=== PATIENT | male | born 1985 | race Caucasian/White ===

== ENCOUNTER 2020-12-08 10:55 | Emergency (ER) | payer OTHER, SELFPAY ==
--- NOTE | ~2020-12-08 | XR_ITS ---
EXAMINATION: XR CHEST CLINICAL INFORMATION: SOB and wheezing COMPARISON: None TECHNIQUE: Frontal view of the chest was obtained. FINDINGS: No significant abnormality is noted involving the heart, lungs, mediastinum, bony thorax or soft tissues. XR/XR chest 1V IMPRESSION: Unremarkable chest examination.
[2020-12-08 11:56] VITALS: BP 176/104; PULSE 104; RESP 23; TEMP 36.7; O2SAT 93; BMI 18.6
[2020-12-08] MEDS: Albuterol Sulfate (0.083%) 2.5 MG/3 ML VIAL.NEB 10 MG INHALE (12:29)
[2020-12-08 12:30] VITALS: PULSE 92
--- NOTE | 2020-12-08 12:30 | ED_ITS ---
HPI - Asthma General Chief Complaint: Asthma Stated Complaint: asthma Time Seen by Provider: 12/08/20 12:10 Source: patient and family Mode of arrival: ambulatory Limitations: no limitations History of Present Illness HPI Narrative: 35 y/o male with history of asthma, depression, anxiety who presents with acute onset of SOB and wheezing that started in the middle of the night last night. He recently ran out of his albuterol inhaler. He usually does not use it everyday, only once and while when he is sick or is exposed to an allergen. He was admitted for his asthma once several years ago, has never required intubation. He denies recent sick contacts. He was in his [facility] yesterday and went to bed feeling fine. He recently quit smoking cigarettes but still occasionally smokes marijuana which is known to make him SOB. He denies productive cough, fever, chilsl, N/V, chest pain. MD complaint: asthma attack , shortness of breath and wheezing Onset (ago): hour(s) (8) Severity: moderate Context: ran out of meds and smoke exposure Associated symptoms: dry cough Asthma History: childhood onset Related Data Current Asthma Therapy: inhaled bronchodilator (ran out of inhaler) Previous Rx's Medication Instructions Recorded albuterol sulfate 1 inh INHALATION QID PRN #6.7 g 12/08/20 azithromycin [Zithromax Z-Florin] See Rx Instructions PO .COMPLEX #6 12/08/20 tab prednisone 40 mg PO DAILY #10 tab 12/08/20 Allergies Allergy/AdvReac Type Severity Reaction Status Date / Time No Known Allergies Allergy Verified 12/08/20 11:58 Review of Systems Review of Systems: Constitutional: No Fever, No Chills ENT/Mouth: No sore throat, No Rhinorrhea, No Swallowing Difficulty Cardiovascular: No Chest Pain, + SOB, No Orthopnea, No Edema Respiratory: + Cough, No Sputum, + Wheezing, No dyspnea Gastrointestinal: No Nausea, No Vomiting, No Diarrhea, No abdominal Pain Musculoskeletal: No joint pain, No Myalgias Skin: No Skin Lesions, No rash Neuro: No Headache Psych: + Anxiety/Panic, + Depression PMF Past Medical History Attestation statement: The following information was validated with the patient. Medical History (Updated 12/08/20 @ 13:44 by NIDIA King) Anxiety Asthma Depression Social History Social History Advance Directives: No Advance Directives Information Provided: No Physical Exam Vital Signs: Vital Signs: Last Vital Signs Temp 98.1 F 12/08/20 11:56 Pulse 90 12/08/20 13:29 Resp 18 12/08/20 13:29 BP 176/104 H 12/08/20 11:56 Pulse Ox 100 12/08/20 13:29 Body Mass Index 18.6 Appearance: Alert. Oriented X3. No acute distress. Eyes: Pupils equal, round and reactive to light. ENT: Pharynx normal. Neck: Normal inspection. Neck supple. CVS: tachycardic, regular rhythm. Pulses normal. Respiratory: No respiratory distress. Expiratory wheezes throughout with prolonged expiratory phase. Spekks in complete sentences. No accessory muscle use. Abdomen: Soft and nontender. +BS x4 Skin: Skin warm and dry. Normal skin color. Normal skin turgor. No rashes. Extremities: No lower extremity edema. Neuro: Oriented X 3. Course Course Course Narrative: 35 y/o male with history of asthma presenting with SOB and wheezing that started last night. No signs or symptoms of bacterial or viral infection. Etiology likely due to running out of inhaler and smoking marijuana. Will give dose of PO steroids and hour long albuterol neb and reassess. CXR ordered Reevaluation(s) Reevaluation #1: CXR negative for pneumonia Significant improvement in breath sounds after nebulizer treatment. He is feeling better. He is stable for discharge home with refill of his albuterol and a 5 day course of steroids. Encouarged to f/u with his PCP and come back t the ER if his symptoms recurred or worsened. MDM - Asthma Differential Diagnosis Differential diagnosis: Likely Acute exacerbation, Status asthmaticus, Acute asthmatic bronchitis and Pneumonia Medical Records Attestation: I reviewed the patient's medical records. Critical Care Time Critical Care Time Critical Care Time: No Discharge Plan Discharge Clinical Impression: Asthma with acute exacerbation Qualifiers: Asthma severity: mild Asthma persistence: intermittent Qualified Code(s): J45.21 - Mild intermittent asthma with (acute) exacerbation Patient Disposition: Home, Self-Care Instructions: Asthma (ED), Bronchospasm (ED) Additional Instructions: Your x-ray today was negative. Take the prescribed steroid medication for your asthma - start taking it tomorrow, you were given your 1st dose in the ER today. Use your albuterol inhaler as needed for wheezing and shortness of breath. Follow up with your doctor this week. If you have worsening symptoms come back to the ER for further evaluation. Prescriptions: New prednisone 20 mg tablet 40 mg PO DAILY Qty: 10 RF: 0 albuterol sulfate 90 mcg/actuation HFA aerosol inhaler 1 inh inhalation QID PRN (Reason: shortness of breath or wheezing) Qty: 6.7 RF: 0 azithromycin [Zithromax Z-Florin] 250 mg tablet See Rx Instructions PO .COMPLEX Qty: 6 RF: 0 Discharge Date/Time: 12/08/20 13:48
[2020-12-08] MEDS: predniSONE 20 MG TABLET 60 MG PO (13:07)
[2020-12-08 13:29] VITALS: PULSE 90; RESP 18; O2SAT 100
== END 2020-12-08 13:48 | disposition home or self-care (01) ==
PROVIDERS: Emergency Provider Emergency Medicine
DX: J45.21 Mild intermittent asthma with (acute) exacerbation (principal); Z79.899 Other long term (current) drug therapy
CPT/HCPCS: 71045; 94640; 94644; 99283

== ENCOUNTER 2021-02-14 01:58 | Emergency (ER) | payer OTHER, SELFPAY ==
--- NOTE | ~2021-02-14 | XR_ITS ---
EXAMINATION: XR CHEST CLINICAL INFORMATION: Shortness of breath COMPARISON: 12/08/2020 TECHNIQUE: Frontal view of the chest was obtained. FINDINGS: Lung volumes are symmetric. No focal consolidation is seen. No evidence of pneumothorax, pleural effusion, or pulmonary edema. The cardiomediastinal contour is unremarkable. No acute osseous findings are seen. XR/XR chest 1V IMPRESSION: No acute cardiopulmonary findings.
[2021-02-14 02:05] VITALS: BMI 19.9
--- NOTE | 2021-02-14 02:07 | ECG_ITS ---
Test Reason : DYSPNEA Blood Pressure : / mmHG Vent. Rate : 078 BPM Atrial Rate : 078 BPM P-R Int : 138 ms QRS Dur : 072 ms QT Int : 392 ms P-R-T Axes : 069 079 057 degrees QTc Int : 446 ms Sinus rhythm with Premature atrial complexes Otherwise normal ECG No previous ECGs available Referred By: Eileen Vásquez Electronically Signed By:Ayden Zaragoza
--- NOTE | 2021-02-14 02:10 | ED.ASTHMA ---
HPI - Asthma General Chief Complaint: Asthma Stated Complaint: SOB Time Seen by Provider: 02/14/21 02:07 Source: patient Mode of arrival: ambulatory History of Present Illness HPI Narrative: This is a 35-year-old male who has a history of asthma and ?underdeveloped lung? and states that he began developing acute shortness of breath approximately 1 hour ago. He denies any other medical history and states that he smokes weed but does not smoke cigarettes or drink alcohol. Patient denies any recent fever, chills, COVID-19 vaccination. Related Data Previous Rx's Medication Instructions Recorded albuterol sulfate 1 inh INHALATION QID PRN #6.7 g 12/08/20 azithromycin [Zithromax Z-Florin] See Rx Instructions PO .COMPLEX #6 12/08/20 tab prednisone 40 mg PO DAILY #10 tab 12/08/20 prednisone 40 mg PO DAILY 4 Days #8 tab 02/14/21 Allergies Allergy/AdvReac Type Severity Reaction Status Date / Time No Known Allergies Allergy Verified 12/08/20 11:58 Review of Systems Review of Systems: Pertinent positives and negatives as stated in HPI 10 point review of systems is otherwise negative. PMFSH Past Medical History Source: nursing notes reviewed Medical History Anxiety Asthma Depression Surgical History Hx of cholecystectomy Family History Family History Mother No problems noted. Father No problems noted. Social History Social History Alcohol intake: never Patient Tobacco Use Status: Former Tobacco user Tobacco use type: Cigarette Second Hand Smoke Exposure: No Use of substances other than those prescribed or required for medical reasons: Yes Substance Use Type: Marijuana Advance Directives: No Advance Directives Information Provided: No Physical Exam Vital Signs: Vital Signs: Last Vital Signs Temp 98.6 F 02/14/21 02:11 Pulse 95 02/14/21 05:46 Resp 17 02/14/21 05:46 BP 118/73 02/14/21 05:46 Pulse Ox 97 02/14/21 05:46 Body Mass Index 19.9 VITAL SIGNS: Reviewed. GENERAL: Well developed, well nourished, in no acute distress. HEAD: Normocephalic/atraumatic EYES: PERRLA, EOMI OROPHARYNX: no oral lesions noted, posterior pharynx clear NECK: Supple, no adenopathy LUNGS: Although patient is able to speak in full sentences, he has increased work of breathing, tachypnea, decreased air movement bilaterally with expiratory wheeze SpO2<88> then oxygenation improves to 98% on supplemental nasal cannula CARDIOVASCULAR: Regular rate and rhythm without noted murmurs ABDOMEN: Soft, non-tender, non-distended with bowel sounds. SKIN: Inspection of the skin reveals no rashes NEUROLOGIC: Alert and oriented x 4. Course Course Course Narrative: This is a 35-year-old male with history and clinical presentation most consistent with acute asthma exacerbation. Patient received steroids, 2 hour long albuterol treatments with significant and complete resolution of his wheeze, work of breathing and currently saturating well on room air. Review of all investigations negative for acute findings. Patient was discharged in stable condition with an albuterol inhaler and a short course of steroids. MDM - Asthma Lab Data Result diagrams: 02/14/21 02:18 02/14/21 02:18 Labs: Lab Results 02/14/21 02/14/21 02/14/21 Range/Units 02:18 02:18 02:18 WBC 13.5 H (4.8-10.8) X10*3/uL RBC 4.49 L (4.60-5.80) X10*6/uL Hgb 15.8 (14.0-18.0) g/dl Hct 45.3 (42-52) % MCV 100.9 H (80-98) fL MCH 35.2 H (27.0-33.0) pg MCHC 34.9 (31.0-36.0) g/dl RDW 13.8 (11.0-16.0) % Plt Count 270 (160-400) X10*3/uL MPV 9.8 (9.4-12.4) fL Immature Gran % (Auto) 0.4 (0.0-0.4) % Neut % (Auto) 52.4 (45-73) % Lymph % (Auto) 25.6 (20-40) % Benton % (Auto) 12.9 H (2-11) % Eos % (Auto) 8.0 H (0-4) % Baso % (Auto) 0.7 (0-2) % Lymph # (Auto) 3.4 (1.2-4.9) X10*3/uL Benton # (Auto) 1.7 H (0.1-1.2) X10*3/uL Eos # (Auto) 1.1 H (0.0-0.4) X10*3/uL Baso # (Auto) 0.1 (0.0-0.2) X10*3/uL Abs Immat Gran (auto) 0.05 H (0.00-0.03) X10*3/uL Absolute Neuts (auto) 7.1 (2.0-8.3) X10*3/uL Absolute Nucleated RBC 0.000 (0.0-0.012) X10*3/uL Nucleated RBC % (auto) 0.0 (0.0-0.2) /100WBC Smear Tech's Comments VERIFIED Sodium 143 (135-145) mmol/L Potassium 4.3 (3.3-5.1) mmol/L Chloride 105 (96-108) mmol/L Carbon Dioxide 26 (22-29) mmol/L Anion Gap 14 (12-20) BUN 16 (9-16) mg/dL Creatinine 0.85 (0.5-1.4) mg/dL Estim Creat Clear Calc 104.0 Estimated GFR > 60 Random Glucose 134 H (60-115) mg/dL Calcium 9.8 (8.4-10.2) mg/dL Magnesium 1.8 (1.6-2.6) mg/dL Total Bilirubin 0.3 (0.0-1.0) mg/dL AST 20 (5-37) U/L ALT 27 (0-40) U/L Alkaline Phosphatase 117 (39-117) U/L Total Protein 7.9 (6.5-8.0) g/dL Albumin 4.8 (3.5-5.0) g/dL Specimen Comment DELAY ECG Data Attestation: I personally reviewed and interpreted this ECG as follows: Prior ECG tracings: not available for review Interpretation: Sinus rhythm with PACs, HR-78, no evidence of acute ischemia, ND/QRS/QTC are within normal limits. Discharge Plan Discharge Clinical Impression: Asthma exacerbation Patient Disposition: Home, Self-Care Instructions: Asthma (ED) Additional Instructions: Please follow-up with your primary care provider in the next 1-2 days for re-evaluation. Return to the ER for any acute worsening of symptoms. Prescriptions: New prednisone 20 mg tablet 40 mg PO DAILY 4 Days Qty: 8 RF: 0 No Action prednisone 20 mg tablet 40 mg PO DAILY Qty: 10 RF: 0 albuterol sulfate 90 mcg/actuation HFA aerosol inhaler 1 inh inhalation QID PRN (Reason: shortness of breath or wheezing) Qty: 6.7 RF: 0 azithromycin [Zithromax Z-Florin] 250 mg tablet See Rx Instructions PO .COMPLEX Qty: 6 RF: 0 Referrals: Physician,Unknown [Primary Care Provider] - 2 days
[2021-02-14 02:11] VITALS: BP 185/116; PULSE 107; RESP 22; TEMP 37; O2SAT 98
[2021-02-14] MEDS: Albuterol Sulfate (0.083%) 2.5 MG/3 ML VIAL.NEB 10 MG INHALE (02:20)
[2021-02-14] MEDS: methylPREDNISolone Sod Succ 125 MG/2 ML VIAL IVPUSH (02:21)
[2021-02-14 02:25] VITALS: PULSE 84; O2SAT 98
[2021-02-14 02:31] LABS: Basophils Absolute Auto 0.1 X10*3/uL (0.0-0.2); Basophils Percent Auto 0.7 % (0-2); Eosinophils Absolute Auto 1.1 X10*3/uL (0.0-0.4); Hematocrit 45.3 % (42-52); Hemoglobin 15.8 g/dl (14.0-18.0); Imm Gran Abs Auto 0.05 X10*3/uL (0.00-0.03); Imm Gran Pct Auto 0.4 % (0.0-0.4); Lymphocytes Absolute Auto 3.4 X10*3/uL (1.2-4.9); Lymphocytes Percent Auto 25.6 % (20-40); MANUAL DIFF FLAG SCAN; Mean Corpuscular HGB Conc 34.9 g/dl (31.0-36.0); Mean Corpuscular Hemoglobin 35.2 pg (27.0-33.0); Mean Corpuscular Volume 100.9 fL (80-98); Mean Platelet Volume 9.8 fL (9.4-12.4); Monocytes Absolute Auto 1.7 X10*3/uL (0.1-1.2); Monocytes Percent Auto 12.9 % (2-11); Neutrophils Absolute Auto 7.1 X10*3/uL (2.0-8.3); Neutrophils Percent Auto 52.4 % (45-73); Platelet Count 270 X10*3/uL (160-400); Red Blood Count 4.49 X10*6/uL (4.60-5.80); Red Cell Distribution Width 13.8 % (11.0-16.0); SCAN SMEAR FLAG 1; White Blood Count 13.5 X10*3/uL (4.8-10.8)
[2021-02-14 02:37] LABS: SLIDE REVIEW VERIFIED
[2021-02-14 03:16] LABS: Alanine Aminotransferase 27 U/L (0-40); Albumin Level 4.8 g/dL (3.5-5.0); Alkaline Phosphatase 117 U/L (39-117); Aspartate Amino Transferase 20 U/L (5-37); Bilirubin Total 0.3 mg/dL (0.0-1.0); Blood Urea Nitrogen 16 mg/dL (9-16); Calcium 9.8 mg/dL (8.4-10.2); Carbon Dioxide 26 mmol/L (22-29); Estimated Glomerular Filt Rate > 60; Glucose Random 134 mg/dL (60-115); Magnesium 1.8 mg/dL (1.6-2.6); Total Protein 7.9 g/dL (6.5-8.0)
[2021-02-14 03:17] LABS: Delay - Chemistry DELAY
[2021-02-14 03:57] VITALS: PULSE 97; O2SAT 100
[2021-02-14] MEDS: Albuterol Sulfate (0.083%) 2.5 MG/3 ML VIAL.NEB 5 MG INHALE (03:57)
[2021-02-14 04:12] LABS: Anion Gap 14 (12-20); Chloride 105 mmol/L (96-108); Potassium 4.3 mmol/L (3.3-5.1); Sodium 143 mmol/L (135-145)
[2021-02-14 05:46] VITALS: BP 118/73; PULSE 95; RESP 17; O2SAT 97
== END 2021-02-14 06:14 | disposition home or self-care (01) ==
PROVIDERS: Emergency Provider Student in an Organized Health Care Education/Training Program
DX: J45.901 Unspecified asthma with (acute) exacerbation (principal); R06.82 Tachypnea, not elsewhere classified; F12.90 Cannabis use, unspecified, uncomplicated; Z87.891 Personal history of nicotine dependence
CPT/HCPCS: 36415; 71045; 80053; 83735; 85025; 93005; 94640; 94644; 96374; 99284; 99285; J2930

== ENCOUNTER 2021-02-16 10:34 | Outpatient (REF) | payer OTHER, SELFPAY ==
[2021-02-16 12:12] LABS: Basophils Absolute Auto 0.1 X10*3/uL (0.0-0.2); Basophils Percent Auto 0.4 % (0-2); Eosinophils Absolute Auto 0.3 X10*3/uL (0.0-0.4); Eosinophils Percent Auto 2.4 % (0-4); Hematocrit 41.2 % (42-52); Imm Gran Abs Auto 0.09 X10*3/uL (0.00-0.03); Imm Gran Pct Auto 0.7 % (0.0-0.4); Lymphocytes Absolute Auto 3.5 X10*3/uL (1.2-4.9); Lymphocytes Percent Auto 25.8 % (20-40); MANUAL DIFF FLAG SCAN; Mean Corpuscular Hemoglobin 34.1 pg (27.0-33.0); Mean Corpuscular Volume 100.5 fL (80-98); Mean Platelet Volume 10.5 fL (9.4-12.4); Monocytes Absolute Auto 1.6 X10*3/uL (0.1-1.2); Monocytes Percent Auto 11.7 % (2-11); Neutrophils Absolute Auto 7.9 X10*3/uL (2.0-8.3); Platelet Count 252 X10*3/uL (160-400); Red Cell Distribution Width 13.9 % (11.0-16.0); SCAN SMEAR FLAG 1; White Blood Count 13.4 X10*3/uL (4.8-10.8)
[2021-02-16 12:48] LABS: Thyroid Stimulating Hormone 0.58 uIU/mL (0.32-4.0)
[2021-02-16 13:26] LABS: SLIDE REVIEW VERIFIED
[2021-02-16 13:27] LABS: Alanine Aminotransferase 28 U/L (0-40); Albumin Level 4.5 g/dL (3.5-5.0); Alkaline Phosphatase 101 U/L (39-117); Anion Gap 11 (12-20); Aspartate Amino Transferase 21 U/L (5-37); Bilirubin Total 0.7 mg/dL (0.0-1.0); Blood Urea Nitrogen 23 mg/dL (9-16); Calcium 9.6 mg/dL (8.4-10.2); Carbon Dioxide 30 mmol/L (22-29); Chloride 102 mmol/L (96-108); Cholesterol 276 mg/dL; Estimated Glomerular Filt Rate > 60; Glucose Fasting 84 mg/dL (60-99); HDL Cholesterol 70 mg/dL; LDL Cholesterol Calculated 189 mg/dl; Potassium 4.1 mmol/L (3.3-5.1); Sodium 139 mmol/L (135-145); Total Protein 7.2 g/dL (6.5-8.0); Triglycerides 87 mg/dL
== END 2021-02-16 10:35 | disposition home or self-care (01) ==
LOC: HO.LAB 10:34
PROVIDERS: PCP Internal Medicine; Visit Provider Internal Medicine
DX: Z00.00 Encounter for general adult medical examination without abnormal findings (principal); E11.9 Type 2 diabetes mellitus without complications; E03.9 Hypothyroidism, unspecified
CPT/HCPCS: 36415; 80053; 80061; 84443; 85025

== ENCOUNTER 2021-03-04 01:54 | Emergency (ER) | payer OTHER, SELFPAY ==
[2021-03-04 02:01] VITALS: BP 167/95; PULSE 123; RESP 24; TEMP 36.1; O2SAT 88; BMI 21.5
[2021-03-04 02:06] VITALS: PULSE 123; RESP 22; O2SAT 94
--- NOTE | 2021-03-04 02:11 | PC.NURSE ---
Spoke with Dr Marquez about getting neb treatment for patient.
[2021-03-04] MEDS: methylPREDNISolone Sod Succ 125 MG/2 ML VIAL IVPUSH (02:18)
[2021-03-04 02:22] VITALS: PULSE 105; O2SAT 95
[2021-03-04] MEDS: Albuterol Sulfate (0.083%) 2.5 MG/3 ML VIAL.NEB 5 MG INHALE (02:22)
--- NOTE | 2021-03-04 03:12 | ED.ASTHMA ---
HPI - Asthma General Chief Complaint: Asthma Stated Complaint: trouble breathing Time Seen by Provider: 03/04/21 02:09 Source: patient Mode of arrival: ambulatory Limitations: no limitations History of Present Illness HPI Narrative: 35-year-old male who presents emergency department for evaluation of shortness of breath. Patient states that he woke up at 0020 hours short of breath . He states that he has a history of asthma and has been having difficulty breathing for the last 1-2 days. He states that he has had a cough which is productive of thick, green sputum, he has not noticed any blood in the sputum. He complains of tightness in his chest, he points to his anterior chest. The tightness is worse with breathing with coughing. He complains of shortness of breath and dyspnea on exertion. The patient denied fever, chills, myalgias arthralgias. He states that he does have a history of asthma but does not have any inhalers to use. Related Data Home Medications Medication Instructions Recorded Confirmed fluoxetine 20 mg capsule 40 mg PO QAM 02/17/21 02/17/21 mirtazapine 30 mg tablet 30 mg PO BEDTIME 02/17/21 02/17/21 Previous Rx's Medication Instructions Recorded prednisone 40 mg PO DAILY 4 Days #8 tab 02/14/21 albuterol sulfate 90 mcg/actuation 1 inh INHALATION QID PRN #6.7 g 02/17/21 aerosol inhaler albuterol sulfate 2 puff INHALATION Q4-6H PRN #8.5 g 03/04/21 prednisone 60 mg PO DAILY 5 Days #15 tab 03/04/21 Allergies Allergy/AdvReac Type Severity Reaction Status Date / Time No Known Allergies Allergy Verified 02/17/21 08:49 Review of Systems Review of Systems: Yes all other systems are reviewed and are negative [facility] Past Medical History [facility] Narrative: Social history: The patient states that he is a former smoker and stop smoking 3 months prior. He smoked for 22 years. Denies alcohol use, he denies drug use. Medical History Anxiety Asthma Asthma Depression Surgical History Hx of cholecystectomy Family History Family History Mother No problems noted. Father No problems noted. Social History Social History Housing: House Housing Other:: Shared living home Alcohol intake: former Patient Tobacco Use Status: Former Tobacco user Tobacco use type: Cigarette Smoked in Last 30 Days: No Second Hand Smoke Exposure: No Use of substances other than those prescribed or required for medical reasons: No Substance Use Type: Marijuana Advance Directives: No Advance Directives Information Provided: No service: No Current occupational status: disabled Current occupational exposures/hazards: No Physical Exam Vital Signs: Vital Signs: Last Vital Signs Temp 97.0 F 03/04/21 02:01 Pulse 105 H 03/04/21 02:22 Resp 22 H 03/04/21 02:06 BP 167/95 H 03/04/21 02:01 Pulse Ox 94 03/04/21 02:06 Body Mass Index 21.5 Const: General: cooperative and healthy appearing Orientation/consciousness: oriented to person and oriented to place Limitations: no limitations HENMT: Head: Yes normal to inspection, Yes normocephalic and Yes atraumatic Ears: external ears normal General nose exam: Normal external nose present Face and sinus: Yes normal facial exam Mouth: Normal oral and palatal mucosa present Throat: Yes posterior oropharynx normal Eyes: Periorbital: periorbital findings normal Eyelids: Yes eyelids normal Conjunctivae: conjunctivae normal Sclerae: sclerae normal Corneas: corneas normal Pupils: Equal, round and reactive pupils present Direct Ophthalmoscopy: normal light reflex Neck: Neck: Yes full ROM, Yes no lymphadenopathy, Yes no meningeal signs, Yes trachea midline and Yes supple Chest: Chest palpation & inspection: normal inspection of the chest and normal palpation of entire chest wall Resp: Effort & Inspection: normal respiratory effort and able to speak in complete sentences Auscultation: wheezes expiratory wheezes, inspiratory wheezes and throughout Cardio: Rate: regular rate Rhythm: regular rhythm Heart sounds: S1 normal heart sound present, S2 normal heart sound present and no murmurs GI: Inspection: Yes normal to inspection Palpation (GI): Soft to palpation, nontender, no guarding, not rigid and No hepatosplenomegaly present : General: Yes no CVA tenderness Back/Spine/Pelvis: Back: no CVA tenderness Cervical Spine: normal cervical lordosis Thoracic/Lumbar Spine: thoracic and lumbar spine normal to inspection Skin: Lesions: no lesions Rashes: no rashes Wounds: no wounds Neuro: General: oriented to person, oriented to place and no meningeal signs Cranial nerves: Yes CN's II-XII intact bilaterally and Yes Equal, round and reactive pupils present Cognition (Neuro): normal cognition Motor exam (neuro): 5/5 motor strength present throughout Extrem: General: Yes normal to inspection and Yes full ROM Psych: Appearance: well kempt Mental Status: mental status grossly normal Speech and movement: Normal speech and movement present Affect: normal affect Attitude: cooperative Thought process: Normal thought process present Thought content: Normal thought content present Course Course Course Narrative: 35-year-old male who presents emergency department for evaluation of shortness of breath times 1-2 days, chest pain and productive cough. Patient woke up this morning increased short of breath came to emergency department for evaluation. Vital signs revealed hypertension, to can not and tachycardia . He was also hypoxic with an O2 saturation of 88% on room air. Physical examination revealed diffuse inspiratory expiratory wheezing. Patient's presentation is consistent with an asthma exacerbation. He was treated with an albuterol nebulizer 5 mg and Solu-Medrol 125 mg IV. Patient significantly improved after his treatment. He only had some slight wheezing and he was treated with an albuterol inhaler 2 puffs. Patient was discharged with a prescription for albuterol inhaler 2 puffs every 4-6 hours as needed for shortness of breath and prednisone 60 mg once a day for 5 days. The patient was given verbal and printed instructions prior to discharge. The patient was advised to follow-up with their PCP in 2 days and to return to the emergency department if their symptoms get worse or if they develop any new symptoms that are concerning to them Discharge Plan Discharge Clinical Impression: Asthma with acute exacerbation Patient Disposition: Home, Self-Care Instructions: Asthma (ED) Additional Instructions: Your presentation is consistent with an asthma exacerbation. Use the albuterol inhaler 2 puffs every 4-6 hours as needed for shortness of breath. Take prednisone 20 mg pills, 3 pills once a day for 5 days. Insert follow-up return Prescriptions: New albuterol sulfate 90 mcg/actuation HFA aerosol inhaler 2 puff inhalation Q4-6H PRN (Reason: shortness of breath or wheezing) Qty: 8.5 RF: 0 prednisone 20 mg tablet 60 mg PO DAILY 5 Days Qty: 15 RF: 0 No Action prednisone 20 mg tablet 40 mg PO DAILY 4 Days Qty: 8 RF: 0 fluoxetine 20 mg capsule 40 mg PO QAM RF: 0 mirtazapine 30 mg tablet 30 mg PO BEDTIME RF: 0 albuterol sulfate 90 mcg/actuation HFA aerosol inhaler 1 inh inhalation QID PRN (Reason: shortness of breath or wheezing) Qty: 6.7 RF: 8
[2021-03-04] MEDS: Albuterol Sulfate 90 MCG 8 GM INHALER 2 PUFF INHALE (03:27)
== END 2021-03-04 03:00 | disposition home or self-care (01) ==
PROVIDERS: Emergency Provider Emergency Medicine Emergency Medical Services
DX: J45.901 Unspecified asthma with (acute) exacerbation (principal)
CPT/HCPCS: 94640; 96374; 99284; J2930

== ENCOUNTER 2021-03-12 13:30 | Outpatient (REF) | payer OTHER, SELFPAY ==
--- NOTE | ~2021-03-12 | XR_ITS ---
EXAMINATION: XR CHEST CLINICAL INFORMATION: Unspecified asthma COMPARISON: 09/16/2020 TECHNIQUE: 2 views of the chest were obtained. FINDINGS: Lungs are clear. No focal consolidation or mass. Normal pulmonary vascularity. No pleural effusion or pneumothorax. Normal heart size. No acute osseous abnormality. XR/XR chest 2V IMPRESSION: No acute pulmonary disease. No significant change from prior study.
[2021-03-12 14:24] LABS: MANUAL DIFF FLAG NO
[2021-03-12 14:31] LABS: Basophils Percent Auto 0.4 % (0-2); Eosinophils Absolute Auto 0.5 X10*3/uL (0.0-0.4); Eosinophils Percent Auto 4.1 % (0-4); Hematocrit 40.8 % (42-52); Hemoglobin 14.1 g/dl (14.0-18.0); Imm Gran Abs Auto 0.07 X10*3/uL (0.00-0.03); Imm Gran Pct Auto 0.6 % (0.0-0.4); Lymphocytes Absolute Auto 2.2 X10*3/uL (1.2-4.9); Lymphocytes Percent Auto 20.1 % (20-40); Mean Corpuscular HGB Conc 34.6 g/dl (31.0-36.0); Mean Corpuscular Hemoglobin 34.4 pg (27.0-33.0); Mean Corpuscular Volume 99.5 fL (80-98); Mean Platelet Volume 9.7 fL (9.4-12.4); Monocytes Absolute Auto 1.5 X10*3/uL (0.1-1.2); Monocytes Percent Auto 13.6 % (2-11); Neutrophils Absolute Auto 6.7 X10*3/uL (2.0-8.3); Neutrophils Percent Auto 61.2 % (45-73); Platelet Count 295 X10*3/uL (160-400); Red Cell Distribution Width 13.8 % (11.0-16.0)
[2021-03-12 15:16] LABS: Erythrocyte Sedimentation Rate 14 MM/HR (0-15)
== END 2021-03-12 13:31 | disposition home or self-care (01) ==
LOC: HO.LAB 13:30
PROVIDERS: PCP Internal Medicine; Visit Provider Hospitalist
DX: J45.40 Moderate persistent asthma, uncomplicated (principal); R05 Cough; Z79.51 Long term (current) use of inhaled steroids; Z87.891 Personal history of nicotine dependence
CPT/HCPCS: 36415; 71046; 82785; 85025; 85652; 86003; 99202

== ENCOUNTER 2021-03-15 06:32 | Emergency (ER) | payer OTHER, SELFPAY ==
--- NOTE | ~2021-03-15 | XR_ITS ---
EXAMINATION: XR CHEST CLINICAL INFORMATION: Dyspnea COMPARISON: Chest x-ray March 12, 2021 TECHNIQUE: Frontal view of the chest was obtained. FINDINGS: Cardiac silhouette is normal in size. The lungs are well aerated. There is no lobar consolidation. No pleural effusion or pneumothorax. No gross osseous abnormality. XR/XR chest 1V IMPRESSION: Stable examination demonstrating no acute pulmonary pathology.
[2021-03-15 06:37] VITALS: BP 133/88; PULSE 97; RESP 20; TEMP 36.6; O2SAT 100; BMI 21.1
--- NOTE | 2021-03-15 06:39 | ED_ITS ---
HPI - Asthma General Chief Complaint: Asthma Stated Complaint: ? 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 89% on RA MD complaint: asthma attack , shortness of breath and wheezing Onset (ago): hour(s) (5) Severity: moderate Context: none known Associated symptoms: dry cough Asthma History: childhood onset Treatments Prior to Arrival: inhaled bronchodilator Related Data Home Medications Medication Instructions Recorded Confirmed fluoxetine 20 mg capsule 40 mg PO QAM 02/17/21 02/17/21 gabapentin 100 mg capsule mg PO 03/12/21 nicotine 14 mg/24 hr daily 1 patch TOPICAL DAILY 03/12/21 transdermal patch trazodone 100 mg tablet 100 mg PO BEDTIME 03/12/21 Previous Rx's Medication Instructions Recorded prednisone 60 mg PO DAILY 5 Days #15 tab 03/04/21 albuterol sulfate 2 puff INHALATION QID PRN #6.7 g 03/15/21 prednisone 60 mg PO DAILY 5 Days #15 tab 03/15/21 Allergies Allergy/AdvReac Type Severity Reaction Status Date / Time No Known Allergies Allergy Verified 03/15/21 06:42 Review of Systems Review of Systems: Constitutional : No Fever, No Chills ENT/Mouth : No Hoarseness, No sore throat, No Rhinorrhea Eyes: No Redness, No Discharge, No Vision Changes Cardiovascular : No Chest Pain, positive SOB, positive Dyspnea on Exertion, No Edema Respiratory : positive Cough, No Sputum, positive Wheezing, Gastrointestinal : No Nausea, No Vomiting, No Diarrhea, No abdominal Pain Genitourinary : No Dysuria, No Hematuria Musculoskeletal : No joint pain, No Myalgias Skin : No rash Neuro : No Weakness, No Numbness, No Headache Psych : No anxiety, depression Heme/Lymph: No Bruising, No Bleeding Endocrine : No Polyuria, No Polydipsia All other systems reviewed and are negative [facility] Past Medical History Attestation statement: The following information was validated with the patient. Medical History Anxiety Asthma Asthma Depression Surgical History Hx of cholecystectomy Family History Family History Mother No problems noted. Father No problems noted. Social History Social History Housing: House Housing Other:: Shared living home Alcohol intake: former Patient Tobacco Use Status: Former Tobacco user Tobacco use type: Cigarette Second Hand Smoke Exposure: No Use of substances other than those prescribed or required for medical reasons: Yes Substance Use Type: Marijuana Substance Use Frequency: Occasionally Last Used Substance: Days (ago) Advance Directives: No Advance Directives Information Provided: No service: No Current occupational status: disabled Current occupational exposures/hazards: No Physical Exam Vital Signs: Vital Signs: Last Vital Signs Temp 98.2 F 03/15/21 08:14 Pulse 95 03/15/21 08:14 Resp 20 03/15/21 08:14 BP 132/80 03/15/21 08:14 Pulse Ox 97 03/15/21 07:11 Oxygen Flow Rate 2 03/15/21 07:11 Body Mass Index 21.1 Appearance: Alert. Oriented X3. No acute distress. Eyes: Pupils equal, round and reactive to light. ENT: Pharynx normal. Neck: Normal inspection. Neck supple. CVS: tachycardic heart rate and rhythm. Pulses normal. Respiratory: No respiratory distress. Breath sounds very faint end exp wheezs Abdomen: Soft and nontender. Skin: Skin warm and dry. Normal skin color. Normal skin turgor. Extremities: No lower extremity edema. No calf ttp Neuro: Oriented X 3. No motor deficit. No sensory deficit. Course Course Course Narrative: repeat neb ordered 2.5 mg overall sounds improved and states he feels a lot better chronically elevated WBC count, no hypoxia feels much better clear lungs 95% on RA MDM - Asthma MDM Narrative Medical decision making narrative: 35 yo male with asthma here with attack, doing well on neb treatment with EMS - at this time he is doing well with the neb, will need IV steroids, magnesium, CXR and COVID swab, this is a typical attack for him doubt PE/ACS. Lab Data Result diagrams: 03/15/21 07:46 03/15/21 07:46 Labs: Lab Results 03/15/21 03/15/21 Range/Units 07:46 07:46 WBC 17.3 H (4.8-10.8) X10*3/uL RBC 4.24 L (4.60-5.80) X10*6/uL Hgb 14.8 (14.0-18.0) g/dl Hct 42.5 (42-52) % MCV 100.2 H (80-98) fL MCH 34.9 H (27.0-33.0) pg MCHC 34.8 (31.0-36.0) g/dl RDW 13.5 (11.0-16.0) % Plt Count 257 (160-400) X10*3/uL MPV 9.4 (9.4-12.4) fL Immature Gran % (Auto) 0.6 H (0.0-0.4) % Neut % (Auto) 74.2 H (45-73) % Lymph % (Auto) 11.6 L (20-40) % Wheeler % (Auto) 10.3 (2-11) % Eos % (Auto) 3.0 (0-4) % Baso % (Auto) 0.3 (0-2) % Lymph # (Auto) 2.0 (1.2-4.9) X10*3/uL Wheeler # (Auto) 1.8 H (0.1-1.2) X10*3/uL Eos # (Auto) 0.5 H (0.0-0.4) X10*3/uL Baso # (Auto) 0.1 (0.0-0.2) X10*3/uL Abs Immat Gran (auto) 0.10 H (0.00-0.03) X10*3/uL Absolute Neuts (auto) 12.9 H (2.0-8.3) X10*3/uL Absolute Nucleated RBC 0.020 H (0.0-0.012) X10*3/uL Nucleated RBC % (auto) 0.1 (0.0-0.2) /100WBC Smear Tech's Comments VERIFIED Sodium 138 (135-145) mmol/L Potassium 4.3 (3.3-5.1) mmol/L Chloride 102 (96-108) mmol/L Carbon Dioxide 23 (22-29) mmol/L Anion Gap 17 (12-20) BUN 13 (9-16) mg/dL Creatinine 1.14 (0.5-1.4) mg/dL Estim Creat Clear Calc 82.1 Estimated GFR > 60 Random Glucose 134 H (60-115) mg/dL Calcium 9.8 (8.4-10.2) mg/dL Discharge Plan Discharge Clinical Impression: Asthma with acute exacerbation Patient Disposition: Home, Self-Care Instructions: Asthma (ED) Additional Instructions: return to ED for any worsening symptoms or concerns Prescriptions: New albuterol sulfate 90 mcg/actuation HFA aerosol inhaler 2 puff inhalation QID PRN (Reason: shortness of breath or wheezing) Qty: 6.7 RF: 1 prednisone 20 mg tablet 60 mg PO DAILY 5 Days Qty: 15 RF: 0 No Action prednisone 20 mg tablet 60 mg PO DAILY 5 Days Qty: 15 RF: 0 fluoxetine 20 mg capsule 40 mg PO QAM RF: 0 gabapentin 100 mg capsule PO RF: 0 trazodone 100 mg tablet 100 mg PO BEDTIME RF: 0 nicotine 14 mg/24 hr patch 24 hour 1 patch topical DAILY RF: 0 Referrals: Physician,Unknown [Primary Care Provider] - 2 days
[2021-03-15 07:11] VITALS: BP 132/80; PULSE 98; RESP 20; TEMP 36.8; O2SAT 97; BMI 21.1
[2021-03-15 07:50] LABS: Basophils Absolute Auto 0.1 X10*3/uL (0.0-0.2); Basophils Percent Auto 0.3 % (0-2); Eosinophils Absolute Auto 0.5 X10*3/uL (0.0-0.4); Hematocrit 42.5 % (42-52); Hemoglobin 14.8 g/dl (14.0-18.0); Imm Gran Pct Auto 0.6 % (0.0-0.4); Lymphocytes Percent Auto 11.6 % (20-40); MANUAL DIFF FLAG SCAN; Mean Corpuscular HGB Conc 34.8 g/dl (31.0-36.0); Mean Corpuscular Hemoglobin 34.9 pg (27.0-33.0); Mean Corpuscular Volume 100.2 fL (80-98); Mean Platelet Volume 9.4 fL (9.4-12.4); Monocytes Absolute Auto 1.8 X10*3/uL (0.1-1.2); Monocytes Percent Auto 10.3 % (2-11); NRBC Pct Auto 0.1 /100WBC (0.0-0.2); Neutrophils Absolute Auto 12.9 X10*3/uL (2.0-8.3); Neutrophils Percent Auto 74.2 % (45-73); Platelet Count 257 X10*3/uL (160-400); Red Blood Count 4.24 X10*6/uL (4.60-5.80); Red Cell Distribution Width 13.5 % (11.0-16.0); SCAN SMEAR FLAG 1; White Blood Count 17.3 X10*3/uL (4.8-10.8)
[2021-03-15] MEDS: methylPREDNISolone Sod Succ 125 MG/2 ML VIAL IVPUSH (07:51)
[2021-03-15] MEDS: Magnesium Sulfate/H2O 2 GM/50 ML PIGGYBACK IV (07:51)
[2021-03-15 07:55] VITALS: PULSE 92; O2SAT 95
[2021-03-15] MEDS: Albuterol Sulfate (0.083%) 2.5 MG/3 ML VIAL.NEB INHALE (07:55)
--- NOTE | 2021-03-15 08:06 | PC.NURSE ---
Pt alert and oriented x3, vss, LS wheezes throughout. Pt has hx of asthma, at approximately 0150 he started having difficulty breathing but was unable to get to his asthma pump because he didn,t have his keys to get in his apartment. Pt has nonproductive cough, denies chest pain/palpitations. Pt arrived via ems with albuterol tx actively going. Respiratory therapist at bedside. Xray done, iv line established, labs drawn, meds given as documented. Pt in no apparent distress.
[2021-03-15 08:14] VITALS: BP 132/80; PULSE 95; RESP 20; TEMP 36.8
[2021-03-15 08:16] LABS: Anion Gap 17 (12-20); Blood Urea Nitrogen 13 mg/dL (9-16); Calcium 9.8 mg/dL (8.4-10.2); Carbon Dioxide 23 mmol/L (22-29); Chloride 102 mmol/L (96-108); Creatinine Clr Calc Pharmacy 82.1; Estimated Glomerular Filt Rate > 60; Glucose Random 134 mg/dL (60-115); Potassium 4.3 mmol/L (3.3-5.1); Sodium 138 mmol/L (135-145)
[2021-03-15 08:25] LABS: SLIDE REVIEW VERIFIED
[2021-03-15 08:53] LABS: COVID-19 Test Negative (Negative)
[2021-03-15] MEDS: Albuterol Sulfate 90 MCG 8 GM INHALER 2 PUFF INHALE (08:56)
== END 2021-03-15 09:08 | disposition home or self-care (01) ==
PROVIDERS: Emergency Provider Emergency Medicine
DX: J45.901 Unspecified asthma with (acute) exacerbation (principal); Z20.822 Contact with and (suspected) exposure to COVID-19
CPT/HCPCS: 36415; 71045; 80048; 85025; 87635; 96365; 96366; 96375; 99284; J2930; J3475

== ENCOUNTER 2021-03-15 11:34 | Emergency (ER) | payer OTHER, SELFPAY ==
[2021-03-15 11:56] VITALS: BP 124/70; PULSE 98; RESP 18; TEMP 37; O2SAT 95; BMI 21.1
--- NOTE | 2021-03-15 13:07 | ED_ITS ---
HPI - General Adult General Chief complaint: General Medical Stated complaint: NEEDS DRUG TESTING Time Seen by Provider: 03/15/21 11:38 History of Present Illness HPI narrative: patient was seen last night for an asthma attack treated and feels better who [facility] in a [facility] says penitentiary requires a drug test prior to return to the penitentiary, he has no complaint and he is breathing fine Related Data Home Medications Medication Instructions Recorded Confirmed fluoxetine 20 mg capsule 40 mg PO QAM 02/17/21 02/17/21 gabapentin 100 mg capsule mg PO 03/12/21 nicotine 14 mg/24 hr daily 1 patch TOPICAL DAILY 03/12/21 transdermal patch trazodone 100 mg tablet 100 mg PO BEDTIME 03/12/21 Previous Rx's Medication Instructions Recorded prednisone 60 mg PO DAILY 5 Days #15 tab 03/04/21 albuterol sulfate 2 puff INHALATION QID PRN #6.7 g 03/15/21 fluticasone furoate 200 1 inh INHALATION DAILY 30 Days #60 03/15/21 mcg-vilanterol 25 mcg/dose ea inhalation powder prednisone 60 mg PO DAILY 5 Days #15 tab 03/15/21 Advair Diskus 250 mcg-50 mcg/dose 1 inh INHALATION Q12H 30 Days #60 03/16/21 powder for inhalation ea NS Allergies Allergy/AdvReac Type Severity Reaction Status Date / Time No Known Allergies Allergy Verified 03/15/21 06:42 Review of Systems Review of Systems: Negatives are no fever no chills no dizziness no weakness no chest pain no sore throat no cough no sputum no shortness of breath, no abdominal pain no nausea no vomiting no diarrhea no dysuria Yes all other systems are reviewed and are negative PMF Past Medical History Medical History (Updated 03/31/21 @ 12:43 by Jovan Alexandra MD) Anxiety Asthma Asthma Cough Depression Surgical History Hx of cholecystectomy Family History Family History Mother No problems noted. Father No problems noted. Social History Social History Housing: House Housing Other:: Shared living home Alcohol intake: former Patient Tobacco Use Status: Former Tobacco user Tobacco use type: Cigarette Second Hand Smoke Exposure: No Substance Use Type: Marijuana service: No Current occupational status: disabled Current occupational exposures/hazards: No Physical Exam Vital Signs: Vital Signs: Last Vital Signs Temp 98.6 F 03/15/21 11:56 Pulse 98 03/15/21 11:56 Resp 18 03/15/21 11:56 BP 124/70 03/15/21 11:56 Pulse Ox 95 03/15/21 11:56 Body Mass Index 21.1 General appearance no acute distress Head is normocephalic atraumatic Neck is supple The pharynx is clear The chest is clear to auscultation bilateral Heart no murmur Abdomen soft nontender Extremities full range of motion x4 Course Course Course Narrative: Comfortable well-appearing patient is medically cleared and discharged Medical Decision Making Lab Data Labs: Lab Results 03/15/21 Range/Units 12:27 Urine Opiates Screen Not Detected (Not Detect) Ur Barbiturates Screen Not Detected (Not Detect) Ur Phencyclidine Scrn Not Detected (Not Detect) Ur Amphetamines Screen Not Detected (Not Detect) U Benzodiazepines Scrn Not Detected (Not Detect) Urine Cocaine Screen Not Detected (Not Detect) U Marijuana (THC) Screen POSITIVE H (Not Detect) Discharge Plan Discharge Clinical Impression: Encounter for drug screening, Normal exam Patient Disposition: Home, Self-Care Additional Instructions: physical exam was normal including normal breath sounds with no wheezing Drug screen was positive for marijuana Patient was well-appearing Prescriptions: No Action fluticasone propion-salmeterol [Advair Diskus] 250-50 mcg/dose blister with device 1 inh inhalation Q12H 30 Days Qty: 60 RF: 11 prednisone 20 mg tablet 60 mg PO DAILY 5 Days Qty: 15 RF: 0 albuterol sulfate 90 mcg/actuation HFA aerosol inhaler 2 puff inhalation QID PRN (Reason: shortness of breath or wheezing) Qty: 6.7 RF: 1 prednisone 20 mg tablet 60 mg PO DAILY 5 Days Qty: 15 RF: 0 fluoxetine 20 mg capsule 40 mg PO QAM RF: 0 gabapentin 100 mg capsule PO RF: 0 trazodone 100 mg tablet 100 mg PO BEDTIME RF: 0 nicotine 14 mg/24 hr patch 24 hour 1 patch topical DAILY RF: 0 Breo Ellipta 200-25 mcg/dose blister with device 1 inh inhalation DAILY 30 Days Qty: 60 RF: 11 Interventions: ED Discharge Assessment Last Done: 03/15/21 13:25 Discharge Date/Time: 03/15/21 13:26
[2021-03-15 13:08] LABS: Amphetamine Screen Urine Not Detected (Not Detect); Barbiturates, Urine Not Detected (Not Detect); Benzodiazepines Screen Urine Not Detected (Not Detect); Cannabinoid Screen Urine POSITIVE (Not Detect); Cocaine Screen Urine Not Detected (Not Detect); Opiate Screen Urine Not Detected (Not Detect); Phencyclidine Screen Urine Not Detected (Not Detect)
== END 2021-03-15 13:26 | disposition home or self-care (01) ==
PROVIDERS: Emergency Provider Emergency Medicine; PCP Internal Medicine
DX: Z02.2 Encounter for examination for admission to residential institution (principal); J45.909 Unspecified asthma, uncomplicated; Z79.899 Other long term (current) drug therapy
CPT/HCPCS: 80307; 99283

== ENCOUNTER 2021-03-26 10:53 | Outpatient (REF) | payer OTHER, SELFPAY ==
--- NOTE | 2021-03-26 | PFT_ITS ---
FLOWS: FEV1 of 65% predicted at 2.74 L. FVC 85% of predicted at 4.42 L. FEV1 to FVC ratio of 0.62. Positive bronchodilator response. LUNG VOLUMES: Total lung capacity 88% of predicted at 5.92 L. Residual volume 104% of predicted at 1.78 L. Slow vital capacity 82% of predicted at 4.15 L. Expiratory reserve volume 82% of predicted at 1.33 L. Diffusion capacity is mildly decreased, diffusion capacity corrects to normal after adjustment for alveolar ventilation. IMPRESSION: Moderate obstructive ventilatory defect with positive bronchodilator response. Jordan Lynne MD AP/MODL / [id number]
== END 2021-03-26 10:54 | disposition home or self-care (01) ==
LOC: HO.RESP 10:53
PROVIDERS: PCP Internal Medicine; Visit Provider Hospitalist
DX: J45.909 Unspecified asthma, uncomplicated (principal)
CPT/HCPCS: 94060; 94727; 94729

== ENCOUNTER → 2021-04-19 14:06 | Outpatient (BNVA) | payer OTHER, SELFPAY | PROVIDERS: PCP Internal Medicine; Visit Provider Hospitalist | DX: J44.9 Chronic obstructive pulmonary disease, unspecified (principal); J30.9 Allergic rhinitis, unspecified; F17.200 Nicotine dependence, unspecified, uncomplicated; L30.9 Dermatitis, unspecified | CPT/HCPCS: 99212 ==

== ENCOUNTER → 2021-08-18 10:16 | Outpatient (BNVA) | payer OTHER, SELFPAY | PROVIDERS: PCP Internal Medicine; Visit Provider Hospitalist | DX: J44.9 Chronic obstructive pulmonary disease, unspecified (principal); L30.9 Dermatitis, unspecified; J30.9 Allergic rhinitis, unspecified; F17.210 Nicotine dependence, cigarettes, uncomplicated; F12.90 Cannabis use, unspecified, uncomplicated | CPT/HCPCS: 99212 ==

== ENCOUNTER → 2022-02-10 09:46 | Outpatient (BNVA) | payer OTHER, SELFPAY | PROVIDERS: PCP Internal Medicine; Visit Provider Hospitalist | DX: J44.9 Chronic obstructive pulmonary disease, unspecified (principal); J30.9 Allergic rhinitis, unspecified; L30.9 Dermatitis, unspecified; Z87.891 Personal history of nicotine dependence | CPT/HCPCS: 99212 ==

== ENCOUNTER → 2022-04-25 13:38 | Outpatient (BNVA) | payer OTHER, SELFPAY | PROVIDERS: PCP Internal Medicine; Visit Provider Hospitalist | DX: J44.1 Chronic obstructive pulmonary disease with (acute) exacerbation (principal); L30.9 Dermatitis, unspecified; J30.9 Allergic rhinitis, unspecified; F17.210 Nicotine dependence, cigarettes, uncomplicated | CPT/HCPCS: 94640; 99212 ==

== ENCOUNTER 2022-07-29 09:26 | Outpatient (REF) | payer OTHER, SELFPAY ==
--- NOTE | 2022-07-29 11:50 | PFT_ITS ---
FLOWS: FEV1 45% of predicted at 1.91 L. FVC 73% of predicted at 3.80 L. FEV1 to FVC ratio of 0.50. Positive bronchodilator response. LUNG VOLUMES: Total lung capacity 107% of predicted at 7.24 L. Residual volume 214% of predicted at 3.68 L. Slow vital capacity 71% of predicted at 3.56 L. Expiratory reserve volume 43% of predicted at 0.70 L. Diffusion capacity is mildly decreased. IMPRESSION: Severe to very severe obstructive ventilatory defect with positive bronchodilator response. Increased residual volume suggests air trapping. Decreased diffusion capacity suggests emphysema. Jordan Lynne MD AP/MODL / [id number]
== END 2022-07-29 09:27 | disposition home or self-care (01) ==
LOC: HO.RESP 09:26
PROVIDERS: PCP Internal Medicine; Visit Provider Hospitalist
DX: J44.9 Chronic obstructive pulmonary disease, unspecified (principal); J45.909 Unspecified asthma, uncomplicated; F17.210 Nicotine dependence, cigarettes, uncomplicated; Z79.899 Other long term (current) drug therapy
CPT/HCPCS: 94060; 94727; 94729

== ENCOUNTER 2022-08-15 01:12 | Emergency (ER) | payer OTHER, SELFPAY ==
--- NOTE | ~2022-08-15 | XR_ITS ---
EXAMINATION: XR CHEST CLINICAL INFORMATION: Dyspnea COMPARISON: 03/15/2021 TECHNIQUE: Frontal view of the chest was obtained. FINDINGS: The lungs are clear with no focal consolidation. No evidence of pneumothorax, pulmonary edema, or pleural effusions. The cardiomediastinal silhouette is unremarkable. No acute osseous findings. XR/XR chest 1V IMPRESSION: No acute cardiopulmonary findings.
[2022-08-15 01:25] VITALS: BP 145/88; PULSE 82; RESP 14; O2SAT 96; BMI 24.9
[2022-08-15 01:28] VITALS: BP 145/88; PULSE 82; RESP 14; O2SAT 94
--- NOTE | 2022-08-15 01:30 | ECG_ITS ---
Test Reason : SOB Blood Pressure : / mmHG Vent. Rate : 080 BPM Atrial Rate : 080 BPM P-R Int : 150 ms QRS Dur : 076 ms QT Int : 388 ms P-R-T Axes : 068 073 032 degrees QTc Int : 447 ms Normal sinus rhythm with sinus arrhythmia Normal ECG When compared with ECG of 14-FEB-2021 02:53, Premature atrial complexes are no longer Present Referred By: Generic ED Physician Electronically Signed By:PRANEETH WASHINGTON MD
[2022-08-15 01:59] LABS: Basophils Absolute Auto 0.1 X10*3/uL (0.0-0.2); Basophils Percent Auto 0.5 % (0-2); Eosinophils Absolute Auto 0.6 X10*3/uL (0.0-0.4); Eosinophils Percent Auto 4.6 % (0-4); Hematocrit 41.6 % (42.0-52.0); Hemoglobin 14.8 g/dl (14.0-18.0); Imm Gran Abs Auto 0.04 X10*3/uL (0.00-0.03); Imm Gran Pct Auto 0.3 % (0.0-0.4); Lymphocytes Absolute Auto 2.5 X10*3/uL (1.2-4.9); Lymphocytes Percent Auto 17.8 % (20-40); Mean Corpuscular HGB Conc 35.6 g/dl (31.0-36.0); Mean Corpuscular Hemoglobin 34.3 pg (27.0-33.0); Mean Corpuscular Volume 96.5 fL (80.0-98.0); Mean Platelet Volume 9.8 fL (9.4-12.4); Monocytes Absolute Auto 1.7 X10*3/uL (0.1-1.2); Monocytes Percent Auto 12.3 % (2-11); Neutrophils Absolute Auto 8.9 x10*3/uL (2.0-8.3); Neutrophils Percent Auto 64.5 % (45-73); Platelet Count 254 X10*3/uL (160-400); Red Blood Count 4.31 X10*6/uL (4.60-5.80); Red Cell Distribution Width 12.9 % (11.0-16.0); SCAN SMEAR FLAG 1; White Blood Count 13.7 X10*3/uL (4.8-10.8)
[2022-08-15 02:07] LABS: MANUAL DIFF FLAG SCAN
[2022-08-15 02:08] LABS: SLIDE REVIEW VERIFIED
[2022-08-15 02:12] LABS: Anion Gap 13 (12-20); Blood Urea Nitrogen 13 mg/dL (9-16); Calcium 9.7 mg/dL (8.4-10.2); Carbon Dioxide 28 mmol/L (22-29); Chloride 103 mmol/L (96-108); Creatinine Clr Calc Pharmacy 109.9; Estimated Glomerular Filt Rate > 60; Glucose Random 111 mg/dL (60-115); Potassium 4.2 mmol/L (3.3-5.1); Sodium 140 mmol/L (135-145)
[2022-08-15 02:18] LABS: B Type Natriuretic Peptide 38 pg/mL (<100)
[2022-08-15 02:21] LABS: Troponin-I High Sensitivity 23.8 ng/L (<3.5-35.0)
--- NOTE | 2022-08-15 05:45 | ED_ITS ---
HPI - SOB/Dyspnea General Chief Complaint: Dyspnea Stated Complaint: SOB Time Seen by Provider: 08/15/22 05:37 Source: patient Mode of arrival: EMS Limitations: no limitations History of Present Illness HPI Narrative: 36-year-old male brought to emergency department by ambulance for evaluation of shortness of breath. The patient states he has history of asthma. He he states that yesterday his asthma flared up and he was feeling short of breath. He states that he was using his albuterol inhaler and then ran out. He states that prior to coming to the emergency department he got more short of breath and was unable to breathe therefore he called an ambulance. He was given a DuoNeb EN route and he states that this significantly improved his shortness of breath. He denied fever, chills, rhinorrhea, sore throat, cough, chest pain. Denied nausea, vomiting, diarrhea, myalgias arthralgias. MD elicited complaint: shortness of breath Pertinent past history: COPD and asthma Onset (ago): day(s) (1) Context: other (Ran out of albuterol) Timing: constant Severity: severe Exacerbating factors: nothing Relieving factors: nothing Known history of: COPD and asthma Associated symptoms: denies other symptoms Treatment prior to arrival: bronchodilator (DuoNeb) Related Data Home Medications Medication Instructions Recorded Confirmed fluoxetine 20 mg capsule 40 mg PO QAM 02/17/21 06/01/22 trazodone 100 mg tablet 100 mg PO BEDTIME 03/12/21 06/01/22 gabapentin 400 mg capsule 400 mg PO TID 04/19/21 06/01/22 Previous Rx's Medication Instructions Recorded fluticasone furoate 200 1 inh inhalation DAILY 30 days #60 03/15/21 mcg-vilanterol 25 mcg/dose ea inhalation powder (Breo Ellipta) albuterol sulfate 90 mcg/actuation 2 puff inhalation QID PRN 06/08/21 aerosol inhaler shortness of breath or wheezing #6.7 grams Advair Diskus 250 mcg-50 mcg/dose 1 inh inhalation Q12H #60 ea 03/21/22 powder for inhalation (fluticasone propion-salmeterol) nicotine 7 mg/24 hr daily 1 patch transdermal Q24H 30 days 03/23/22 transdermal patch #30 ea montelukast 10 mg tablet 10 mg PO DAILY #90 tabs 04/18/22 albuterol sulfate 90 mcg/actuation 2 inh inhalation Q6H PRN shortness 04/25/22 aerosol inhaler of breath or wheezing 30 days #18 grams albuterol sulfate 90 mcg/actuation 2 puff inhalation Q4-6H PRN 08/15/22 aerosol inhaler (ProAir HFA) shortness of breath or wheezing #8.5 grams prednisone 20 mg tablet 60 mg PO DAILY 5 days #15 tabs 08/15/22 Allergies Allergy/AdvReac Type Severity Reaction Status Date / Time cat dander Allergy Severe asthma Verified 06/01/22 11:27 trigger, rash Review of Systems Review of Systems: Yes all other systems are reviewed and are negative [facility] Past Medical History [facility] Narrative: Social history: He denies tobacco, alcohol and drug use. Medical History Anxiety Asthma Asthma Asthma Asthma-COPD overlap syndrome Chronic allergic rhinitis Cough Depression Eczema Tobacco dependence Surgical History Hx of cholecystectomy Family History Family History Mother No problems noted. Father No problems noted. Social History Social History Household Members: Other Housing: House Housing Other:: Shared living home Alcohol intake: never Patient Tobacco Use Status: Former Tobacco user Tobacco use type: Cigarette Years Smoked: 22 Smoked in Last 30 Days: No e-Cigarette/Vaping Use: Never Used Second Hand Smoke Exposure: No Use of substances other than those prescribed or required for medical reasons: No Substance Use Type: Marijuana Advance Directives: Yes Advance Directives on File: Yes Advance Directives Date on File: 02/17/21 service: No Current occupational status: disabled Current occupational exposures/hazards: No Cognitive needs: No Hearing needs: No Vision needs: No Physical Exam Vital Signs: Vital Signs: Last Vital Signs Temp 98.4 F 08/15/22 06:02 Pulse 74 08/15/22 06:02 Resp 14 08/15/22 06:02 BP 134/84 08/15/22 06:02 Pulse Ox 96 08/15/22 06:02 O2 Del Method 08/15/22 06:02 Oxygen Flow Rate 94 08/15/22 01:25 BMI result Body Mass Index 24.9 Const: General: cooperative and no acute distress Orientation/consciousness: oriented to person and oriented to place Limitations: no limitations HEENT: Head: Yes normal to inspection, Yes normocephalic and Yes atraumatic Ears: external ears normal General nose exam: Normal external nose present Face and sinus: Yes normal facial exam Mouth: Normal oral and palatal mucosa present Throat: Yes posterior oropharynx normal Eyes: General: appearance normal, both eyes and all related structures Pupils: Equal, round and reactive pupils present Neck: Neck: Yes normal visual inspection, Yes no lymphadenopathy, Yes trachea midline and Yes supple Chest: Chest palpation & inspection: normal inspection of the chest and normal palpation of entire chest wall Resp: Other: Diffuse wheezing, no rhonchi, breath sounds symmetric bilaterally Cardio: Rate: regular rate Rhythm: regular rhythm Heart sounds: S1 normal heart sound present, S2 normal heart sound present and no murmurs GI: Inspection: Yes normal to inspection Palpation (GI): Soft to palpation, nontender and no guarding Auscultation: normal bowel sounds : General: Yes no CVA tenderness Back/Spine/Pelvis: Back: no CVA tenderness Skin: General skin exam: no rashes or lesions noted Neuro: General: oriented to person and oriented to place Cranial nerves: Yes CN's II-XII intact bilaterally and Yes Equal, round and reactive pupils present Cognition (Neuro): normal cognition Motor exam (neuro): 5/5 motor strength present throughout Extrem: General: Yes normal to inspection Psych: Appearance: grossly normal Speech and movement: Normal speech and movement present Affect: normal affect Attitude: cooperative Thought process: Normal thought process present Thought content: Normal thought content present Course Course Course Narrative: 36-year-old male who presents emergency department for evaluation of asthma exacerbation. Patient did get a DuoNeb EN route with improvement of his symptoms. Examination did reveal wheezing with good inspiratory and expiratory flow. Patient was ordered to get an albuterol nebulizer 5 mg x1 and prednisone 80 mg orally. Patient's laboratory evaluation revealed elevated WBC [id number] had similar elevations in the past. BMP was normal. Troponin detectable but not elevated at 23.8. Chest x-ray revealed no evidence of pneumonia. Patient was discharged with a prescription for prednisone 60 mg once a day for 5 days and albuterol inhaler. He was advised to continue taking his other medications as prescribed and return to the emergency department if his symptoms get worse. Medications Administered Discontinued Medications Generic Name Dose Route Start Last Admin Trade Name Castillo PRN Reason Stop Dose Admin Albuterol Sulfate 5 mg 08/15/22 05:45 08/15/22 05:53 Albuterol Sulfate (0.083%) 2.5 Mg/3 Ml Vial.Neb INHALE 08/15/22 05:46 5 mg ONCE ONE Administration Prednisone 60 mg 08/15/22 05:45 08/15/22 05:52 Prednisone 20 Mg Tablet PO 08/15/22 05:46 60 mg ONCE ONE Administration MDM - SOB/Dyspnea Lab Data Result diagrams: 08/15/22 01:53 08/15/22 01:53 Labs: Lab Results 08/15/22 08/15/22 08/15/22 Range/Units 01:53 01:53 01:53 WBC 13.7 H (4.8-10.8) X10*3/uL RBC 4.31 L (4.60-5.80) X10*6/uL Hgb 14.8 (14.0-18.0) g/dl Hct 41.6 L (42.0-52.0) % MCV 96.5 (80.0-98.0) fL MCH 34.3 H (27.0-33.0) pg MCHC 35.6 (31.0-36.0) g/dl RDW 12.9 (11.0-16.0) % Plt Count 254 (160-400) X10*3/uL MPV 9.8 (9.4-12.4) fL Immature Gran % (Auto) 0.3 (0.0-0.4) % Neut % (Auto) 64.5 (45-73) % Lymph % (Auto) 17.8 L (20-40) % [place] % (Auto) 12.3 H (2-11) % Eos % (Auto) 4.6 H (0-4) % Baso % (Auto) 0.5 (0-2) % Lymph # (Auto) 2.5 (1.2-4.9) X10*3/uL [place] # (Auto) 1.7 H (0.1-1.2) X10*3/uL Eos # (Auto) 0.6 H (0.0-0.4) X10*3/uL Baso # (Auto) 0.1 (0.0-0.2) X10*3/uL Abs Immat Gran (auto) 0.04 H (0.00-0.03) X10*3/uL Absolute Neuts (auto) 8.9 H (2.0-8.3) x10*3/uL Absolute Nucleated RBC 0.000 (0.0-0.012) X10*3/uL Nucleated RBC % (auto) 0.0 (0.0-0.2) /100WBC Smear Tech's Comments VERIFIED Sodium 140 (135-145) mmol/L Potassium 4.2 (3.3-5.1) mmol/L Chloride 103 (96-108) mmol/L Carbon Dioxide 28 (22-29) mmol/L Anion Gap 13 (12-20) BUN 13 (9-16) mg/dL Creatinine 0.92 (0.5-1.4) mg/dL Estim Creat Clear Calc 109.9 Estimated GFR > 60 Random Glucose 111 (60-115) mg/dL Calcium 9.7 (8.4-10.2) mg/dL Troponin I High Sens 23.8 (<3.5-35.0) ng/L B-Natriuretic Peptide (<100) pg/mL 08/15/22 Range/Units 01:54 WBC (4.8-10.8) X10*3/uL RBC (4.60-5.80) X10*6/uL Hgb (14.0-18.0) g/dl Hct (42.0-52.0) % MCV (80.0-98.0) fL MCH (27.0-33.0) pg MCHC (31.0-36.0) g/dl RDW (11.0-16.0) % Plt Count (160-400) X10*3/uL MPV (9.4-12.4) fL Immature Gran % (Auto) (0.0-0.4) % Neut % (Auto) (45-73) % Lymph % (Auto) (20-40) % [place] % (Auto) (2-11) % Eos % (Auto) (0-4) % Baso % (Auto) (0-2) % Lymph # (Auto) (1.2-4.9) X10*3/uL [place] # (Auto) (0.1-1.2) X10*3/uL Eos # (Auto) (0.0-0.4) X10*3/uL Baso # (Auto) (0.0-0.2) X10*3/uL Abs Immat Gran (auto) (0.00-0.03) X10*3/uL Absolute Neuts (auto) (2.0-8.3) x10*3/uL Absolute Nucleated RBC (0.0-0.012) X10*3/uL Nucleated RBC % (auto) (0.0-0.2) /100WBC Smear Tech's Comments Sodium (135-145) mmol/L Potassium (3.3-5.1) mmol/L Chloride (96-108) mmol/L Carbon Dioxide (22-29) mmol/L Anion Gap (12-20) BUN (9-16) mg/dL Creatinine (0.5-1.4) mg/dL Estim Creat Clear Calc Estimated GFR Random Glucose (60-115) mg/dL Calcium (8.4-10.2) mg/dL Troponin I High Sens (<3.5-35.0) ng/L B-Natriuretic Peptide 38 (<100) pg/mL Discharge Plan Discharge Clinical Impression: Asthma exacerbation Qualifiers: Asthma severity: moderate Asthma persistence: unspecified Qualified Code(s): J45.901 - Unspecified asthma with (acute) exacerbation Patient Disposition: Home, Self-Care Instructions: Asthma (ED) Additional Instructions: Your blood work was normal. Your chest x-ray revealed no evidence of pneumonia. Your symptoms are consistent with a flare-up of your asthma. Take prednisone 20 mg pills, 3 pills once a day for 5 days. While you are kadie ing prednisone, do not take any NSAIDs (Motrin, Advil, ibuprofen, Aleve, naproxen). Use the albuterol inhaler with the spacer, 2 puffs every 4-6 hours as needed for shortness of breath and wheezing. Follow-up with your doctor in 2 days. Please return to the emergency department if your symptoms get worse or if you develop any symptoms that are concerning to you. Prescriptions: New prednisone 20 mg tablet 60 mg PO DAILY 5 Days Qty: 15 0RF albuterol sulfate [ProAir HFA] 90 mcg/actuation HFA aerosol inhaler 2 puff inhalation Q4-6H PRN (Reason: shortness of breath or wheezing) Qty: 8.5 0RF No Action albuterol sulfate 90 mcg/actuation HFA aerosol inhaler 2 puff inhalation QID PRN (Reason: shortness of breath or wheezing) Qty: 6.7 1RF fluticasone propion-salmeterol [Advair Diskus] 250-50 mcg/dose blister with device 1 inh inhalation Q12H Qty: 60 11RF nicotine 7 mg/24 hr patch 24 hour 1 patch transdermal Q24H 30 Days Qty: 30 3RF montelukast 10 mg tablet 10 mg PO DAILY Qty: 90 3RF fluoxetine 20 mg capsule 40 mg PO QAM trazodone 100 mg tablet 100 mg PO BEDTIME Breo Ellipta 200-25 mcg/dose blister with device 1 inh inhalation DAILY 30 Days Qty: 60 11RF gabapentin 400 mg capsule 400 mg PO TID albuterol sulfate 90 mcg/actuation HFA aerosol inhaler 2 inh inhalation Q6H PRN (Reason: shortness of breath or wheezing) 30 Days Qty: 18 12RF
[2022-08-15] MEDS: predniSONE 20 MG TABLET 60 MG PO (05:52)
[2022-08-15] MEDS: Albuterol Sulfate (0.083%) 2.5 MG/3 ML VIAL.NEB 5 MG INHALE (05:53)
[2022-08-15 06:02] VITALS: BP 134/84; PULSE 74; RESP 14; TEMP 36.9; O2SAT 96
== END 2022-08-15 06:47 | disposition home or self-care (01) ==
PROVIDERS: Emergency Provider Emergency Medicine Emergency Medical Services; PCP Internal Medicine
DX: J45.901 Unspecified asthma with (acute) exacerbation (principal); R06.02 Shortness of breath; Z79.899 Other long term (current) drug therapy
CPT/HCPCS: 36415; 71045; 80048; 83880; 84484; 85025; 93005; 99212; 99284; 99285

== ENCOUNTER 2022-10-12 01:21 | Inpatient (IN) | payer OTHER, SELFPAY ==
[2022-10-12] VITALS (14 sets, daily range): BP systolic 110–162; BP diastolic 66–94; PULSE 84–180; RESP 12–27; TEMP 36.6–36.8; O2SAT 92–98; BMI 23.3
--- NOTE | ~2022-10-12 | XR_ITS ---
EXAMINATION: XR CHEST CLINICAL INFORMATION: Cough COMPARISON: 08/15/2022 TECHNIQUE: Frontal view of the chest was obtained. FINDINGS: Lung volumes are symmetric. There is a focal, approximately 4 cm ovoid density overlying the left upper lung; it is difficult to determine with certainty whether this represents focal pulmonary opacity or shadow from an overlying object. Right lung is well-aerated. No evidence of pneumothorax, pleural effusion, or pulmonary edema. The cardiomediastinal contour is unremarkable. No acute osseous findings are seen. XR/XR chest 1V IMPRESSION: Focal, approximately 4 cm ovoid density overlying the left upper lung; it is difficult to determine with certainty whether this represents a pulmonary opacity versus shadow from an overlying object. Repeat radiograph following removal of all overlying objects is recommended.
--- NOTE | ~2022-10-12 | CT_ITS ---
EXAMINATION: CT ANGIOGRAM OF THE CHEST WITH AND WITHOUT CONTRAST (CT PULMONARY ANGIOGRAM FOR PE) CLINICAL INFORMATION: Reason for Exam sob COMPARISON: Chest x-ray from earlier today TECHNIQUE: Prior to contrast administration, noncontrast localization images were obtained. Subsequently, multidetector volumetric imaging was performed from the thoracic inlet to below the diaphragms following the administration of 65 mL Omnipaque 350 intravenous contrast. No contrast reaction reported Sagittal, coronal, and MIP oblique sagittal reformatted images were obtained on the CT workstation, uploaded to PACS, and reviewed. This CT examination was performed using dose optimization techniques as appropriate, variously including the following: *Automated exposure control *Adjustment of mA and/or kV according to patient size (this includes techniques or standardized protocols for targeted exams where dose is matched to indication/reason for exam; i.e. extremities or head) *Use of iterative reconstruction technique Total exam dose-length product 234 mGy-cm FINDINGS: QUALITY OF STUDY/CONTRAST BOLUS: Satisfactory. PULMONARY ARTERIES: No central or segmental pulmonary emboli. There is inadequate assessment of some regions of the distal vasculature bilaterally due to respiratory motion artifact. THORACIC AORTA: No aneurysm or dissection. LUNG: There are a few scattered patchy regions of groundglass opacity bilaterally, suggesting mild infectious/inflammatory etiology. PLEURA: No pleural effusion or pneumothorax. MEDIASTINUM: The visualized thyroid gland is unremarkable. There are subcentimeter mediastinal lymph nodes within the range of normal variation. No evidence of septal bowing or right heart strain. CORONARY ARTERY CALCIFICATION: None visualized on this study. CHEST WALL/AXILLA: No axillary or internal mammary lymphadenopathy. OSSEOUS STRUCTURES: No acute or suspicious osseous abnormality. UPPER ABDOMEN: Patient is status post cholecystectomy. No reflux of contrast into the hepatic veins to suggest elevated right heart pressures. CT/CT angio chest PE protocol IMPRESSION: 1. No central or segmental pulmonary embolus identified. Limited assessment of some regions of the distal vasculature due to respiratory motion artifact. 2. Few scattered patchy regions of groundglass opacity bilaterally, suggesting mild infectious/inflammatory etiology. VTE: positive
--- NOTE | 2022-10-12 01:38 | ECG_ITS ---
Test Reason : SOB Blood Pressure : / mmHG Vent. Rate : 103 BPM Atrial Rate : 103 BPM P-R Int : 154 ms QRS Dur : 070 ms QT Int : 322 ms P-R-T Axes : 075 075 -83 degrees QTc Int : 421 ms Sinus tachycardia Nonspecific T wave changes Abnormal ECG When compared with ECG of 15-AUG-2022 01:37, nonspecific T wave changes present Referred By: Jayden Delacruz Electronically Signed By:Ayden Zaragoza
--- NOTE | 2022-10-12 01:41 | ECG_ITS ---
Test Reason : ABNORMAL EKG Blood Pressure : / mmHG Vent. Rate : 096 BPM Atrial Rate : 096 BPM P-R Int : 154 ms QRS Dur : 072 ms QT Int : 382 ms P-R-T Axes : 069 066 095 degrees QTc Int : 482 ms Sinus rhythm with Premature atrial complexes Nonspecific T wave abnormality Abnormal ECG When compared with ECG of 12-OCT-2022 01:32, Premature atrial complexes are now Present Referred By: Jayden Delacruz Electronically Signed By:Ayden Zaragoza
--- NOTE | 2022-10-12 01:44 | ED_ITS ---
HPI - Asthma General Chief Complaint: Upper Respiratory Symptoms Stated Complaint: sob,asthma exacerbation Time Seen by Provider: 10/12/22 01:32 Source: patient Mode of arrival: EMS Limitations: no limitations History of Present Illness HPI Narrative: Patient history of asthma/COPD overlap syndrome anxiety depression comes here increased shortness of breath and cough for last 2 weeks having mucopurulent expectoration tried inhaler without much relief had low-grade fever 2 weeks ago patient was saturating 80% when EMS arrived tachycardic on arrival patient saturating 96% on 6 L no chest pain feels chest tight no leg swelling history of same for last few months Related Data Home Medications Medication Instructions Recorded Confirmed fluoxetine 20 mg capsule 40 mg PO QAM 02/17/21 09/29/22 trazodone 100 mg tablet 100 mg PO BEDTIME 03/12/21 09/29/22 gabapentin 400 mg capsule 400 mg PO TID 04/19/21 09/29/22 Previous Rx's Medication Instructions Recorded fluticasone furoate 200 1 inh inhalation DAILY 30 days #60 03/15/21 mcg-vilanterol 25 mcg/dose ea inhalation powder (Breo Ellipta) nicotine 7 mg/24 hr daily 1 patch transdermal Q24H 30 days 03/23/22 transdermal patch #30 ea montelukast 10 mg tablet 10 mg PO DAILY #90 tabs 04/18/22 fluticasone propionate 230 2 puff inhalation BID 30 days #1 ea 08/15/22 mcg-salmeterol 21 mcg/actuation HFA inhaler (Advair HFA) nicotine (polacrilex) 2 mg gum 2 mg buccal Q4H PRN nicotine 08/15/22 cravings #100 ea nicotine 14 mg/24 hr daily 1 patch transdermal DAILY 28 days 08/15/22 transdermal patch #28 ea albuterol sulfate 90 mcg/actuation 2 puff inhalation Q4-6H PRN 09/29/22 aerosol inhaler (ProAir HFA) shortness of breath or wheezing #8.5 grams amoxicillin 250 mg capsule 250 mg PO Q8H #30 caps 09/29/22 methylprednisolone 4 mg tablets in See Rx Instructions PO PER PKG DIR 09/29/22 a dose pack (Medrol (Florin)) #21 ea Allergies Allergy/AdvReac Type Severity Reaction Status Date / Time cat dander Allergy Severe asthma Verified 09/29/22 10:08 trigger, rash Review of Systems Review of Systems: Yes all other systems are reviewed and are negative [facility] Past Medical History Medical History Anxiety Asthma Asthma Asthma Asthma-COPD overlap syndrome Chronic allergic rhinitis Cough Depression Eczema Tobacco dependence Surgical History Hx of cholecystectomy Family History Family History Mother No problems noted. Father No problems noted. Social History Social History Household Members: Other Housing: House Housing Other:: Shared living home Alcohol intake: former Patient Tobacco Use Status: Former Tobacco user Tobacco use type: Cigarette Years Smoked: 22 Smoked in Last 30 Days: No e-Cigarette/Vaping Use: Never Used Second Hand Smoke Exposure: No Use of substances other than those prescribed or required for medical reasons: No Substance Use Type: Marijuana Advance Directives: Yes Advance Directives on File: Yes Advance Directives Date on File: 02/17/21 service: No Current occupational status: disabled Current occupational exposures/hazards: No Cognitive needs: No Hearing needs: No Vision needs: No Physical Exam Vital Signs: Vital Signs: Last Vital Signs Temp 98.2 F 10/12/22 01:29 Pulse 124 H 10/12/22 04:41 Resp 24 H 10/12/22 04:41 BP 134/83 10/12/22 02:09 Pulse Ox 97 10/12/22 03:10 O2 Del Method 10/12/22 03:10 O2 Flow Rate 6 10/12/22 02:09 Oxygen Flow Rate 6 10/12/22 03:10 BMI result Body Mass Index 23.3 Appearance: Alert. Oriented X3. moderate respiratory distress Eyes: PERRLA, No Nystagmus ENT: Pharynx normal. Oral Mucosa moist Neck: Normal inspection. Neck supple. CVS: Normal heart rate and rhythm. Pulses normal. Respiratory: Moderate respiratory distress. Equal air entry bilateral, bilateral wheezing no rales Abdomen: Soft and nontender. Bowel sounds are present, no mass palpable, no CVA tenderness Skin: Skin warm and dry. Normal skin color. Normal skin turgor. Extremities: No lower extremity edema. No calf tenderness Neuro: Oriented X 3. No motor deficit. Medications Administered Discontinued Medications Generic Name Dose Route Start Last Admin Trade Name Franciscoq PRN Reason Stop Dose Admin Albuterol Sulfate 10 mg 10/12/22 01:43 10/12/22 01:50 Albuterol Sulfate (0.083%) 2.5 Mg/3 Ml Vial.Neb INHALE 10/12/22 01:44 10 mg ONCE ONE Administration Albuterol Sulfate 7.5 mg 10/12/22 04:30 10/12/22 04:41 Albuterol Sulfate (0.083%) 2.5 Mg/3 Ml Vial.Neb INHALE 10/12/22 04:31 Not Given ONCE ONE Magnesium Sulfate 2 gm in 50 mls @ 100 mls/hr 10/12/22 01:43 10/12/22 02:25 Magnesium Sulfate/H2o IV 10/12/22 02:12 Infused ONCE ONE Infusion Sodium Chloride 1,000 mls @ 999 mls/hr 10/12/22 03:34 10/12/22 03:45 Ns IV 10/12/22 04:34 999 mls/hr .Q1H1M ONE Administration Ceftriaxone Sodium 1 gm/ 50 mls @ 100 mls/hr 10/12/22 03:34 10/12/22 04:20 Sodium Chloride IV 10/12/22 04:03 Infused ONCE ONE Infusion Iohexol 65 ml 10/12/22 04:35 10/12/22 04:37 Iohexol 350 Mg/Ml 100 Ml Infus..Btl IV 10/12/22 04:36 65 ml ONCE ONE Administration Levalbuterol HCl 5 mg 10/12/22 04:33 10/12/22 04:41 Levalbuterol Hcl 1.25 Mg/0.5 Ml Vial.Neb INHALE 10/12/22 04:34 5 mg ONCE ONE Administration Lorazepam 1 mg 10/12/22 05:02 10/12/22 05:06 Lorazepam 2 Mg/Ml Vial IVPUSH 10/12/22 05:03 1 mg ONCE ONE Administration Medical Decision Making Medical Decision Making MDM Narrative: Patient with asthma/COPD overlap syndrome with smoking history been sick for las t 2 weeks hypoxic on arrival CTA chest negative for PE during stay in the ER patient continued to be tachycardic EKG showed PACs desaturating easily with little movement requiring 4 L of oxygen to keep pulse ox more than 90%. Patient received IV steroids magnesium sulfate and repeated nebulizer treatment will admit patient to medical service further evaluation initial lactic acid level was 1.1. Patient received IV fluids and IV steroids and antibiotics Differential Diagnosis Asthma/COPD/pneumonia/PE/pulmonary edema/CHF Consult Healthcare Provider Management of the patient was discussed with: Hospitalist Lab Data [facility] Lab Attestation statement: I reviewed the patient's lab results. 10/12/22 02:11 10/12/22 02:11 Labs: Lab Results 10/12/22 10/12/22 10/12/22 Range/Units 01:46 02:11 02:11 WBC 25.4 H (4.8-10.8) X10*3/uL RBC 4.48 L (4.60-5.80) X10*6/uL Hgb 15.1 (14.0-18.0) g/dl Hct 42.6 (42.0-52.0) % MCV 95.1 (80.0-98.0) fL MCH 33.7 H (27.0-33.0) pg MCHC 35.4 (31.0-36.0) g/dl RDW 12.5 (11.0-16.0) % Plt Count 313 (160-400) X10*3/uL MPV 9.9 (9.4-12.4) fL Immature Gran % (Auto) 0.6 H (0.0-0.4) % Neut % (Auto) 81.9 H (45-73) % Lymph % (Auto) 7.0 L (20-40) % [place] % (Auto) 7.6 (2-11) % Eos % (Auto) 2.5 (0-4) % Baso % (Auto) 0.4 (0-2) % Lymph # (Auto) 1.8 (1.2-4.9) X10*3/uL [place] # (Auto) 1.9 H (0.1-1.2) X10*3/uL Eos # (Auto) 0.6 H (0.0-0.4) X10*3/uL Baso # (Auto) 0.1 (0.0-0.2) X10*3/uL Abs Immat Gran (auto) 0.14 H (0.00-0.03) X10*3/uL Absolute Neuts (auto) 20.8 H (2.0-8.3) x10*3/uL Absolute Nucleated RBC 0.000 (0.0-0.012) X10*3/uL Nucleated RBC % (auto) 0.0 (0.0-0.2) /100WBC Smear Tech's Comments VERIFIED VBG pH (7.32-7.43) VBG pCO2 mmHg VBG pO2 mmHg VBG HCO3 (22-26) mmol/L VBG O2 Saturation % VBG Base Excess mmol/L Sodium 138 (135-145) mmol/L Potassium 4.0 (3.3-5.1) mmol/L Chloride 104 (96-108) mmol/L Carbon Dioxide 22 (22-29) mmol/L Anion Gap 16 (12-20) BUN 13 (9-16) mg/dL Creatinine 0.91 (0.5-1.4) mg/dL Estim Creat Clear Calc 111.1 Estimated GFR > 60 Random Glucose 141 H (60-115) mg/dL Lactic Acid (0.5-2.0) mmol/L Calcium 9.4 (8.4-10.2) mg/dL Total Bilirubin 0.4 (0.0-1.0) mg/dL AST 21 (5-37) U/L ALT 15 (0-40) U/L Alkaline Phosphatase 117 (39-117) U/L Troponin I High Sens (<3.5-35.0) ng/L Total Protein 7.4 (6.5-8.0) g/dL Albumin 4.6 (3.5-5.0) g/dL COVID-19 ([place]) Negative (Negative) COVID-19 Clin Com See Note 10/12/22 10/12/22 10/12/22 Range/Units 02:11 02:14 03:52 WBC (4.8-10.8) X10*3/uL RBC (4.60-5.80) X10*6/uL Hgb (14.0-18.0) g/dl Hct (42.0-52.0) % MCV (80.0-98.0) fL MCH (27.0-33.0) pg MCHC (31.0-36.0) g/dl RDW (11.0-16.0) % Plt Count (160-400) X10*3/uL MPV (9.4-12.4) fL Immature Gran % (Auto) (0.0-0.4) % Neut % (Auto) (45-73) % Lymph % (Auto) (20-40) % [place] % (Auto) (2-11) % Eos % (Auto) (0-4) % Baso % (Auto) (0-2) % Lymph # (Auto) (1.2-4.9) X10*3/uL [place] # (Auto) (0.1-1.2) X10*3/uL Eos # (Auto) (0.0-0.4) X10*3/uL Baso # (Auto) (0.0-0.2) X10*3/uL Abs Immat Gran (auto) (0.00-0.03) X10*3/uL Absolute Neuts (auto) (2.0-8.3) x10*3/uL Absolute Nucleated RBC (0.0-0.012) X10*3/uL Nucleated RBC % (auto) (0.0-0.2) /100WBC Smear Tech's Comments VBG pH 7.43 (7.32-7.43) VBG pCO2 38 mmHg VBG pO2 133 mmHg VBG HCO3 25 (22-26) mmol/L VBG O2 Saturation 99.0 % VBG Base Excess 1.4 mmol/L Sodium (135-145) mmol/L Potassium (3.3-5.1) mmol/L Chloride (96-108) mmol/L Carbon Dioxide (22-29) mmol/L Anion Gap (12-20) BUN (9-16) mg/dL Creatinine (0.5-1.4) mg/dL Estim Creat Clear Calc Estimated GFR Random Glucose (60-115) mg/dL Lactic Acid 1.1 (0.5-2.0) mmol/L Calcium (8.4-10.2) mg/dL Total Bilirubin (0.0-1.0) mg/dL AST (5-37) U/L ALT (0-40) U/L Alkaline Phosphatase (39-117) U/L Troponin I High Sens 95.7 H D (<3.5-35.0) ng/L Total Protein (6.5-8.0) g/dL Albumin (3.5-5.0) g/dL COVID-19 ([place]) (Negative) COVID-19 Clin Com Independent Interpretation I performed an independent interpretation of an: EKG Interpretation: Sinus rhythm heart rate 96 beats per minute with PACs no acute ST changes no acute ischemia Critical Care Time Critical Care Time Critical Care Time: Yes Total Critical Care Time: 65 Attestation: The patient was critically ill with a high probability of imminent or life threatening deterioration. I spent greater than 70 minutes of discontinuous time evaluating the patient,delivering critical care at the bedside, discussing and evaluating pertinent data with consultants. Critical care time does not include time spent performing separately billable procedures or teaching. Total time spent performing critical care was 65 minutes. Discharge Plan Discharge Clinical Impression: Acute on chronic respiratory failure with hypoxia, Asthma-COPD overlap syndrome Patient Disposition: Admitted As Inpatient
[2022-10-12] MEDS: Albuterol Sulfate (0.083%) 2.5 MG/3 ML VIAL.NEB 10 MG INHALE (01:50)
[2022-10-12] MEDS: Magnesium Sulfate/H2O 2 GM/50 ML PIGGYBACK IV (01:50)
[2022-10-12 02:03] LABS: COVID-19 Test Negative (Negative); IDNOW Serial# 6674DD1D
[2022-10-12 02:19] LABS: Basophils Absolute Auto 0.1 X10*3/uL (0.0-0.2); Basophils Percent Auto 0.4 % (0-2); Eosinophils Absolute Auto 0.6 X10*3/uL (0.0-0.4); Eosinophils Percent Auto 2.5 % (0-4); Hematocrit 42.6 % (42.0-52.0); Hemoglobin 15.1 g/dl (14.0-18.0); Imm Gran Abs Auto 0.14 X10*3/uL (0.00-0.03); Imm Gran Pct Auto 0.6 % (0.0-0.4); Lymphocytes Absolute Auto 1.8 X10*3/uL (1.2-4.9); MANUAL DIFF FLAG SCAN; Mean Corpuscular HGB Conc 35.4 g/dl (31.0-36.0); Mean Corpuscular Hemoglobin 33.7 pg (27.0-33.0); Mean Corpuscular Volume 95.1 fL (80.0-98.0); Mean Platelet Volume 9.9 fL (9.4-12.4); Monocytes Absolute Auto 1.9 X10*3/uL (0.1-1.2); Monocytes Percent Auto 7.6 % (2-11); Neutrophils Absolute Auto 20.8 x10*3/uL (2.0-8.3); Neutrophils Percent Auto 81.9 % (45-73); Platelet Count 313 X10*3/uL (160-400); Red Blood Count 4.48 X10*6/uL (4.60-5.80); Red Cell Distribution Width 12.5 % (11.0-16.0); SCAN SMEAR FLAG 1; White Blood Count 25.4 X10*3/uL (4.8-10.8)
[2022-10-12 02:20] LABS: Venous Blood Gas Refer to POC result
[2022-10-12 02:20] LABS: VBG Base Excess 1.4 mmol/L; VBG HCO3 25 mmol/L (22-26); VBG pCO2 38 mmHg; VBG pH 7.43 (7.32-7.43); VBG pO2 133 mmHg
--- NOTE | 2022-10-12 02:21 | PC.NURSE ---
Patient in bed, continuous pipe processor in place, sinus tachy 98-119. Patient receiving nebulizer treatment. Patient O2 Sat 97-98% on O2 at 6 LPM at present. Labs drawn per MD orders. Patient medicated per NOV. Chest X-Ray completed. No s/s of respiratory distress noted at present.
[2022-10-12 02:33] LABS: Alanine Aminotransferase 15 U/L (0-40); Albumin Level 4.6 g/dL (3.5-5.0); Alkaline Phosphatase 117 U/L (39-117); Anion Gap 16 (12-20); Aspartate Amino Transferase 21 U/L (5-37); Bilirubin Total 0.4 mg/dL (0.0-1.0); Blood Urea Nitrogen 13 mg/dL (9-16); Calcium 9.4 mg/dL (8.4-10.2); Carbon Dioxide 22 mmol/L (22-29); Chloride 104 mmol/L (96-108); Creatinine Clr Calc Pharmacy 111.1; Estimated Glomerular Filt Rate > 60; Glucose Random 141 mg/dL (60-115); Sodium 138 mmol/L (135-145); Total Protein 7.4 g/dL (6.5-8.0)
[2022-10-12 02:39] LABS: SLIDE REVIEW VERIFIED; Troponin-I High Sensitivity 95.7 ng/L (<3.5-35.0)
[2022-10-12] MEDS: 0.9 % Sodium Chloride 1,000 ML 999 ML IV (03:45)
[2022-10-12] MEDS: cefTRIAXone sodium 1 GM in 0.9 % Sodium Chloride 50 ML IV (03:52)
[2022-10-12 04:11] LABS: Lactic Acid 1.1 mmol/L (0.5-2.0)
[2022-10-12] MEDS: iohexoL 350 MG/ML 100 ML INFUS..BTL 65 ML IV (04:37)
[2022-10-12] MEDS: LORazepam 2 MG/ML VIAL 1 MG IVPUSH (05:06)
--- NOTE | 2022-10-12 05:16 | P.HPHOSP_ITS ---
History of Present Illness Date of Service: 10/12/22 Chief Complaint: Dyspnea This is a 36-year-old male with pertinent history asthma / COPD overlap syndrome, mood disorder who presents to the emergency department for evaluation of dyspnea. Patient states he has had dyspnea, worse with exertion for the last 2 weeks which has become persistent and progressive. It is associated with wheezing. Patient tried home inhaler without relief. About 2 weeks ago, he initially had runny nose, watering of eyes and nonproductive cough. It soon progressed to cough with mucopurulent expectoration. Patient does not use oxygen at home. States he is compliant with home medications. Admits chills but denies chest discomfort, palpitations, abdominal pain, nausea, vomiting, changes in urinary or bowel habits. in the emergency department, patient was found to be hypoxemic and saturating 80% when EMS arrived. Review of Systems Constitutional: Constitutional: Reports chills, Reports lethargy and Reports malaise Cardiovascular: Cardiovascular: Reports dyspnea on exertion Respiratory: Respiratory: Reports cough, Reports dyspnea on exertion and Reports wheezing Gastrointestinal: Gastrointestinal: Reports no additional gastrointestinal complaints Genitourinary: Genitourinary: Reports no additional male genitourinary complaints Allergic/Immunologic: Allergic/Immunologic: Reports wheezing [facility] Medical History Anxiety Asthma Asthma Asthma Asthma-COPD overlap syndrome Chronic allergic rhinitis Cough Depression Eczema Tobacco dependence Family History Mother No problems noted. Father No problems noted. Surgical History Hx of cholecystectomy Social History Household Members: Other Housing: House Housing Other:: Shared living home Alcohol intake: former Patient Tobacco Use Status: Former Tobacco user Tobacco use type: Cigarette Years Smoked: 22 Smoked in Last 30 Days: No e-Cigarette/Vaping Use: Never Used Second Hand Smoke Exposure: No Use of substances other than those prescribed or required for medical reasons: No Substance Use Type: Marijuana Advance Directives: Yes Advance Directives on File: Yes Advance Directives Date on File: 02/17/21 service: No Current occupational status: disabled Current occupational exposures/hazards: No Cognitive needs: No Hearing needs: No Vision needs: No Meds Allergies Allergy/AdvReac Type Severity Reaction Status Date / Time cat dander Allergy Severe asthma Verified 09/29/22 10:08 trigger, rash Active Medications: Current Medications Acetaminophen (Acetaminophen 325 Mg Tablet) 650 mg PO Q6H PRN PRN Reason: Pain, Mild (Pain Scale 1-3) Enoxaparin Sodium (Enoxaparin Sodium 40 Mg/0.4 Ml Syringe) 40 mg SUBCUT Q24H [facility] Melatonin (Melatonin 3 Mg Tablet) 6 mg PO BEDTIME PRN PRN Reason: Insomnia Ondansetron HCl (Ondansetron Hcl 4 Mg/2 Ml Vial) 4 mg IVPUSH Q8H PRN PRN Reason: Nausea and Vomiting Pharmacy Consult (Consult Rx Perform Med Rec) 1 each MISCELLANE ONCE PRN PRN Reason: Consult order Sodium Chloride (0.9 % Sodium Chloride Flush 3 Ml Syringe) 3 ml IVFLUSH QSHIFT [facility] Home Medications Medication Instructions Recorded Confirmed Last Taken Type fluoxetine 20 mg capsule 40 mg PO QAM 02/17/21 09/29/22 Unknown History trazodone 100 mg tablet 100 mg PO BEDTIME 03/12/21 09/29/22 Unknown History gabapentin 400 mg capsule 400 mg PO TID 04/19/21 09/29/22 Unknown History Physical Exam Vital Signs and Narrative: Vital Signs: Last Vital Signs Temp 98.2 F 10/12/22 01:29 Pulse 124 H 10/12/22 04:41 Resp 24 H 10/12/22 04:41 BP 134/83 10/12/22 02:09 Pulse Ox 97 10/12/22 03:10 O2 Del Method 10/12/22 03:10 O2 Flow Rate 6 10/12/22 02:09 Oxygen Flow Rate 6 10/12/22 03:10 BMI result Body Mass Index 23.3 Middle-aged male lying in bed On 5 L supplemental oxygen Neck supple, no JVD tachycardic with regular rhythm, S1-S2 heard bilateral expiratory wheezing Abdomen soft nontender, no guarding, no rigidity Patient is awake, alert and oriented to self, place, time and person ; no focal motor deficit Psych: Normal mood No pedal edema Results Labs 10/12/22 02:11 10/12/22 02:11 Labs: Laboratory Results - last 24 hr 10/12/22 10/12/22 10/12/22 01:46 02:11 02:11 MCV 95.1 MCH 33.7 H MCHC 35.4 RDW 12.5 Plt Count 313 MPV 9.9 Immature Gran % (Auto) 0.6 H Neut % (Auto) 81.9 H Lymph % (Auto) 7.0 L [place] % (Auto) 7.6 Eos % (Auto) 2.5 Baso % (Auto) 0.4 Lymph # (Auto) 1.8 [place] # (Auto) 1.9 H Eos # (Auto) 0.6 H Baso # (Auto) 0.1 Abs Immat Gran (auto) 0.14 H Absolute Neuts (auto) 20.8 H Absolute Nucleated RBC 0.000 Nucleated RBC % (auto) 0.0 Smear Tech's Comments VERIFIED VBG pH VBG pCO2 VBG pO2 VBG HCO3 VBG O2 Saturation VBG Base Excess Anion Gap 16 Estim Creat Clear Calc 111.1 Estimated GFR > 60 Random Glucose 141 H Lactic Acid Calcium 9.4 Total Bilirubin 0.4 AST 21 ALT 15 Alkaline Phosphatase 117 Troponin I High Sens Total Protein 7.4 Albumin 4.6 COVID-19 ([place]) Negative COVID-19 Clin Com See Note 10/12/22 10/12/22 10/12/22 02:11 02:14 03:52 MCV MCH MCHC RDW Plt Count MPV Immature Gran % (Auto) Neut % (Auto) Lymph % (Auto) [place] % (Auto) Eos % (Auto) Baso % (Auto) Lymph # (Auto) [place] # (Auto) Eos # (Auto) Baso # (Auto) Abs Immat Gran (auto) Absolute Neuts (auto) Absolute Nucleated RBC Nucleated RBC % (auto) Smear Tech's Comments VBG pH 7.43 VBG pCO2 38 VBG pO2 133 VBG HCO3 25 VBG O2 Saturation 99.0 VBG Base Excess 1.4 Anion Gap Estim Creat Clear Calc Estimated GFR Random Glucose Lactic Acid 1.1 Calcium Total Bilirubin AST ALT Alkaline Phosphatase Troponin I High Sens 95.7 H D Total Protein Albumin COVID-19 ([place]) COVID-19 Clin Com Imaging Radiologist's Impressions: Impressions Chest X-Ray 10/12/22 02:02 IMPRESSION: Focal, approximately 4 cm ovoid density overlying the left upper lung; it is difficult to determine with certainty whether this represents a pulmonary opacity versus shadow from an overlying object. Repeat radiograph following removal of all overlying objects is recommended. Chest CTA 10/12/22 04:35 IMPRESSION: 1. No central or segmental pulmonary embolus identified. Limited assessment of some regions of the distal vasculature due to respiratory motion artifact. 2. Few scattered patchy regions of groundglass opacity bilaterally, suggesting mild infectious/inflammatory etiology. VTE: positive Assessment and Plan (1) Hypoxia: Status: Acute (2) Asthma-COPD overlap syndrome: Status: Acute Plan This is a 36-year-old male with pertinent history asthma / COPD overlap synd tigist, mood disorder who presents to the emergency department for evaluation of dyspnea. #. Acute hypoxemic respiratory failure secondary to: #. Acute exacerbation of asthma / COPD overlap syndrome - will admit patient and initiate systemic steroids. Continue scheduled and p.r.n. levalbuterol Inhalation. Continue supplemental oxygen and wean as tolerated. Maintain oxygen saturation greater than 88-90%. #. sepsis due to community-acquired pneumonia: Continue empiric IV antibiotics. Sputum culture pending. Resuscitated with IV crystalloids. Lactic acid and blood culture obtained #. elevated troponin: Due to increased demand. Patient without chest discomfort. Repeat #. mood disorder: Continue home medications med rec pending DVT prophylaxis: Lovenox 40 mg daily Full code Regular diet Admit as inpatient and will require two night minimum hospital stay for supplemental oxygen Time Spent With Patient Time: Total time managing care of this patient today ____ minutes. Quality Stroke Does the patient have a stroke diagnosis?: No VTE Prior VTE?: No VTE Risk Level:: Medical - moderate - high VTE Device Contraindication: Treatment Not Indicated VTE Drug Contraindication: N/A - Med Ordered
[2022-10-12 05:25] LABS: Troponin-I High Sensitivity 104.1 ng/L (<3.5-35.0)
[2022-10-12] MEDS: Enoxaparin Sodium 40 MG/0.4 ML SYRINGE SUBCUT (05:38)
[2022-10-12] MEDS: methylPREDNISolone Sod Succ 40 MG/ML VIAL IVPUSH ×2 (05:38→18:15)
--- NOTE | 2022-10-12 06:08 | PC.NURSE ---
Patient returned from CT scan pale, diaphoretic, SOB, wheezing, O2 Sat 86-87% on O2 at 4 LPM NC, tachy with HR 110-147. EKG performed. Patient positioned into tripod position, non re breather mask applied with improvement in O2 Sat noted to 94-96% on [address] Foster notified. RT administered Xopinex with O2 NC at 6 LPM. Patient tolerated treatment well, maintaining O2 Sat 97-98% on O2 a5 LPM NC. Patient medicated with Lorazepam 1 mg IV push and Solumedrol IV push. Patient reports feeling better, no wheezing at present. Patient requesting to stay in sitting/ tripod position, call bed within patient's reach.
--- NOTE | 2022-10-12 07:00 | CA_ITS ---
Transthoracic Echocardiogram Patient (Last, First, Middle): Casey Mills J Gender: Male Date of : 1985 Age: 36 Procedure Date: 10/12/2022 Procedure Type: Transthoracic [place] [facility] [place]: 175.26 cm Weight: 72.58 kg BSA: 1.88 m2 Heart Rate: bpm BP: 110 / 66 mmHg Class A Lineman: Referring MD: Karl Moser MD Symptoms: type 2 nstemi Study Quality: Fair ECG Rhythm: Sinus Conclusions: - Normal left ventricular size, thickness, systolic function, and wall motion. The visually estimated ejection fraction is between 55-60%. Diastolic function is normal for age. - Normal right ventricular cavity size and systolic function. Findings Procedure Information Contrast agent, definity, is being given per protocol without apparent complications. Left Ventricle Normal left ventricular size, thickness, systolic function, and wall motion. The visually estimated ejection fraction is between 55-60%. Diastolic function is normal for age. Right Ventricle Normal right ventricular cavity size and systolic function. Atria Both atria are normal in size. Aortic Valve The aortic valve was not well visualized. There is no aortic valve stenosis. There is no aortic valve regurgitation. Mitral Valve Normal mitral valve structure and function. There is no mitral valve regurgitation. There is no mitral valve stenosis. Pulmonic Valve The pulmonic valve is likely normal. Tricuspid Valve Normal tricuspid valve structure and function. There is no tricuspid valve regurgitation. Normal right atrial pressure. There is no evidence of pulmonary hypertension. Great Vessels All visible segments of the aorta are normal in size. The visualized portions of the pulmonary artery and branches are normal. Venous The inferior vena cava is normal in size and collapses greater than 50% with inspiration. Pericardium/Pleural There is no evidence of pericardial effusion. Measurements 2D Linear Measurements IVSd: 1.03 0.6-0.9/0.6-1.0 cm LVIDd: 3.78 3.9-5.3/4.2-5.9 cm LVIDd Index: 2.01 2.4-3.2/2.2-3.1 cm/m2 LVIDs: 2.74 2.0-3.6 cm LVPWd: 1.00 0.7-1.1 cm Ao Root: 2.80 2.1-3.5 cm LA Diam: 3.50 2.7-3.8/3.0-4.0 cm LAIDs Index: 1.86 1.5-2.3 cm/m2 LV Mass: 147.59 67-162/88-224 g LV Mass Index: 78.50 43-95/49-115 g/m2 LVOT Diam: 2.10 3.0+(-)1.3 cm Mitral Valve MV Pk E: 1.06 MV PK A: 1.22 MV Decel Time: 122.00 E/A: 0.90 E'Lateral: 14.90 E'Medial: 9.14 E/E' Med: 11.60 E/E' Lat: 7.10 PHT: 36.00 MVA PHT: 6.11 Decel Petroleum: 8.69 Aortic Valve AoV Pk Tejas: 1.47 AoV Mn Tejas: 0.95 AoV VTI: 0.27 AoV Pk Grad: 9.00 Aov Mn Grad: 4.00 GUILLERMO Cont.VTI: 2.70 LVOT LVOT Pk Tejas: 1.13 LVOT Mn Tejas: 0.67 LVOT VTI: 0.21 LVOT Pk Grad: 5.00 LVOT Mn Grad: 2.00 LVOT Diam: 2.10 LVOT Area: 3.46 Diastolic Function MV Pk E: 1.06 MV Pk A: 1.22 E/A: 0.90 E'Medial: 9.14 E/E' Med: 11.60 E' Laterial: 14.90 E/E' Lat: 7.10 Right Ventricle TAPSE (mm): 28.00 TVS' Tejas: 15.00 Tricuspid Valve TR Pk Tejas: 1.92 TR Pk Grad: 15.00 RA Press: 3.00 RVSP: 18.00 Great Vessels Aorta Ao Root-2D: 2.80 2.0-3.7 cm Ao Asc: 3.30 2.1-3.4 cm Pulmonary Valve PV Pk Tejas: 1.11 Peak PV Grad: 5.00 Updated in Other Vendor System with Status of Final Ayden Zaragoza MD electronically signed on 10/12/2022 4:19:17 PM with status of Final
[2022-10-12 07:26] LABS: Troponin-I High Sensitivity 138.7 ng/L (<3.5-35.0)
[2022-10-12] MEDS: Azithromycin 500 MG in 0.9 % Sodium Chloride 250 ML 125 MG IV (08:02)
[2022-10-12] MEDS: 0.9 % Sodium Chloride Flush 3 ML SYRINGE IVFLUSH ×2 (08:02→15:43)
--- NOTE | 2022-10-12 08:18 | MHC.CM.PN ---
PT REPORTS HE LIVES WITH A ROOMMATE AND HAS SUPPORT SERVICES [facility]IA [facility] HE REPORTS THE [facility] WORKERS DO HIS GROCERY SHOPPING AND HELP HIM PLAN AND TRANSPORT TO APPTS HE SAYS MARIANN FROM [facility] IS HIS HCP, COPY REQUESTED HE DENIES USE OF DME OR OTHER SERVICES PCP: MAKENZIE MIGUEL HE IS COVID VAX, NO BOOSTERS. CM ATTEMPTED TO CONTACT MARIANN [phone] FOR FURTHER INFORMATION, A VM WAS LEFT REQUESTING A RETURN CALL DC PLAN IS CURRENTLY HOME WITH RESUMPTION OF SERVICES TRANSPORT: [facility] [place]
--- NOTE | 2022-10-12 08:58 | PHA.MEDREC ---
Pharmacy Consult ? Medication Reconciliation Pharmacy has completed the medication reconciliation.
[2022-10-12 09:08] LABS: Appearance Urine Clear; Color Urine Yellow; Glucose Urine UA 250 mg/dL (Negative); Leukocyte Esterase Urine Negative (Negative); Nitrite Urine Negative (Negative); PH 5.5 (5.0-9.0); Specific Gravity - Urine >= 1.030 (1.005-1.025); Urine Blood Negative (Negative); Urine Ketones Trace mg/dL (Negative); Urine Protein Trace mg/dL (Neg-Trace)
--- NOTE | 2022-10-12 12:56 | MHC.CM.PN ---
Received return telephone call from patient's HCP, Suzie. Clinical updates provided. Suzie stated Dr Alexandra's office should have a copy of patient's HCP. 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 Continue to monitor for d/c needs.
--- NOTE | 2022-10-12 13:49 | PC.NURSE ---
sputum culture completed and sent to lab - rejected as not a good quality sputum. Dr. floers informed, does not want a new order.
--- NOTE | 2022-10-12 14:02 | P.CONCA_ITS ---
History of Present Illness History of Present Illness Date of Service: 10/12/22 Requesting physician: Karl Moser Chief complaint: Dyspnea, + troponin Narrative: 36-year-old gentleman with background history of asthma/COPD overlap syndrome who is presenting with worsening shortness of breath in the setting of asthma exacerbation. He said he was not feeling well for few days and then his breathing worsened and he came into the hospital. He was feeling some chest tightness at the same time. Denying significant chest discomfort other than when he is coughing. Overall improving with the treatment and feeling better. He was noticed to have mildly abnormal troponin levels. He has nonspecific T- wave changes on the EKG. He is denying any exertional symptoms in the past. No known cardiovascular history otherwise. He was a smoker as of few weeks ago. FOR[facility]LY [facility], [facility] Past Medical History Medical History Anxiety Asthma Asthma Asthma Asthma-COPD overlap syndrome Chronic allergic rhinitis Cough Depression Eczema Tobacco dependence Family History Family History Mother No problems noted. Father No problems noted. Surgical History Surgical History Hx of cholecystectomy Social History Social History Household Members: Other Housing: House Housing Other:: Shared living home Alcohol intake: former Patient Tobacco Use Status: Former Tobacco user Tobacco use type: Cigarette Years Smoked: 22 Smoked in Last 30 Days: No e-Cigarette/Vaping Use: Never Used Second Hand Smoke Exposure: No Use of substances other than those prescribed or required for medical reasons: No Substance Use Type: Marijuana Advance Directives: Yes Advance Directives on File: Yes Advance Directives Date on File: 02/17/21 Nutrition Risks: No Nutritional Risk service: No Current occupational status: unemployed and disabled Current occupational exposures/hazards: No Cognitive needs: No Hearing needs: No Vision needs: No Meds Allergies Allergy/AdvReac Type Severity Reaction Status Date / Time cat dander Allergy Severe asthma Verified 09/29/22 10:08 trigger, rash Active Medications: Current Medications Acetaminophen (Acetaminophen 325 Mg Tablet) 650 mg PO Q6H PRN PRN Reason: Pain, Mild (Pain Scale 1-3) Enoxaparin Sodium (Enoxaparin Sodium 40 Mg/0.4 Ml Syringe) 40 mg SUBCUT Q24H [facility] Last Admin: 10/12/22 05:38 Dose: 40 mg Fluoxetine HCl (Fluoxetine Hcl 20 Mg Capsule) 40 mg PO DAILY [facility] Gabapentin (Gabapentin 400 Mg Capsule) 400 mg PO TID [facility] Azithromycin 500 mg/ Sodium (Chloride) 250 mls @ 125 mls/hr IV Q24H [facility] Last Infusion: 10/12/22 11:14 Dose: Infused Ceftriaxone Sodium 1 gm/ (Sodium Chloride) 50 mls @ 100 mls/hr IV Q24H [facility] Levalbuterol HCl (Levalbuterol Hcl 1.25 Mg/0.5 Ml Vial.Neb) 1.25 mg INHALE RQ4H WHILE AWAKE [facility] Last Admin: 10/12/22 11:13 Dose: 1.25 mg Levalbuterol HCl (Levalbuterol Hcl 1.25 Mg/0.5 Ml Vial.Neb) 1.25 mg INHALE Q4H PRN PRN Reason: Wheezing Melatonin (Melatonin 3 Mg Tablet) 6 mg PO BEDTIME PRN PRN Reason: Insomnia Methylprednisolone Sodium Succinate (Methylprednisolone Sod Succ 40 Mg/Ml Vial) 40 mg IVPUSH Q12H [facility] Last Admin: 10/12/22 05:38 Dose: 40 mg Montelukast Sodium (Montelukast Sodium 10 Mg Tablet) 10 mg PO DAILY [facility] Ondansetron HCl (Ondansetron Hcl 4 Mg/2 Ml Vial) 4 mg IVPUSH Q8H PRN PRN Reason: Nausea and Vomiting Pharmacy Consult (Consult Rx Perform Med Rec) 1 each MISCELLANE ONCE PRN PRN Reason: Consult order Sodium Chloride (0.9 % Sodium Chloride Flush 3 Ml Syringe) 3 ml IVFLUSH QSHIFT [facility] Last Admin: 10/12/22 08:02 Dose: 3 ml Trazodone HCl (Trazodone Hcl 100 Mg Tablet) 100 mg PO BEDTIME [facility] Home Medications Medication Instructions Recorded Confirmed Last Taken Type fluoxetine 20 mg capsule 40 mg PO DAILY 02/17/21 10/12/22 10/11/22 History trazodone 100 mg tablet 100 mg PO BEDTIME 03/12/21 10/12/22 Unknown History gabapentin 400 mg capsule 400 mg PO TID 04/19/21 10/12/22 10/11/22 History Physical Exam Vital Signs: Vital Signs: Last Vital Signs Temp 98.1 F 10/12/22 08:32 Pulse 100 10/12/22 11:14 Resp 18 10/12/22 11:14 BP 110/66 10/12/22 10:24 Pulse Ox 97 10/12/22 10:24 O2 Del Method 10/12/22 10:24 O2 Flow Rate 3 10/12/22 08:32 Oxygen Flow Rate 6 10/12/22 03:10 BMI result Body Mass Index 23.3 GENERAL APPEARANCE: in no acute distress, pleasant. NECK: no carotid bruit, no jugular venous distention. SKIN: no suspicious lesions, warm and dry. HEART: no murmurs, regular rate and rhythm. LUNGS: Mild end expiratory wheezes. ABDOMEN: soft, nontender. EXTREMITIES: no edema. PERIPHERAL PULSES: equal. NEUROLOGIC: No gross deficits, AAO X 3 Objective Labs and Meds 10/12/22 02:11 10/12/22 02:11 Lab results: Laboratory Results - last 24 hr 10/12/22 10/12/22 10/12/22 01:46 02:11 02:11 WBC 25.4 H RBC 4.48 L Hgb 15.1 Hct 42.6 MCV 95.1 MCH 33.7 H MCHC 35.4 RDW 12.5 Plt Count 313 MPV 9.9 Immature Gran % (Auto) 0.6 H Neut % (Auto) 81.9 H Lymph % (Auto) 7.0 L [place] % (Auto) 7.6 Eos % (Auto) 2.5 Baso % (Auto) 0.4 Lymph # (Auto) 1.8 [place] # (Auto) 1.9 H Eos # (Auto) 0.6 H Baso # (Auto) 0.1 Abs Immat Gran (auto) 0.14 H Absolute Neuts (auto) 20.8 H Absolute Nucleated RBC 0.000 Nucleated RBC % (auto) 0.0 Smear Tech's Comments VERIFIED VBG pH VBG pCO2 VBG pO2 VBG HCO3 VBG O2 Saturation VBG Base Excess Sodium 138 Potassium 4.0 Chloride 104 Carbon Dioxide 22 Anion Gap 16 BUN 13 Creatinine 0.91 Estim Creat Clear Calc 111.1 Estimated GFR > 60 Random Glucose 141 H Lactic Acid Calcium 9.4 Total Bilirubin 0.4 AST 21 ALT 15 Alkaline Phosphatase 117 Troponin I High Sens Total Protein 7.4 Albumin 4.6 Urine Color Urine Appearance Urine pH Ur Specific [place] Urine Protein Urine Glucose (UA) Urine Ketones Urine Blood Urine Nitrite Ur Leukocyte Esterase COVID-19 ([place]) Negative COVID-19 Clin Com See Note 10/12/22 10/12/22 10/12/22 02:11 02:14 03:52 WBC RBC Hgb Hct MCV MCH MCHC RDW Plt Count MPV Immature Gran % (Auto) Neut % (Auto) Lymph % (Auto) [place] % (Auto) Eos % (Auto) Baso % (Auto) Lymph # (Auto) [place] # (Auto) Eos # (Auto) Baso # (Auto) Abs Immat Gran (auto) Absolute Neuts (auto) Absolute Nucleated RBC Nucleated RBC % (auto) Smear Tech's Comments VBG pH 7.43 VBG pCO2 38 VBG pO2 133 VBG HCO3 25 VBG O2 Saturation 99.0 VBG Base Excess 1.4 Sodium Potassium Chloride Carbon Dioxide Anion Gap BUN Creatinine Estim Creat Clear Calc Estimated GFR Random Glucose Lactic Acid 1.1 Calcium Total Bilirubin AST ALT Alkaline Phosphatase Troponin I High Sens 95.7 H D Total Protein Albumin Urine Color Urine Appearance Urine pH Ur Specific [place] Urine Protein Urine Glucose (UA) Urine Ketones Urine Blood Urine Nitrite Ur Leukocyte Esterase COVID-19 ([place]) COVID-19 Clin Com 10/12/22 10/12/22 10/12/22 04:56 06:55 08:59 WBC RBC Hgb Hct MCV MCH MCHC RDW Plt Count MPV Immature Gran % (Auto) Neut % (Auto) Lymph % (Auto) [place] % (Auto) Eos % (Auto) Baso % (Auto) Lymph # (Auto) [place] # (Auto) Eos # (Auto) Baso # (Auto) Abs Immat Gran (auto) Absolute Neuts (auto) Absolute Nucleated RBC Nucleated RBC % (auto) Smear Tech's Comments VBG pH VBG pCO2 VBG pO2 VBG HCO3 VBG O2 Saturation VBG Base Excess Sodium Potassium Chloride Carbon Dioxide Anion Gap BUN Creatinine Estim Creat Clear Calc Estimated GFR Random Glucose Lactic Acid Calcium Total Bilirubin AST ALT Alkaline Phosphatase Troponin I High Sens 104.1 H* 138.7 H* Total Protein Albumin Urine Color Yellow Urine Appearance Clear Urine pH 5.5 Ur Specific [place] >= 1.030 H Urine Protein Trace Urine Glucose (UA) 250 H Urine Ketones Trace Urine Blood Negative Urine Nitrite Negative Ur Leukocyte Esterase Negative COVID-19 ([place]) COVID-19 Clin Com Imaging Radiologist's impression: Impressions Chest X-Ray 10/12/22 02:02 IMPRESSION: Focal, approximately 4 cm ovoid density overlying the left upper lung; it is difficult to determine with certainty whether this represents a pulmonary opacity versus shadow from an overlying object. Repeat radiograph following removal of all overlying objects is recommended. Chest CTA 10/12/22 04:35 IMPRESSION: 1. No central or segmental pulmonary embolus identified. Limited assessment of some regions of the distal vasculature due to respiratory motion artifact. 2. Few scattered patchy regions of groundglass opacity bilaterally, suggesting mild infectious/inflammatory etiology. VTE: positive Assessment and Plan (1) Asthma-COPD overlap syndrome: Status: Acute (2) Elevated troponin: Status: Acute Plan 36-year-old gentleman presenting with asthma exacerbation. Still mildly wheezy. He has nonspecific T-wave changes on the EKG and high sensitivity troponin levels are 95, 104 and 138. Overall the clinical story appears to be related to type 2 injury right now. Recommend echocardiogram to assess for any wall motion abnormalities. Continue to treat asthma as before. Thank you for allowing me to participate in the care of your patient. Please feel free to contact me if you have any questions. Time Spent With Patient Time: Total time managing care of this patient today ____ minutes. Procedures Date of Service Date of Service: 10/12/22
--- NOTE | 2022-10-12 14:31 | P.PNIM_ITS ---
Subjective Subjective Date of Service: 10/12/22 Interval History: cc: sob interval history:sob Physical Exam Vital Signs: Vital Signs: Last Vital Signs Temp 98.1 F 10/12/22 08:32 Pulse 100 10/12/22 11:14 Resp 18 10/12/22 11:14 BP 110/66 10/12/22 10:24 Pulse Ox 97 10/12/22 10:24 O2 Del Method 10/12/22 10:24 O2 Flow Rate 3 10/12/22 08:32 Oxygen Flow Rate 6 10/12/22 03:10 BMI result Body Mass Index 23.3 General: AO X 3, no acute distress Resp: wheezes bilateral, no accessory muscles used CVS: S1,S2,RRR GI: soft, non tender, non distended Neuro: motor grossly intact, alert Psych: appropriate affect, appropriate insight Objective Data Active Medications Acetaminophen (Acetaminophen 325 Mg Tablet) 650 mg PO Q6H PRN PRN Reason: Pain, Mild (Pain Scale 1-3) Enoxaparin Sodium (Enoxaparin Sodium 40 Mg/0.4 Ml Syringe) 40 mg SUBCUT Q24H [facility] Last Admin: 10/12/22 05:38 Dose: 40 mg Documented By: ALEXIS Fluoxetine HCl (Fluoxetine Hcl 20 Mg Capsule) 40 mg PO DAILY [facility] Gabapentin (Gabapentin 400 Mg Capsule) 400 mg PO TID [facility] Azithromycin 500 mg/ Sodium (Chloride) 250 mls @ 125 mls/hr IV Q24H [facility] Last Infusion: 10/12/22 11:14 Dose: 0 mls/hr Documented By: BRANDON Ceftriaxone Sodium 1 gm/ (Sodium Chloride) 50 mls @ 100 mls/hr IV Q24H [facility] Levalbuterol HCl (Levalbuterol Hcl 1.25 Mg/0.5 Ml Vial.Neb) 1.25 mg INHALE RQ4H WHILE AWAKE [facility] Last Admin: 10/12/22 11:13 Dose: 1.25 mg Documented By: YOSHI Levalbuterol HCl (Levalbuterol Hcl 1.25 Mg/0.5 Ml Vial.Neb) 1.25 mg INHALE Q4H PRN PRN Reason: Wheezing Melatonin (Melatonin 3 Mg Tablet) 6 mg PO BEDTIME PRN PRN Reason: Insomnia Methylprednisolone Sodium Succinate (Methylprednisolone Sod Succ 40 Mg/Ml Vial) 40 mg IVPUSH Q12H [facility] Last Admin: 10/12/22 05:38 Dose: 40 mg Documented By: ALEXIS Montelukast Sodium (Montelukast Sodium 10 Mg Tablet) 10 mg PO DAILY [facility] Ondansetron HCl (Ondansetron Hcl 4 Mg/2 Ml Vial) 4 mg IVPUSH Q8H PRN PRN Reason: Nausea and Vomiting Pharmacy Consult (Consult Rx Perform Med Rec) 1 each MISCELLANE ONCE PRN PRN Reason: Consult order Sodium Chloride (0.9 % Sodium Chloride Flush 3 Ml Syringe) 3 ml IVFLUSH QSHIFT [facility] Last Admin: 10/12/22 08:02 Dose: 3 ml Documented By: BRANDON Trazodone HCl (Trazodone Hcl 100 Mg Tablet) 100 mg PO BEDTIME [facility] Labs 10/12/22 02:11 10/12/22 02:11 Labs: Laboratory Results - last 24 hr 10/12/22 10/12/22 10/12/22 01:46 02:11 02:11 MCV 95.1 MCH 33.7 H MCHC 35.4 RDW 12.5 Plt Count 313 MPV 9.9 Immature Gran % (Auto) 0.6 H Neut % (Auto) 81.9 H Lymph % (Auto) 7.0 L [place] % (Auto) 7.6 Eos % (Auto) 2.5 Baso % (Auto) 0.4 Lymph # (Auto) 1.8 [place] # (Auto) 1.9 H Eos # (Auto) 0.6 H Baso # (Auto) 0.1 Abs Immat Gran (auto) 0.14 H Absolute Neuts (auto) 20.8 H Absolute Nucleated RBC 0.000 Nucleated RBC % (auto) 0.0 Smear Tech's Comments VERIFIED VBG pH VBG pCO2 VBG pO2 VBG HCO3 VBG O2 Saturation VBG Base Excess Anion Gap 16 Estim Creat Clear Calc 111.1 Estimated GFR > 60 Random Glucose 141 H Lactic Acid Calcium 9.4 Total Bilirubin 0.4 AST 21 ALT 15 Alkaline Phosphatase 117 Troponin I High Sens Total Protein 7.4 Albumin 4.6 Urine Color Urine Appearance Urine pH Ur Specific [place] Urine Protein Urine Glucose (UA) Urine Ketones Urine Blood Urine Nitrite Ur Leukocyte Esterase COVID-19 ([place]) Negative COVID-19 Clin Com See Note 10/12/22 10/12/2223 02:11 02:14 03:52 MCV MCH MCHC RDW Plt Count MPV Immature Gran % (Auto) Neut % (Auto) Lymph % (Auto) [place] % (Auto) Eos % (Auto) Baso % (Auto) Lymph # (Auto) [place] # (Auto) Eos # (Auto) Baso # (Auto) Abs Immat Gran (auto) Absolute Neuts (auto) Absolute Nucleated RBC Nucleated RBC % (auto) Smear Tech's Comments VBG pH 7.43 VBG pCO2 38 VBG pO2 133 VBG HCO3 25 VBG O2 Saturation 99.0 VBG Base Excess 1.4 Anion Gap Estim Creat Clear Calc Estimated GFR Random Glucose Lactic Acid 1.1 Calcium Total Bilirubin AST ALT Alkaline Phosphatase Troponin I High Sens 95.7 H D Total Protein Albumin Urine Color Urine Appearance Urine pH Ur Specific [place] Urine Protein Urine Glucose (UA) Urine Ketones Urine Blood Urine Nitrite Ur Leukocyte Esterase COVID-19 ([place]) COVID-[facility] 10/12/22 10/12/22 10/12/22 04:56 06:55 08:59 MCV MCH MCHC RDW Plt Count MPV Immature Gran % (Auto) Neut % (Auto) Lymph % (Auto) [place] % (Auto) Eos % (Auto) Baso % (Auto) Lymph # (Auto) [place] # (Auto) Eos # (Auto) Baso # (Auto) Abs Immat Gran (auto) Absolute Neuts (auto) Absolute Nucleated RBC Nucleated RBC % (auto) Smear Tech's Comments VBG pH VBG pCO2 VBG pO2 VBG HCO3 VBG O2 Saturation VBG Base Excess Anion Gap Estim Creat Clear Calc Estimated GFR Random Glucose Lactic Acid Calcium Total Bilirubin AST ALT Alkaline Phosphatase Troponin I High Sens 104.1 H* 138.7 H* Total Protein Albumin Urine Color Yellow Urine Appearance Clear Urine pH 5.5 Ur Specific [place] >= 1.030 H Urine Protein Trace Urine Glucose (UA) 250 H Urine Ketones Trace Urine Blood Negative Urine Nitrite Negative Ur Leukocyte Esterase Negative COVID-19 ([place]) COVID-19 [employer] Com Microbiology Microbiology Results: Microbiology 10/12/22 08:59 Gram Stain - Final Sputum - Expectorated Sputum Culture - Final Assessment and Plan (1) Hypoxia: Status: Acute Plan 36-year-old male with pertinent history asthma / COPD overlap syndrome, mood disorder who presented to the emergency department for evaluation of dyspnea. Acute hypoxemic respiratory failure secondary to Acute decompensation of moderate persistent asthma / COPD overlap syndrome steroids, nebs sepsis due to community-acquired pneumonia Continue empiric IV antibiotics elevated troponin: Due to increased demand cardio appreciated echo mood disorder prozac ?DVT prophylaxis: Lovenox 40 mg daily Full code reason for continued hospitalization:sob Time Spent With Patient Time: Total time managing care of this patient today ____ minutes. Quality Stroke Does the patient have a stroke diagnosis?: No VTE Prior VTE?: No VTE Risk Level:: Medical - moderate - high VTE Device Contraindication: Treatment Not Indicated VTE Drug Contraindication: N/A - Med Ordered
[2022-10-12] MEDS: Gabapentin 400 MG CAPSULE PO ×2 (15:43→21:32)
[2022-10-12] MEDS: Nicotine 14 MG PATCH.TD24 TRANSDERMA (18:52)
[2022-10-12] MEDS: traZODone HCL 100 MG TABLET PO (21:32)
[2022-10-13 03:04] VITALS: BP 126/77; PULSE 90; RESP 15; TEMP 36.8; O2SAT 91
[2022-10-13] MEDS: cefTRIAXone sodium 1 GM in 0.9 % Sodium Chloride 50 ML IV (03:19)
[2022-10-13] MEDS: 0.9 % Sodium Chloride Flush 3 ML SYRINGE IVFLUSH ×2 (03:20→09:11)
--- NOTE | 2022-10-13 03:36 | PC.NURSE ---
Patient stated: feeling winded after going to the bathroom, saturation to be noted at 91 %. PRN nebulizer given, patient improved to 93% and improved work of breathing.
[2022-10-13] MEDS: Enoxaparin Sodium 40 MG/0.4 ML SYRINGE SUBCUT (05:33)
[2022-10-13] MEDS: methylPREDNISolone Sod Succ 40 MG/ML VIAL IVPUSH (05:33)
[2022-10-13 06:37] LABS: Basophils Percent Auto 0.1 % (0-2); Hemoglobin 14.5 g/dl (14.0-18.0); Imm Gran Abs Auto 0.12 X10*3/uL (0.00-0.03); Imm Gran Pct Auto 0.5 % (0.0-0.4); Lymphocytes Absolute Auto 1.7 X10*3/uL (1.2-4.9); Lymphocytes Percent Auto 7.6 % (20-40); MANUAL DIFF FLAG SCAN; Mean Corpuscular HGB Conc 33.7 g/dl (31.0-36.0); Mean Corpuscular Volume 97.9 fL (80.0-98.0); Monocytes Absolute Auto 1.5 X10*3/uL (0.1-1.2); Monocytes Percent Auto 6.6 % (2-11); Neutrophils Absolute Auto 19.5 x10*3/uL (2.0-8.3); Neutrophils Percent Auto 85.2 % (45-73); Platelet Count 315 X10*3/uL (160-400); Red Blood Count 4.39 X10*6/uL (4.60-5.80); Red Cell Distribution Width 13.1 % (11.0-16.0); SCAN SMEAR FLAG 1; White Blood Count 22.9 X10*3/uL (4.8-10.8)
[2022-10-13 07:02] LABS: Anion Gap 18 (12-20); Blood Urea Nitrogen 15 mg/dL (9-16); Calcium 9.7 mg/dL (8.4-10.2); Carbon Dioxide 23 mmol/L (22-29); Chloride 105 mmol/L (96-108); Creatinine Clr Calc Pharmacy 113.6; Estimated Glomerular Filt Rate > 60; Glucose Fasting 138 mg/dL (60-99); Potassium 4.8 mmol/L (3.3-5.1); Sodium 141 mmol/L (135-145)
[2022-10-13 07:03] LABS: Anion Gap 18 (12-20); Blood Urea Nitrogen 15 mg/dL (9-16); Calcium 9.7 mg/dL (8.4-10.2); Carbon Dioxide 22 mmol/L (22-29); Chloride 106 mmol/L (96-108); Creatinine Clr Calc Pharmacy 116.2; Estimated Glomerular Filt Rate > 60; Glucose Random 136 mg/dL (60-115); Potassium 4.7 mmol/L (3.3-5.1); Sodium 141 mmol/L (135-145)
[2022-10-13 07:44] VITALS: BP 115/69; PULSE 84; RESP 8; TEMP 36.7; O2SAT 93
[2022-10-13 08:04] VITALS: PULSE 96; RESP 18; O2SAT 94
[2022-10-13 08:14] LABS: SLIDE REVIEW VERIFIED
[2022-10-13] MEDS: Azithromycin 500 MG in 0.9 % Sodium Chloride 250 ML 125 MG IV (09:10)
[2022-10-13] MEDS: Gabapentin 400 MG CAPSULE PO (09:11)
[2022-10-13] MEDS: Montelukast Sodium 10 MG TABLET PO (09:11)
[2022-10-13] MEDS: FLUoxetine HCl 20 MG CAPSULE 40 MG PO (09:11)
[2022-10-13] MEDS: Nicotine 14 MG PATCH.TD24 TRANSDERMA (09:15)
--- NOTE | 2022-10-13 09:28 | P.DS_ITS ---
DS: Providers Provider Date of Service: 10/13/22 Date of admission: 10/12/22 05:14 Primary care physician: Jovan Alexandra MD Consults: 10/12/22 09:59 Consult to Cardiology Routine Consulting Provider: Ayden Zaragoza Reason for consultation: elevated troponin in 36M with copd/asthma Has provider been notified: Yes DS: Diagnosis Discharge Diagnosis (1) Hypoxia: Status: Acute DS: Summary Hospital Course Hospital Course: from initial hpi: Chief Complaint: Dyspnea ? This is a 36-year-old male with pertinent history asthma / COPD overlap syndrome, mood disorder who presents to the emergency department for evaluation of dyspnea.? Patient states he has had dyspnea, worse with exertion for the last 2 weeks which has become persistent and progressive.? It is associated with wheezing.? Patient tried home inhaler without relief.? About 2 weeks ago, he initially had runny nose, watering of eyes and nonproductive cough. It soon? progressed to cough with mucopurulent expectoration.? Patient does not use oxygen at home.? States he is compliant with home medications.? Admits chills but denies chest discomfort, palpitations, abdominal pain, nausea, vomiting, changes in urinary or bowel habits. ?in the emergency department, patient was found to be hypoxemic and saturating 80% when EMS arrived. hospital course: Patient was admitted for acute hypoxic respiratory failure secondary to acute d ecompensation moderate persistent asthma/COPD overlap syndrome complicated by sepsis due to community-acquired pneumonia. Patient was treated with methylprednisolone, bronchodilators, ceftriaxone and azithromycin. His symptoms significantly improved. He was able to be weaned off oxygen. He will be discharged on 5 more days of prednisone and azithromycin. On admission patient also noted to have elevated troponin with high sensitivity troponin of 138.7. Echocardiogram was unremarkable. Most likely this was a type 2 [place]. patient continued Prozac for mood disorder. He is feeling better will be discharged home. Time Spent with Patient Time attestation: Total time managing care of this patient today ____ minutes. Discharge coordination time: Greater than 30 minutes Quality: Safe Use of Opioids Does Pt have an Active Cancer Diagnosis on the Problem List?: No Quality: Stroke Does the patient have a stroke diagnosis?: No Physical Exam Vital Signs: Vital Signs: Last Vital Signs Temp 98.1 F 10/13/22 07:44 Pulse 96 10/13/22 08:04 Resp 18 10/13/22 08:04 BP 115/69 10/13/22 07:44 Pulse Ox 93 10/13/22 07:44 O2 Del Method 10/13/22 07:44 O2 Flow Rate 3 10/12/22 08:32 Oxygen Flow Rate 6 10/12/22 03:10 BMI result Body Mass Index 23.3 General: AO X 3, no acute distress Resp: CTA bilateral, no accessory muscles used CVS: S1,S2,RRR GI: soft, non tender, non distended Neuro: motor grossly intact, alert Psych: appropriate affect, appropriate insight DS: Data Data Completed and Pending Labs on day of discharge: Laboratory Results - last 24 hr 10/13/22 10/13/22 10/13/22 06:05 06:05 06:05 WBC 22.9 H RBC 4.39 L Hgb 14.5 Hct 43.0 MCV 97.9 MCH 33.0 MCHC 33.7 RDW 13.1 Plt Count 315 MPV 11.0 Immature Gran % (Auto) 0.5 H Neut % (Auto) 85.2 H Lymph % (Auto) 7.6 L [place] % (Auto) 6.6 Eos % (Auto) 0.0 Baso % (Auto) 0.1 Lymph # (Auto) 1.7 [place] # (Auto) 1.5 H Eos # (Auto) 0.0 Baso # (Auto) 0.0 Abs Immat Gran (auto) 0.12 H Absolute Neuts (auto) 19.5 H Absolute Nucleated RBC 0.000 Nucleated RBC % (auto) 0.0 Smear Tech's Comments VERIFIED Sodium 141 141 Potassium 4.8 4.7 Chloride 105 106 Carbon Dioxide 23 22 Anion Gap 18 18 BUN 15 15 Creatinine 0.89 0.87 Estim Creat Clear Calc 113.6 116.2 Estimated GFR > 60 > 60 Random Glucose 136 H Fasting Glucose 138 H Calcium 9.7 9.7 Preliminary micro results at discharge 10/12/22 03:52 Blood Culture - Preliminary Blood - Venous No growth after 24 hours. 10/12/22 03:52 Blood Culture - Preliminary Blood - Venous No growth after 24 hours. Discharge Plan Discharge Anticipated Discharge Date/Time: 10/13/22 09:26 Patient Disposition: Home, Self-Care Discharge Diagnosis: asthma/copd Referrals: Jovan Alexandra MD [Primary Care Provider] - 1 Week Discharge Medications: New prednisone 20 mg tablet 40 mg PO DAILY Qty: 10 0RF azithromycin 500 mg tablet 500 mg PO DAILY 5 Days Qty: 5 0RF Continued montelukast 10 mg tablet 10 mg PO DAILY Qty: 90 3RF fluoxetine 20 mg capsule 40 mg PO DAILY albuterol sulfate [ProAir HFA] 90 mcg/actuation HFA aerosol inhaler 2 puff inhalation Q4-6H PRN (Reason: shortness of breath or wheezing) Qty: 8.5 8RF trazodone 100 mg tablet 100 mg PO BEDTIME Rx Instructions: may repeat x 1 gabapentin 400 mg capsule 400 mg PO TID Advair HFA 230-21 mcg/actuation HFA aerosol inhaler 2 puff inhalation BID 30 Days Qty: 1 11RF nicotine 14 mg/24 hr patch 24 hour 1 patch transdermal DAILY 28 Days Qty: 28 3RF nicotine (polacrilex) 2 mg gum 2 mg buccal Q4H PRN (Reason: nicotine cravings) Qty: 100 0RF Discharge Orders: Discharge Order (Routine); Ordered 10/13/22 Ordered By: Karl Moser Diet: Advance to usual diet Activity on Discharge: As tolerated Stand Alone Forms: Patient Portal Discharge page Care Plan Goals: recovery Health Concerns: asthma/copd/pna Plan of Treatment: 5 more days azithro and prednisone Assessment: see above
--- NOTE | 2022-10-13 09:43 | MHC.CM.PN ---
PATIENT IS DC HOME - SELF CARE RN AWARE OF PLAN.
[2022-10-13 11:27] VITALS: PULSE 95; RESP 18; O2SAT 94
--- NOTE | 2022-10-13 11:34 | P.PNCA_ITS ---
Subjective Subjective Date of Service: 10/13/22 Interval history: Seen examined at bedside. Echocardiography has not shown any wall motion abnormalities. Overall improving. Physical Exam Vital Signs: Last Vital Signs Temp 98.1 F 10/13/22 07:44 Pulse 95 10/13/22 11:27 Resp 18 10/13/22 11:27 BP 115/69 10/13/22 07:44 Pulse Ox 93 10/13/22 07:44 O2 Del Method 10/13/22 07:44 O2 Flow Rate 3 10/12/22 08:32 Oxygen Flow Rate 6 10/12/22 03:10 BMI result Body Mass Index 23.3 GENERAL APPEARANCE: in no acute distress, pleasant. NECK: no carotid bruit, no jugular venous distention. SKIN: no suspicious lesions, warm and dry. HEART: no murmurs, regular rate and rhythm. LUNGS: clear to auscultation bilaterally. ABDOMEN: soft, nontender. EXTREMITIES: no edema. PERIPHERAL PULSES: equal. NEUROLOGIC: No gross deficits, AAO X 3 Objective Labs and Meds 10/13/22 06:05 10/13/22 06:05 Lab results: Laboratory Results - last 24 hr 10/13/22 10/13/22 10/13/22 06:05 06:05 06:05 WBC 22.9 H RBC 4.39 L Hgb 14.5 Hct 43.0 MCV 97.9 MCH 33.0 MCHC 33.7 RDW 13.1 Plt Count 315 MPV 11.0 Immature Gran % (Auto) 0.5 H Neut % (Auto) 85.2 H Lymph % (Auto) 7.6 L [place] % (Auto) 6.6 Eos % (Auto) 0.0 Baso % (Auto) 0.1 Lymph # (Auto) 1.7 [place] # (Auto) 1.5 H Eos # (Auto) 0.0 Baso # (Auto) 0.0 Abs Immat Gran (auto) 0.12 H Absolute Neuts (auto) 19.5 H Absolute Nucleated RBC 0.000 Nucleated RBC % (auto) 0.0 Smear Tech's Comments VERIFIED Sodium 141 141 Potassium 4.8 4.7 Chloride 105 106 Carbon Dioxide 23 22 Anion Gap 18 18 BUN 15 15 Creatinine 0.89 0.87 Estim Creat Clear Calc 113.6 116.2 Estimated GFR > 60 > 60 Random Glucose 136 H Fasting Glucose 138 H Calcium 9.7 9.7 Progress Note: A&P Assessment and plan (1) Elevated troponin: Status: Acute Plan [age] gentleman with type 2 troponin elevation in the setting of asthma/COPD exacerbation. Echocardiography is normal. No concerning symptoms currently. Improving with treatment of asthma and COPD. Signing off. Thank you for allowing me to participate in the care of your patient. Please feel free to contact me if you have any questions. Time Spent With Patient Time: Total time managing care of this patient today ____ minutes. Progress Note: Quality Stroke Does the patient have a stroke diagnosis?: No Procedures Date of Service Date of Service: 10/13/22
== END 2022-10-13 14:01 | disposition home or self-care (01) | DRG 720 ==
LOC: HO.ED 05:06 → HO.EDOVER 05:18 → HO.S3 17:28
PROVIDERS: Admitting Provider Student in an Organized Health Care Education/Training Program; Emergency Provider Internal Medicine; PCP Internal Medicine; Visit Provider Internal Medicine
DX: A41.9 Sepsis, unspecified organism (principal); J96.01 Acute respiratory failure with hypoxia; I21.A1 Myocardial infarction type 2; J44.0 Chronic obstructive pulmonary disease with (acute) lower respiratory infection; J18.9 Pneumonia, unspecified organism; J45.41 Moderate persistent asthma with (acute) exacerbation; J44.1 Chronic obstructive pulmonary disease with (acute) exacerbation; Z20.822 Contact with and (suspected) exposure to COVID-19; Z87.891 Personal history of nicotine dependence; Z79.51 Long term (current) use of inhaled steroids; Z79.899 Other long term (current) drug therapy
CPT/HCPCS: 36415; 71045; 71275; 80048; 80053; 81003; 82803; 83605; 84484; 85025; 87040; 87070; 87205; 87635; 90686; 93005; 93306; 94640; 99285; J0456; J0696; J1650; J2060; J2920; J3475; Q9957; Q9967

== ENCOUNTER → 2022-10-26 10:36 | Outpatient (BNVA) | payer OTHER, SELFPAY | PROVIDERS: PCP Internal Medicine; Visit Provider Hospitalist | DX: J44.1 Chronic obstructive pulmonary disease with (acute) exacerbation (principal); R06.09 Other forms of dyspnea; L30.9 Dermatitis, unspecified; F17.210 Nicotine dependence, cigarettes, uncomplicated; Z79.899 Other long term (current) drug therapy | CPT/HCPCS: 99212 ==

== ENCOUNTER 2022-12-08 16:28 | Inpatient (IN) | payer OTHER, SELFPAY ==
[2022-12-08] VITALS (7 sets, daily range): BP systolic 131–144; BP diastolic 81–112; PULSE 95–178; RESP 13–26; O2SAT 83–98; BMI 25.7
--- NOTE | ~2022-12-08 | XR_ITS ---
EXAMINATION: XR CHEST CLINICAL INFORMATION: Reason for Exam sob COMPARISON: Chest radiograph 10/12/2022 TECHNIQUE: One view of the chest FINDINGS: Clear lungs. No pneumothorax. Trace blunting of the costophrenic angles which may reflect trace pleural effusions. Normal cardiomediastinal silhouette. XR/XR chest 1V IMPRESSION: Trace blunting of the costophrenic angles which may reflect trace pleural effusions, which could be confirmed with repeat PA and lateral radiographs.
--- NOTE | 2022-12-08 16:34 | ED_ITS ---
HPI - General Adult General Chief complaint: Asthma <NIDIA Ponce - Last Filed: 12/08/22 16:35> Stated complaint: Asthma Attack <NIDIA Ponce - Last Filed: 12/08/22 16:35> Time Seen by Provider: 12/08/22 16:34 <NIDIA Ponce - Last Filed: 12/08/22 16:35> Source: patient, RN notes reviewed and old records reviewed <Rufino Luevano - Last Filed: 12/09/22 00:38> Mode of arrival: ambulatory <Rufino Luevano - Last Filed: 12/09/22 00:38> Limitations: no limitations <Rufino Luevano - Last Filed: 12/09/22 00:38> History of Present Illness HPI narrative: 37-year-old male past medical history significant for asthma, COPD, former smoker presents for evaluation of shortness of breath. Patient arrives to triage in respiratory distress with a heart rate of 170, room air sat of 83% in a tripod position He reports that his shortness of breath started around 11:00 a.m. about 5 hours prior to arrival. He states that they were initially more mild and he attempted to treat himself at home with 3 nebulizer treatments. He denies any fevers or sick contacts Patient has been admitted in the past for similar presentations. He denies any exacerbating symptoms that he can think of but he does states that he has seasonal allergies He does complain of chest tightness <Rufino Luevano - Last Filed: 12/09/22 00:38> Related Data Home medications: Home Medications Medication Instructions Recorded Confirmed fluoxetine 20 mg capsule 40 mg PO DAILY 02/17/21 12/08/22 trazodone 100 mg tablet 100 mg PO BEDTIME 03/12/21 12/08/22 gabapentin 400 mg capsule 400 mg PO TID 04/19/21 12/08/22 albuterol sulfate 2.5 mg/3 mL 2.5 mg inhalation BID PRN Wheezing 12/08/22 12/08/22 (0.083 %) solution for nebulization albuterol sulfate 90 mcg/actuation 2 puff inhalation BID 12/08/22 12/08/22 aerosol inhaler (ProAir HFA) Previous Rx's Medication Instructions Recorded montelukast 10 mg tablet 10 mg PO DAILY #90 tabs 04/18/22 fluticasone propionate 230 2 puff inhalation BID 30 days #1 ea 08/15/22 mcg-salmeterol 21 mcg/actuation HFA inhaler (Advair HFA) tiotropium bromide 2.5 2 puff inhalation DAILY 90 days #3 10/26/22 mcg/actuation mist for inhalation ea (Spiriva Respimat) <NIDIA Ponce - Last Filed: 12/08/22 16:35> Allergies/adverse reactions: Allergies Allergy/AdvReac Type Severity Reaction Status Date / Time cat dander Allergy Severe asthma Verified 10/26/22 10:42 trigger, rash <NIDIA Ponce - Last Filed: 12/08/22 16:35> Review of Systems Constitutional: Constitutional: Reports as per HPI, Denies chills, Denies fatigue, Denies fever(s) and Denies headache(s) <Rufino Luevano - Last Filed: 12/09/22 00:38> ENT: Denies headache(s) <Rufino Luevano - Last Filed: 12/09/22 00:38> Cardiovascular: Cardiovascular: Reports chest pain and Reports dyspnea <Rufino Luevano - Last Filed: 12/09/22 00:38> Respiratory: Respiratory: Denies cough and Reports dyspnea <Rufino Luevano - Last Filed: 12/09/22 00:38> Gastrointestinal: Gastrointestinal: Denies abdominal pain, Denies constipation and Denies vomiting <Rufino Luevano - Last Filed: 12/09/22 00:38> Genitourinary: Genitourinary: Denies difficulty urinating and Denies dysuria <Rufino Luevano - Last Filed: 12/09/22 00:38> Neurologic: Denies headache(s) and Denies focal weakness <Rufino Luevano - Last Filed: 12/09/22 00:38> Endocrine: Endocrine: Denies fatigue <Rufino Luevano - Last Filed: 12/09/22 00:38> PMFSH Past Medical History Medical History: Medical History Anxiety Asthma Asthma Asthma Asthma-COPD overlap syndrome Chronic allergic rhinitis Cough Depression Dyspnea Eczema Tobacco dependence <NIDIA Ponce - Last Filed: 12/08/22 16:35> Surgical History: Surgical History Hx of cholecystectomy <NIDIA Ponce - Last Filed: 12/08/22 16:35> Family History Family History: Family History Mother No problems noted. Father No problems noted. <NIDIA Ponce - Last Filed: 12/08/22 16:35> Social History Social History: Social History Household Members: None Household Members Other:: roommate Housing: House Housing Other:: Shared living home Do you presently have visiting nurse or other home services: No Alcohol intake: former Patient Tobacco Use Status: Former Tobacco user Quit Date: 3-5 weeks ago Tobacco use type: Cigarette Cigarettes Per Day: 5 Years Smoked: 20 years e-Cigarette/Vaping Use: Never Used Second Hand Smoke Exposure: No Substance Use Type: Marijuana Advance Directives Date on File: 10/12/22 service: No Current occupational status: unemployed and disabled Current occupational exposures/hazards: No Cognitive needs: No Hearing needs: No Vision needs: No <NIDIA Ponce - Last Filed: 12/08/22 16:35> Physical Exam ED Vital Signs: Vital Signs - 24 hr 12/08/22 16:29 12/08/22 16:42 12/08/22 16:54 Pulse Rate 178 H 115 H 170 H Respiratory Rate 24 H 20 26 H Blood Pressure 144/112 H Pulse Oximetry 83 L 97 Oxygen Delivery Method Room Air Nasal Cannula Oxygen Flow Rate 5 12/08/22 16:56 12/08/22 17:57 Pulse Rate 116 H 125 H Respiratory Rate 24 H Blood Pressure 136/83 Pulse Oximetry 93 Oxygen Delivery Method Nasal Cannula Oxygen Flow Rate 2 BMI result Body Mass Index 25.7 <NIDIA Ponce - Last Filed: 12/08/22 16:35> Vital Signs - 24 hr 12/08/22 16:29 12/08/22 16:42 12/08/22 16:54 Pulse Rate 178 H 115 H 170 H Respiratory Rate 24 H 20 26 H Blood Pressure 144/112 H Pulse Oximetry 83 L 97 Oxygen Delivery Method Room Air Nasal Cannula Oxygen Flow Rate 5 12/08/22 16:56 12/08/22 17:57 Pulse Rate 116 H 125 H Respiratory Rate 24 H Blood Pressure 136/83 Pulse Oximetry 93 Oxygen Delivery Method Nasal Cannula Oxygen Flow Rate 2 BMI result Body Mass Index 25.7 < Last Filed: 12/09/22 00:38> Const General: healthy appearing, comfortable, no acute distress, alert and awake < Last Filed: 12/09/22 00:38> Nutritional Appearance: well nourished < Last Filed: 12/09/22 00:38> Orientation/consciousness: patient oriented x3 < Last Filed: 12/09/22 00:38> HENMT Head: Yes normocephalic and Yes atraumatic < Last Filed: 12/09/22 00:38> Throat: Yes posterior oropharynx normal < Last Filed: 12/09/22 00:38> Eyes Eyelids: Yes eyelids normal < Last Filed: 12/09/22 00:38> Conjunctivae: conjunctivae normal < Last Filed: 12/09/22 00:38> Sclerae: sclerae normal < Last Filed: 12/09/22 00:38> Corneas: corneas normal < Last Filed: 12/09/22 00:38> Pupils: Equal, round and reactive pupils present < Last Filed: 12/09/22 00:38> EOM: EOMs intact bilaterally < Last Filed: 12/09/22 00:38> Neck Neck: Yes full ROM < Last Filed: 12/09/22 00:38> Chest Chest palpation & inspection: normal inspection of the chest <Rufino O Last Filed: 12/09/22 00:38> Resp Other: Patient is in respiratory distress with tripod position, accessory muscle use, significant bilateral inspiratory and expiratory wheeze throughout the lung mistry. < Last Filed: 12/09/22 00:38> Effort & Inspection: abnormal respiratory effort < Last Filed: 12/09/22 00:38> Auscultation: not clear to auscultation bilaterally < Last Filed: 12/09/22 00:38> Cardio Rhythm: regular rhythm < Last Filed: 12/09/22 00:38> GI Inspection: No distended < Last Filed: 12/09/22 00:38> Palpation (GI): Soft to palpation, not firm, nontender, no guarding and not rigid < Last Filed: 12/09/22 00:38> Auscultation: normoactive bowel sounds < Last Filed: 12/09/22 00:38> Skin General skin exam: no rashes or lesions noted and elasticity normal < Last Filed: 12/09/22 00:38> Neuro General: patient oriented x3 <Rufino Ulices Last Filed: 12/09/22 00:38> Cranial nerves: Yes CN's II-XII intact bilaterally, Yes Equal, round and reactive pupils present and Yes Bilaterally intact EOM present <Rufino Ulices Last Filed: 12/09/22 00:38> Cognition (Neuro): normal cognition <Rufino Ulices Last Filed: 12/09/22 00:38> Extrem Other: Moving all extremities well without any obvious deformities <Rufino Ulices Last Filed: 12/09/22 00:38> Course Course Course Narrative: This is an RME: Additional HPI, ROS, PE not included below will be deferred to primary provider. 37-year-old male history of asthma presents to the emergency department with acute asthma exacerbation shortness of breath x1 day, has taken 3 treatments at home with little to no relief. Patient appears uncomfortable and in moderate respiratory distress upon arrival. Tachypneic, tachycardic in the 170, hypoxic at 83% on room air. Was brought back to the emergency department. Basic orders placed <NIDIA Ponce - Last Filed: 12/08/22 16:35> Reevaluation(s) Reevaluation #1: Patient is still undergoing his breathing treatment, remains tachycardic in about the 110's. His respiratory effort is improving over. He remains on audibly wheezy on exam. <Rufino Luevano - Last Filed: 12/09/22 00:38> Time: 17:20 <Rufino Luevano - Last Filed: 12/09/22 00:38> Reevaluation #2: Patient has been titrated off the non-rebreather, the still slightly wheezy on exam. His oxygen saturation is about 93% on 2 L via nasal cannula. Initial troponin was 31 will repeat at 3 hour angela given the patient had ST depressions on his EKG. I do feel that a cardiac event is less likely and a respiratory cause of his chest tightness is most likely <Rufino Luevano - Last Filed: 12/09/22 00:38> Time: 18:22 <Rufino Luevano - Last Filed: 12/09/22 00:38> Medications Administered Generic Name Dose Route Start Last Admin Trade Name Freq PRN Reason Stop Dose Admin Enoxaparin Sodium 40 mg 12/08/22 20:00 12/08/22 20:07 Enoxaparin Sodium 40 Mg/0.4 Ml Syringe SUBCUT 40 mg Q24H TYLER Administration Gabapentin 400 mg 12/08/22 21:00 12/08/22 20:07 Gabapentin 400 Mg Capsule PO 400 mg TID TYLER Administration Azithromycin 500 mg/ Sodium 250 mls @ 125 mls/hr 12/08/22 20:00 12/08/22 22:30 Chloride IV Infused Q24H TYLER Infusion Levalbuterol HCl 1.25 mg 12/08/22 20:00 12/08/22 20:48 Levalbuterol Hcl 1.25 Mg/0.5 Ml Vial.Neb INHALE 1.25 mg RQ4H WHILE AWAKE TYLER Administration Levalbuterol HCl 1.25 mg 12/08/22 19:04 12/09/22 00:37 Levalbuterol Hcl 1.25 Mg/0.5 Ml Vial.Neb INHALE 1.25 mg Q3H PRN Administration Wheezing Methylprednisolone Sodium Succinate 40 mg 12/08/22 08:00 12/09/22 00:02 Methylprednisolone Sod Succ 40 Mg/Ml Vial IVPUSH Not Given Q12H TYLER Sodium Chloride 3 ml 12/09/22 00:00 12/09/22 00:08 0.9 % Sodium Chloride Flush 3 Ml Syringe IVFLUSH 3 ml QSHIFT TYLER Administration Trazodone HCl 100 mg 12/08/22 21:00 12/08/22 20:07 Trazodone Hcl 100 Mg Tablet PO 100 mg BEDTIME TYLER Administration Discontinued Medications Generic Name Dose Route Start Last Admin Trade Name Freq PRN Reason Stop Dose Admin Albuterol Sulfate 10 mg 12/08/22 16:31 12/08/22 16:42 Albuterol Sulfate (0.083%) 2.5 Mg/3 Ml Vial.Neb INHALE 12/08/22 16:32 10 mg ONCE ONE Administration Fentanyl 50 mcg 12/08/22 17:18 12/08/22 17:55 Fentanyl Citrate/Pf 100 Mcg/2 Ml Vial IVPUSH 12/08/22 17:19 50 mcg ONCE ONE Administration Protocol Magnesium Sulfate 2 gm in 50 mls @ 25 mls/hr 12/08/22 16:31 12/08/22 17:57 Magnesium Sulfate/H2o IV 12/08/22 18:30 Infused ONCE ONE Infusion Sodium Chloride 1,000 mls @ 999 mls/hr 12/08/22 16:45 12/08/22 19:37 Ns IV 12/08/22 17:45 Infused .Q1H1M TYLER Infusion Ipratropium [place] 0.5 mg 12/08/22 16:42 12/08/22 16:46 Ipratropium [place] 0.5 Mg/2.5 Ml Solution INHALE 12/08/22 16:43 0.5 mg ONCE ONE Administration Methylprednisolone Sodium Succinate 125 mg 12/08/22 16:31 12/08/22 16:40 Methylprednisolone Sod Succ 125 Mg/2 Ml Vial IVPUSH 12/08/22 16:32 125 mg ONCE ONE Administration <NIDIA Ponce - Last Filed: 12/08/22 16:35> Medications Administered Generic Name Dose Route Start Last Admin Trade Name Castillo PRN Reason Stop Dose Admin Enoxaparin Sodium 40 mg 12/08/22 20:00 12/08/22 20:07 Enoxaparin Sodium 40 Mg/0.4 Ml Syringe SUBCUT 40 mg Q24H TYLER Administration Gabapentin 400 mg 12/08/22 21:00 12/08/22 20:07 Gabapentin 400 Mg Capsule PO 400 mg TID TYLER Administration Azithromycin 500 mg/ Sodium 250 mls @ 125 mls/hr 12/08/22 20:00 12/08/22 22:30 Chloride IV Infused Q24H TYLER Infusion Levalbuterol HCl 1.25 mg 12/08/22 20:00 12/08/22 20:48 Levalbuterol Hcl 1.25 Mg/0.5 Ml Vial.Neb INHALE 1.25 mg RQ4H WHILE AWAKE TYLER Administration Levalbuterol HCl 1.25 mg 12/08/22 19:04 12/09/22 00:37 Levalbuterol Hcl 1.25 Mg/0.5 Ml Vial.Neb INHALE 1.25 mg Q3H PRN Administration Wheezing Methylprednisolone Sodium Succinate 40 mg 12/08/22 08:00 12/09/22 00:02 Methylprednisolone Sod Succ 40 Mg/Ml Vial IVPUSH Not Given Q12H TYLER Sodium Chloride 3 ml 12/09/22 00:00 12/09/22 00:08 0.9 % Sodium Chloride Flush 3 Ml Syringe IVFLUSH 3 ml QSHIFT TYLER Administration Trazodone HCl 100 mg 12/08/22 21:00 12/08/22 20:07 Trazodone Hcl 100 Mg Tablet PO 100 mg BEDTIME TYLER Administration Discontinued Medications Generic Name Dose Route Start Last Admin Trade Name Castillo PRN Reason Stop Dose Admin Albuterol Sulfate 10 mg 12/08/22 16:31 12/08/22 16:42 Albuterol Sulfate (0.083%) 2.5 Mg/3 Ml Vial.Neb INHALE 12/08/22 16:32 10 mg ONCE ONE Administration Fentanyl 50 mcg 12/08/22 17:18 12/08/22 17:55 Fentanyl Citrate/Pf 100 Mcg/2 Ml Vial IVPUSH 12/08/22 17:19 50 mcg ONCE ONE Administration Protocol Magnesium Sulfate 2 gm in 50 mls @ 25 mls/hr 12/08/22 16:31 12/08/22 17:57 Magnesium Sulfate/H2o IV 12/08/22 18:30 Infused ONCE ONE Infusion Sodium Chloride 1,000 mls @ 999 mls/hr 12/08/22 16:45 12/08/22 19:37 Ns IV 12/08/22 17:45 Infused .Q1H1M TYLER Infusion Ipratropium [place] 0.5 mg 12/08/22 16:42 12/08/22 16:46 Ipratropium [place] 0.5 Mg/2.5 Ml Solution INHALE 12/08/22 16:43 0.5 mg ONCE ONE Administration Methylprednisolone Sodium Succinate 125 mg 12/08/22 16:31 12/08/22 16:40 Methylprednisolone Sod Succ 125 Mg/2 Ml Vial IVPUSH 12/08/22 16:32 125 mg ONCE ONE Administration <Rufino Luevano - Last Filed: 12/09/22 00:38> Medical Decision Making Medical Decision Making [facility] Narrative: 37-year-old male presents for evaluation of respiratory distress on arrival. He has a long history of asthma and COPD he reports he is not currently smoking. He was tachycardic to 170 and it seemed irregular monitor. His O2 sat was 82% with significant wheezing on exam. He was given albuterol 10 mg with 0.5 of Atrovent. Psy Medrol 125 mg IV, magnesium IV. While the t reatment was ongoing, EKG was obtained and the patient's heart rate had improved to 112 with sinus tachycardia. EKG did show some ST depressions consistent with demand ischemia given the patient's significant tachycardia. Labs, viral panel, chest x-ray pending at this time. Patient will be closely monitored <Rufino Luevano - Last Filed: 12/09/22 00:38> Differential Diagnosis Asthma exacerbation COPD exacerbation Pneumonia Viral syndrome Bronchitis PE Cardiac arrhythmia <Rufino Luevano - Last Filed: 12/09/22 00:38> Consult Healthcare Provider Management of the patient was discussed with: Hospitalist <Rufino Luevano - Last Filed: 12/09/22 00:38> Lab Data [facility] Lab Attestation statement: I reviewed the patient's lab results. <Rufino Luevano - Last Filed: 12/09/22 00:38> Result Diagrams: 12/08/22 17:34 12/08/22 17:34 <NIDIA Ponce - Last Filed: 12/08/22 16:35> Labs: Lab Results 12/08/22 12/08/22 12/08/22 Range/Units 16:40 17:34 17:34 WBC 17.5 H (4.8-10.8) X10*3/uL RBC 4.52 L (4.60-5.80) X10*6/uL Hgb 15.3 (14.0-18.0) g/dl Hct 43.6 (42.0-52.0) % MCV 96.5 (80.0-98.0) fL MCH 33.8 H (27.0-33.0) pg MCHC 35.1 (31.0-36.0) g/dl RDW 13.2 (11.0-16.0) % Plt Count 278 (160-400) X10*3/uL MPV 9.9 (9.4-12.4) fL Immature Gran % (Auto) 0.5 H (0.0-0.4) % Neut % (Auto) 69.0 (45-73) % Lymph % (Auto) 15.8 L (20-40) % [place] % (Auto) 11.2 H (2-11) % Eos % (Auto) 2.9 (0-4) % Baso % (Auto) 0.6 (0-2) % Lymph # (Auto) 2.8 (1.2-4.9) X10*3/uL [place] # (Auto) 2.0 H (0.1-1.2) X10*3/uL Eos # (Auto) 0.5 H (0.0-0.4) X10*3/uL Baso # (Auto) 0.1 (0.0-0.2) X10*3/uL Abs Immat Gran (auto) 0.08 H (0.00-0.03) X10*3/uL Absolute Neuts (auto) 12.1 H (2.0-8.3) x10*3/uL Absolute Nucleated RBC 0.000 (0.0-0.012) X10*3/uL Nucleated RBC % (auto) 0.0 (0.0-0.2) /100WBC Sodium 139 (135-145) mmol/L Potassium 4.0 (3.3-5.1) mmol/L Chloride 105 (96-108) mmol/L Carbon Dioxide 21 L (22-29) mmol/L Anion Gap 17 (12-20) BUN 18 H (9-16) mg/dL Creatinine 1.00 (0.5-1.4) mg/dL Estim Creat Clear Calc 106.6 Estimated GFR > 60 Random Glucose 120 H (60-115) mg/dL Lactic Acid (0.5-2.0) mmol/L Calcium 8.8 D (8.4-10.2) mg/dL Magnesium 2.5 (1.6-2.6) mg/dL Total Bilirubin 0.7 (0.0-1.0) mg/dL AST 19 (5-37) U/L ALT 23 (0-40) U/L Alkaline Phosphatase 113 (39-117) U/L Troponin I High Sens (<3.5-35.0) ng/L B-Natriuretic Peptide (<100) pg/mL Total Protein 7.6 (6.5-8.0) g/dL Albumin 4.7 (3.5-5.0) g/dL Influenza Type A (PCR) NEGATIVE (Negative) Influenza Type B (PCR) NEGATIVE (Negative) RSV RNA Qual (PCR) NEGATIVE (Negative) SARS-CoV-2 RNA (RT-PCR) NEGATIVE (Negative) 12/08/22 12/08/22 12/08/22 Range/Units 17:34 17:34 17:34 WBC (4.8-10.8) X10*3/uL RBC (4.60-5.80) X10*6/uL Hgb (14.0-18.0) g/dl Hct (42.0-52.0) % MCV (80.0-98.0) fL MCH (27.0-33.0) pg MCHC (31.0-36.0) g/dl RDW (11.0-16.0) % Plt Count (160-400) X10*3/uL MPV (9.4-12.4) fL Immature Gran % (Auto) (0.0-0.4) % Neut % (Auto) (45-73) % Lymph % (Auto) (20-40) % [place] % (Auto) (2-11) % Eos % (Auto) (0-4) % Baso % (Auto) (0-2) % Lymph # (Auto) (1.2-4.9) X10*3/uL [place] # (Auto) (0.1-1.2) X10*3/uL Eos # (Auto) (0.0-0.4) X10*3/uL Baso # (Auto) (0.0-0.2) X10*3/uL Abs Immat Gran (auto) (0.00-0.03) X10*3/uL Absolute Neuts (auto) (2.0-8.3) x10*3/uL Absolute Nucleated RBC (0.0-0.012) X10*3/uL Nucleated RBC % (auto) (0.0-0.2) /100WBC Sodium (135-145) mmol/L Potassium (3.3-5.1) mmol/L Chloride (96-108) mmol/L Carbon Dioxide (22-29) mmol/L Anion Gap (12-20) BUN (9-16) mg/dL Creatinine (0.5-1.4) mg/dL Estim Creat Clear Calc Estimated GFR Random Glucose (60-115) mg/dL Lactic Acid 1.1 (0.5-2.0) mmol/L Calcium (8.4-10.2) mg/dL Magnesium (1.6-2.6) mg/dL Total Bilirubin (0.0-1.0) mg/dL AST (5-37) U/L ALT (0-40) U/L Alkaline Phosphatase (39-117) U/L Troponin I High Sens 31.1 D (<3.5-35.0) ng/L B-Natriuretic Peptide 12 (<100) pg/mL Total Protein (6.5-8.0) g/dL Albumin (3.5-5.0) g/dL Influenza Type A (PCR) (Negative) Influenza Type B (PCR) (Negative) RSV RNA Qual (PCR) (Negative) SARS-CoV-2 RNA (RT-PCR) (Negative) 12/08/22 Range/Units 18:36 WBC (4.8-10.8) X10*3/uL RBC (4.60-5.80) X10*6/uL Hgb (14.0-18.0) g/dl Hct (42.0-52.0) % MCV (80.0-98.0) fL MCH (27.0-33.0) pg MCHC (31.0-36.0) g/dl RDW (11.0-16.0) % Plt Count (160-400) X10*3/uL MPV (9.4-12.4) fL Immature Gran % (Auto) (0.0-0.4) % Neut % (Auto) (45-73) % Lymph % (Auto) (20-40) % [place] % (Auto) (2-11) % Eos % (Auto) (0-4) % Baso % (Auto) (0-2) % Lymph # (Auto) (1.2-4.9) X10*3/uL [place] # (Auto) (0.1-1.2) X10*3/uL Eos # (Auto) (0.0-0.4) X10*3/uL Baso # (Auto) (0.0-0.2) X10*3/uL Abs Immat Gran (auto) (0.00-0.03) X10*3/uL Absolute Neuts (auto) (2.0-8.3) x10*3/uL Absolute Nucleated RBC (0.0-0.012) X10*3/uL Nucleated RBC % (auto) (0.0-0.2) /100WBC Sodium (135-145) mmol/L Potassium (3.3-5.1) mmol/L Chloride (96-108) mmol/L Carbon Dioxide (22-29) mmol/L Anion Gap (12-20) BUN (9-16) mg/dL Creatinine (0.5-1.4) mg/dL Estim Creat Clear Calc Estimated GFR Random Glucose (60-115) mg/dL Lactic Acid (0.5-2.0) mmol/L Calcium (8.4-10.2) mg/dL Magnesium (1.6-2.6) mg/dL Total Bilirubin (0.0-1.0) mg/dL AST (5-37) U/L ALT (0-40) U/L Alkaline Phosphatase (39-117) U/L Troponin I High Sens 34.6 (<3.5-35.0) ng/L B-Natriuretic Peptide (<100) pg/mL Total Protein (6.5-8.0) g/dL Albumin (3.5-5.0) g/dL Influenza Type A (PCR) (Negative) Influenza Type B (PCR) (Negative) RSV RNA Qual (PCR) (Negative) SARS-CoV-2 RNA (RT-PCR) (Negative) <NIDIA Ponce - Last Filed: 12/08/22 16:35> Lab Results 12/08/22 12/08/22 12/08/22 Range/Units 16:40 17:34 17:34 WBC 17.5 H (4.8-10.8) X10*3/uL RBC 4.52 L (4.60-5.80) X10*6/uL Hgb 15.3 (14.0-18.0) g/dl Hct 43.6 (42.0-52.0) % MCV 96.5 (80.0-98.0) fL MCH 33.8 H (27.0-33.0) pg MCHC 35.1 (31.0-36.0) g/dl RDW 13.2 (11.0-16.0) % Plt Count 278 (160-400) X10*3/uL MPV 9.9 (9.4-12.4) fL Immature Gran % (Auto) 0.5 H (0.0-0.4) % Neut % (Auto) 69.0 (45-73) % Lymph % (Auto) 15.8 L (20-40) % [place] % (Auto) 11.2 H (2-11) % Eos % (Auto) 2.9 (0-4) % Baso % (Auto) 0.6 (0-2) % Lymph # (Auto) 2.8 (1.2-4.9) X10*3/uL [place] # (Auto) 2.0 H (0.1-1.2) X10*3/uL Eos # (Auto) 0.5 H (0.0-0.4) X10*3/uL Baso # (Auto) 0.1 (0.0-0.2) X10*3/uL Abs Immat Gran (auto) 0.08 H (0.00-0.03) X10*3/uL Absolute Neuts (auto) 12.1 H (2.0-8.3) x10*3/uL Absolute Nucleated RBC 0.000 (0.0-0.012) X10*3/uL Nucleated RBC % (auto) 0.0 (0.0-0.2) /100WBC Sodium 139 (135-145) mmol/L Potassium 4.0 (3.3-5.1) mmol/L Chloride 105 (96-108) mmol/L Carbon Dioxide 21 L (22-29) mmol/L Anion Gap 17 (12-20) BUN 18 H (9-16) mg/dL Creatinine 1.00 (0.5-1.4) mg/dL Estim Creat Clear Calc 106.6 Estimated GFR > 60 Random Glucose 120 H (60-115) mg/dL Lactic Acid (0.5-2.0) mmol/L Calcium 8.8 D (8.4-10.2) mg/dL Magnesium 2.5 (1.6-2.6) mg/dL Total Bilirubin 0.7 (0.0-1.0) mg/dL AST 19 (5-37) U/L ALT 23 (0-40) U/L Alkaline Phosphatase 113 (39-117) U/L Troponin I High Sens (<3.5-35.0) ng/L B-Natriuretic Peptide (<100) pg/mL Total Protein 7.6 (6.5-8.0) g/dL Albumin 4.7 (3.5-5.0) g/dL Influenza Type A (PCR) NEGATIVE (Negative) Influenza Type B (PCR) NEGATIVE (Negative) RSV RNA Qual (PCR) NEGATIVE (Negative) SARS-CoV-2 RNA (RT-PCR) NEGATIVE (Negative) 12/08/22 12/08/22 12/08/22 Range/Units 17:34 17:34 17:34 WBC (4.8-10.8) X10*3/uL RBC (4.60-5.80) X10*6/uL Hgb (14.0-18.0) g/dl Hct (42.0-52.0) % MCV (80.0-98.0) fL MCH (27.0-33.0) pg MCHC (31.0-36.0) g/dl RDW (11.0-16.0) % Plt Count (160-400) X10*3/uL MPV (9.4-12.4) fL Immature Gran % (Auto) (0.0-0.4) % Neut % (Auto) (45-73) % Lymph % (Auto) (20-40) % [place] % (Auto) (2-11) % Eos % (Auto) (0-4) % Baso % (Auto) (0-2) % Lymph # (Auto) (1.2-4.9) X10*3/uL [place] # (Auto) (0.1-1.2) X10*3/uL Eos # (Auto) (0.0-0.4) X10*3/uL Baso # (Auto) (0.0-0.2) X10*3/uL Abs Immat Gran (auto) (0.00-0.03) X10*3/uL Absolute Neuts (auto) (2.0-8.3) x10*3/uL Absolute Nucleated RBC (0.0-0.012) X10*3/uL Nucleated RBC % (auto) (0.0-0.2) /100WBC Sodium (135-145) mmol/L Potassium (3.3-5.1) mmol/L Chloride (96-108) mmol/L Carbon Dioxide (22-29) mmol/L Anion Gap (12-20) BUN (9-16) mg/dL Creatinine (0.5-1.4) mg/dL Estim Creat Clear Calc Estimated GFR Random Glucose (60-115) mg/dL Lactic Acid 1.1 (0.5-2.0) mmol/L Calcium (8.4-10.2) mg/dL Magnesium (1.6-2.6) mg/dL Total Bilirubin (0.0-1.0) mg/dL AST (5-37) U/L ALT (0-40) U/L Alkaline Phosphatase (39-117) U/L Troponin I High Sens 31.1 D (<3.5-35.0) ng/L B-Natriuretic Peptide 12 (<100) pg/mL Total Protein (6.5-8.0) g/dL Albumin (3.5-5.0) g/dL Influenza Type A (PCR) (Negative) Influenza Type B (PCR) (Negative) RSV RNA Qual (PCR) (Negative) SARS-CoV-2 RNA (RT-PCR) (Negative) 12/08/22 Range/Units 18:36 WBC (4.8-10.8) X10*3/uL RBC (4.60-5.80) X10*6/uL Hgb (14.0-18.0) g/dl Hct (42.0-52.0) % MCV (80.0-98.0) fL MCH (27.0-33.0) pg MCHC (31.0-36.0) g/dl RDW (11.0-16.0) % Plt Count (160-400) X10*3/uL MPV (9.4-12.4) fL Immature Gran % (Auto) (0.0-0.4) % Neut % (Auto) (45-73) % Lymph % (Auto) (20-40) % [place] % (Auto) (2-11) % Eos % (Auto) (0-4) % Baso % (Auto) (0-2) % Lymph # (Auto) (1.2-4.9) X10*3/uL [place] # (Auto) (0.1-1.2) X10*3/uL Eos # (Auto) (0.0-0.4) X10*3/uL Baso # (Auto) (0.0-0.2) X10*3/uL Abs Immat Gran (auto) (0.00-0.03) X10*3/uL Absolute Neuts (auto) (2.0-8.3) x10*3/uL Absolute Nucleated RBC (0.0-0.012) X10*3/uL Nucleated RBC % (auto) (0.0-0.2) /100WBC Sodium (135-145) mmol/L Potassium (3.3-5.1) mmol/L Chloride (96-108) mmol/L Carbon Dioxide (22-29) mmol/L Anion Gap (12-20) BUN (9-16) mg/dL Creatinine (0.5-1.4) mg/dL Estim Creat Clear Calc Estimated GFR Random Glucose (60-115) mg/dL Lactic Acid (0.5-2.0) mmol/L Calcium (8.4-10.2) mg/dL Magnesium (1.6-2.6) mg/dL Total Bilirubin (0.0-1.0) mg/dL AST (5-37) U/L ALT (0-40) U/L Alkaline Phosphatase (39-117) U/L Troponin I High Sens 34.6 (<3.5-35.0) ng/L B-Natriuretic Peptide (<100) pg/mL Total Protein (6.5-8.0) g/dL Albumin (3.5-5.0) g/dL Influenza Type A (PCR) (Negative) Influenza Type B (PCR) (Negative) RSV RNA Qual (PCR) (Negative) SARS-CoV-2 RNA (RT-PCR) (Negative) <Rufino Luevano - Last Filed: 12/09/22 00:38> Independent Interpretation I performed an independent interpretation of an: EKG (Sinus tachycardia rate of [address] depressions in that lateral leads) and Plain X-Ray (No focal infiltrates) <Rufino Luevano - Last Filed: 12/09/22 00:38> Tests considered The following testing was considered but not selected: Considered CTA of the chest given the patient's tachycardia and respiratory stress, however he had a CTA on 10/12/2022 that was negative for PE. The patient has a history of asthma and COPD. His symptoms greatly improved with nebulizer treatment. Therefore I feel that PE is less likely <Rufino Luevano - Last Filed: 12/09/22 00:38> Discharge Plan Discharge Clinical Impression: Asthma-chronic obstructive pulmonary disease overlap syndrome <NIDIA Ponce - Last Filed: 12/08/22 16:35> Patient Disposition: Admitted As Inpatient <NIDIA Ponce Last Filed: 12/08/22 16:35> Interventions: Admission Worksheet (ED) Last Done: 12/09/22 00:27 <NIDIA Ponce - Last Filed: 12/08/22 16:35> Discharge Date/Time: 12/09/22 00:28 <NIDIA Ponce - Last Filed: 12/08/22 16:35>
[2022-12-08] MEDS: methylPREDNISolone Sod Succ 125 MG/2 ML VIAL IVPUSH (16:40)
--- NOTE | 2022-12-08 16:40 | ECG_ITS ---
Test Reason : sob Blood Pressure : / mmHG Vent. Rate : 112 BPM Atrial Rate : 112 BPM P-R Int : 144 ms QRS Dur : 072 ms QT Int : 332 ms P-R-T Axes : 076 077 -26 degrees QTc Int : 453 ms Sinus tachycardia with Premature atrial complexes Nonspecific ST and T wave abnormality Abnormal ECG When compared with ECG of 12-OCT-2022 03:46, No significant changes seen Referred By: Rufino Luevano Electronically Signed By:KARO MILLAN
[2022-12-08] MEDS: Albuterol Sulfate (0.083%) 2.5 MG/3 ML VIAL.NEB 10 MG INHALE (16:42)
[2022-12-08] MEDS: Magnesium Sulfate/H2O 2 GM/50 ML PIGGYBACK IV (16:43)
[2022-12-08] MEDS: Ipratropium Bromide 0.5 MG/2.5 ML SOLUTION INHALE (16:46)
[2022-12-08] MEDS: 0.9 % Sodium Chloride 1,000 ML 999 ML IV (16:48)
--- NOTE | 2022-12-08 16:56 | PC.NURSE ---
Pt coming from triage with asthma exacerbation since approx 1000, using at home inhalers and updrafts without relief. LS tight with I/E wheezing, HR 170s, color dusky on arrival that has since improved after charted interventions. HR trended down to 116. Receiving 1 hour long 120mg Albuterol updraft. territory outside sales manager at bedside.
[2022-12-08 17:22] LABS: Influenza A PCR NEGATIVE (Negative); Influenza B PCR NEGATIVE (Negative); Resp Syncy Virus RNA Qual PCR NEGATIVE (Negative); SARS COV2 PCR INHOUSE NEGATIVE (Negative)
[2022-12-08 17:40] LABS: MANUAL DIFF FLAG NO
[2022-12-08 17:48] LABS: Basophils Absolute Auto 0.1 X10*3/uL (0.0-0.2); Basophils Percent Auto 0.6 % (0-2); Eosinophils Absolute Auto 0.5 X10*3/uL (0.0-0.4); Eosinophils Percent Auto 2.9 % (0-4); Hematocrit 43.6 % (42.0-52.0); Hemoglobin 15.3 g/dl (14.0-18.0); Imm Gran Abs Auto 0.08 X10*3/uL (0.00-0.03); Imm Gran Pct Auto 0.5 % (0.0-0.4); Lymphocytes Absolute Auto 2.8 X10*3/uL (1.2-4.9); Lymphocytes Percent Auto 15.8 % (20-40); Mean Corpuscular HGB Conc 35.1 g/dl (31.0-36.0); Mean Corpuscular Hemoglobin 33.8 pg (27.0-33.0); Mean Corpuscular Volume 96.5 fL (80.0-98.0); Mean Platelet Volume 9.9 fL (9.4-12.4); Monocytes Percent Auto 11.2 % (2-11); Neutrophils Absolute Auto 12.1 x10*3/uL (2.0-8.3); Platelet Count 278 X10*3/uL (160-400); Red Blood Count 4.52 X10*6/uL (4.60-5.80); Red Cell Distribution Width 13.2 % (11.0-16.0); SCAN SMEAR FLAG 1; White Blood Count 17.5 X10*3/uL (4.8-10.8)
[2022-12-08 17:50] LABS: Lactic Acid 1.1 mmol/L (0.5-2.0)
[2022-12-08 17:55] LABS: Alanine Aminotransferase 23 U/L (0-40); Albumin Level 4.7 g/dL (3.5-5.0); Alkaline Phosphatase 113 U/L (39-117); Anion Gap 17 (12-20); Aspartate Amino Transferase 19 U/L (5-37); Bilirubin Total 0.7 mg/dL (0.0-1.0); Blood Urea Nitrogen 18 mg/dL (9-16); Calcium 8.8 mg/dL (8.4-10.2); Carbon Dioxide 21 mmol/L (22-29); Chloride 105 mmol/L (96-108); Creatinine Clr Calc Pharmacy 106.6; Estimated Glomerular Filt Rate > 60; Glucose Random 120 mg/dL (60-115); Magnesium 2.5 mg/dL (1.6-2.6); Sodium 139 mmol/L (135-145); Total Protein 7.6 g/dL (6.5-8.0)
[2022-12-08] MEDS: fentaNYL citrate/PF 100 MCG/2 ML VIAL 50 MCG IVPUSH (17:55)
[2022-12-08 18:00] LABS: B Type Natriuretic Peptide 12 pg/mL (<100)
[2022-12-08 18:01] LABS: Troponin-I High Sensitivity 31.1 ng/L (<3.5-35.0)
--- NOTE | 2022-12-08 18:24 | PC.NURSE ---
Pt verbally reports improvement in sx and appears with less resp effort. LS remain with I/E wheezing but less tight and increased air movement noted.
--- NOTE | 2022-12-08 18:47 | PHA.MEDREC ---
Pharmacy Consult ? Medication Reconciliation Pharmacy has completed the medication reconciliation. Patient reports using albuterlol inhaler BID instead of PRN and use the nebulizer PRN instead of TYLER. Laurel Ruiz, RaphaelD
[2022-12-08 19:01] LABS: Troponin-I High Sensitivity 34.6 ng/L (<3.5-35.0)
--- NOTE | 2022-12-08 19:05 | PM.IMHP ---
History of Present Illness Date of Service: 12/08/22 Chief Complaint: Dyspnea This is a 37-year-old male with pertinent history of asthma/COPD overlap syndrome, mood disorder presents to the emergency department for evaluation of dyspnea. Patient was admitted recently and discharged on 10/13 with acute exacerbation of his obstructive lung disease. Patient states he had wheezing and dyspnea, worse with exertion with started on the day of presentation. Also has been having productive cough, unknown sputum color. No chest discomfort, palpitations, fever, chills, abdominal pain, changes in urinary or bowel habits. Patient tried home inhaler without relief. States he is compliant with his home inhaler and medications. Has quit smoking. Does not use oxygen at home. In the emergency department, patient requiring 3 L supplemental oxygen Review of Systems Constitutional: Constitutional: Reports no additional constitutional complaints Cardiovascular: Cardiovascular: Reports dyspnea on exertion Respiratory: Respiratory: Reports cough, Reports dyspnea on exertion and Reports wheezing Gastrointestinal: Gastrointestinal: Reports no additional gastrointestinal complaints Genitourinary: Genitourinary: Reports no additional male genitourinary complaints Allergic/Immunologic: Allergic/Immunologic: Reports wheezing [facility] Medical History Anxiety Asthma Asthma Asthma Asthma-COPD overlap syndrome Chronic allergic rhinitis Cough Depression Dyspnea Eczema Tobacco dependence Family History Mother No problems noted. Father No problems noted. Surgical History Hx of cholecystectomy Social History Household Members: Other Household Members Other:: roommate Housing: House Housing Other:: Shared living home Do you presently have visiting nurse or other home services: Yes ([facility](multicultural services)) Alcohol intake: former Patient Tobacco Use Status: Former Tobacco user Quit Date: 3-5 weeks ago Tobacco use type: Cigarette Cigarettes Per Day: 5 Years Smoked: 20 years Smoked in Last 30 Days: Yes e-Cigarette/Vaping Use: Never Used Second Hand Smoke Exposure: No Use of substances other than those prescribed or required for medical reasons: No Substance Use Type: Marijuana Advance Directives: Yes Advance Directives on File: Yes Advance Directives Date on File: 10/12/22 service: No Current occupational status: unemployed and disabled Current occupational exposures/hazards: No Cognitive needs: No Hearing needs: No Vision needs: No Meds Allergies Allergy/AdvReac Type Severity Reaction Status Date / Time cat dander Allergy Severe asthma Verified 10/26/22 10:42 trigger, rash Active Medications: Current Medications Acetaminophen (Acetaminophen 325 Mg Tablet) 650 mg PO Q6H PRN PRN Reason: Pain, Mild (Pain Scale 1-3) Acetaminophen (Acetaminophen Supp 650 Mg Supp.Rect) 650 mg NM Q6H PRN PRN Reason: Pain, Mild (Pain Scale 1-3) Enoxaparin Sodium (Enoxaparin Sodium 40 Mg/0.4 Ml Syringe) 40 mg SUBCUT Q24H [facility] Melatonin (Melatonin 3 Mg Tablet) 6 mg PO BEDTIME PRN PRN Reason: Insomnia Ondansetron HCl (Ondansetron Hcl 4 Mg/2 Ml Vial) 4 mg IVPUSH Q8H PRN PRN Reason: Nausea and Vomiting Pharmacy Consult (Consult Rx Perform Med Rec) 1 each MISCELLANE ONCE PRN PRN Reason: Consult order Sodium Chloride (0.9 % Sodium Chloride Flush 3 Ml Syringe) 3 ml IVFLUSH QSHIFT [facility] Home Medications Medication Instructions Recorded Confirmed Last Taken Type fluoxetine 20 mg capsule 40 mg PO DAILY 02/17/21 12/08/22 12/08/22 History trazodone 100 mg tablet 100 mg PO BEDTIME 03/12/21 12/08/22 12/07/22 History gabapentin 400 mg capsule 400 mg PO TID 04/19/21 12/08/22 12/08/22 History albuterol sulfate 2.5 mg/3 mL 2.5 mg inhalation BID PRN Wheezing 12/08/22 12/08/22 12/08/22 History (0.083 %) solution for nebulization albuterol sulfate 90 mcg/actuation 2 puff inhalation BID 12/08/22 12/08/22 12/08/22 History aerosol inhaler (ProAir HFA) Physical Exam Vital Signs and Narrative: Vital Signs: Last Vital Signs Pulse 125 H 12/08/22 17:57 Resp 24 H 12/08/22 17:57 BP 136/83 12/08/22 17:57 Pulse Ox 93 12/08/22 17:57 O2 Del Method Nasal Cannula 12/08/22 17:57 O2 Flow Rate 2 12/08/22 17:57 BMI result Body Mass Index 25.7 Middle-aged male lying in bed in mild distress on supplemental oxygen Neck supple, no JVD Tachycardic with regular rhythm, S1-S2 heard Bilateral expiratory wheezing without crackles Abdomen soft nontender, no guarding, no rigidity Patient is awake, alert and oriented to self, place, time and person ; no focal motor deficit Psych: Normal mood No pedal edema Results Labs 12/08/22 17:34 12/08/22 17:34 Labs: Laboratory Results - last 24 hr 12/08/22 12/08/22 12/08/22 16:40 17:34 17:34 MCV 96.5 MCH 33.8 H MCHC 35.1 RDW 13.2 Plt Count 278 MPV 9.9 Immature Gran % (Auto) 0.5 H Neut % (Auto) 69.0 Lymph % (Auto) 15.8 L [place] % (Auto) 11.2 H Eos % (Auto) 2.9 Baso % (Auto) 0.6 Lymph # (Auto) 2.8 [place] # (Auto) 2.0 H Eos # (Auto) 0.5 H Baso # (Auto) 0.1 Abs Immat Gran (auto) 0.08 H Absolute Neuts (auto) 12.1 H Absolute Nucleated RBC 0.000 Nucleated RBC % (auto) 0.0 Anion Gap 17 Estim Creat Clear Calc 106.6 Estimated GFR > 60 Random Glucose 120 H Lactic Acid Calcium 8.8 D Magnesium 2.5 Total Bilirubin 0.7 AST 19 ALT 23 Alkaline Phosphatase 113 Troponin I High Sens B-Natriuretic Peptide Total Protein 7.6 Albumin 4.7 Influenza Type A (PCR) NEGATIVE Influenza Type B (PCR) NEGATIVE RSV RNA Qual (PCR) NEGATIVE SARS-CoV-2 RNA (RT-PCR) NEGATIVE 12/08/22 12/08/22 12/08/22 17:34 17:34 17:34 MCV MCH MCHC RDW Plt Count MPV Immature Gran % (Auto) Neut % (Auto) Lymph % (Auto) [place] % (Auto) Eos % (Auto) Baso % (Auto) Lymph # (Auto) [place] # (Auto) Eos # (Auto) Baso # (Auto) Abs Immat Gran (auto) Absolute Neuts (auto) Absolute Nucleated RBC Nucleated RBC % (auto) Anion Gap Estim Creat Clear Calc Estimated GFR Random Glucose Lactic Acid 1.1 Calcium Magnesium Total Bilirubin AST ALT Alkaline Phosphatase Troponin I High Sens 31.1 D B-Natriuretic Peptide 12 Total Protein Albumin Influenza Type A (PCR) Influenza Type B (PCR) RSV RNA Qual (PCR) SARS-CoV-2 RNA (RT-PCR) 12/08/22 18:36 MCV MCH MCHC RDW Plt Count MPV Immature Gran % (Auto) Neut % (Auto) Lymph % (Auto) [place] % (Auto) Eos % (Auto) Baso % (Auto) Lymph # (Auto) [place] # (Auto) Eos # (Auto) Baso # (Auto) Abs Immat Gran (auto) Absolute Neuts (auto) Absolute Nucleated RBC Nucleated RBC % (auto) Anion Gap Estim Creat Clear Calc Estimated GFR Random Glucose Lactic Acid Calcium Magnesium Total Bilirubin AST ALT Alkaline Phosphatase Troponin I High Sens 34.6 B-Natriuretic Peptide Total Protein Albumin Influenza Type A (PCR) Influenza Type B (PCR) RSV RNA Qual (PCR) SARS-CoV-2 RNA (RT-PCR) Assessment and Plan (1) Hypoxia: Status: Acute Plan This is a 37-year-old male with pertinent history of asthma/COPD overlap syndrome, mood disorder presents to the emergency department for evaluation of dyspnea. #. Acute hypoxemic respiratory failure secondary to acute exacerbation of asthma/COPD overlap syndrome: Will admit patient on supplemental oxygen. Scheduled and p.r.n. levalbuterol inhalation. Continue supplemental oxygen and wean as tolerated. Maintain oxygen saturation greater than 88 90%. Initiating systemic steroids. Continue home inhaler and montelukast. Initiating azithromycin for pleiotropic effect #. Mood disorder: Continue trazodone and fluoxetine DVT prophylaxis: Lovenox 40 mg daily Full code Regular diet Admit as inpatient and will require two night minimum hospital stay for supplemental oxygen Time Spent With Patient Time: Total time managing care of this patient today ____ minutes. Quality Stroke Does the patient have a stroke diagnosis?: No VTE Prior VTE?: No VTE Risk Level:: Medical - moderate - high VTE Device Contraindication: Treatment Not Indicated VTE Drug Contraindication: N/A - Med Ordered
--- NOTE | 2022-12-08 19:35 | PC.NURSE ---
pt assessed, no resp distress observed, lung sounds insp/exp wheezes
[2022-12-08] MEDS: Azithromycin 500 MG in 0.9 % Sodium Chloride 250 ML 125 MG IV (20:07)
[2022-12-08] MEDS: traZODone HCL 100 MG TABLET PO (20:07)
[2022-12-08] MEDS: Enoxaparin Sodium 40 MG/0.4 ML SYRINGE SUBCUT (20:07)
[2022-12-08] MEDS: Gabapentin 400 MG CAPSULE PO (20:07)
--- NOTE | 2022-12-08 21:27 | MHC.CM.PN ---
CM met with admitted patient with bed assignment pending. A&Ox4. Lives alone. Has community assistance through [employer] to support independent living. Attends a day program at [facility] in [place] 6 days a week. pharmacist manager from [employer]/HCP Suzie Mejia ([phone]). Pt states he is well supported at home and enjoys programs at [facility]. Pt is his own guardian. Has HX asthma, anxiety, depression and mood disorder. Pfizer x2. No booster. D/C plan: home with continued community supports. Sales Engagement Executive Suzie will transport home. CM will follow for any discharge needs.
[2022-12-09] VITALS (10 sets, daily range): BP systolic 97–159; BP diastolic 55–85; PULSE 79–104; RESP 17–18; TEMP 36.2–36.6; O2SAT 92–96
[2022-12-09] MEDS: 0.9 % Sodium Chloride Flush 3 ML SYRINGE IVFLUSH ×4 (00:08→19:47)
[2022-12-09 06:46] LABS: MANUAL DIFF FLAG NO
[2022-12-09 06:51] LABS: Basophils Percent Auto 0.2 % (0-2); Eosinophils Percent Auto 0.1 % (0-4); Hematocrit 40.2 % (42.0-52.0); Hemoglobin 13.8 g/dl (14.0-18.0); Imm Gran Abs Auto 0.06 X10*3/uL (0.00-0.03); Imm Gran Pct Auto 0.5 % (0.0-0.4); Lymphocytes Absolute Auto 1.2 X10*3/uL (1.2-4.9); Lymphocytes Percent Auto 9.4 % (20-40); Mean Corpuscular HGB Conc 34.3 g/dl (31.0-36.0); Mean Corpuscular Hemoglobin 33.8 pg (27.0-33.0); Mean Corpuscular Volume 98.5 fL (80.0-98.0); Mean Platelet Volume 10.4 fL (9.4-12.4); Monocytes Absolute Auto 0.6 X10*3/uL (0.1-1.2); Monocytes Percent Auto 4.5 % (2-11); Neutrophils Absolute Auto 10.9 x10*3/uL (2.0-8.3); Neutrophils Percent Auto 85.3 % (45-73); Platelet Count 271 X10*3/uL (160-400); Red Blood Count 4.08 X10*6/uL (4.60-5.80); Red Cell Distribution Width 13.4 % (11.0-16.0); White Blood Count 12.7 X10*3/uL (4.8-10.8)
[2022-12-09 07:32] LABS: Anion Gap 17 (12-20); Blood Urea Nitrogen 15 mg/dL (9-16); Calcium 9.2 mg/dL (8.4-10.2); Carbon Dioxide 22 mmol/L (22-29); Chloride 104 mmol/L (96-108); Creatinine Clr Calc Pharmacy 117.2; Estimated Glomerular Filt Rate > 60; Glucose Random 144 mg/dL (60-115); Potassium 5.2 mmol/L (3.3-5.1); Sodium 138 mmol/L (135-145)
[2022-12-09] MEDS: methylPREDNISolone Sod Succ 40 MG/ML VIAL IVPUSH ×2 (08:20→19:52)
[2022-12-09] MEDS: Gabapentin 400 MG CAPSULE PO ×3 (08:20→20:01)
[2022-12-09] MEDS: Montelukast Sodium 10 MG TABLET PO (08:20)
[2022-12-09] MEDS: FLUoxetine HCl 20 MG CAPSULE 40 MG PO (08:20)
[2022-12-09] MEDS: Acetaminophen 325 MG TABLET 650 MG PO (08:31)
--- NOTE | 2022-12-09 09:48 | HO.PM.IMPN ---
Subjective Subjective Date of Service: 12/09/22 Interval History: f/u on acute exacerbation of asthm interval history: feels better but not optimal sto sob, wheezing Physical Exam Vital Signs: Vital Signs: Last Vital Signs Temp 97.3 F 12/09/22 07:10 Pulse 99 12/09/22 08:48 Resp 18 12/09/22 08:48 BP 150/82 H 12/09/22 07:10 Pulse Ox 92 12/09/22 07:10 O2 Del Method Nasal Cannula 12/09/22 07:10 O2 Flow Rate 2 12/09/22 07:10 BMI result Body Mass Index 25.7 Const: Other: General: AO X 3, no acute distress Resp: bilateral wheezing, mild wob CVS: S1,S2,RRR GI: +BS, NT, no distention Skin: No rash Neuro: motor grossly intact Psych: appropriate affect Objective Data Active Medications Acetaminophen (Acetaminophen 325 Mg Tablet) 650 mg PO Q6H PRN PRN Reason: Pain, Mild (Pain Scale 1-3) Last Admin: 12/09/22 08:31 Dose: 650 mg Documented By: OLIVA Acetaminophen (Acetaminophen Supp 650 Mg Supp.Rect) 650 mg FL Q6H PRN PRN Reason: Pain, Mild (Pain Scale 1-3) Enoxaparin Sodium (Enoxaparin Sodium 40 Mg/0.4 Ml Syringe) 40 mg SUBCUT Q24H [facility] Last Admin: 12/08/22 20:07 Dose: 40 mg Documented By: JASON Fluoxetine HCl (Fluoxetine Hcl 20 Mg Capsule) 40 mg PO DAILY [facility] Last Admin: 12/09/22 08:20 Dose: 40 mg Documented By: OLIVA Fluticasone/Vilanterol (Fluticasone/Vilanterol 200/25 Blst.W.Dev) 1 puff INHALE RDAILY [facility] Last Admin: 12/09/22 08:40 Dose: Not Given Documented By: MAYTE Non-Admin Reason: Med Not Available Gabapentin (Gabapentin 400 Mg Capsule) 400 mg PO TID [facility] Last Admin: 12/09/22 08:20 Dose: 400 mg Documented By: OLIVA Azithromycin 500 mg/ Sodium (Chloride) 250 mls @ 125 mls/hr IV Q24H [facility] Last Infusion: 12/08/22 22:30 Dose: 0 mls/hr Documented By: JASON Levalbuterol HCl (Levalbuterol Hcl 1.25 Mg/0.5 Ml Vial.Neb) 1.25 mg INHALE RQ4H WHILE AWAKE [facility] Last Admin: 12/09/22 08:46 Dose: 1.25 mg Documented By: MAYTE Levalbuterol HCl (Levalbuterol Hcl 1.25 Mg/0.5 Ml Vial.Neb) 1.25 mg INHALE Q3H PRN PRN Reason: Wheezing Last Admin: 12/09/22 06:10 Dose: 1.25 mg Documented By: SAUMYA Melatonin (Melatonin 3 Mg Tablet) 6 mg PO BEDTIME PRN PRN Reason: Insomnia Methylprednisolone Sodium Succinate (Methylprednisolone Sod Succ 40 Mg/Ml Vial) 40 mg IVPUSH Q12H [facility] Last Admin: 12/09/22 08:20 Dose: 40 mg Documented By: OLIVA Montelukast Sodium (Montelukast Sodium 10 Mg Tablet) 10 mg PO DAILY [facility] Last Admin: 12/09/22 08:20 Dose: 10 mg Documented By: OLIVA Ondansetron HCl (Ondansetron Hcl 4 Mg/2 Ml Vial) 4 mg IVPUSH Q8H PRN PRN Reason: Nausea and Vomiting Pharmacy Consult (Consult Rx Perform Med Rec) 1 each MISCELLANE ONCE PRN PRN Reason: Consult order Sodium Chloride (0.9 % Sodium Chloride Flush 3 Ml Syringe) 3 ml IVFLUSH QSHIFT [facility] Last Admin: 12/09/22 08:20 Dose: 3 ml Documented By: OLIVA Tiotropium Virgin (Tiotropium Virgin 18 Mcg Cap.W.Dev) 1 puff INHALE RDAILY [facility] Last Admin: 12/09/22 08:40 Dose: Not Given Documented By: MAYTE Non-Admin Reason: Med Not Available Trazodone HCl (Trazodone Hcl 100 Mg Tablet) 100 mg PO BEDTIME [facility] Last Admin: 12/08/22 20:07 Dose: 100 mg Documented By: JASON Labs 12/09/22 05:22 12/09/22 05:22 Labs: Laboratory Results - last 24 hr 12/08/22 12/08/22 12/08/22 16:40 17:34 17:34 MCV 96.5 MCH 33.8 H MCHC 35.1 RDW 13.2 Plt Count 278 MPV 9.9 Immature Gran % (Auto) 0.5 H Neut % (Auto) 69.0 Lymph % (Auto) 15.8 L [place] % (Auto) 11.2 H Eos % (Auto) 2.9 Baso % (Auto) 0.6 Lymph # (Auto) 2.8 [place] # (Auto) 2.0 H Eos # (Auto) 0.5 H Baso # (Auto) 0.1 Abs Immat Gran (auto) 0.08 H Absolute Neuts (auto) 12.1 H Absolute Nucleated RBC 0.000 Nucleated RBC % (auto) 0.0 Anion Gap 17 Estim Creat Clear Calc 106.6 Estimated GFR > 60 Random Glucose 120 H Lactic Acid Calcium 8.8 D Magnesium 2.5 Total Bilirubin 0.7 AST 19 ALT 23 Alkaline Phosphatase 113 Troponin I High Sens B-Natriuretic Peptide Total Protein 7.6 Albumin 4.7 Influenza Type A (PCR) NEGATIVE Influenza Type B (PCR) NEGATIVE RSV RNA Qual (PCR) NEGATIVE SARS-CoV-2 RNA (RT-PCR) NEGATIVE 12/08/22 12/08/22 12/08/22 17:34 17:34 17:34 MCV MCH MCHC RDW Plt Count MPV Immature Gran % (Auto) Neut % (Auto) Lymph % (Auto) [place] % (Auto) Eos % (Auto) Baso % (Auto) Lymph # (Auto) [place] # (Auto) Eos # (Auto) Baso # (Auto) Abs Immat Gran (auto) Absolute Neuts (auto) Absolute Nucleated RBC Nucleated RBC % (auto) Anion Gap Estim Creat Clear Calc Estimated GFR Random Glucose Lactic Acid 1.1 Calcium Magnesium Total Bilirubin AST ALT Alkaline Phosphatase Troponin I High Sens 31.1 D B-Natriuretic Peptide 12 Total Protein Albumin Influenza Type A (PCR) Influenza Type B (PCR) RSV RNA Qual (PCR) SARS-CoV-2 RNA (RT-PCR) 12/08/22 12/09/22 12/09/22 18:36 05:22 05:22 MCV 98.5 H MCH 33.8 H MCHC 34.3 RDW 13.4 Plt Count 271 MPV 10.4 Immature Gran % (Auto) 0.5 H Neut % (Auto) 85.3 H Lymph % (Auto) 9.4 L [place] % (Auto) 4.5 Eos % (Auto) 0.1 Baso % (Auto) 0.2 Lymph # (Auto) 1.2 [place] # (Auto) 0.6 Eos # (Auto) 0.0 Baso # (Auto) 0.0 Abs Immat Gran (auto) 0.06 H Absolute Neuts (auto) 10.9 H Absolute Nucleated RBC 0.000 Nucleated RBC % (auto) 0.0 Anion Gap 17 Estim Creat Clear Calc 117.2 Estimated GFR > 60 Random Glucose 144 H Lactic Acid Calcium 9.2 Magnesium Total Bilirubin AST ALT Alkaline Phosphatase Troponin I High Sens 34.6 B-Natriuretic Peptide Total Protein Albumin Influenza Type A (PCR) Influenza Type B (PCR) RSV RNA Qual (PCR) SARS-CoV-2 RNA (RT-PCR) Microbiology Microbiology Results: Microbiology 12/08/22 17:36 Blood Culture - Preliminary Blood - Venous Assessment and Plan (1) Acute on chronic respiratory failure with hypoxia: Status: Acute (2) COPD (chronic obstructive pulmonary disease): Status: Acute Plan a 37-year-old male with pertinent history of asthma/COPD overlap syndrome, mood disorder presents to the emergency department for evaluation of dyspnea. #.? Acute hypoxemic respiratory failure secondary to acute exacerbation of asthma/COPD overlap syndrome--still sob and wheezing still on on supplemental oxygen.? Scheduled and p.r.n. levalbuterol inhalation, wean as tolerated.? Maintain oxygen saturation greater than 88 90%.? continue systemic steroids for 1 more day.? Continue home inhaler and montelukast. empiric azithromycin for pleiotropic effect started 12/08 #.? Mood disorder: Continue trazodone and fluoxetine DVT prophylaxis:? Lovenox 40 mg daily Full code Regular diet Time Spent With Patient Time: Total time managing care of this patient today ____ minutes. Quality Stroke Does the patient have a stroke diagnosis?: No VTE Prior VTE?: No VTE Risk Level:: Medical - moderate - high VTE Device Contraindication: Treatment Not Indicated VTE Drug Contraindication: N/A - Med Ordered
[2022-12-09] MEDS: Albuterol Sulfate (0.083%) 2.5 MG/3 ML VIAL.NEB INHALE (18:57)
[2022-12-09] MEDS: Azithromycin 500 MG in 0.9 % Sodium Chloride 250 ML 125 MG IV (19:46)
[2022-12-09] MEDS: Enoxaparin Sodium 40 MG/0.4 ML SYRINGE SUBCUT (19:51)
[2022-12-09] MEDS: traZODone HCL 100 MG TABLET PO (20:01)
[2022-12-09] MEDS: Melatonin 3 MG TABLET 6 MG PO (20:01)
[2022-12-10] MEDS: Albuterol Sulfate (0.083%) 2.5 MG/3 ML VIAL.NEB INHALE ×2 (02:33→07:38)
[2022-12-10 02:34] VITALS: PULSE 78; RESP 17; O2SAT 96
[2022-12-10 02:46] VITALS: BP 123/64; PULSE 86; RESP 16; TEMP 36.2; O2SAT 92
[2022-12-10] MEDS: Fluticasone/Vilanterol 200/25 BLST.W.DEV 1 PUFF INHALE (07:38)
[2022-12-10 07:39] VITALS: BP 108/61; PULSE 80; RESP 18; TEMP 37.1; O2SAT 93
[2022-12-10 07:41] VITALS: PULSE 81; RESP 16; O2SAT 93
--- NOTE | 2022-12-10 08:37 | PM.DS ---
DS: Providers Provider Date of Service: 12/10/22 Date of admission: 12/08/22 19:03 Primary care physician: Jovan Alexandra MD DS: Diagnosis Discharge Diagnosis (1) Acute on chronic respiratory failure with hypoxia: Status: Acute (2) COPD (chronic obstructive pulmonary disease): Status: Acute DS: Summary Hospital Course Hospital Course: Admission HPI Chief Complaint: Dyspnea This is a 37-year-old male with pertinent history of asthma/COPD overlap syndrome, mood disorder presents to the emergency department for evaluation of dyspnea.? Patient was admitted recently and discharged on 10/13 with acute exacerbation of his obstructive lung disease.? Patient states he had wheezing and dyspnea, worse with exertion with started on the day of presentation.? Also has been having productive cough, unknown sputum color.? No chest discomfort, palpitations, fever, chills, abdominal pain, changes in urinary or bowel habits.? Patient tried home inhaler without relief.? States he is compliant with his home inhaler and medications.? Has quit smoking.? Does not use oxygen at home. In the emergency department, patient requiring 3 L supplemental oxygen Hospital course: Patient presented with dyspena, hypoxia and found to have acute, CXR showed no pneumona. He was admitted for management of acute hypoxic respiratory failure related to moderate persistent asthma exacerbaion overlaping with COPD exacerbation. He was treated with oxyen, IV steroid, bronchodilators by Nebulizer and is doing much better. Hypoxia has resolved, he is off oxygen, lungs clear. He will be discharged with Prednisone for additional 4 days and continue usual inhalers. Final diagnosis: Acute exacerbation of moderate peristent asthma Acute exacerbation of COPD Acute hypoxic respiratory failure Time Spent with Patient Time attestation: Total time managing care of this patient today ____ minutes. Discharge coordination time: Greater than 30 minutes Quality: Safe Use of Opioids Does Pt have an Active Cancer Diagnosis on the Problem List?: No Quality: Stroke Does the patient have a stroke diagnosis?: No Physical Exam Vital Signs: Vital Signs: Last Vital Signs Temp 98.7 F 12/10/22 07:39 Pulse 81 12/10/22 07:41 Resp 16 12/10/22 07:41 BP 108/61 12/10/22 07:39 Pulse Ox 93 12/10/22 07:39 O2 Del Method Room Air 12/10/22 07:39 O2 Flow Rate 2 12/10/22 02:46 BMI result Body Mass Index 25.7 Const: Other: General: AO X 3, no acute distress Resp: CTA bilateral CVS: S1,S2,RRR GI: +BS, NT, no distention Skin: No rash Neuro: motor grossly intact Psych: appropriate affect DS: Data Data Completed and Pending Labs on day of discharge: Preliminary micro results at discharge 12/08/22 17:36 Blood Culture - Preliminary Blood - Venous No growth after 24 hours. 12/08/22 17:34 Blood Culture - Preliminary Blood - Venous No growth after 24 hours. Discharge Plan Discharge Anticipated Discharge Date/Time: 12/10/22 08:33 Patient Disposition: Home, Self-Care Discharge Diagnosis: Acute exacerbation of moderate persistant asthma with overlapping COPD Referrals: Jovan Alexandra MD [Primary Care Provider] - 1 Week Discharge Medications: New prednisone 20 mg tablet 40 mg PO DAILY Qty: 8 0RF Continued montelukast 10 mg tablet 10 mg PO DAILY Qty: 90 3RF albuterol sulfate 2.5 mg /3 mL (0.083 %) solution for nebulization 2.5 mg inhalation BID PRN (Reason: Wheezing) albuterol sulfate [ProAir HFA] 90 mcg/actuation HFA aerosol inhaler 2 puff inhalation BID fluoxetine 20 mg capsule 40 mg PO DAILY trazodone 100 mg tablet 100 mg PO BEDTIME Rx Instructions: may repeat x 1 gabapentin 400 mg capsule 400 mg PO TID Spiriva Respimat 2.5 mcg/actuation mist 2 puff inhalation DAILY 90 Days Qty: 3 3RF Advair HFA 230-21 mcg/actuation HFA aerosol inhaler 2 puff inhalation BID 30 Days Qty: 1 11RF Discharge Orders: Discharge Order (Routine); Ordered 12/10/22 Ordered By: Jluis Enriquez Diet: Advance to usual diet Activity on Discharge: As tolerated Stand Alone Forms: Patient Portal Discharge page Care Plan Goals: full recovery f Health Concerns: copd and asthma overlap with acute excacerbation Plan of Treatment: use inhalers as directed, take prednisone as directed and follow up with your Doctor in a week Assessment: as above
[2022-12-10] MEDS: 0.9 % Sodium Chloride Flush 3 ML SYRINGE IVFLUSH (08:54)
[2022-12-10] MEDS: FLUoxetine HCl 20 MG CAPSULE 40 MG PO (08:54)
[2022-12-10] MEDS: Gabapentin 400 MG CAPSULE PO (08:54)
[2022-12-10] MEDS: Montelukast Sodium 10 MG TABLET PO (08:55)
[2022-12-10] MEDS: methylPREDNISolone Sod Succ 40 MG/ML VIAL IVPUSH (08:55)
--- NOTE | 2022-12-10 09:55 | MHC.CM.PN ---
PT WILL DC HOME WITH RESUMPTION OF HIS COMMUNITY [employer]PP[employer]TS / DAY PROGRAM HE REPORTS HIS COMMUNITY CM, MARIANN, WILL PROVIDE TRANSPORTATION HE PLANS TO CALL HER WHEN READY TO LEAVE
== END 2022-12-10 10:14 | disposition home or self-care (01) | DRG 140 ==
LOC: HO.ED 17:53 → HO.EDOVER 20:26 → HO.S3 22:29
PROVIDERS: Physician Assistant; Admitting Provider Student in an Organized Health Care Education/Training Program; Emergency Provider Emergency Medicine Emergency Medical Services; PCP Internal Medicine; Visit Provider Internal Medicine
DX: J44.1 Chronic obstructive pulmonary disease with (acute) exacerbation (principal); J96.01 Acute respiratory failure with hypoxia; J45.901 Unspecified asthma with (acute) exacerbation; F32.A Depression, unspecified; F41.9 Anxiety disorder, unspecified; Z79.51 Long term (current) use of inhaled steroids; Z20.822 Contact with and (suspected) exposure to COVID-19; Z87.891 Personal history of nicotine dependence; Z79.899 Other long term (current) drug therapy
CPT/HCPCS: 0241U; 36415; 71045; 80048; 80053; 83605; 83735; 83880; 84484; 85025; 87040; 93005; 94640; 99285; J0456; J1650; J2920; J2930; J3010; J3475

== ENCOUNTER 2022-12-23 19:25 | Emergency (ER) | payer OTHER, SELFPAY ==
--- NOTE | ~2022-12-23 | XR_ITS ---
EXAMINATION: XR CHEST CLINICAL INFORMATION: Shortness of breath COMPARISON: X-ray 11/28/2022 TECHNIQUE: Frontal view of the chest was obtained. FINDINGS: The cardiomediastinal silhouette is within normal limits. The lungs are well expanded. There is no focal consolidation, edema, or effusion. No pneumothorax. No acute osseous abnormality. XR/XR chest 1V IMPRESSION: No evidence of acute pulmonary disease.
--- NOTE | 2022-12-23 19:31 | ECG_ITS ---
Test Reason : CHEST PAIN Blood Pressure : / mmHG Vent. Rate : 080 BPM Atrial Rate : 080 BPM P-R Int : 138 ms QRS Dur : 074 ms QT Int : 412 ms P-R-T Axes : 081 079 048 degrees QTc Int : 475 ms Normal sinus rhythm Normal ECG When compared with ECG of 08-DEC-2022 16:55, Premature atrial complexes are no longer Present Nonspecific T wave abnormality has replaced inverted T waves in Inferior leads Nonspecific T wave abnormality, improved in Lateral leads Referred By: Aurea Mckeon Electronically Signed By:PRANEETH WASHINGTON MD
[2022-12-23 19:33] VITALS: BP 152/99; PULSE 98; RESP 21; TEMP 37.2; O2SAT 98
[2022-12-23 19:37] VITALS: BP 115/75; BP 152/99; PULSE 84; PULSE 92; RESP 20; TEMP 37.2; O2SAT 97; O2SAT 98; BMI 22.8
[2022-12-23 21:36] LABS: Basophils Absolute Auto 0.1 X10*3/uL (0.0-0.2); Basophils Percent Auto 0.4 % (0-2); Eosinophils Absolute Auto 0.5 X10*3/uL (0.0-0.4); Eosinophils Percent Auto 2.2 % (0-4); Hematocrit 39.9 % (42.0-52.0); Hemoglobin 13.8 g/dl (14.0-18.0); Imm Gran Abs Auto 0.11 X10*3/uL (0.00-0.03); Imm Gran Pct Auto 0.5 % (0.0-0.4); Lymphocytes Absolute Auto 1.3 X10*3/uL (1.2-4.9); Lymphocytes Percent Auto 6.3 % (20-40); MANUAL DIFF FLAG SCAN; Mean Corpuscular HGB Conc 34.6 g/dl (31.0-36.0); Mean Corpuscular Hemoglobin 33.7 pg (27.0-33.0); Mean Corpuscular Volume 97.3 fL (80.0-98.0); Mean Platelet Volume 9.9 fL (9.4-12.4); Monocytes Absolute Auto 1.7 X10*3/uL (0.1-1.2); Monocytes Percent Auto 8.1 % (2-11); Neutrophils Absolute Auto 17.2 x10*3/uL (2.0-8.3); Neutrophils Percent Auto 82.5 % (45-73); Platelet Count 274 X10*3/uL (160-400); Red Cell Distribution Width 13.7 % (11.0-16.0); SCAN SMEAR FLAG 1; White Blood Count 20.8 X10*3/uL (4.8-10.8)
--- NOTE | 2022-12-23 21:40 | ED.ASTHMA ---
HPI - Asthma General Chief Complaint: Asthma Stated Complaint: SOB Time Seen by Provider: 12/23/22 21:34 Source: patient Mode of arrival: ambulatory Limitations: no limitations History of Present Illness HPI Narrative: Patient history of asthma/COPD overlap syndrome, anxiety and depression comes in for increased shortness of breath started earlier today patient's pulse ox dropped to 91% at room air. Patient has been getting more sick for last 6 months no change in home situation been here multiple times for same patient received DuoNeb treatment and Solu-Medrol EN route Related Data Home Medications Medication Instructions Recorded Confirmed fluoxetine 20 mg capsule 40 mg PO DAILY 02/17/21 12/15/22 trazodone 100 mg tablet 100 mg PO BEDTIME 03/12/21 12/15/22 gabapentin 400 mg capsule 400 mg PO TID 04/19/21 12/15/22 albuterol sulfate 2.5 mg/3 mL 2.5 mg inhalation BID PRN Wheezing 12/08/22 12/15/22 (0.083 %) solution for nebulization albuterol sulfate 90 mcg/actuation 2 puff inhalation BID 12/08/22 12/15/22 aerosol inhaler (ProAir HFA) Previous Rx's Medication Instructions Recorded montelukast 10 mg tablet 10 mg PO DAILY #90 tabs 04/18/22 fluticasone propionate 230 2 puff inhalation BID 30 days #1 ea 08/15/22 mcg-salmeterol 21 mcg/actuation HFA inhaler (Advair HFA) tiotropium bromide 2.5 2 puff inhalation DAILY 90 days #3 10/26/22 mcg/actuation mist for inhalation ea (Spiriva Respimat) prednisone 20 mg tablet 40 mg PO DAILY #8 tabs 12/10/22 albuterol sulfate 2.5 mg/3 mL 2.5 mg (3 mL) inhalation Q4-6H PRN 12/24/22 (0.083 %) solution for nebulization shortness of breath or wheezing #90 mL albuterol sulfate 90 mcg/actuation 2 puff inhalation Q4-6H PRN 12/24/22 aerosol inhaler (ProAir HFA) shortness of breath or wheezing #8.5 grams prednisone 20 mg tablet 40 mg PO DAILY #10 tabs 12/24/22 Allergies Allergy/AdvReac Type Severity Reaction Status Date / Time cat dander Allergy Severe asthma Verified 12/15/22 14:19 trigger, rash Review of Systems Review of Systems: Yes all other systems are reviewed and are negative FORMERLY [facility], [facility] Past Medical History Medical History Anxiety Asthma Asthma Asthma Asthma-COPD overlap syndrome Chronic allergic rhinitis Cough Depression Dyspnea Eczema Tobacco dependence Surgical History Hx of cholecystectomy Family History Family History Mother No problems noted. Father No problems noted. Social History Social History Household Members: None Household Members Other:: roommate Housing: House Housing Other:: Shared living home Do you presently have visiting nurse or other home services: No Alcohol intake: former Patient Tobacco Use Status: Former Tobacco user Quit Date: 3-5 weeks ago Tobacco use type: Cigarette Cigarettes Per Day: 5 Years Smoked: 20 years e-Cigarette/Vaping Use: Never Used Second Hand Smoke Exposure: No Substance Use Type: Marijuana Advance Directives: Yes Advance Directives on File: Yes Advance Directives Date on File: 10/12/22 service: No Current occupational status: unemployed and disabled Current occupational exposures/hazards: No Cognitive needs: No Hearing needs: No Vision needs: No Physical Exam Vital Signs: Vital Signs: Last Vital Signs Temp 98.0 F 12/23/22 22:57 Pulse 83 12/23/22 22:57 Resp 13 12/23/22 22:57 BP 126/72 12/23/22 22:57 Pulse Ox 95 12/23/22 22:57 O2 Del Method Aerosol Mask 12/23/22 19:37 O2 Flow Rate 6 12/23/22 19:33 Oxygen Flow Rate 6 12/23/22 19:37 BMI result Body Mass Index 22.8 Appearance: Alert. Oriented X3. Mild respiratory distress Eyes: PERRLA, No Nystagmus ENT: Pharynx normal. Oral Mucosa moist Neck: Normal inspection. Neck supple. CVS: Normal heart rate and rhythm. Pulses normal. Respiratory: My respiratory distress. Equal air entry bilateral, bilateral wheezing no rales Abdomen: Soft and nontender. Bowel sounds are present, no mass palpable, no CVA tenderness Skin: Skin warm and dry. Normal skin color. Normal skin turgor. Extremities: No lower extremity edema. No calf tenderness Neuro: Oriented X 3. No motor deficit. Medications Administered Discontinued Medications Generic Name Dose Route Start Last Admin Trade Name Franciscoq PRN Reason Stop Dose Admin Albuterol Sulfate 7.5 mg 12/23/22 21:43 12/23/22 22:40 Albuterol Sulfate (0.083%) 2.5 Mg/3 Ml Vial.Neb INHALE 12/23/22 21:44 7.5 mg ONCE ONE Administration Albuterol Sulfate 5 mg/ 0 mg 12/24/22 00:04 12/24/22 00:34 Albuterol/Ipratropium 3 ml INHALE 12/24/22 00:05 1 each ONCE ONE Administration Magnesium Sulfate 2 gm in 50 mls @ 100 mls/hr 12/23/22 21:43 12/24/22 00:19 Magnesium Sulfate/H2o IV 12/23/22 22:12 Infused ONCE ONE Infusion Medical Decision Making Medical Decision Making [facility] Narrative: Patient with asthma/COPD overlap syndrome came with increased shortness of breath received multiple nebulizing treatment and steroids and IV magnesium feeling much better now ambulatory with saturation 92% patient does have a nebulizer at home discharge patient home inhaler steroids Lab Data [facility] Lab Attestation statement: I reviewed the patient's lab results. 12/23/22 21:25 12/23/22 21:25 Labs: Lab Results 12/23/22 12/23/22 12/23/22 Range/Units 21:25 21:25 21:25 WBC 20.8 H (4.8-10.8) X10*3/uL RBC 4.10 L (4.60-5.80) X10*6/uL Hgb 13.8 L (14.0-18.0) g/dl Hct 39.9 L (42.0-52.0) % MCV 97.3 (80.0-98.0) fL MCH 33.7 H (27.0-33.0) pg MCHC 34.6 (31.0-36.0) g/dl RDW 13.7 (11.0-16.0) % Plt Count 274 (160-400) X10*3/uL MPV 9.9 (9.4-12.4) fL Immature Gran % (Auto) 0.5 H (0.0-0.4) % Neut % (Auto) 82.5 H (45-73) % Lymph % (Auto) 6.3 L (20-40) % Ferry % (Auto) 8.1 (2-11) % Eos % (Auto) 2.2 (0-4) % Baso % (Auto) 0.4 (0-2) % Lymph # (Auto) 1.3 (1.2-4.9) X10*3/uL Ferry # (Auto) 1.7 H (0.1-1.2) X10*3/uL Eos # (Auto) 0.5 H (0.0-0.4) X10*3/uL Baso # (Auto) 0.1 (0.0-0.2) X10*3/uL Abs Immat Gran (auto) 0.11 H (0.00-0.03) X10*3/uL Absolute Neuts (auto) 17.2 H (2.0-8.3) x10*3/uL Absolute Nucleated RBC 0.000 (0.0-0.012) X10*3/uL Nucleated RBC % (auto) 0.0 (0.0-0.2) /100WBC Smear Tech's Comments VERIFIED Sodium 140 (135-145) mmol/L Potassium 4.2 (3.3-5.1) mmol/L Chloride 107 (96-108) mmol/L Carbon Dioxide 26 (22-29) mmol/L Anion Gap 11 L (12-20) BUN 15 (9-16) mg/dL Creatinine 1.13 (0.5-1.4) mg/dL Estim Creat Clear Calc 88.0 Estimated GFR > 60 Random Glucose 118 H (60-115) mg/dL Calcium 9.2 (8.4-10.2) mg/dL Magnesium 2.1 (1.6-2.6) mg/dL Total Bilirubin 0.6 (0.0-1.0) mg/dL AST 17 (5-37) U/L ALT 19 (0-40) U/L Alkaline Phosphatase 97 (39-117) U/L Troponin I High Sens 28.7 (<3.5-35.0) ng/L Total Protein 6.9 (6.5-8.0) g/dL Albumin 4.3 (3.5-5.0) g/dL COVID-19 ([place]) (Negative) COVID-19 Clin Com 12/23/22 Range/Units 21:25 WBC (4.8-10.8) X10*3/uL RBC (4.60-5.80) X10*6/uL Hgb (14.0-18.0) g/dl Hct (42.0-52.0) % MCV (80.0-98.0) fL MCH (27.0-33.0) pg MCHC (31.0-36.0) g/dl RDW (11.0-16.0) % Plt Count (160-400) X10*3/uL MPV (9.4-12.4) fL Immature Gran % (Auto) (0.0-0.4) % Neut % (Auto) (45-73) % Lymph % (Auto) (20-40) % Ferry % (Auto) (2-11) % Eos % (Auto) (0-4) % Baso % (Auto) (0-2) % Lymph # (Auto) (1.2-4.9) X10*3/uL Ferry # (Auto) (0.1-1.2) X10*3/uL Eos # (Auto) (0.0-0.4) X10*3/uL Baso # (Auto) (0.0-0.2) X10*3/uL Abs Immat Gran (auto) (0.00-0.03) X10*3/uL Absolute Neuts (auto) (2.0-8.3) x10*3/uL Absolute Nucleated RBC (0.0-0.012) X10*3/uL Nucleated RBC % (auto) (0.0-0.2) /100WBC Smear Tech's Comments Sodium (135-145) mmol/L Potassium (3.3-5.1) mmol/L Chloride (96-108) mmol/L Carbon Dioxide (22-29) mmol/L Anion Gap (12-20) BUN (9-16) mg/dL Creatinine (0.5-1.4) mg/dL Estim Creat Clear Calc Estimated GFR Random Glucose (60-115) mg/dL Calcium (8.4-10.2) mg/dL Magnesium (1.6-2.6) mg/dL Total Bilirubin (0.0-1.0) mg/dL AST (5-37) U/L ALT (0-40) U/L Alkaline Phosphatase (39-117) U/L Troponin I High Sens (<3.5-35.0) ng/L Total Protein (6.5-8.0) g/dL Albumin (3.5-5.0) g/dL COVID-19 ([place]) Negative (Negative) COVID-19 Clin Com See Note Discharge Plan Discharge Clinical Impression: Asthma-COPD overlap syndrome Patient Disposition: Home, Self-Care Instructions: Asthma (ED) Additional Instructions: Continue your inhaler and nebulizing treatment Prednisone as prescribed Follow your lung specialist/PCP if not better Prescriptions: New albuterol sulfate [ProAir HFA] 90 mcg/actuation HFA aerosol inhaler 2 puff inhalation Q4-6H PRN (Reason: shortness of breath or wheezing) Qty: 8.5 0RF albuterol sulfate 2.5 mg /3 mL (0.083 %) solution for nebulization 2.5 mg inhalation Q4-6H PRN (Reason: shortness of breath or wheezing) Qty: 90 0RF prednisone 20 mg tablet 40 mg PO DAILY Qty: 10 0RF No Action montelukast 10 mg tablet 10 mg PO DAILY Qty: 90 3RF albuterol sulfate 2.5 mg /3 mL (0.083 %) solution for nebulization 2.5 mg inhalation BID PRN (Reason: Wheezing) albuterol sulfate [ProAir HFA] 90 mcg/actuation HFA aerosol inhaler 2 puff inhalation BID prednisone 20 mg tablet 40 mg PO DAILY Qty: 8 0RF fluoxetine 20 mg capsule 40 mg PO DAILY trazodone 100 mg tablet 100 mg PO BEDTIME Rx Instructions: may repeat x 1 gabapentin 400 mg capsule 400 mg PO TID Spiriva Respimat 2.5 mcg/actuation mist 2 puff inhalation DAILY 90 Days Qty: 3 3RF Advair HFA 230-21 mcg/actuation HFA aerosol inhaler 2 puff inhalation BID 30 Days Qty: 1 11RF
[2022-12-23 21:48] LABS: Alanine Aminotransferase 19 U/L (0-40); Albumin Level 4.3 g/dL (3.5-5.0); Alkaline Phosphatase 97 U/L (39-117); Anion Gap 11 (12-20); Aspartate Amino Transferase 17 U/L (5-37); Bilirubin Total 0.6 mg/dL (0.0-1.0); Blood Urea Nitrogen 15 mg/dL (9-16); Calcium 9.2 mg/dL (8.4-10.2); Carbon Dioxide 26 mmol/L (22-29); Chloride 107 mmol/L (96-108); Estimated Glomerular Filt Rate > 60; Glucose Random 118 mg/dL (60-115); Magnesium 2.1 mg/dL (1.6-2.6); Potassium 4.2 mmol/L (3.3-5.1); Sodium 140 mmol/L (135-145); Total Protein 6.9 g/dL (6.5-8.0)
[2022-12-23 21:49] LABS: COVID-19 Test Negative (Negative); IDNOW Serial# 9DB6401D
[2022-12-23 21:55] LABS: Troponin-I High Sensitivity 28.7 ng/L (<3.5-35.0)
[2022-12-23] MEDS: Magnesium Sulfate/H2O 2 GM/50 ML PIGGYBACK IV (21:55)
[2022-12-23 22:13] LABS: SLIDE REVIEW VERIFIED
[2022-12-23] MEDS: Albuterol Sulfate (0.083%) 2.5 MG/3 ML VIAL.NEB 7.5 MG INHALE (22:40)
[2022-12-23 22:41] VITALS: PULSE 78; RESP 18; O2SAT 94
[2022-12-23 22:57] VITALS: BP 126/72; PULSE 83; RESP 13; TEMP 36.7; O2SAT 95
[2022-12-24 02:08] VITALS: BP 135/71; PULSE 92; RESP 18; TEMP 36.8; O2SAT 94
[2022-12-24] MEDS: Albuterol Sulfate 90 MCG 8 GM INHALER 2 PUFF INHALE (02:08)
--- NOTE | 2022-12-24 02:16 | PC.NURSE ---
Pt. initially presented with audible wheezing, reporting a tight chest and difficulty breathing. Mag sulfate hung per NOV and finished running. Pt. received albuterol treatments from respiratory. Pt. now has no audible wheezing and reports less tightening in chest. Pt. d/c'd with rx for nebulizer meds and rescue inhaler. VSS.
== END 2022-12-24 02:20 | disposition home or self-care (01) ==
PROVIDERS: Physician Assistant Medical; Emergency Provider Internal Medicine
DX: J44.9 Chronic obstructive pulmonary disease, unspecified (principal); R06.02 Shortness of breath; F12.90 Cannabis use, unspecified, uncomplicated; Z87.891 Personal history of nicotine dependence; Z20.822 Contact with and (suspected) exposure to COVID-19
CPT/HCPCS: 36415; 71045; 80053; 83735; 84484; 85025; 87635; 93005; 94640; 96365; 96366; 99284; 99285; J3475

== ENCOUNTER → 2023-01-04 15:09 | Outpatient (BNVA) | payer OTHER, SELFPAY | PROVIDERS: PCP Internal Medicine; Visit Provider Internal Medicine Cardiovascular Disease | DX: R07.9 Chest pain, unspecified (principal) | CPT/HCPCS: 99212 ==

== ENCOUNTER 2023-01-08 13:10 | Observation (INO) | payer OTHER, SELFPAY ==
[2023-01-08] VITALS (8 sets, daily range): BP systolic 110–183; BP diastolic 65–112; PULSE 91–121; RESP 15–36; TEMP 36.6–37.1; O2SAT 83–95
--- NOTE | ~2023-01-08 | XR_ITS ---
EXAMINATION: XR CHEST CLINICAL INFORMATION: Shortness of breath, asthma, pneumonia. COMPARISON: 12/23/2022. TECHNIQUE: Frontal view of the chest was obtained. FINDINGS: The cardiomediastinal silhouette is within normal limits. The lungs are hyperexpanded but otherwise clear. No focal consolidation. No pneumothorax. No pleural effusion. XR/XR chest 1V IMPRESSION: Hyperexpanded lungs consistent with the history of asthma. There is no focal pneumonia. No pneumothorax.
--- NOTE | 2023-01-08 13:12 | ECG_ITS ---
Test Reason : ashma Blood Pressure : / mmHG Vent. Rate : 124 BPM Atrial Rate : 124 BPM P-R Int : 132 ms QRS Dur : 072 ms QT Int : 320 ms P-R-T Axes : 074 079 -84 degrees QTc Int : 459 ms Sinus tachycardia with Premature atrial complexes ST & T wave abnormality, consider inferior ischemia Abnormal ECG When compared with ECG of 23-DEC-2022 20:17, Vent. rate has increased BY 44 BPM T wave inversion now evident in Inferior leads Referred By: Stanford Nava Electronically Signed By:PRANEETH WASHINGTON MD
--- NOTE | 2023-01-08 13:14 | ED_ITS ---
HPI - General Adult General Chief complaint: Dyspnea Stated complaint: SOB Time Seen by Provider: 01/08/23 13:14 Source: patient Mode of arrival: ambulatory Limitations: no limitations History of Present Illness HPI narrative: Patient is a 37 year old assigned male at with a history of COPD and asthma presenting to the emergency department today with shortness of breath. Patient states that he has been having issues with his asthma since last Monday, approximately 5 days. Patient denies any dizziness, lightheadedness, abdominal pain, nausea, vomiting, fever, chills, blurry vision, double vision, loss of vision, chest pain, back pain, night sweats, pain with urination, increased urinary frequency, increased urinary urgency, blood in his urine or stool, syncope or a near syncopal episode, recent trauma or falls, bowel incontinence, bladder incontinence, bowel retention, bladder retention, or any other complaints at this time. Onset (ago): day(s) (5) Severity: moderate Relieving factors: none Exacerbating factors: none Associated symptoms: shortness of breath Treatments prior to arrival: other (inhalers) Related Data Home Medications Medication Instructions Recorded Confirmed fluoxetine 20 mg capsule 40 mg PO DAILY 02/17/21 01/05/23 trazodone 100 mg tablet 100 mg PO BEDTIME 03/12/21 01/05/23 gabapentin 400 mg capsule 400 mg PO TID 04/19/21 01/05/23 albuterol sulfate 90 mcg/actuation 2 puff inhalation BID 12/08/22 01/05/23 aerosol inhaler (ProAir HFA) Previous Rx's Medication Instructions Recorded montelukast 10 mg tablet 10 mg PO DAILY #90 tabs 04/18/22 albuterol sulfate 2.5 mg/3 mL 2.5 mg (3 mL) inhalation Q4-6H PRN 12/24/22 (0.083 %) solution for nebulization shortness of breath or wheezing #90 mL methylprednisolone 4 mg tablets in See Rx Instructions PO PER PKG DIR 01/05/23 a dose pack (Medrol (Florin)) #21 ea Allergies Allergy/AdvReac Type Severity Reaction Status Date / Time cat dander Allergy Severe asthma Verified 01/08/23 13:13 trigger, rash Review of Systems Constitutional: Constitutional: Reports no additional constitutional complaints, Denies chills, Denies fever(s) and Denies night sweats Eyes: Eyes: Reports no additional eye complaints, Denies blurry vision, Denies change in vision, Denies diplopia, Denies eye discharge, Denies loss of vision and Denies eye pain ENT: Denies dizziness Cardiovascular: Cardiovascular: Reports no additional cardiovascular complaints, Denies chest pain, Denies lightheadedness, Denies Loss of Consciousness and Reports dyspnea Respiratory: Respiratory: Reports no additional respiratory complaints and Reports dyspnea Gastrointestinal: Gastrointestinal: Reports no additional gastrointestinal complaints, Denies abdominal pain, Denies melena, Denies hematochezia, Denies ch catalina in bowel habits and Denies change in stool character Genitourinary: Genitourinary: Reports no additional male genitourinary complaints, Denies hematuria, Denies oliguria, Denies difficulty urinating, Denies dysuria, Denies urinary frequency, Denies urinary hesitancy, Denies urinary incontinence and Denies urinary urgency Musculoskeletal: Musculoskeletal: Reports no additional musculoskeletal complaints, Denies numbness and Denies tingling Neurologic: Denies dizziness, Denies loss of vision, Denies numbness and Denies tingling Psychiatric: Psychiatric: Reports no additional psychiatric complaints Endocrine: Endocrine: Reports no additional endocrine complaints Hematologic/Lymphatic: Hematologic/Lymphatic: Reports no additional hematologic/lymphatic complaints Allergic/Immunologic: Allergic/Immunologic: Reports no additional allerg ic/immunologic complaints [facility] Past Medical History Attestation statement: The following information was validated with the patient. Source: old records reviewed and nursing notes reviewed Medical History Anxiety Asthma Asthma Asthma Asthma-COPD overlap syndrome Chronic allergic rhinitis Cough Depression Dyspnea Eczema Tobacco dependence Surgical History Hx of cholecystectomy Family History Family History Mother No problems noted. Father No problems noted. Social History Social History Household Members: None Household Members Other:: roommate Housing: House Housing Other:: Shared living home Do you presently have visiting nurse or other home services: No Alcohol intake: former Patient Tobacco Use Status: Former Tobacco user Tobacco use type: Cigarette Cigarettes Per Day: 1 Years Smoked: 20 +/- e-Cigarette/Vaping Use: Never Used Second Hand Smoke Exposure: No Substance Use Type: Marijuana Advance Directives: Yes Advance Directives on File: Yes Advance Directives Date on File: 10/12/22 service: No Current occupational status: unemployed and disabled Current occupational exposures/hazards: No Cognitive needs: No Hearing needs: No Vision needs: No Physical Exam ED Vital Signs: Vital Signs - 24 hr 01/08/23 13:13 01/08/23 13:25 01/08/23 13:50 Temperature Pulse Rate 111 H 108 H 121 H Respiratory Rate 36 H 23 H 17 Blood Pressure 183/112 H Pulse Oximetry 83 L Oxygen Delivery Method Room Air Oxygen Flow Rate 01/08/23 14:00 01/08/23 15:07 Temperature 97.9 F Pulse Rate 108 H 111 H Respiratory Rate 20 16 Blood Pressure 139/107 H 139/68 Pulse Oximetry 94 93 Oxygen Delivery Method Aerosol Mask Room Air Oxygen Flow Rate 1 BMI result Body Mass Index 0.0 Const General: cooperative, no acute distress, alert and awake Nutritional Appearance: well nourished Orientation/consciousness: patient oriented x3 Limitations: no limitations HENMT Head: Yes normal to inspection and Yes atraumatic Ears: hearing grossly normal bilaterally and external ears normal General nose exam: Normal external nose present, no nasal discharge noted and no epistaxis Face and sinus: Yes normal facial exam, No abrasion and No laceration Mouth: Normal oral and palatal mucosa present, no drooling and no muffled voice Eyes General: appearance normal, both eyes and all related structures Periorbital: periorbital findings normal Eyelids: Yes eyelids normal Conjunctivae: conjunctivae normal Pupils: Equal, round and reactive pupils present EOM: EOMs intact bilaterally Neck Neck: Yes normal visual inspection, Yes full ROM and Yes no lymphadenopathy Chest Chest palpation & inspection: normal inspection of the chest Resp Effort & Inspection: labored, tachypneic and uses accessory muscles Auscultation: wheezes throughout GI Inspection: Yes normal to inspection Neuro General: patient oriented x3 and moves all extremities Cranial nerves: Yes Equal, round and reactive pupils present Cognition (Neuro): normal cognition Motor exam (neuro): 5/5 motor strength present throughout Sensory Exam: Normal double simultaneous stimulation for sensation Coordination: [id number] test normal Extrem General: Yes normal to inspection, Yes full ROM and Yes capillary refill normal Psych Appearance: grossly normal Mental Status: mental status grossly normal Affect: normal affect Attitude: cooperative Thought process: Normal thought process present Thought content: Normal thought content present Insight: Good insight present (Psych) Medications Administered Discontinued Medications Generic Name Dose Route Start Last Admin Trade Name Castillo PRN Reason Stop Dose Admin Albuterol Sulfate 10 mg 01/08/23 13:15 01/08/23 13:23 Albuterol Sulfate (0.083%) 2.5 Mg/3 Ml Vial.Neb INHALE 01/08/23 13:16 10 mg ONCE ONE Administration Albuterol Sulfate 10 mg 01/08/23 13:43 01/08/23 13:47 Albuterol Sulfate (0.083%) 2.5 Mg/3 Ml Vial.Neb INHALE 01/08/23 13:44 10 mg ONCE ONE Administration Magnesium Sulfate 2 gm in 50 mls @ 25 mls/hr 01/08/23 13:12 01/08/23 13:23 Magnesium Sulfate/H2o IV 01/08/23 15:11 25 mls/hr ONCE ONE Administration Methylprednisolone Sodium Succinate 125 mg 01/08/23 13:12 01/08/23 13:24 Methylprednisolone Sod Succ 125 Mg/2 Ml Vial IVPUSH 01/08/23 13:13 125 mg ONCE ONE Administration Medical Decision Making Medical Decision Making [facility] Narrative: Patient is a 37 year old assigned male at with a history of asthma and COPD presenting to the emergency department today with increased shortness of breath. Patient's physical exam showed an individual in respiratory distress and scattered wheezes. Patient's blood work showed an elevated troponin of 47.8 and a chronically elevated WBC count of 17.1. Patient's EKG was unremarkable. Patient's chest x-ray showed no acute process. I explained my physical exam f indings as well as all test results to the patient. I answered all questions asked by the patient. Patient received breathing treatments, steroids, and magnesium which he stated helped his symptoms significantly. Patient's repeat troponin to be drawn at 1628. Patient signed out to [facility] pending repeat troponin. Differential Diagnosis Differential Diagnoses: The differential diagnosis associated with the presentation includes asthma exacerbation, SOB Lab Data [facility] Lab Attestation statement: I reviewed the patient's lab results. 01/08/23 14:20 01/08/23 14:20 Labs: Lab Results 01/08/23 01/08/23 01/08/23 Range/Units 14:20 14:20 14:20 WBC 17.1 H (4.8-10.8) X10*3/uL RBC 4.55 L (4.60-5.80) X10*6/uL Hgb 15.2 (14.0-18.0) g/dl Hct 44.8 (42.0-52.0) % MCV 98.5 H (80.0-98.0) fL MCH 33.4 H (27.0-33.0) pg MCHC 33.9 (31.0-36.0) g/dl RDW 13.5 (11.0-16.0) % Plt Count 306 (160-400) X10*3/uL MPV 9.5 (9.4-12.4) fL Immature Gran % (Auto) 0.6 H (0.0-0.4) % Neut % (Auto) 72.1 (45-73) % Lymph % (Auto) 14.1 L (20-40) % [place] % (Auto) 8.9 (2-11) % Eos % (Auto) 3.7 (0-4) % Baso % (Auto) 0.6 (0-2) % Lymph # (Auto) 2.4 (1.2-4.9) X10*3/uL [place] # (Auto) 1.5 H (0.1-1.2) X10*3/uL Eos # (Auto) 0.6 H (0.0-0.4) X10*3/uL Baso # (Auto) 0.1 (0.0-0.2) X10*3/uL Abs Immat Gran (auto) 0.11 H (0.00-0.03) X10*3/uL Absolute Neuts (auto) 12.3 H (2.0-8.3) x10*3/uL Absolute Nucleated RBC 0.000 (0.0-0.012) X10*3/uL Nucleated RBC % (auto) 0.0 (0.0-0.2) /100WBC PT (10.0-13.1) SEC INR (0.9-1.1) APTT (26.0-36.4) SEC Sodium 142 (135-145) mmol/L Potassium 4.5 (3.3-5.1) mmol/L Chloride 104 (96-108) mmol/L Carbon Dioxide 28 (22-29) mmol/L Anion Gap 15 (12-20) BUN 14 (9-16) mg/dL Creatinine 1.06 (0.5-1.4) mg/dL Estim Creat Clear Calc TNP Estimated GFR > 60 Random Glucose 137 H (60-115) mg/dL Calcium 9.7 (8.4-10.2) mg/dL Total Bilirubin 0.5 (0.0-1.0) mg/dL AST 17 (5-37) U/L ALT 16 (0-40) U/L Alkaline Phosphatase 112 (39-117) U/L Troponin I High Sens 47.8 H D (<3.5-35.0) ng/L B-Natriuretic Peptide (<100) pg/mL Total Protein 7.8 (6.5-8.0) g/dL Albumin 4.8 (3.5-5.0) g/dL 01/08/23 01/08/23 Range/Units 14:20 14:20 WBC (4.8-10.8) X10*3/uL RBC (4.60-5.80) X10*6/uL Hgb (14.0-18.0) g/dl Hct (42.0-52.0) % MCV (80.0-98.0) fL MCH (27.0-33.0) pg MCHC (31.0-36.0) g/dl RDW (11.0-16.0) % Plt Count (160-400) X10*3/uL MPV (9.4-12.4) fL Immature Gran % (Auto) (0.0-0.4) % Neut % (Auto) (45-73) % Lymph % (Auto) (20-40) % [place] % (Auto) (2-11) % Eos % (Auto) (0-4) % Baso % (Auto) (0-2) % Lymph # (Auto) (1.2-4.9) X10*3/uL [place] # (Auto) (0.1-1.2) X10*3/uL Eos # (Auto) (0.0-0.4) X10*3/uL Baso # (Auto) (0.0-0.2) X10*3/uL Abs Immat Gran (auto) (0.00-0.03) X10*3/uL Absolute Neuts (auto) (2.0-8.3) x10*3/uL Absolute Nucleated RBC (0.0-0.012) X10*3/uL Nucleated RBC % (auto) (0.0-0.2) /100WBC PT 11.7 (10.0-13.1) SEC INR 1.0 (0.9-1.1) APTT 31.2 (26.0-36.4) SEC Sodium (135-145) mmol/L Potassium (3.3-5.1) mmol/L Chloride (96-108) mmol/L Carbon Dioxide (22-29) mmol/L Anion Gap (12-20) BUN (9-16) mg/dL Creatinine (0.5-1.4) mg/dL Estim Creat Clear Calc Estimated GFR Random Glucose (60-115) mg/dL Calcium (8.4-10.2) mg/dL Total Bilirubin (0.0-1.0) mg/dL AST (5-37) U/L ALT (0-40) U/L Alkaline Phosphatase (39-117) U/L Troponin I High Sens (<3.5-35.0) ng/L B-Natriuretic Peptide 16 (<100) pg/mL Total Protein (6.5-8.0) g/dL Albumin (3.5-5.0) g/dL Independent Interpretation I performed an independent interpretation of an: EKG Interpretation: Vent. Rate: 124 BPM ? ? Atrial Rate: 124 BPM P-R Int: 132 ms? QRS Dur: 072 ms QT Int: 320 ms ? ? ? P-R-T Axes: 074 079 -84 degrees QTc Int: 459 ms ? Sinus tachycardia ST & T wave abnormality, consider inferior ischemia Abnormal ECG When compared with ECG of 23-DEC-2022 20:17, Vent. rate has increased BY? 44 BPM T wave inversion now evident in Inferior leads DD/ 1401 Radiology Impression Radiologist Impression: My interpretation is in agreement with the radiologist's impression of this imaging study. --------- EXAMINATION: XR CHEST CLINICAL INFORMATION: Shortness of breath, asthma, pneumonia. COMPARISON: 12/23/2022. TECHNIQUE: Frontal view of the chest was obtained. FINDINGS: The cardiomediastinal silhouette is within normal limits. The lungs are hyperexpanded but otherwise clear. No focal consolidation. No pneumothorax. No pleural effusion. XR/XR chest 1V IMPRESSION: Hyperexpanded lungs consistent with the history of asthma. There is no focal pneumonia. No pneumothorax. Dictated By: Durga Mayer MD Signed By: Electronically signed by Durga Mayer MD 01/08/23 1456 Critical Care Time Critical Care Time Critical Care Time: Yes Total Critical Care Time: 30 Attestation: I spent 30 minutes of Critical Care Time with this patient. This does not include time spent on separately reported billable procedures. Discharge Plan Discharge Clinical Impression: COPD (chronic obstructive pulmonary disease), Asthma Patient Disposition: Still a Patient Prescriptions: No Action montelukast 10 mg tablet 10 mg PO DAILY Qty: 90 3RF albuterol sulfate [ProAir HFA] 90 mcg/actuation HFA aerosol inhaler 2 puff inhalation BID albuterol sulfate 2.5 mg /3 mL (0.083 %) solution for nebulization 2.5 mg inhalation Q4-6H PRN (Reason: shortness of breath or wheezing) Qty: 90 0RF fluoxetine 20 mg capsule 40 mg PO DAILY methylprednisolone [Medrol (Florin)] 4 mg tablets,dose pack See Rx Instructions PO PER PKG DIR Qty: 21 0RF Rx Instructions: PO PER PKG DIR trazodone 100 mg tablet 100 mg PO BEDTIME Rx Instructions: may repeat x 1 gabapentin 400 mg capsule 400 mg PO TID
--- NOTE | 2023-01-08 13:15 | ED_ITS ---
HPI - General Adult General Chief complaint: Dyspnea Stated complaint: SOB Time Seen by Provider: 01/08/23 13:14 Source: patient Mode of arrival: ambulatory Limitations: no limitations Related Data Home Medications Medication Instructions Recorded Confirmed fluoxetine 20 mg capsule 40 mg PO DAILY 02/17/21 01/08/23 trazodone 100 mg tablet 100 mg PO BEDTIME 03/12/21 01/08/23 gabapentin 400 mg capsule 400 mg PO TID 04/19/21 01/08/23 fluticasone propionate 230 2 puff inhalation BID 01/08/23 01/08/23 mcg-salmeterol 21 mcg/actuation HFA inhaler nicotine 14 mg/24 hr daily 1 patch transdermal DAILY 01/08/23 01/08/23 transdermal patch Previous Rx's Medication Instructions Recorded montelukast 10 mg tablet 10 mg PO DAILY #90 tabs 04/18/22 methylprednisolone 4 mg tablets in See Rx Instructions PO PER PKG DIR 01/05/23 a dose pack (Medrol (Florin)) #21 ea albuterol sulfate 2.5 mg/3 mL 2.5 mg (3 mL) inhalation Q4-6H PRN 01/09/23 (0.083 %) solution for nebulization shortness of breath or wheezing #90 mL albuterol sulfate 90 mcg/actuation 2 puff inhalation BID #6.7 grams 01/09/23 aerosol inhaler (ProAir HFA) azithromycin 500 mg tablet 500 mg PO DAILY 3 days #3 tabs 01/09/23 prednisone 10 mg tablet See Taper PO DIRECTED #20 tabs 01/09/23 Allergies Allergy/AdvReac Type Severity Reaction Status Date / Time cat dander Allergy Severe asthma Verified 01/08/23 13:13 trigger, rash PMFSH Past Medical History Medical History Anxiety Asthma Asthma Asthma Asthma-COPD overlap syndrome Chronic allergic rhinitis Cough Depression Dyspnea Eczema Tobacco dependence Surgical History Hx of cholecystectomy Family History Family History Mother No problems noted. Father No problems noted. Social History Social History Household Members: None Household Members Other:: roommate Housing: House Housing Other:: Shared living home Do you presently have visiting nurse or other home services: No Alcohol intake: former Patient Tobacco Use Status: Former Tobacco user Tobacco use type: Cigarette Cigarettes Per Day: 1 Years Smoked: 20 +/- e-Cigarette/Vaping Use: Never Used Second Hand Smoke Exposure: No Substance Use Type: Marijuana Advance Directives Date on File: 10/12/22 service: No Current occupational status: unemployed and disabled Current occupational exposures/hazards: No Cognitive needs: No Hearing needs: No Vision needs: No Physical Exam ED Vital Signs: Vital Signs - 24 hr 01/08/23 13:13 Pulse Rate 111 H Respiratory Rate 36 H Blood Pressure 183/112 H Pulse Oximetry 83 L Oxygen Delivery Method Room Air BMI result Body Mass Index 0.0 Course Course Course Narrative: RME: 37 yold male presents to the ED for SOB ans asthma for one week. patient room air 83%. wheezing throughout the ED. patient brought to bed 6. labs, EKG and asthma treatment ordered Medications Administered Discontinued Medications Generic Name Dose Route Start Last Admin Trade Name Freq PRN Reason Stop Dose Admin Acetaminophen 650 mg 01/08/23 19:06 01/09/23 09:04 Acetaminophen 325 Mg Tablet PO 650 mg Q6H PRN Administration Pain, Mild (Pain Scale 1-3) Albuterol Sulfate 10 mg 01/08/23 13:15 01/08/23 13:23 Albuterol Sulfate (0.083%) 2.5 Mg/3 Ml Vial.Neb INHALE 01/08/23 13:16 10 mg ONCE ONE Administration Albuterol Sulfate 10 mg 01/08/23 13:43 01/08/23 13:47 Albuterol Sulfate (0.083%) 2.5 Mg/3 Ml Vial.Neb INHALE 01/08/23 13:44 10 mg ONCE ONE Administration Albuterol Sulfate 2 puff 01/08/23 21:00 01/09/23 07:46 Albuterol Sulfate 90 Mcg 8 Gm Inhaler INHALE Not Given RBID TYLER Albuterol/Ipratropium 3 ml 01/08/23 20:00 01/09/23 11:30 Albuterol/Iprat 2.5/0.5mg 3 Ml Ampul.Neb INHALE 3 ml RQ4H WHILE AWAKE TYLER Administration Albuterol/Ipratropium 3 ml 01/08/23 19:06 01/09/23 04:12 Albuterol/Iprat 2.5/0.5mg 3 Ml Ampul.Neb INHALE 3 ml Q4H PRN Administration Wheezing Enoxaparin Sodium 40 mg 01/08/23 19:15 01/08/23 19:41 Enoxaparin Sodium 40 Mg/0.4 Ml Syringe SUBCUT 40 mg Q24H TYLER Administration Fluoxetine HCl 40 mg 01/09/23 09:00 01/09/23 09:04 Fluoxetine Hcl 20 Mg Capsule PO 40 mg DAILY TYLER Administration Fluticasone/Vilanterol 1 puff 01/09/23 09:00 01/09/23 07:46 Fluticasone/Vilanterol 200/25 Blst.W.Dev INHALE Not Given DAILY TYLER Gabapentin 400 mg 01/08/23 21:00 01/09/23 09:04 Gabapentin 400 Mg Capsule PO 400 mg TID TYLER Administration Magnesium Sulfate 2 gm in 50 mls @ 25 mls/hr 01/08/23 13:12 01/08/23 17:06 Magnesium Sulfate/H2o IV 01/08/23 15:11 Infused ONCE ONE Infusion Azithromycin 500 mg/ Sodium 250 mls @ 125 mls/hr 01/08/23 19:30 01/08/23 21:58 Chloride IV Infused Q24H TYLER Infusion Methylprednisolone Sodium Succinate 125 mg 01/08/23 13:12 01/08/23 13:24 Methylprednisolone Sod Succ 125 Mg/2 Ml Vial IVPUSH 01/08/23 13:13 125 mg ONCE ONE Administration Methylprednisolone Sodium Succinate 40 mg 01/08/23 19:15 01/09/23 09:05 Methylprednisolone Sod Succ 40 Mg/Ml Vial IVPUSH 40 mg Q12H TYLER Administration Montelukast Sodium 10 mg 01/09/23 09:00 01/09/23 09:05 Montelukast Sodium 10 Mg Tablet PO 10 mg DAILY TYLER Administration Nicotine 14 mg 01/08/23 19:20 01/09/23 09:05 Nicotine 14 Mg Patch.[id number] TRANSDERMA 14 mg DAILY TYLER Administration Sodium Chloride 3 ml 01/09/23 00:00 01/09/23 09:05 0.9 % Sodium Chloride Flush 3 Ml Syringe IVFLUSH 3 ml QSHIFT TYLER Administration Trazodone HCl 100 mg 01/08/23 21:00 01/08/23 21:23 Trazodone Hcl 100 Mg Tablet PO 100 mg BEDTIME TYLER Administration Medical Decision Making Lab Data 01/09/23 03:43 01/09/23 03:43 Labs: Lab Results 01/08/23 01/08/23 01/08/23 Range/Units 14:20 14:20 14:20 WBC 17.1 H (4.8-10.8) X10*3/uL RBC 4.55 L (4.60-5.80) X10*6/uL Hgb 15.2 (14.0-18.0) g/dl Hct 44.8 (42.0-52.0) % MCV 98.5 H (80.0-98.0) fL MCH 33.4 H (27.0-33.0) pg MCHC 33.9 (31.0-36.0) g/dl RDW 13.5 (11.0-16.0) % Plt Count 306 (160-400) X10*3/uL MPV 9.5 (9.4-12.4) fL Immature Gran % (Auto) 0.6 H (0.0-0.4) % Neut % (Auto) 72.1 (45-73) % Lymph % (Auto) 14.1 L (20-40) % [place] % (Auto) 8.9 (2-11) % Eos % (Auto) 3.7 (0-4) % Baso % (Auto) 0.6 (0-2) % Lymph # (Auto) 2.4 (1.2-4.9) X10*3/uL [place] # (Auto) 1.5 H (0.1-1.2) X10*3/uL Eos # (Auto) 0.6 H (0.0-0.4) X10*3/uL Baso # (Auto) 0.1 (0.0-0.2) X10*3/uL Abs Immat Gran (auto) 0.11 H (0.00-0.03) X10*3/uL Absolute Neuts (auto) 12.3 H (2.0-8.3) x10*3/uL Absolute Nucleated RBC 0.000 (0.0-0.012) X10*3/uL Nucleated RBC % (auto) 0.0 (0.0-0.2) /100WBC PT (10.0-13.1) SEC INR (0.9-1.1) APTT (26.0-36.4) SEC VBG pH (7.32-7.43) VBG pCO2 mmHg VBG pO2 mmHg VBG HCO3 (22-26) mmol/L VBG O2 Saturation % VBG Base Excess mmol/L Sodium 142 (135-145) mmol/L Potassium 4.5 (3.3-5.1) mmol/L Chloride 104 (96-108) mmol/L Carbon Dioxide 28 (22-29) mmol/L Anion Gap 15 (12-20) BUN 14 (9-16) mg/dL Creatinine 1.06 (0.5-1.4) mg/dL Estim Creat Clear Calc TNP Estimated GFR > 60 Random Glucose 137 H (60-115) mg/dL Calcium 9.7 (8.4-10.2) mg/dL Total Bilirubin 0.5 (0.0-1.0) mg/dL AST 17 (5-37) U/L ALT 16 (0-40) U/L Alkaline Phosphatase 112 (39-117) U/L Troponin I High Sens 47.8 H D (<3.5-35.0) ng/L B-Natriuretic Peptide (<100) pg/mL Total Protein 7.8 (6.5-8.0) g/dL Albumin 4.8 (3.5-5.0) g/dL 01/08/23 01/08/23 01/08/23 Range/Units 14:20 14:20 16:55 WBC (4.8-10.8) X10*3/uL RBC (4.60-5.80) X10*6/uL Hgb (14.0-18.0) g/dl Hct (42.0-52.0) % MCV (80.0-98.0) fL MCH (27.0-33.0) pg MCHC (31.0-36.0) g/dl RDW (11.0-16.0) % Plt Count (160-400) X10*3/uL MPV (9.4-12.4) fL Immature Gran % (Auto) (0.0-0.4) % Neut % (Auto) (45-73) % Lymph % (Auto) (20-40) % [place] % (Auto) (2-11) % Eos % (Auto) (0-4) % Baso % (Auto) (0-2) % Lymph # (Auto) (1.2-4.9) X10*3/uL [place] # (Auto) (0.1-1.2) X10*3/uL Eos # (Auto) (0.0-0.4) X10*3/uL Baso # (Auto) (0.0-0.2) X10*3/uL Abs Immat Gran (auto) (0.00-0.03) X10*3/uL Absolute Neuts (auto) (2.0-8.3) x10*3/uL Absolute Nucleated RBC (0.0-0.012) X10*3/uL Nucleated RBC % (auto) (0.0-0.2) /100WBC PT 11.7 (10.0-13.1) SEC INR 1.0 (0.9-1.1) APTT 31.2 (26.0-36.4) SEC VBG pH (7.32-7.43) VBG pCO2 mmHg VBG pO2 mmHg VBG HCO3 (22-26) mmol/L VBG O2 Saturation % VBG Base Excess mmol/L Sodium (135-145) mmol/L Potassium (3.3-5.1) mmol/L Chloride (96-108) mmol/L Carbon Dioxide (22-29) mmol/L Anion Gap (12-20) BUN (9-16) mg/dL Creatinine (0.5-1.4) mg/dL Estim Creat Clear Calc Estimated GFR Random Glucose (60-115) mg/dL Calcium (8.4-10.2) mg/dL Total Bilirubin (0.0-1.0) mg/dL AST (5-37) U/L ALT (0-40) U/L Alkaline Phosphatase (39-117) U/L Troponin I High Sens 45.4 H (<3.5-35.0) ng/L B-Natriuretic Peptide 16 (<100) pg/mL Total Protein (6.5-8.0) g/dL Albumin (3.5-5.0) g/dL 01/08/23 Range/Units 18:21 WBC (4.8-10.8) X10*3/uL RBC (4.60-5.80) X10*6/uL Hgb (14.0-18.0) g/dl Hct (42.0-52.0) % MCV (80.0-98.0) fL MCH (27.0-33.0) pg MCHC (31.0-36.0) g/dl RDW (11.0-16.0) % Plt Count (160-400) X10*3/uL MPV (9.4-12.4) fL Immature Gran % (Auto) (0.0-0.4) % Neut % (Auto) (45-73) % Lymph % (Auto) (20-40) % [place] % (Auto) (2-11) % Eos % (Auto) (0-4) % Baso % (Auto) (0-2) % Lymph # (Auto) (1.2-4.9) X10*3/uL [place] # (Auto) (0.1-1.2) X10*3/uL Eos # (Auto) (0.0-0.4) X10*3/uL Baso # (Auto) (0.0-0.2) X10*3/uL Abs Immat Gran (auto) (0.00-0.03) X10*3/uL Absolute Neuts (auto) (2.0-8.3) x10*3/uL Absolute Nucleated RBC (0.0-0.012) X10*3/uL Nucleated RBC % (auto) (0.0-0.2) /100WBC PT (10.0-13.1) SEC INR (0.9-1.1) APTT (26.0-36.4) SEC VBG pH 7.41 (7.32-7.43) VBG pCO2 40 mmHg VBG pO2 73 mmHg VBG HCO3 26 (22-26) mmol/L VBG O2 Saturation 95.0 % VBG Base Excess 1.5 mmol/L Sodium (135-145) mmol/L Potassium (3.3-5.1) mmol/L Chloride (96-108) mmol/L Carbon Dioxide (22-29) mmol/L Anion Gap (12-20) BUN (9-16) mg/dL Creatinine (0.5-1.4) mg/dL Estim Creat Clear Calc Estimated GFR Random Glucose (60-115) mg/dL Calcium (8.4-10.2) mg/dL Total Bilirubin (0.0-1.0) mg/dL AST (5-37) U/L ALT (0-40) U/L Alkaline Phosphatase (39-117) U/L Troponin I High Sens (<3.5-35.0) ng/L B-Natriuretic Peptide (<100) pg/mL Total Protein (6.5-8.0) g/dL Albumin (3.5-5.0) g/dL Discharge Plan Discharge Clinical Impression: COPD (chronic obstructive pulmonary disease), Asthma Patient Disposition: Still a Patient Interventions: Admission Worksheet (ED) Last Done: 01/08/23 22:33 Discharge Date/Time: 01/08/23 22:33
[2023-01-08] MEDS: Albuterol Sulfate (0.083%) 2.5 MG/3 ML VIAL.NEB 10 MG INHALE ×2 (13:23→13:47)
[2023-01-08] MEDS: Magnesium Sulfate/H2O 2 GM/50 ML PIGGYBACK IV (13:23)
[2023-01-08] MEDS: methylPREDNISolone Sod Succ 125 MG/2 ML VIAL IVPUSH (13:24)
[2023-01-08 14:28] LABS: Basophils Absolute Auto 0.1 X10*3/uL (0.0-0.2); Basophils Percent Auto 0.6 % (0-2); Eosinophils Absolute Auto 0.6 X10*3/uL (0.0-0.4); Eosinophils Percent Auto 3.7 % (0-4); Hematocrit 44.8 % (42.0-52.0); Hemoglobin 15.2 g/dl (14.0-18.0); Imm Gran Abs Auto 0.11 X10*3/uL (0.00-0.03); Imm Gran Pct Auto 0.6 % (0.0-0.4); Lymphocytes Absolute Auto 2.4 X10*3/uL (1.2-4.9); Lymphocytes Percent Auto 14.1 % (20-40); Mean Corpuscular HGB Conc 33.9 g/dl (31.0-36.0); Mean Corpuscular Hemoglobin 33.4 pg (27.0-33.0); Mean Corpuscular Volume 98.5 fL (80.0-98.0); Mean Platelet Volume 9.5 fL (9.4-12.4); Monocytes Absolute Auto 1.5 X10*3/uL (0.1-1.2); Neutrophils Absolute Auto 12.3 x10*3/uL (2.0-8.3); Neutrophils Percent Auto 72.1 % (45-73); Platelet Count 306 X10*3/uL (160-400); Red Blood Count 4.55 X10*6/uL (4.60-5.80); Red Cell Distribution Width 13.5 % (11.0-16.0); SCAN SMEAR FLAG 1; White Blood Count 17.1 X10*3/uL (4.8-10.8)
[2023-01-08 14:32] LABS: Prothrombin Time 11.7 SEC (10.0-13.1)
[2023-01-08 14:35] LABS: Partial Thromboplastin Time 31.2 SEC (26.0-36.4)
[2023-01-08 14:41] LABS: Alanine Aminotransferase 16 U/L (0-40); Albumin Level 4.8 g/dL (3.5-5.0); Alkaline Phosphatase 112 U/L (39-117); Anion Gap 15 (12-20); Aspartate Amino Transferase 17 U/L (5-37); Bilirubin Total 0.5 mg/dL (0.0-1.0); Blood Urea Nitrogen 14 mg/dL (9-16); Calcium 9.7 mg/dL (8.4-10.2); Carbon Dioxide 28 mmol/L (22-29); Chloride 104 mmol/L (96-108); Estimated Glomerular Filt Rate > 60; Glucose Random 137 mg/dL (60-115); MANUAL DIFF FLAG NO; Monocytes Percent Auto 8.9 % (2-11); Potassium 4.5 mmol/L (3.3-5.1); Sodium 142 mmol/L (135-145); Total Protein 7.8 g/dL (6.5-8.0)
[2023-01-08 14:46] LABS: B Type Natriuretic Peptide 16 pg/mL (<100)
[2023-01-08 14:47] LABS: Troponin-I High Sensitivity 47.8 ng/L (<3.5-35.0)
--- NOTE | 2023-01-08 15:09 | PC.NURSE ---
Plan for repeat troponin 1630, pt reports feeling a little bit better 93% on room air
[2023-01-08 17:27] LABS: Troponin-I High Sensitivity 45.4 ng/L (<3.5-35.0)
[2023-01-08 18:27] LABS: Venous Blood Gas Refer to POC result
[2023-01-08 18:28] LABS: VBG Base Excess 1.5 mmol/L; VBG HCO3 26 mmol/L (22-26); VBG pCO2 40 mmHg; VBG pH 7.41 (7.32-7.43); VBG pO2 73 mmHg
--- NOTE | 2023-01-08 19:00 | PHA.MEDREC ---
Pharmacy Consult ? Medication Reconciliation Pharmacy has completed the medication reconciliation. spoke with patient. He was able to verify his medications. He last took methylprednisolone yesterday.
--- NOTE | 2023-01-08 19:08 | PM.IMHP ---
History of Present Illness Date of Service: 01/08/23 Chief Complaint: Dyspnea This is a 37-year-old male with pertinent history of asthma/COPD overlap syndrome, mood disorder presents to the emergency department for evaluation of dyspnea. Patient states it started about 5 days prior to presentation, and has been progressive. Patient's dyspnea is worse with ambulation. He also has associated wheezing and productive cough with clear sputum production. Patient states he is compliant with his home inhaler and also has been using his nebulizer but without relief. He denies fever, chills, chest discomfort, palpitations, abdominal pain, changes in urinary or bowel habits. He admits to smoking tobacco. Does not use oxygen at home. In the emergency department, patient with significant distress even after multiple DuoNeb treatments Review of Systems Constitutional: Constitutional: Reports no additional constitutional complaints Cardiovascular: Cardiovascular: Reports dyspnea on exertion Respiratory: Respiratory: Reports cough, Reports dyspnea on exertion and Reports wheezing Gastrointestinal: Gastrointestinal: Reports no additional gastrointestinal complaints Genitourinary: Genitourinary: Reports no additional male genitourinary complaints Allergic/Immunologic: Allergic/Immunologic: Reports wheezing [facility] Medical History Anxiety Asthma Asthma Asthma Asthma-COPD overlap syndrome Chronic allergic rhinitis Cough Depression Dyspnea Eczema Tobacco dependence Family History Mother No problems noted. Father No problems noted. Surgical History Hx of cholecystectomy Social History Household Members: None Household Members Other:: roommate Housing: House Housing Other:: Shared living home Do you presently have visiting nurse or other home services: No Alcohol intake: former Patient Tobacco Use Status: Former Tobacco user Tobacco use type: Cigarette Cigarettes Per Day: 1 Years Smoked: 20 +/- e-Cigarette/Vaping Use: Never Used Second Hand Smoke Exposure: No Substance Use Type: Marijuana Advance Directives: Yes Advance Directives on File: Yes Advance Directives Date on File: 10/12/22 service: No Current occupational status: unemployed and disabled Current occupational exposures/hazards: No Cognitive needs: No Hearing needs: No Vision needs: No Meds Allergies Allergy/AdvReac Type Severity Reaction Status Date / Time cat dander Allergy Severe asthma Verified 01/08/23 13:13 trigger, rash Active Medications: Current Medications Pharmacy Consult (Consult Rx Perform Med Rec) 1 each MISCELLANE ONCE PRN PRN Reason: Consult order Home Medications Medication Instructions Recorded Confirmed Last Taken Type fluoxetine 20 mg capsule 40 mg PO DAILY 02/17/21 01/08/23 12/08/22 History trazodone 100 mg tablet 100 mg PO BEDTIME 03/12/21 01/08/23 12/07/22 History gabapentin 400 mg capsule 400 mg PO TID 04/19/21 01/08/23 12/08/22 History albuterol sulfate 90 mcg/actuation 2 puff inhalation BID 12/08/22 01/08/23 12/08/22 History aerosol inhaler (ProAir HFA) fluticasone propionate 230 2 puff inhalation BID 01/08/23 01/08/23 Unknown History mcg-salmeterol 21 mcg/actuation HFA inhaler nicotine 14 mg/24 hr daily 1 patch transdermal DAILY 01/08/23 01/08/23 Unknown History transdermal patch Physical Exam Vital Signs and Narrative: Vital Signs: Last Vital Signs Temp 97.9 F 01/08/23 15:07 Pulse 111 H 01/08/23 15:07 Resp 16 01/08/23 15:07 BP 139/68 01/08/23 15:07 Pulse Ox 93 01/08/23 15:07 O2 Del Method Room Air 01/08/23 15:07 O2 Flow Rate 1 01/08/23 14:00 BMI result Body Mass Index 0.0 Middle-aged male lying in bed in mild distress Neck supple, no JVD Regular rate and rhythm, S1-S2 heard Bilateral wheezing without crackles Abdomen soft nontender, no guarding, no rigidity Patient is awake, alert and oriented to self, place, time and person ; no focal motor deficit Psych: Normal mood No pedal edema Results Labs 01/08/23 14:20 01/08/23 14:20 Labs: Laboratory Results - last 24 hr 01/08/23 01/08/23 01/08/23 14:20 14:20 14:20 MCV 98.5 H MCH 33.4 H MCHC 33.9 RDW 13.5 Plt Count 306 MPV 9.5 Immature Gran % (Auto) 0.6 H Neut % (Auto) 72.1 Lymph % (Auto) 14.1 L [place] % (Auto) 8.9 Eos % (Auto) 3.7 Baso % (Auto) 0.6 Lymph # (Auto) 2.4 [place] # (Auto) 1.5 H Eos # (Auto) 0.6 H Baso # (Auto) 0.1 Abs Immat Gran (auto) 0.11 H Absolute Neuts (auto) 12.3 H Absolute Nucleated RBC 0.000 Nucleated RBC % (auto) 0.0 PT INR APTT VBG pH VBG pCO2 VBG pO2 VBG HCO3 VBG O2 Saturation VBG Base Excess Anion Gap 15 Estim Creat Clear Calc TNP Estimated GFR > 60 Random Glucose 137 H Calcium 9.7 Total Bilirubin 0.5 AST 17 ALT 16 Alkaline Phosphatase 112 Troponin I High Sens 47.8 H D B-Natriuretic Peptide Total Protein 7.8 Albumin 4.8 01/08/23 01/08/23 01/08/23 14:20 14:20 16:55 MCV MCH MCHC RDW Plt Count MPV Immature Gran % (Auto) Neut % (Auto) Lymph % (Auto) [place] % (Auto) Eos % (Auto) Baso % (Auto) Lymph # (Auto) [place] # (Auto) Eos # (Auto) Baso # (Auto) Abs Immat Gran (auto) Absolute Neuts (auto) Absolute Nucleated RBC Nucleated RBC % (auto) PT 11.7 INR 1.0 APTT 31.2 VBG pH VBG pCO2 VBG pO2 VBG HCO3 VBG O2 Saturation VBG Base Excess Anion Gap Estim Creat Clear Calc Estimated GFR Random Glucose Calcium Total Bilirubin AST ALT Alkaline Phosphatase Troponin I High Sens 45.4 H B-Natriuretic Peptide 16 Total Protein Albumin 01/08/23 18:21 MCV MCH MCHC RDW Plt Count MPV Immature Gran % (Auto) Neut % (Auto) Lymph % (Auto) [place] % (Auto) Eos % (Auto) Baso % (Auto) Lymph # (Auto) [place] # (Auto) Eos # (Auto) Baso # (Auto) Abs Immat Gran (auto) Absolute Neuts (auto) Absolute Nucleated RBC Nucleated RBC % (auto) PT INR APTT VBG pH 7.41 VBG pCO2 40 VBG pO2 73 VBG HCO3 26 VBG O2 Saturation 95.0 VBG Base Excess 1.5 Anion Gap Estim Creat Clear Calc Estimated GFR Random Glucose Calcium Total Bilirubin AST ALT Alkaline Phosphatase Troponin I High Sens B-Natriuretic Peptide Total Protein Albumin Imaging Radiologist's Impressions: Impressions Chest X-Ray 01/08/23 13:57 IMPRESSION: Hyperexpanded lungs consistent with the history of asthma. There is no focal pneumonia. No pneumothorax. Assessment and Plan (1) Asthma-COPD overlap syndrome: Status: Acute Plan This is a 37-year-old male with pertinent history of asthma/COPD overlap syndrome, mood disorder presents to the emergency department for evaluation of dyspnea. #.? Acute respiratory distress secondary to acute exacerbation of asthma/COPD overlap syndrome:? Will admit patient and initiate scheduled and p.r.n. DuoNebs.? Initiating systemic steroids.? Continue home inhaler and montelukast. Initiating azithromycin for pleiotropic effect. Consulting pulmonology as patient with frequent exacerbation #.? Mood disorder: Continue trazodone and fluoxetine #. Elevated troponin, likely type 2 in the setting of increased demand. #. Tobacco use disorder: Ordered nicotine patch. Counseled regarding cessation DVT prophylaxis:? Lovenox 40 mg daily Full code Regular diet Time Spent With Patient Time: Total time managing care of this patient today ____ minutes. Quality Stroke Does the patient have a stroke diagnosis?: No VTE Prior VTE?: No VTE Risk Level:: Medical - moderate - high VTE Device Contraindication: Treatment Not Indicated VTE Drug Contraindication: N/A - Med Ordered
[2023-01-08] MEDS: Albuterol/Iprat 2.5/0.5MG 3 ML AMPUL.NEB INHALE (19:19)
[2023-01-08] MEDS: methylPREDNISolone Sod Succ 40 MG/ML VIAL IVPUSH (19:41)
[2023-01-08] MEDS: Nicotine 14 MG PATCH.TD24 TRANSDERMA (19:41)
[2023-01-08] MEDS: Enoxaparin Sodium 40 MG/0.4 ML SYRINGE SUBCUT (19:41)
[2023-01-08] MEDS: Azithromycin 500 MG in 0.9 % Sodium Chloride 250 ML 125 MG IV (19:42)
--- NOTE | 2023-01-08 19:52 | PC.NURSE ---
pt medicated according to mar. per dr sanders pt does not need blood cultures prior to administration of azithromycin iv antibiotics.
[2023-01-08] MEDS: Gabapentin 400 MG CAPSULE PO (21:23)
[2023-01-08] MEDS: traZODone HCL 100 MG TABLET PO (21:23)
[2023-01-08] MEDS: Acetaminophen 325 MG TABLET 650 MG PO (21:29)
--- NOTE | 2023-01-08 22:32 | PC.NURSE ---
this rn attempted x3 to give rn to rn report. able to give report to shell rn. pt transported to bed assignment by education coordinator
[2023-01-08] MEDS: 0.9 % Sodium Chloride Flush 3 ML SYRINGE IVFLUSH (23:07)
[2023-01-09 04:00] VITALS: BP 116/76; PULSE 86; RESP 18; TEMP 36.3; O2SAT 94
[2023-01-09 04:12] VITALS: PULSE 106; RESP 18; O2SAT 93
[2023-01-09] MEDS: Albuterol/Iprat 2.5/0.5MG 3 ML AMPUL.NEB INHALE ×3 (04:12→11:30)
[2023-01-09 04:49] LABS: MANUAL DIFF FLAG NO
[2023-01-09 04:54] LABS: Basophils Percent Auto 0.1 % (0-2); Hematocrit 40.6 % (42.0-52.0); Hemoglobin 13.9 g/dl (14.0-18.0); Imm Gran Abs Auto 0.16 X10*3/uL (0.00-0.03); Lymphocytes Absolute Auto 1.4 X10*3/uL (1.2-4.9); Lymphocytes Percent Auto 8.3 % (20-40); Mean Corpuscular HGB Conc 34.2 g/dl (31.0-36.0); Mean Corpuscular Hemoglobin 33.6 pg (27.0-33.0); Mean Corpuscular Volume 98.1 fL (80.0-98.0); Monocytes Absolute Auto 0.6 X10*3/uL (0.1-1.2); Monocytes Percent Auto 3.5 % (2-11); Neutrophils Absolute Auto 14.1 x10*3/uL (2.0-8.3); Neutrophils Percent Auto 87.1 % (45-73); Platelet Count 287 X10*3/uL (160-400); Red Blood Count 4.14 X10*6/uL (4.60-5.80); Red Cell Distribution Width 13.4 % (11.0-16.0); White Blood Count 16.2 X10*3/uL (4.8-10.8)
[2023-01-09 05:08] LABS: Anion Gap 13 (12-20); Blood Urea Nitrogen 15 mg/dL (9-16); Calcium 9.4 mg/dL (8.4-10.2); Carbon Dioxide 27 mmol/L (22-29); Chloride 104 mmol/L (96-108); Estimated Glomerular Filt Rate > 60; Glucose Random 152 mg/dL (60-115); Potassium 4.4 mmol/L (3.3-5.1); Sodium 140 mmol/L (135-145)
[2023-01-09 07:45] VITALS: PULSE 100; RESP 18; O2SAT 94
[2023-01-09 07:48] VITALS: BP 137/78; PULSE 83; RESP 16; TEMP 36.4; O2SAT 93
[2023-01-09] MEDS: FLUoxetine HCl 20 MG CAPSULE 40 MG PO (09:04)
[2023-01-09] MEDS: Acetaminophen 325 MG TABLET 650 MG PO (09:04)
[2023-01-09] MEDS: Gabapentin 400 MG CAPSULE PO (09:04)
[2023-01-09] MEDS: Montelukast Sodium 10 MG TABLET PO (09:05)
[2023-01-09] MEDS: 0.9 % Sodium Chloride Flush 3 ML SYRINGE IVFLUSH (09:05)
[2023-01-09] MEDS: methylPREDNISolone Sod Succ 40 MG/ML VIAL IVPUSH (09:05)
[2023-01-09] MEDS: Nicotine 14 MG PATCH.TD24 TRANSDERMA (09:05)
--- NOTE | 2023-01-09 09:09 | P.CONPL_ITS ---
History of Present Illness History of Present Illness Consult date: 01/09/23 Reason for consult: dyspnea, cough and asthma Chief complaint: Dyspnea Narrative: This 37 years old gentleman is admitted because of an acute exacerbation of his asthma/COPD syndrome. He has gradually increasing symptoms of dyspnea and cough for the last 4-5 days. He denies any particular symptoms of nasal congestion or postnasal discharge . Also denies fever or chills and also denies having any pleuritic chest pain. This gentleman was last admitted here in October for an acute exacerbation, For follow-up he has seen his primary care physician only once. He was seen in the emergency room a few weeks ago but not hospitalized. He claims that he has been using his albuterol inhaler alternating with the updraft quite frequently, and it seems he does not have any inhaler for araceli ntenance therapy. Patient categorically denies smoking cigarettes, or using pot. He is also described to have chronic mood disorder but currently being on antidepressant agent, he claims that emotionally he has been stable. Review of Systems Review of Systems: Yes all other systems are reviewed and are negative Eyes: Eyes: Reports no additional eye complaints ENT: Reports nasal congestion (Mild off and on) Cardiovascular: Cardiovascular: Denies chest pain, Denies irregular heart rhythm, Denies leg edema and Reports dyspnea Respiratory: Respiratory: Reports cough, Reports dyspnea and Reports wheezing Gastrointestinal: Gastrointestinal: Reports no additional gastrointestinal complaints Genitourinary: Genitourinary: Reports no additional male genitourinary complaints Musculoskeletal: Musculoskeletal: Reports no additional musculoskeletal complaints Integumentary/Breasts: Skin/Breast: Reports system reviewed and no additional complaints, except as docu Neurologic: Reports system reviewed and no additional complaints, except as documented Psychiatric: Psychiatric: Reports depression and Reports mood swings Endocrine: Endocrine: Reports no additional endocrine complaints Hematologic/Lymphatic: Hematologic/Lymphatic: Reports no additional hematologic/lymphatic complaints Allergic/Immunologic: Allergic/Immunologic: Reports wheezing PMFSH Past Medical History Medical History Anxiety Asthma Asthma Asthma Asthma-COPD overlap syndrome Chronic allergic rhinitis Cough Depression Dyspnea Eczema Tobacco dependence Family History Family History Mother No problems noted. Father No problems noted. Surgical History Surgical History Hx of cholecystectomy Social History Social History Household Members: None Household Members Other:: roommate Housing: House Housing Other:: Shared living home Do you presently have visiting nurse or other home services: No Alcohol intake: former Patient Tobacco Use Status: Former Tobacco user Tobacco use type: Cigarette Cigarettes Per Day: 1 Years Smoked: 20 +/- Smoked in Last 30 Days: No e-Cigarette/Vaping Use: Never Used Second Hand Smoke Exposure: No Use of substances other than those prescribed or required for medical reasons: No Substance Use Type: Marijuana Currently Displaying Signs/Symptoms of Drug Intoxication Withdrawal: No Any prior treatment program specific to substance use: No Have you been hit, kicked, punched, or otherwise hurt by someone within the past year? If so, by whom?: No Do you feel safe in your current relationship?: No Is there a partner from a previous relationship who is making you feel unsafe now?: No Are you made to feel afraid or neglected: No Spiritual Healthcare Practices: N/A Taoism Healthcare Practices: Episcopalian Cultural Healthcare Practices: N/A Advance Directives: Yes Advance Directives on File: Yes Advance Directives Date on File: 10/12/22 Do you have thoughts of harming others: None Do you have a plan to hurt others: No Plan Recently lost weight without trying: No Eating poorly because of decreased appetite: No Nutrition Risks: No Nutritional Risk Poor oral hygiene: No service: No Current occupational status: unemployed and disabled Current occupational exposures/hazards: No Cognitive needs: No Hearing needs: No Vision needs: No Meds Allergies Allergy/AdvReac Type Severity Reaction Status Date / Time cat dander Allergy Severe asthma Verified 01/08/23 13:13 trigger, rash Active Medications: Current Medications Acetaminophen (Acetaminophen 325 Mg Tablet) 650 mg PO Q6H PRN PRN Reason: Pain, Mild (Pain Scale 1-3) Last Admin: 01/08/23 21:29 Dose: 650 mg Albuterol Sulfate (Albuterol Sulfate 90 Mcg 8 Gm Inhaler) 2 puff INHALE ID [facility] Last Admin: 01/09/23 07:46 Dose: Not Given Albuterol/Ipratropium (Albuterol/Iprat 2.5/0.5mg 3 Ml Ampul.Neb) 3 ml INHALE RQ4H WHILE AWAKE [facility] Last Admin: 01/09/23 07:44 Dose: 3 ml Albuterol/Ipratropium (Albuterol/Iprat 2.5/0.5mg 3 Ml Ampul.Neb) 3 ml INHALE Q4H PRN PRN Reason: Wheezing Last Admin: 01/09/23 04:12 Dose: 3 ml Benzonatate (Benzonatate 100 Mg Capsule) 200 mg PO TID PRN PRN Reason: Cough Enoxaparin Sodium (Enoxaparin Sodium 40 Mg/0.4 Ml Syringe) 40 mg SUBCUT Q24H [facility] Last Admin: 01/08/23 19:41 Dose: 40 mg Fluoxetine HCl (Fluoxetine Hcl 20 Mg Capsule) 40 mg PO DAILY [facility] Fluticasone/Vilanterol (Fluticasone/Vilanterol 200/25 Blst.W.Dev) 1 puff INHALE DAILY [facility] Last Admin: 01/09/23 07:46 Dose: Not Given Gabapentin (Gabapentin 400 Mg Capsule) 400 mg PO TID [facility] Last Admin: 01/08/23 21:23 Dose: 400 mg Azithromycin 500 mg/ Sodium (Chloride) 250 mls @ 125 mls/hr IV Q24H [facility] Last Infusion: 01/08/23 21:58 Dose: Infused Melatonin (Melatonin 3 Mg Tablet) 6 mg PO BEDTIME PRN PRN Reason: Insomnia Methylprednisolone Sodium Succinate (Methylprednisolone Sod Succ 40 Mg/Ml Vial) 40 mg IVPUSH Q12H [facility] Last Admin: 01/08/23 19:41 Dose: 40 mg Montelukast Sodium (Montelukast Sodium 10 Mg Tablet) 10 mg PO DAILY [facility] Nicotine (Nicotine 14 Mg Patch.Td24) 14 mg TRANSDERMA DAILY [facility] Last Admin: 01/08/23 19:41 Dose: 14 mg Ondansetron HCl (Ondansetron Hcl 4 Mg/2 Ml Vial) 4 mg IVPUSH Q8H PRN PRN Reason: Nausea and Vomiting Pharmacy Consult (Consult Rx Perform Med Rec) 1 each MISCELLANE ONCE PRN PRN Reason: Consult order Sodium Chloride (0.9 % Sodium Chloride Flush 3 Ml Syringe) 3 ml IVFLUSH QSHIFT [facility] Last Admin: 01/08/23 23:07 Dose: 3 ml Trazodone HCl (Trazodone Hcl 100 Mg Tablet) 100 mg PO BEDTIME [facility] Last Admin: 01/08/23 21:23 Dose: 100 mg Home Medications Medication Instructions Recorded Confirmed Last Taken Type fluoxetine 20 mg capsule 40 mg PO DAILY 02/17/21 01/08/23 12/08/22 History trazodone 100 mg tablet 100 mg PO BEDTIME 03/12/21 01/08/23 12/07/22 History gabapentin 400 mg capsule 400 mg PO TID 04/19/21 01/08/23 12/08/22 History albuterol sulfate 90 mcg/actuation 2 puff inhalation BID 12/08/22 01/08/23 12/08/22 History aerosol inhaler (ProAir HFA) fluticasone propionate 230 2 puff inhalation BID 01/08/23 01/08/23 Unknown History mcg-salmeterol 21 mcg/actuation HFA inhaler nicotine 14 mg/24 hr daily 1 patch transdermal DAILY 01/08/23 01/08/23 Unknown History transdermal patch Physical Exam Vital Signs: Vital Signs: Last Vital Signs Temp 97.6 F 01/09/23 07:48 Pulse 83 01/09/23 07:48 Resp 16 01/09/23 07:48 BP 137/78 01/09/23 07:48 Pulse Ox 93 01/09/23 07:48 O2 Del Method Room Air 01/09/23 07:48 O2 Flow Rate 1 01/08/23 14:00 BMI result Body Mass Index 0.0 Const: General: comfortable, no acute distress, alert and awake Orientation/consciousness: patient oriented x3 HEENT: Head: Yes normal to inspection General nose exam: No nasal polyps present and No nasal discharge present Face and sinus: Yes sinuses nontender Mouth: oropharynx normal Throat: Yes posterior oropharynx normal Eyes: General: appearance normal, both eyes and all related structures Neck: Neck: Yes normal visual inspection, Yes no lymphadenopathy, Yes trachea midline and Yes no JVD Thyroid: Thyroid normal Chest: Chest palpation & inspection: normal inspection of the chest, normal p alpation of entire chest wall and no tenderness Resp: Other: Percussion note resonant, breath sounds are distant but equal on both sides. There are fine inspiratory wheezes on both side, especially posteriorly. Cardio: Palpation: normal PMI Rate: regular rate Rhythm: regular rhythm Heart sounds: no gallops and no murmurs Peripheral pulses: Peripheral pulse s 2+ throughout GI: Palpation (GI): Soft to palpation, nontender, No hepatosplenomegaly present and no masses Auscultation: normal bowel sounds Back/Spine/Pelvis: Thoracic/Lumbar Spine: thoracic and lumbar spine normal to inspection Skin: General skin exam: no rashes or lesions noted Neuro: General: patient oriented x3 and no focal motor deficits Cranial nerves: Yes CN's II-XII intact bilaterally Extrem: General: Yes normal to inspection, Yes no clubbing, cyanosis or edema and Yes no calf tenderness Psych: Appearance: grossly normal and well kempt Speech and movement: Normal speech and movement present Results Laboratory Findings 01/09/23 03:43 01/09/23 03:43 ABG, PT/INR, D-dimer: PT/INR, D-dimer PT 11.7 SEC (10.0-13.1) 01/08/23 14:20 INR 1.0 (0.9-1.1) 01/08/23 14:20 Abnormal lab findings: Abnormal Labs 01/08/23 01/08/23 01/08/23 14:20 14:20 14:20 WBC 17.1 H RBC 4.55 L Hgb Hct MCV 98.5 H MCH 33.4 H Immature Gran % (Auto) 0.6 H Neut % (Auto) Lymph % (Auto) 14.1 L [place] # (Auto) 1.5 H Eos # (Auto) 0.6 H Abs Immat Gran (auto) 0.11 H Absolute Neuts (auto) 12.3 H Random Glucose 137 H Troponin I High Sens 47.8 H D 01/08/23 01/09/23 01/09/23 16:55 03:43 03:43 WBC 16.2 H RBC 4.14 L Hgb 13.9 L Hct 40.6 L MCV 98.1 H MCH 33.6 H Immature Gran % (Auto) 1.0 H Neut % (Auto) 87.1 H Lymph % (Auto) 8.3 L [place] # (Auto) Eos # (Auto) Abs Immat Gran (auto) 0.16 H Absolute Neuts (auto) 14.1 H Random Glucose 152 H Troponin I High Sens 45.4 H Diagnostic Findings Chest x-ray: report reviewed and image reviewed Assessment and Plan (1) Asthma-COPD overlap syndrome: Status: Acute (2) Depression: Status: Acute (3) Tobacco dependence: Status: Acute Plan This the 37 years old young fellow, with known diagnosis of asthma/COPD overlap syndrome, comes in with acute exacerbation, without any recognizable infection. Chest x-ray does not show any infiltrate. He has mild leukocytosis, which may be due to recent use of steroids. At present he seems to have improved. Past history of smoking and also substance abuse but he denies at this time. REC . Continue IV Solu-Medrol for 1 more day and then changed to prednisone 40 mg a day for 5 days. After 1 day IV azithromycin can be changed to Z-Florin p.o.. He would need to continue a maintenance agent such as Breo-200 once a day or an equivalent agent. And continue to use albuterol HFA 2 puffs Q 4-6 hours only p.r.n.. He may also continue on montelukast 10 mg daily Continue nicotine patch and he should quit smoking completely. I counseled him that he needs to be followed up as, outpatient closely by his PCP, and should also make regular appointments at the Pulmonary office. Thank you for asking me to see this gentleman. Time Spent With Patient Time: Total time managing care of this patient today ____ minutes. Procedures Date of Service Date of Service: 01/09/23
--- NOTE | 2023-01-09 10:26 | MHC.CM.PN ---
TRUDY 01/09/23, EMR REVIEWED, CM MET W/PT WHO REPORTS HE LIVES W/OTHER PEOPLE AND HAS MCS STAFF HOWEVER IT IS NOT A JAIL, PT REPORTS HE HAS A NEBULIZER AND NO OTHER DME, [employer]CS STAFF/[employer] M-F, CM/HCP MARIANN PERRY CONTACTED D/T PT BEING CLEARED FOR D/C, MARIANN REQUESTING TO SPEAK TO HOSPITALIST WHO WAS MADE AWARE VIA [facility]. PT VERIFIES PCP IS MAKENZIE MIGUEL, ANÍBAL X2, HCP MARIANN PERRY [phone] AND ON FILE FROM PREVIOUS ADMIT. ANTIC D/C TODAY HOME W/RESUMP OF MCS SERVICES/[employer] AND MCS STAFF FOR TRANSPORT
[2023-01-09 11:30] VITALS: RESP 18; O2SAT 94
[2023-01-09 11:35] VITALS: BP 143/71; PULSE 98; RESP 16; TEMP 36.7; O2SAT 96
--- NOTE | 2023-02-21 16:23 | PM.EVENT ---
Event Note Date of Service: 01/09/23 Event Note: Discharge diagnosis COPD exacerbation acute hypoxic resp failure Time Spent With Patient Time: Total time managing care of this patient today ____ minutes.
== END 2023-01-09 14:54 | disposition home or self-care (01) ==
LOC: HO.ED 15:46 → HO.EDOVER 19:53 → HO.IMC 20:54
PROVIDERS: Physician Assistant; Physician Assistant Medical; Admitting Provider Student in an Organized Health Care Education/Training Program; Emergency Provider Emergency Medicine; PCP Internal Medicine; Visit Provider Nurse Practitioner Acute Care
DX: J44.9 Chronic obstructive pulmonary disease, unspecified (principal); J80 Acute respiratory distress syndrome; F32.9 Major depressive disorder, single episode, unspecified; R77.8 Other specified abnormalities of plasma proteins; F17.200 Nicotine dependence, unspecified, uncomplicated; F19.10 Other psychoactive substance abuse, uncomplicated; R06.02 Shortness of breath; Z79.899 Other long term (current) drug therapy
CPT/HCPCS: 36415; 71045; 80048; 80053; 82803; 83880; 84484; 85025; 85610; 85730; 93005; 94640; 96365; 96366; 96367; 96372; 96375; 99222; 99285; J0456; J1650; J2920; J2930; J3475

== ENCOUNTER 2023-01-24 10:51 | Outpatient (REF) | payer OTHER, SELFPAY ==
[2023-01-24 13:03] LABS: Erythrocyte Sedimentation Rate 13 MM/HR (0-15)
== END 2023-01-24 10:52 | disposition home or self-care (01) ==
LOC: HO.LAB 10:51
PROVIDERS: PCP Internal Medicine; Visit Provider Hospitalist
DX: J44.9 Chronic obstructive pulmonary disease, unspecified (principal); L30.9 Dermatitis, unspecified; J45.50 Severe persistent asthma, uncomplicated; R06.09 Other forms of dyspnea; J30.9 Allergic rhinitis, unspecified; F17.200 Nicotine dependence, unspecified, uncomplicated; Z71.6 Tobacco abuse counseling
CPT/HCPCS: 36415; 82785; 85652; 86003; 99212

== ENCOUNTER 2023-01-30 02:30 | Inpatient (IN) | payer OTHER, SELFPAY ==
[2023-01-30] VITALS (17 sets, daily range): BP systolic 124–165; BP diastolic 66–108; PULSE 95–120; RESP 16–30; TEMP 36.1–37.5; O2SAT 2–97; BMI 24.3
--- NOTE | ~2023-01-30 | XR_ITS ---
EXAMINATION: XR CHEST CLINICAL INFORMATION: Shortness of breath COMPARISON: 01/08/2023 TECHNIQUE: Frontal view of the chest was obtained. FINDINGS: Normal symmetric lung volumes. No parenchymal consolidation. No pleural effusion. No pneumothorax. Cardiomediastinal silhouette and pulmonary vascularity are within normal limits. No acute osseous abnormalities. XR/XR chest 1V IMPRESSION: No acute findings.
--- NOTE | 2023-01-30 02:39 | ED.SOB ---
HPI - SOB/Dyspnea General Chief Complaint: Asthma Stated Complaint: difficulty breathign Time Seen by Provider: 01/30/23 02:34 Source: patient Mode of arrival: EMS Limitations: no limitations History of Present Illness HPI Narrative: Patient comes to the emergency room complaining of shortness of breath/asthma exacerbation. Patient states that his albuterol updraft machine was not working. Patient woke up 2 hours ago with shortness of breath. Patient denies chest pain, states he feels tight. Denies coughing, no phlegm production. Per EMS, patient's oxygen saturation was 88% on room air, improved to 96% after an albuterol updraft. Related Data Home Medications Medication Instructions Recorded Confirmed fluoxetine 20 mg capsule 40 mg PO DAILY 02/17/21 01/16/23 trazodone 100 mg tablet 100 mg PO BEDTIME 03/12/21 01/16/23 gabapentin 400 mg capsule 400 mg PO TID 04/19/21 01/16/23 fluticasone propionate 230 2 puff inhalation BID 01/08/23 01/16/23 mcg-salmeterol 21 mcg/actuation HFA inhaler nicotine 14 mg/24 hr daily 1 patch transdermal DAILY 01/08/23 01/16/23 transdermal patch nebulizers 01/24/23 Previous Rx's Medication Instructions Recorded methylprednisolone 4 mg tablets in See Rx Instructions PO PER PKG DIR 01/05/23 a dose pack (Medrol (Florin)) #21 ea albuterol sulfate 2.5 mg/3 mL 2.5 mg (3 mL) inhalation Q4-6H PRN 01/09/23 (0.083 %) solution for nebulization shortness of breath or wheezing #90 mL albuterol sulfate 90 mcg/actuation 2 puff inhalation BID #6.7 grams 01/09/23 aerosol inhaler (ProAir HFA) prednisone 10 mg tablet See Taper PO DIRECTED #20 tabs 01/09/23 montelukast 10 mg tablet 10 mg PO DAILY #90 tabs 01/23/23 Allergies Allergy/AdvReac Type Severity Reaction Status Date / Time cat dander Allergy Severe asthma Verified 01/30/23 02:42 trigger, rash Review of Systems Review of Systems: Constitutional : No Weight loss, No Fever, No Chills, No Night Sweats, No Fatigue, No Malaise ENT/Mouth : No Hearing loss, No Ear Pain, No Nasal Congestion, No Sinus Pain, No Hoarseness, No sore throat, No Rhinorrhea, No Swallowing Difficulty Eyes: No Eye Pain, No Swelling, No Redness, No Foreign Body, No Discharge, No Vision Changes Cardiovascular : No Chest Pain, No SOB, No Dyspnea on Exertion, No Orthopnea, No Edema, No Palpitations Respiratory : No Cough, No Sputum, complaining of wheezing Gastrointestinal : No Nausea, No Vomiting, No Diarrhea, No Constipation, No abdominal Pain, No Hematochezia, No Melena Genitourinary : no irregular bleeding, No Dysuria, No Urinary Frequency, No Hematuria, No Urinary Incontinence, No Urgency, No Flank Pain, No Urinary Flow Changes, No Hesitancy Musculoskeletal : No joint pain, No Myalgias, No Joint Swelling Skin : No Skin Lesions, No rash Neuro : No Weakness, No Numbness, No Paresthesias, No Loss of Consciousness, No Dizziness, No Headache Psych : No Anxiety/Panic, No Depression, No SI/HI/AH/VH, No Social Issues, Heme/Lymph: No Bruising, No Bleeding,No Lymphadenopathy Endocrine : No Polyuria, No Polydipsia, No Temperature Intolerance PMFSH Past Medical History Medical History Anxiety Asthma Asthma Asthma Asthma-COPD overlap syndrome Chronic allergic rhinitis COPD (chronic obstructive pulmonary disease) Cough Depression Dyspnea Eczema Tobacco dependence Surgical History Hx of cholecystectomy Family History Family History Mother No problems noted. Father No problems noted. Social History Social History Household Members: None Household Members Other:: roommate Housing: House Housing Other:: Shared living home Do you presently have visiting nurse or other home services: No Alcohol intake: former Patient Tobacco Use Status: Former Tobacco user Tobacco use type: Cigarette Cigarettes Per Day: 1 Years Smoked: 20 +/- e-Cigarette/Vaping Use: Never Used Second Hand Smoke Exposure: No Substance Use Type: Marijuana Advance Directives: Yes Advance Directives on File: Yes Advance Directives Date on File: 10/12/22 service: No Current occupational status: unemployed and disabled Current occupational exposures/hazards: No Cognitive needs: No Hearing needs: No Vision needs: No Physical Exam Vital Signs: Vital Signs: Last Vital Signs Temp 99.0 F 01/30/23 02:39 Pulse 106 H 01/30/23 02:58 Resp 20 01/30/23 02:58 BP 139/82 01/30/23 02:39 Pulse Ox 95 01/30/23 02:39 O2 Del Method Non-Rebreather Ma sk 01/30/23 02:39 BMI result Body Mass Index 24.3 Const: Other: Appearance: Alert. Oriented X3. No acute distress. Eyes: Pupils equal, round and reactive to light. ENT: Pharynx normal. Neck: Normal inspection. Neck supple. No lymph nodes noted. No crepitus CVS: Normal heart rate and rhythm. Pulses normal. Normal S1 and S2 Respiratory: Speaking in 3-4 word sentences, bilateral wheezing, moderate air movement Abdomen: Soft and nontender. No rigidity. No distention. Skin: Skin warm and dry. Normal skin color. Normal skin turgor. Extremities: No lower extremity edema. No Lacerations. No Rash Neuro: Oriented X 3. No motor deficit. No sensory deficit. Moving all extremities. No slurred speech. CN 2 through 12 grossly intact Psych: calm, cooperative, normal affect Course Course Course Narrative: -patient getting albuterol updraft, Solu-Medrol, IV magnesium -chest x-rays and labs pending Medications Administered Generic Name Dose Route Start Last Admin Trade Name Freq PRN Reason Stop Dose Admin Magnesium Sulfate 2 gm in 50 mls @ 25 mls/hr 01/30/23 02:37 01/30/23 02:51 Magnesium Sulfate/H2o IV 01/30/23 04:36 25 mls/hr ONCE ONE Administration Discontinued Medications Generic Name Dose Route Start Last Admin Trade Name Freq PRN Reason Stop Dose Admin Albuterol Sulfate 10 mg 01/30/23 02:37 01/30/23 02:57 Albuterol Sulfate (0.083%) 2.5 Mg/3 Ml Vial.Neb INHALE 01/30/23 02:38 10 mg ONCE ONE Administration Methylprednisolone Sodium Succinate 125 mg 01/30/23 02:37 01/30/23 02:51 Methylprednisolone Sod Succ 125 Mg/2 Ml Vial IVPUSH 01/30/23 02:38 125 mg ONCE ONE Administration Medical Decision Making Medical Decision Making [facility] Narrative: -patient's oxygen saturation drops to 87% on room air without any exertion. -patient receiving more albuterol treatments, patient still feels pretty tight. Patient continues wheezing but improved from arrival. -I discussed the patient with Dr. Jackson, patient being admitted for asthma exacerbation Admission/Observation Consideration of admission/observation: Escalation of care including admission/observation considered Consult Healthcare Provider Management of the patient was discussed with: Hospitalist Lab Data [facility] Lab Attestation statement: I reviewed the patient's lab results. 01/30/23 02:48 01/30/23 03:37 Labs: Lab Results 01/30/23 01/30/23 Range/Units 02:48 03:37 WBC 17.0 H (4.8-10.8) X10*3/uL RBC 4.32 L (4.60-5.80) X10*6/uL Hgb 14.6 (14.0-18.0) g/dl Hct 41.7 L (42.0-52.0) % MCV 96.5 (80.0-98.0) fL MCH 33.8 H (27.0-33.0) pg MCHC 35.0 (31.0-36.0) g/dl RDW 13.5 (11.0-16.0) % Plt Count 272 (160-400) X10*3/uL MPV 9.7 (9.4-12.4) fL Immature Gran % (Auto) 0.4 (0.0-0.4) % Neut % (Auto) 80.8 H (45-73) % Lymph % (Auto) 6.8 L (20-40) % [place] % (Auto) 8.4 (2-11) % Eos % (Auto) 3.3 (0-4) % Baso % (Auto) 0.3 (0-2) % Lymph # (Auto) 1.2 (1.2-4.9) X10*3/uL [place] # (Auto) 1.4 H (0.1-1.2) X10*3/uL Eos # (Auto) 0.6 H (0.0-0.4) X10*3/uL Baso # (Auto) 0.1 (0.0-0.2) X10*3/uL Abs Immat Gran (auto) 0.07 H (0.00-0.03) X10*3/uL Absolute Neuts (auto) 13.8 H (2.0-8.3) x10*3/uL Absolute Nucleated RBC 0.000 (0.0-0.012) X10*3/uL Nucleated RBC % (auto) 0.0 (0.0-0.2) /100WBC Sodium 138 (135-145) mmol/L Potassium 4.0 (3.3-5.1) mmol/L Chloride 106 (96-108) mmol/L Carbon Dioxide 22 (22-29) mmol/L Anion Gap 14 (12-20) BUN 7 L (9-16) mg/dL Creatinine 0.90 (0.5-1.4) mg/dL Estim Creat Clear Calc 107.6 Estimated GFR > 60 Random Glucose 151 H (60-115) mg/dL Calcium 9.2 (8.4-10.2) mg/dL Radiology Impression Discussion of test interpretation with radiology: I have reviewed the radiologist's reading. Radiologist Impression: Normal symmetric lung volumes. No parenchymal consolidation. No pleural effusion. No pneumothorax.? Cardiomediastinal silhouette and pulmonary vascularity are within normal limits. No acute osseous abnormalities. XR/XR chest 1V IMPRESSION: No acute findings. Critical Care Time Critical Care Time Critical Care Time: Yes Total Critical Care Time: 60 Attestation: I have personally provided critical care time. Time includes review of lab data, radiology results, discussion with consultants, and monitoring for potential decompensation. Intervention performed as documented. Discharge Plan Discharge Clinical Impression: Asthma with acute exacerbation Patient Disposition: Admitted As Inpatient Prescriptions: No Action montelukast 10 mg tablet 10 mg PO DAILY Qty: 90 3RF fluticasone propion-salmeterol 230-21 mcg/actuation HFA aerosol inhaler 2 puff INHALATION BID nicotine 14 mg/24 hr patch 24 hour 1 patch transdermal DAILY prednisone 10 mg tablet See Taper PO DIRECTED Qty: 20 0RF Taper: Prednisone 40 mg daily for 2 Days and 0 Hour 30 mg daily for 2 Days and 0 Hour 20 mg daily for 2 Days and 0 Hour 10 mg daily for 2 Days and 0 Hour Rx Instructions: see taper instructions albuterol sulfate 2.5 mg /3 mL (0.083 %) solution for nebulization 2.5 mg inhalation Q4-6H PRN (Reason: shortness of breath or wheezing) Qty: 90 0RF albuterol sulfate [ProAir HFA] 90 mcg/actuation HFA aerosol inhaler 2 puff inhalation BID Qty: 6.7 0RF fluoxetine 20 mg capsule 40 mg PO DAILY methylprednisolone [Medrol (Florin)] 4 mg tablets,dose pack See Rx Instructions PO PER PKG DIR Qty: 21 0RF Rx Instructions: PO PER PKG DIR trazodone 100 mg tablet 100 mg PO BEDTIME Rx Instructions: may repeat x 1 gabapentin 400 mg capsule 400 mg PO TID (DME) nebulizers Misc See Rx Instructions .ROUTE Rx Instructions: As directed
[2023-01-30] MEDS: Magnesium Sulfate/H2O 2 GM/50 ML PIGGYBACK IV (02:51)
[2023-01-30] MEDS: methylPREDNISolone Sod Succ 125 MG/2 ML VIAL IVPUSH (02:51)
[2023-01-30 02:52] LABS: Basophils Absolute Auto 0.1 X10*3/uL (0.0-0.2); Basophils Percent Auto 0.3 % (0-2); Eosinophils Absolute Auto 0.6 X10*3/uL (0.0-0.4); Eosinophils Percent Auto 3.3 % (0-4); Hematocrit 41.7 % (42.0-52.0); Hemoglobin 14.6 g/dl (14.0-18.0); Imm Gran Abs Auto 0.07 X10*3/uL (0.00-0.03); Imm Gran Pct Auto 0.4 % (0.0-0.4); Lymphocytes Absolute Auto 1.2 X10*3/uL (1.2-4.9); Lymphocytes Percent Auto 6.8 % (20-40); MANUAL DIFF FLAG NO; Mean Corpuscular Hemoglobin 33.8 pg (27.0-33.0); Mean Corpuscular Volume 96.5 fL (80.0-98.0); Mean Platelet Volume 9.7 fL (9.4-12.4); Monocytes Absolute Auto 1.4 X10*3/uL (0.1-1.2); Monocytes Percent Auto 8.4 % (2-11); Neutrophils Absolute Auto 13.8 x10*3/uL (2.0-8.3); Neutrophils Percent Auto 80.8 % (45-73); Platelet Count 272 X10*3/uL (160-400); Red Blood Count 4.32 X10*6/uL (4.60-5.80); Red Cell Distribution Width 13.5 % (11.0-16.0)
[2023-01-30] MEDS: Albuterol Sulfate (0.083%) 2.5 MG/3 ML VIAL.NEB 10 MG INHALE ×2 (02:57→04:37)
[2023-01-30 04:12] LABS: Anion Gap 14 (12-20); Blood Urea Nitrogen 7 mg/dL (9-16); Calcium 9.2 mg/dL (8.4-10.2); Carbon Dioxide 22 mmol/L (22-29); Chloride 106 mmol/L (96-108); Creatinine Clr Calc Pharmacy 107.6; Estimated Glomerular Filt Rate > 60; Glucose Random 151 mg/dL (60-115); Sodium 138 mmol/L (135-145)
--- NOTE | 2023-01-30 04:26 | PC.NURSE ---
Pt's O2Sat decreased to 86% MD aware and was present during occurrence
--- NOTE | 2023-01-30 04:29 | PC.NURSE ---
pt still 88-90% on room air despite duo neb treatment, albuterol tx, solumedrol and magnesium administration. pt reports some relief of chest tightness. plan to admit pt to hospital. will CTM
--- NOTE | 2023-01-30 06:00 | PC.NURSE ---
pt placed on 2L O2 nasal cannula for O2 sats 86-88% on room air
--- NOTE | 2023-01-30 06:14 | PM.IMHP ---
History of Present Illness Date of Service: 01/30/23 Chief Complaint: shortness of breath 29-year-old male with past medical history of asthma / COPD, anxiety, depression, presents to the hospital with complaints of shortness of breath, increased cough and sputum production. symptoms started about a day ago, associated with increased cough, some chills no fever, no chest pain, no abdominal pain nausea or vomiting, no diarrhea constipation, no urinary symptoms and no lower extremity edema. inhalers have not helped. He was noted to be hypoxic at 87% on 2 L of oxygen. Does not use oxygen at baseline. Patient otherwise denies any headache, no change in vision, no weakness numbness or tingling. On arrival to the ED patient noted to have a heart rate of 120, respiratory rate of 22, satting 86% on room air Labs are significant for WBC count of 17.0 which is chronically elevated, labs otherwise unremarkable X-ray shows no acute changes Review of Systems Review of Systems: Yes all other systems are reviewed and are negative [facility] Medical History Anxiety Asthma Asthma Asthma Asthma-COPD overlap syndrome Chronic allergic rhinitis COPD (chronic obstructive pulmonary disease) Cough Depression Dyspnea Eczema Tobacco dependence Family History Mother No problems noted. Father No problems noted. Surgical History Hx of cholecystectomy Social History Household Members: None Household Members Other:: roommate Housing: House Housing Other:: Shared living home Do you presently have visiting nurse or other home services: No Alcohol intake: former Patient Tobacco Use Status: Former Tobacco user Tobacco use type: Cigarette Cigarettes Per Day: 1 Years Smoked: 20 +/- e-Cigarette/Vaping Use: Never Used Second Hand Smoke Exposure: No Substance Use Type: Marijuana Advance Directives: Yes Advance Directives on File: Yes Advance Directives Date on File: 10/12/22 service: No Current occupational status: unemployed and disabled Current occupational exposures/hazards: No Cognitive needs: No Hearing needs: No Vision needs: No Meds Allergies Allergy/AdvReac Type Severity Reaction Status Date / Time cat dander Allergy Severe asthma Verified 01/30/23 02:42 trigger, rash Active Medications: Current Medications Acetaminophen (Acetaminophen 325 Mg Tablet) 650 mg PO Q6H PRN PRN Reason: Pain, Mild (Pain Scale 1-3) Albuterol/Ipratropium (Albuterol/Iprat 2.5/0.5mg 3 Ml Ampul.Neb) 3 ml INHALE RQ4H PRN PRN Reason: Shortness of Breath/Wheezing Albuterol/Ipratropium (Albuterol/Iprat 2.5/0.5mg 3 Ml Ampul.Neb) 3 ml INHALE RQ4H WHILE AWAKE [facility] Docusate Sodium (Docusate Sodium 100 Mg Capsule) 100 mg PO DAILY PRN PRN Reason: Constipation Enoxaparin Sodium (Enoxaparin Sodium 40 Mg/0.4 Ml Syringe) 40 mg SUBCUT Q24H [facility] Methylprednisolone Sodium Succinate (Methylprednisolone Sod Succ 40 Mg/Ml Vial) 40 mg IVPUSH Q12H [facility] Ondansetron HCl (Ondansetron Hcl 4 Mg/2 Ml Vial) 4 mg IVPUSH Q8H PRN PRN Reason: Nausea and Vomiting Sodium Chloride (0.9 % Sodium Chloride Flush 3 Ml Syringe) 3 ml IVFLUSH QSHIFT [facility] Home Medications Medication Instructions Recorded Confirmed Last Taken Type fluoxetine 20 mg capsule 40 mg PO DAILY 02/17/21 01/30/23 12/08/22 History trazodone 100 mg tablet 100 mg PO BEDTIME 03/12/21 01/16/23 12/07/22 History gabapentin 400 mg capsule 400 mg PO TID 04/19/21 01/30/23 12/08/22 History fluticasone propionate 230 2 puff inhalation BID 01/08/23 01/30/23 Unknown History mcg-salmeterol 21 mcg/actuation HFA inhaler nicotine 14 mg/24 hr daily 1 patch transdermal DAILY 01/08/23 01/16/23 Unknown History transdermal patch nebulizers 01/24/23 Unknown History albuterol sulfate 90 mcg/actuation 2 puff inhalation Q4-6H PRN 01/30/23 01/30/23 Unknown History aerosol inhaler (Ventolin HFA) Shortness Of Breath Or Wheezing tiotropium bromide 2.5 2 puff inhalation DAILY 01/30/23 01/30/23 Unknown History mcg/actuation mist for inhalation (Spiriva Respimat) Physical Exam Vital Signs and Narrative: Vital Signs: Last Vital Signs Temp 99.5 F 01/30/23 06:06 Pulse 108 H 01/30/23 06:06 Resp 17 01/30/23 06:06 BP 124/66 01/30/23 06:06 Pulse Ox 91 L 01/30/23 06:06 O2 Del Method Nasal Cannula 01/30/23 06:06 O2 Flow Rate 2 01/30/23 06:06 BMI result Body Mass Index 24.3 Const: General: cooperative and no acute distress Orientation/consciousness: patient oriented x3 Eyes: General: appearance normal, both eyes and all related structures Pupils: Equal, round and reactive pupils present Resp: Other: crackles bilaterally, wheezing Effort & Inspection: normal respiratory effort Cardio: Rate: regular rate Rhythm: regular rhythm GI: Palpation (GI): Soft to palpation Auscultation: normal bowel sounds Skin: General skin exam: no rashes or lesions noted Neuro: General: patient oriented x3 Cranial nerves: Yes Equal, round and reactive pupils present Cognition (Neuro): normal cognition Extrem: General: Yes normal to inspection and Yes no pedal edema Results Labs 01/30/23 02:48 01/30/23 03:37 Labs: Laboratory Results - last 24 hr 01/30/23 01/30/23 02:48 03:37 MCV 96.5 MCH 33.8 H MCHC 35.0 RDW 13.5 Plt Count 272 MPV 9.7 Immature Gran % (Auto) 0.4 Neut % (Auto) 80.8 H Lymph % (Auto) 6.8 L [place] % (Auto) 8.4 Eos % (Auto) 3.3 Baso % (Auto) 0.3 Lymph # (Auto) 1.2 [place] # (Auto) 1.4 H Eos # (Auto) 0.6 H Baso # (Auto) 0.1 Abs Immat Gran (auto) 0.07 H Absolute Neuts (auto) 13.8 H Absolute Nucleated RBC 0.000 Nucleated RBC % (auto) 0.0 Anion Gap 14 Estim Creat Clear Calc 107.6 Estimated GFR > 60 Random Glucose 151 H Calcium 9.2 Imaging Radiologist's Impressions: Impressions Chest X-Ray 01/30/23 03:15 IMPRESSION: No acute findings. Assessment and Plan (1) Acute respiratory failure with hypoxia: Status: Acute (2) Asthma with COPD with exacerbation: Status: Acute Plan 37-year-old male with past medical history of COPD,/asthma presents to the hospital with complaints of shortness of breath, increased cough and sputum production # acute hypoxic respiratory failure - secondary to COPD exacerbation, pneumonia less likely, no evidence of CHF - will treat with IV Solu-Medrol, DuoNeb - monitor respiratory status - titrate O2 as tolerated # acute COPD/asthma exacerbation - has increased dyspnea, wheezing, cough, sputum production - chest x-ray negative for pneumonia - will treat with IV Solu-Medrol, DuoNeb p.r.n. as well as schedule, Continue oxygen as needed # depression anxiety - continue mood stabilizers DVT prophylaxis: Lovenox Time Spent With Patient Time: Total time managing care of this patient today ____ minutes. Quality Stroke Does the patient have a stroke diagnosis?: No VTE Prior VTE?: No VTE Risk Level:: Medical - moderate - high VTE Device Contraindication: Treatment Not Indicated VTE Drug Contraindication: N/A - Med Ordered
--- NOTE | 2023-01-30 07:25 | PHA.MEDREC ---
Pharmacy Consult ? Medication Reconciliation Pharmacy has completed the medication reconciliation. Pharmacy reviewed, done by LINNETTE
[2023-01-30] MEDS: 0.9 % Sodium Chloride Flush 3 ML SYRINGE IVFLUSH ×3 (08:00→20:31)
[2023-01-30] MEDS: Enoxaparin Sodium 40 MG/0.4 ML SYRINGE SUBCUT (08:00)
[2023-01-30] MEDS: Albuterol/Iprat 2.5/0.5MG 3 ML AMPUL.NEB INHALE ×6 (08:05→23:44)
[2023-01-30] MEDS: FLUoxetine HCl 20 MG CAPSULE 40 MG PO (08:31)
[2023-01-30] MEDS: Montelukast Sodium 10 MG TABLET PO (08:31)
[2023-01-30] MEDS: Gabapentin 400 MG CAPSULE PO ×3 (08:31→20:31)
[2023-01-30] MEDS: methylPREDNISolone Sod Succ 40 MG/ML VIAL IVPUSH (09:31)
--- NOTE | 2023-01-30 10:13 | PC.NURSE ---
APPROX 09:45 AM THIS RN INCREASED HIS O2 TO 3LNC SATURATING IN THE HIGH 80'S, INSPIRATORY AND EXPIRATORY WHEEZING NOTED THROUGHOUT ALL NIX, RETRACTIONS NOTED AND CHARGE NURSE IS AWARE, RESP CALLED
[2023-01-30] MEDS: Doxycycline Monohydrate 100 MG CAPSULE PO ×2 (10:26→20:32)
[2023-01-30] MEDS: Loratadine 10 MG TABLET PO (10:27)
[2023-01-30] MEDS: guaiFENesin DM 200/20/10 ML 10 ML SYRUP PO ×3 (10:27→20:31)
[2023-01-30] MEDS: LORazepam 0.5 MG TABLET PO (10:53)
--- NOTE | 2023-01-30 10:58 | PC.NURSE ---
Vitals done, oxygen remains on 3LNC 92-94 percent . respiratory did another breathing treatment. Ativan 1mg PO given. verbal reassurance given.
--- NOTE | 2023-01-30 12:06 | MHC.CM.PN ---
Met with patient in regards to discharge planning. Patient lives alone, ambulates independently, had no home services prior to coming to the hospital. Patient does go to a day program during the week. No services anticipated to be needed because patient is not homebound. PCP verified. Copy of HCP verified to be on file. Patient received 2 Pfizer vaccines. Not boosted. Patient has transportation when medically stable. Continue to monitor for d/c needs.
--- NOTE | 2023-01-30 12:57 | PM.EVENT ---
Event Note Date of Service: 01/30/23 Event Note: 37-year-old male with past medical history of COPD,/asthma presents to the hospital with complaints of shortness of breath, increased cough and sputum production #? acute hypoxic respiratory failure due to acute COPD and asthma exacerbation Persistent shortness of breath and cough productive of clear phlegm. No fevers, noted to have tachycardia/ elevated blood pressures. Continue IV Solu Medrol, DuoNeb and oxygen will add cough medication, Claritin ? monitor respiratory status,? titrate O2 as tolerated. #? tobacco use disorder counseling done placed on the Nicorette gums. #? depression anxiety-? continue mood stabilizers ?DVT prophylaxis:? Lovenox Patient will need continued inpatient hospitalization due to persistent symptoms of asthma exacerbation requiring IV steroids, oxygen and updraft treatment. Time Spent With Patient Time: Total time managing care of this patient today ____ minutes.
--- NOTE | 2023-01-30 13:01 | PC.NURSE ---
patient continues with wheezing throughout all his mistry. oxygen sat is 91-93 percent on 2LNC
[2023-01-30] MEDS: Nicotine Polacrilex 2 MG GUM BUCCAL ×3 (13:15→17:50)
[2023-01-30] MEDS: Acetaminophen 325 MG TABLET 650 MG PO (15:18)
[2023-01-30] MEDS: methylPREDNISolone Sod Succ 125 MG/2 ML VIAL 60 MG IVPUSH (18:22)
[2023-01-30] MEDS: traZODone HCL 100 MG TABLET PO (20:31)
[2023-01-30] MEDS: methylPREDNISolone Sod Succ 40 MG/ML VIAL 60 MG IVPUSH (20:31)
[2023-01-31] VITALS (10 sets, daily range): BP systolic 122–140; BP diastolic 78–80; PULSE 95–111; RESP 16–22; TEMP 36.1–36.8; O2SAT 92–96
[2023-01-31] MEDS: Albuterol/Iprat 2.5/0.5MG 3 ML AMPUL.NEB INHALE ×5 (04:17→19:40)
[2023-01-31] MEDS: Acetaminophen 325 MG TABLET 650 MG PO ×2 (04:48→14:17)
[2023-01-31] MEDS: Enoxaparin Sodium 40 MG/0.4 ML SYRINGE SUBCUT (05:08)
[2023-01-31 06:10] LABS: Basophils Percent Auto 0.1 % (0-2); Hematocrit 40.7 % (42.0-52.0); Imm Gran Abs Auto 0.08 X10*3/uL (0.00-0.03); Imm Gran Pct Auto 0.5 % (0.0-0.4); Lymphocytes Absolute Auto 0.6 X10*3/uL (1.2-4.9); Lymphocytes Percent Auto 3.9 % (20-40); MANUAL DIFF FLAG SCAN; Mean Corpuscular HGB Conc 34.4 g/dl (31.0-36.0); Mean Corpuscular Hemoglobin 33.5 pg (27.0-33.0); Mean Corpuscular Volume 97.4 fL (80.0-98.0); Mean Platelet Volume 10.2 fL (9.4-12.4); Monocytes Absolute Auto 0.8 X10*3/uL (0.1-1.2); Monocytes Percent Auto 4.7 % (2-11); Neutrophils Absolute Auto 14.4 x10*3/uL (2.0-8.3); Neutrophils Percent Auto 90.8 % (45-73); Platelet Count 284 X10*3/uL (160-400); Red Blood Count 4.18 X10*6/uL (4.60-5.80); Red Cell Distribution Width 13.7 % (11.0-16.0); SCAN SMEAR FLAG 1; White Blood Count 15.9 X10*3/uL (4.8-10.8)
[2023-01-31 06:42] LABS: Anion Gap 14 (12-20); Blood Urea Nitrogen 12 mg/dL (9-16); Calcium 9.6 mg/dL (8.4-10.2); Carbon Dioxide 27 mmol/L (22-29); Chloride 102 mmol/L (96-108); Creatinine Clr Calc Pharmacy 112.6; Estimated Glomerular Filt Rate > 60; Glucose Random 167 mg/dL (60-115); Potassium 4.3 mmol/L (3.3-5.1); Sodium 139 mmol/L (135-145)
[2023-01-31 07:05] LABS: SLIDE REVIEW VERIFIED
[2023-01-31] MEDS: Montelukast Sodium 10 MG TABLET PO (08:51)
[2023-01-31] MEDS: FLUoxetine HCl 20 MG CAPSULE 40 MG PO (08:51)
[2023-01-31] MEDS: Loratadine 10 MG TABLET PO (08:51)
[2023-01-31] MEDS: guaiFENesin DM 200/20/10 ML 10 ML SYRUP PO ×3 (08:51→20:06)
[2023-01-31] MEDS: 0.9 % Sodium Chloride Flush 3 ML SYRINGE IVFLUSH ×3 (08:52→20:07)
[2023-01-31] MEDS: methylPREDNISolone Sod Succ 40 MG/ML VIAL 60 MG IVPUSH ×2 (08:52→20:06)
[2023-01-31] MEDS: Doxycycline Monohydrate 100 MG CAPSULE PO ×2 (08:55→20:06)
[2023-01-31] MEDS: Gabapentin 400 MG CAPSULE PO ×3 (08:57→20:07)
--- NOTE | 2023-01-31 09:28 | P.PNIM_ITS ---
Subjective Subjective Date of Service: 01/31/23 Interval History: Feeling better than yesterday, still short of breath and coughing, denies fever, no chills no nausea no vomiting no abdominal pain or diarrhea tolerating diet, no acute events overnight requiring 2 L of oxygen by nasal cannula finger oximetry 93%to 94%. Review of Systems Review of Systems: Yes all other systems are reviewed and are negative Physical Exam Vital Signs: Vital Signs: Last Vital Signs Temp 97.4 F 01/31/23 07:53 Pulse 100 01/31/23 07:53 Resp 20 01/31/23 07:53 BP 133/80 01/31/23 07:53 Pulse Ox 94 01/31/23 07:53 O2 Del Method Nasal Cannula 01/31/23 07:53 O2 Flow Rate 2 01/31/23 04:00 BMI result Body Mass Index 24.3 Const: Other: General awake alert x3, no acute distress. Neck is supple no JVD. CVS regular rate rhythm, tachycardia Respiratory lungs bilateral expiratory wheeze/rhonchi, no respiratory distress, Gastrointestinal abdomen soft, nontender, bowel sounds audible, no guarding , no rigidity. Extremities no edema. Neuro nonfocal patient moving all 4 extremity speech clear. Skin no rash Psych appropriate affect Objective Data Active Medications Acetaminophen (Acetaminophen 325 Mg Tablet) 650 mg PO Q6H PRN PRN Reason: Pain, Mild (Pain Scale 1-3) Last Admin: 01/31/23 04:48 Dose: 650 mg Documented By: VINCENZO Albuterol/Ipratropium (Albuterol/Iprat 2.5/0.5mg 3 Ml Ampul.Neb) 3 ml INHALE RQ4H PRN PRN Reason: Shortness of Breath/Wheezing Last Admin: 01/31/23 04:17 Dose: 3 ml Documented By: SAUMYA Albuterol/Ipratropium (Albuterol/Iprat 2.5/0.5mg 3 Ml Ampul.Neb) 3 ml INHALE RQ4H WHILE AWAKE [facility] Last Admin: 01/31/23 07:36 Dose: 3 ml Documented By: ELNA Docusate Sodium (Docusate Sodium 100 Mg Capsule) 100 mg PO DAILY PRN PRN Reason: Constipation Doxycycline Monohydrate (Doxycycline Monohydrate 100 Mg Capsule) 100 mg PO Q12H [facility] Last Admin: 01/31/23 08:55 Dose: 100 mg Documented By: SIRENA Enoxaparin Sodium (Enoxaparin Sodium 40 Mg/0.4 Ml Syringe) 40 mg SUBCUT Q24H [facility] Last Admin: 01/31/23 05:08 Dose: 40 mg Documented By: VINCENZO Fluoxetine HCl (Fluoxetine Hcl 20 Mg Capsule) 40 mg PO DAILY [facility] Last Admin: 01/31/23 08:51 Dose: 40 mg Documented By: SIRENA Gabapentin (Gabapentin 400 Mg Capsule) 400 mg PO TID [facility] Last Admin: 01/31/23 08:57 Dose: 400 mg Documented By: SIRENA Guaifenesin/Codeine Phosphate (Guaifen/Codeine Sf 200/20/10ml 10 Ml Liquid) 10 ml PO Q6H PRN PRN Reason: Cough Guaifenesin/Dextromethorphan (Guaifenesin Dm 200/20/10 Ml 10 Ml Syrup) 10 ml PO TID [facility] Last Admin: 01/31/23 08:51 Dose: 10 ml Documented By: SIRENA Loratadine (Loratadine 10 Mg Tablet) 10 mg PO DAILY [facility] Last Admin: 01/31/23 08:51 Dose: 10 mg Documented By: SIRENA Lorazepam (Lorazepam 0.5 Mg Tablet) 0.5 mg PO Q12H PRN PRN Reason: Anxiety Methylprednisolone Sodium Succinate (Methylprednisolone Sod Succ 40 Mg/Ml Vial) 60 mg IVPUSH Q12H [facility] Last Admin: 01/31/23 08:52 Dose: 60 mg Documented By: SIRENA Montelukast Sodium (Montelukast Sodium 10 Mg Tablet) 10 mg PO DAILY [facility] Last Admin: 01/31/23 08:51 Dose: 10 mg Documented By: SIRENA Nicotine Polacrilex (Nicotine Polacrilex 2 Mg Gum) 2 mg BUCCAL Q2H PRN PRN Reason: Nicotine Cravings Ondansetron HCl (Ondansetron Hcl 4 Mg/2 Ml Vial) 4 mg IVPUSH Q8H PRN PRN Reason: Nausea and Vomiting Sodium Chloride (0.9 % Sodium Chloride Flush 3 Ml Syringe) 3 ml IVFLUSH QSHIFT [facility] Last Admin: 01/31/23 08:52 Dose: 3 ml Documented By: HO.WILLISK Trazodone HCl (Trazodone Hcl 100 Mg Tablet) 100 mg PO BEDTIME [facility] Last Admin: 01/30/23 20:31 Dose: 100 mg Documented By: VINCENZO Labs 01/31/23 05:22 01/31/23 05:22 Labs: Laboratory Results - last 24 hr 01/31/23 01/31/23 05:22 05:22 MCV 97.4 MCH 33.5 H MCHC 34.4 RDW 13.7 Plt Count 284 MPV 10.2 Immature Gran % (Auto) 0.5 H Neut % (Auto) 90.8 H Lymph % (Auto) 3.9 L [place] % (Auto) 4.7 Eos % (Auto) 0.0 Baso % (Auto) 0.1 Lymph # (Auto) 0.6 L [place] # (Auto) 0.8 Eos # (Auto) 0.0 Baso # (Auto) 0.0 Abs Immat Gran (auto) 0.08 H Absolute Neuts (auto) 14.4 H Absolute Nucleated RBC 0.000 Nucleated RBC % (auto) 0.0 Smear Tech's Comments VERIFIED Anion Gap 14 Estim Creat Clear Calc 112.6 Estimated GFR > 60 Random Glucose 167 H Calcium 9.6 Assessment and Plan (1) Asthma with COPD with exacerbation: Status: Acute (2) Acute respiratory failure with hypoxia: Status: Acute Plan 37-year-old male with past medical history of COPD,/asthma presents to the hospital with complaints of shortness of breath, increased cough and sputum production #? acute hypoxic respiratory failure due to acute COPD and asthma exacerbation ? ? Persistent shortness of breath and cough productive of clear phlegm.? No fevers, noted to have tachycardia/ elevated blood pressures, denies use of cocaine or alcohol use smokes marijuana occasionally. ? ? Continue IV Solu Medrol, DuoNeb scheduled and as needed, cough medication, Claritin ? ? monitor respiratory status,? titrate O2 as tolerated. #? tobacco use disorder counseling done placed on the Nicorette gums prn. #? depression anxiety-? continue mood stabilizers ?DVT prophylaxis:? Lovenox Patient will need continued inpatient hospitalization due to persistent symptoms of asthma exacerbation requiring IV steroids, oxygen and updraft treatment. Time Spent With Patient Time: Total time managing care of this patient today ____ minutes. Quality Stroke Does the patient have a stroke diagnosis?: No VTE Prior VTE?: No VTE Risk Level:: Medical - moderate - high VTE Device Contraindication: Treatment Not Indicated VTE Drug Contraindication: N/A - Med Ordered
--- NOTE | 2023-01-31 13:30 | P.CDIM_ITS ---
PROVIDER RESPONSE TEXT: To clarify, the appropriate diagnosis supported by the clinical indicators: Mild intermittent: . QUERY TEXT: PHYSICIAN'S DOCUMENTATION REQUEST Date of Query: 01/31/2023 01:13 PM EDT Patient Name: Casey Mills Admit Date: 01/30/2023 Dear Wilmer Martinez, A review of the medical record indicates additional documentation may be needed. Please review below and update the documentation accordingly. The diagnosis of asthma was documented in the record on 01/31/23. Additional clinical indicators from the record include: Per Hospitalist Progress Note: acute COPD and asthma exacerbation Persistent shortness of breath and cough productive of clear phlegm IV Solu Medrol, DuoNeb scheduled and as needed, cough medication, Claritin monitor respiratory status, titrate O2 as tolerated. Based on the above, please clarify in the Progress Notes further specificity regarding the type and a cuity of the asthma: Mild intermittent Please specify if with or without acute exacerbation or status asthmaticus Mild persistent Please specify if with or without acute exacerbation or status asthmaticus Moderate persistent Please specify if with or without acute exacerbation or status asthmaticus Severe persistent Please specify if with or without acute exacerbation or status asthmaticus Exercise induced Please specify if with or without acute exacerbation or status asthmaticus Chronic obstructive asthma and indicate if with acute lower respiratory infection Please specify if with or without acute exacerbation or status asthmaticus Asthma with underlying COPD and indicate if with acute lower respiratory infection Please specify if with or without acute exacerbation or status asthmaticus Other (explain)Clinically unable to determine (explain)Thank you, Becky Horvath RN Use of terms such as suspected, likely, concern for, or probable (associated with a specific diagnosi s that is being evaluated, monitored, or treated as if it exists) are acceptable and can be coded in the inpatient se tting, when documented at the time of discharge. Please use your independent medical judgment in providing your response. THIS QUERY IS PART OF THE PERMANENT MEDICAL RECORD
[2023-01-31] MEDS: traZODone HCL 100 MG TABLET PO (20:07)
[2023-01-31] MEDS: Nicotine 14 MG PATCH.TD24 TRANSDERMA (21:16)
[2023-02-01] VITALS (9 sets, daily range): BP systolic 123–135; BP diastolic 74–95; PULSE 80–91; RESP 16–20; TEMP 36.4–36.7; O2SAT 91–99
[2023-02-01] MEDS: Albuterol/Iprat 2.5/0.5MG 3 ML AMPUL.NEB INHALE ×5 (03:12→19:34)
[2023-02-01] MEDS: Enoxaparin Sodium 40 MG/0.4 ML SYRINGE SUBCUT (06:00)
[2023-02-01] MEDS: Acetaminophen 325 MG TABLET 650 MG PO ×2 (06:05→12:59)
[2023-02-01] MEDS: Nicotine 14 MG PATCH.TD24 TRANSDERMA (09:40)
[2023-02-01] MEDS: Gabapentin 400 MG CAPSULE PO ×3 (09:41→21:12)
[2023-02-01] MEDS: Montelukast Sodium 10 MG TABLET PO (09:41)
[2023-02-01] MEDS: methylPREDNISolone Sod Succ 40 MG/ML VIAL 60 MG IVPUSH ×2 (09:41→21:16)
[2023-02-01] MEDS: guaiFENesin DM 200/20/10 ML 10 ML SYRUP PO ×3 (09:41→21:12)
[2023-02-01] MEDS: Loratadine 10 MG TABLET PO (09:41)
[2023-02-01] MEDS: FLUoxetine HCl 20 MG CAPSULE 40 MG PO (09:41)
[2023-02-01] MEDS: Doxycycline Monohydrate 100 MG CAPSULE PO ×2 (09:41→21:12)
[2023-02-01] MEDS: 0.9 % Sodium Chloride Flush 3 ML SYRINGE IVFLUSH ×3 (09:44→22:15)
--- NOTE | 2023-02-01 12:40 | MHC.CM.PN ---
Per MD rounds no discharge today. DP home with resumption of Day Program. HCP will transport home.
--- NOTE | 2023-02-01 13:34 | HO.PM.IMPN ---
Subjective Subjective Date of Service: 02/01/23 Interval History: Feeling better than yesterday better still complaining of shortness of breath chest tightness and cough, denies fever chills, no nausea no vomiting tolerating diet no other acute issues overnight oxygen wean to off finger oximetry 97% on room air. Constitutional No fevers no chills Cardiovascular No chest pain no palpitation Neurologic No headaches, no dizziness Physical Exam Vital Signs: Vital Signs: Last Vital Signs Temp 98 F 02/01/23 07:44 Pulse 80 02/01/23 12:17 Resp 18 02/01/23 12:17 BP 124/95 H 02/01/23 07:44 Pulse Ox 97 02/01/23 07:44 O2 Del Method Room Air 02/01/23 07:44 O2 Flow Rate 2 01/31/23 04:00 BMI result Body Mass Index 24.3 Const: Other: General awake alert x3, no acute distress.? Neck is supple no JVD. CVS? regular rate rhythm, tachycardia Respiratory lungs bilateral expiratory wheeze/rhonchi, diminished breath sounds no respiratory distress, Gastrointestinal abdomen soft, nontender, bowel sounds audible, no guarding , no rigidity. Extremities no edema. Neuro nonfocal patient moving all 4 extremity speech clear. Skin no rash Psych appropriate affect Objective Data Active Medications Acetaminophen (Acetaminophen 325 Mg Tablet) 650 mg PO Q6H PRN PRN Reason: Pain, Mild (Pain Scale 1-3) Last Admin: 02/01/23 12:59 Dose: 650 mg Documented By: OLIVA Albuterol/Ipratropium (Albuterol/Iprat 2.5/0.5mg 3 Ml Ampul.Neb) 3 ml INHALE RQ4H PRN PRN Reason: Shortness of Breath/Wheezing Last Admin: 02/01/23 03:12 Dose: 3 ml Documented By: SAUMYA Albuterol/Ipratropium (Albuterol/Iprat 2.5/0.5mg 3 Ml Ampul.Neb) 3 ml INHALE RQ4H WHILE AWAKE [facility] Last Admin: 02/01/23 12:17 Dose: 3 ml Documented By: MAYTE Docusate Sodium (Docusate Sodium 100 Mg Capsule) 100 mg PO DAILY PRN PRN Reason: Constipation Doxycycline Monohydrate (Doxycycline Monohydrate 100 Mg Capsule) 100 mg PO Q12H [facility] Last Admin: 02/01/23 09:41 Dose: 100 mg Documented By: PIPO Enoxaparin Sodium (Enoxaparin Sodium 40 Mg/0.4 Ml Syringe) 40 mg SUBCUT Q24H [facility] Last Admin: 02/01/23 06:00 Dose: 40 mg Documented By: NICOLASA Fluoxetine HCl (Fluoxetine Hcl 20 Mg Capsule) 40 mg PO DAILY [facility] Last Admin: 02/01/23 09:41 Dose: 40 mg Documented By: PIPO Gabapentin (Gabapentin 400 Mg Capsule) 400 mg PO TID [facility] Last Admin: 02/01/23 09:41 Dose: 400 mg Documented By: PIPO Guaifenesin/Codeine Phosphate (Guaifen/Codeine Sf 200/20/10ml 10 Ml Liquid) 10 ml PO Q6H PRN PRN Reason: Cough Guaifenesin/Dextromethorphan (Guaifenesin Dm 200/20/10 Ml 10 Ml Syrup) 10 ml PO TID [facility] Last Admin: 02/01/23 09:41 Dose: 10 ml Documented By: PIPO Loratadine (Loratadine 10 Mg Tablet) 10 mg PO DAILY [facility] Last Admin: 02/01/23 09:41 Dose: 10 mg Documented By: PIPO Lorazepam (Lorazepam 0.5 Mg Tablet) 0.5 mg PO Q12H PRN PRN Reason: Anxiety Methylprednisolone Sodium Succinate (Methylprednisolone Sod Succ 40 Mg/Ml Vial) 60 mg IVPUSH Q12H [facility] Last Admin: 02/01/23 09:41 Dose: 60 mg Documented By: PIPO Montelukast Sodium (Montelukast Sodium 10 Mg Tablet) 10 mg PO DAILY [facility] Last Admin: 02/01/23 09:41 Dose: 10 mg Documented By: PIPO Nicotine (Nicotine 14 Mg Patch.Td24) 14 mg TRANSDERMA DAILY [facility] Last Admin: 02/01/23 09:40 Dose: 14 mg Documented By: PIPO Nicotine Polacrilex (Nicotine Polacrilex 2 Mg Gum) 2 mg BUCCAL Q2H PRN PRN Reason: Nicotine Cravings Ondansetron HCl (Ondansetron Hcl 4 Mg/2 Ml Vial) 4 mg IVPUSH Q8H PRN PRN Reason: Nausea and Vomiting Sodium Chloride (0.9 % Sodium Chloride Flush 3 Ml Syringe) 3 ml IVFLUSH QSHIFT [facility] Last Admin: 02/01/23 09:44 Dose: 3 ml Documented By: PIPO Trazodone HCl (Trazodone Hcl 100 Mg Tablet) 100 mg PO BEDTIME [facility] Last Admin: 01/31/23 20:07 Dose: 100 mg Documented By: HAVEN Labs 01/31/23 05:22 01/31/23 05:22 Assessment and Plan (1) Asthma with COPD with exacerbation: Status: Acute (2) Acute respiratory failure with hypoxia: Status: Acute Plan 37-year-old male with past medical history of COPD,/asthma presents to the hospital with complaints of shortness of breath, increased cough and sputum production #? acute hypoxic respiratory failure due to acute COPD and asthma exacerbation ? ? Slowly improving Persistent shortness of breath and cough productive of clear phlegm.? No fevers, tachycardia/ tachypnea and elevated blood pressures, resolved denies use of cocaine or alcohol use smokes marijuana occasionally. ? ? Continue IV Solu Medrol 60 mg b.i.d for 1 more day and transition to prednisone if improves clinically., continue DuoNeb scheduled and as needed, cough medication, Claritin Doxycycline for possible bronchitis ? ? monitor respiratory status,?room air finger oximetry 96% Follows with Dr. Lagos as outpatient receiving allergy shots and has been recommended biological therapy with (Fasenra or Dupixent), recommend outpatient pulmonary follow-up #? tobacco use disorder counseling done placed on the Nicorette gums prn. #? depression anxiety-? continue mood stabilizers ?DVT prophylaxis:? Lovenox Patient will need continued inpatient hospitalization due to persistent symptoms of asthma exacerbation requiring IV steroids, oxygen and updraft treatment. Time Spent With Patient Time: Total time managing care of this patient today ____ minutes. Quality Stroke Does the patient have a stroke diagnosis?: No VTE Prior VTE?: No VTE Risk Level:: Medical - moderate - high VTE Device Contraindication: Treatment Not Indicated VTE Drug Contraindication: N/A - Med Ordered
[2023-02-01] MEDS: Butalb/Acetamin/Caff 50/325/40 TABLET 1 TAB PO (16:07)
[2023-02-01] MEDS: Nicotine Polacrilex 2 MG GUM BUCCAL (21:12)
[2023-02-01] MEDS: traZODone HCL 100 MG TABLET PO (21:12)
[2023-02-01] MEDS: Fluticasone Propionate Nasal 16 GM SPRAY 1 SPRAY NOSTRIL-B (22:16)
[2023-02-02 03:55] VITALS: PULSE 80; RESP 12; O2SAT 95
[2023-02-02 04:00] VITALS: BP 130/81; PULSE 75; RESP 16; TEMP 36.4; O2SAT 92
[2023-02-02] MEDS: Omeprazole 20 MG CAPSULE.DR PO (05:43)
[2023-02-02] MEDS: Enoxaparin Sodium 40 MG/0.4 ML SYRINGE SUBCUT (05:43)
[2023-02-02 07:11] VITALS: BP 127/76; PULSE 85; RESP 16; TEMP 36.2; O2SAT 92
[2023-02-02] MEDS: Albuterol/Iprat 2.5/0.5MG 3 ML AMPUL.NEB INHALE ×2 (08:06→11:35)
[2023-02-02 08:08] VITALS: PULSE 75; RESP 16; O2SAT 95
[2023-02-02] MEDS: Gabapentin 400 MG CAPSULE PO ×2 (08:35→14:17)
[2023-02-02] MEDS: Loratadine 10 MG TABLET PO (08:35)
[2023-02-02] MEDS: FLUoxetine HCl 20 MG CAPSULE 40 MG PO (08:35)
[2023-02-02] MEDS: Doxycycline Monohydrate 100 MG CAPSULE PO (08:35)
[2023-02-02] MEDS: Montelukast Sodium 10 MG TABLET PO (08:35)
[2023-02-02] MEDS: guaiFENesin DM 200/20/10 ML 10 ML SYRUP PO ×2 (08:36→14:17)
[2023-02-02] MEDS: methylPREDNISolone Sod Succ 40 MG/ML VIAL 60 MG IVPUSH (08:36)
[2023-02-02] MEDS: 0.9 % Sodium Chloride Flush 3 ML SYRINGE IVFLUSH (08:37)
[2023-02-02] MEDS: Fluticasone Propionate Nasal 16 GM SPRAY 1 SPRAY NOSTRIL-B (08:38)
[2023-02-02 11:35] VITALS: PULSE 75; RESP 16; O2SAT 92
[2023-02-02] MEDS: Nicotine 14 MG PATCH.TD24 TRANSDERMA (12:14)
--- NOTE | 2023-02-02 14:47 | PM.DS ---
DS: Providers Provider Date of Service: 02/02/23 Date of admission: 01/30/23 06:11 Date of discharge: 02/02/23 Primary care physician: Jovan Alexandra MD Attending physician on discharge: Travon Galan Discharging clinician: Jeannette Sierra DS: Diagnosis Discharge Diagnosis (1) Asthma with COPD with exacerbation: Status: Acute (2) Acute respiratory failure with hypoxia: Status: Acute DS: Summary Hospital Course Hospital Course: From H&P on day of admission ?29-year-old male with past medical history of asthma / COPD, anxiety, depression, presents to the hospital with complaints of shortness of breath, increased cough and sputum production.? symptoms started about a day ago, associated with increased cough, some chills no fever, no chest pain, no abdominal pain nausea or vomiting, no diarrhea constipation, no urinary symptoms and no lower extremity edema. ? inhalers have not helped.? He was noted to be hypoxic at 87% on 2 L of oxygen.? Does not use oxygen? at baseline.? Patient otherwise denies any headache, no change in vision,? no weakness numbness or tingling.? On arrival to the ED patient noted to have a heart rate of 120, respiratory rate of 22, satting 86% on room air Labs are significant for WBC count of 17.0 which is chronically elevated, labs otherwise unremarkable X-ray shows no? acute changes acute hypoxic respiratory failure due to acute COPD and asthma exacerbation and possible acute bronchitis tachycardia/ tachypnea and elevated blood pressures, resolved. has remained afebrile Initially treated with IV Solu Medrol, DuoNebs and Doxycycline for possible bronchitis. he was weaned off of supplemental oxygen and is able to ambulate in the hallway without any respiratory distress. Follows with Dr. Lagos as outpatient receiving allergy shots and has been recommended biological therapy with (Fasenra or Dupixent), recommend outpatient pulmonary follow-up. Recommend complete cessation from tobacco. he will be discharged home to complete course of oral prednisone and doxycycline. Time Spent with Patient Time attestation: Total time managing care of this patient today ____ minutes. Discharge coordination time: Greater than 30 minutes Quality: Safe Use of Opioids Does Pt have an Active Cancer Diagnosis on the Problem List?: No Quality: Stroke Does the patient have a stroke diagnosis?: No Physical Exam Vital Signs: Vital Signs: Last Vital Signs Temp 97.2 F 05/25/23 07:11 Pulse 75 02/02/23 11:35 Resp 16 02/02/23 11:35 BP 127/76 02/02/23 07:11 Pulse Ox 92 02/02/23 07:11 O2 Del Method Room Air 02/02/23 07:11 O2 Flow Rate 2 01/31/23 04:00 BMI result Body Mass Index 24.3 Const: General: cooperative, comfortable, no acute distress, alert and awake Nutritional Appearance: average body habitus Orientation/consciousness: patient oriented x3 Resp: Effort & Inspection: normal respiratory effort and able to speak in complete sentences Cardio: Rate: regular rate GI: Inspection: No distended Palpation (GI): Soft to palpation Neuro: General: patient oriented x3 Extrem: General: Yes no pedal edema Discharge Plan Discharge Anticipated Discharge Date/Time: 02/02/23 14:47 Patient Disposition: Home, Self-Care Discharge Diagnosis: acute copd/asthma exacerbation Referrals: Jovan Alexandra MD [Primary Care Provider] - 1 Week Discharge Medications: New prednisone 20 mg tablet 40 mg PO DAILY 5 Days Qty: 10 0RF doxycycline hyclate 100 mg tablet 100 mg PO BID 2 Days Qty: 4 0RF Continued montelukast 10 mg tablet 10 mg PO DAILY Qty: 90 3RF fluticasone propion-salmeterol 230-21 mcg/actuation HFA aerosol inhaler 2 puff INHALATION BID albuterol sulfate 2.5 mg /3 mL (0.083 %) solution for nebulization 2.5 mg inhalation Q4-6H PRN (Reason: shortness of breath or wheezing) Qty: 90 0RF Spiriva Respimat 2.5 mcg/actuation mist 2 puff inhalation DAILY albuterol sulfate [Ventolin HFA] 90 mcg/actuation HFA aerosol inhaler 2 puff INHALATION Q4-6H PRN (Reason: Shortness Of Breath Or Wheezing) fluoxetine 20 mg capsule 40 mg PO DAILY trazodone 100 mg tablet 100 mg PO BEDTIME Rx Instructions: may repeat x 1 gabapentin 400 mg capsule 400 mg PO TID No Action (DME) nebulizers Misc See Rx Instructions .ROUTE Rx Instructions: As directed Discharge Orders: Discharge Order (Routine); Ordered 02/02/23 Ordered By: Jeannette Sierra Activity on Discharge: As tolerated Stand Alone Forms: Patient Portal Discharge page Care Plan Goals: see below Health Concerns: acute copd/asthma exacerbation Plan of Treatment: recommend to avoid smoking completely, continue to use nicotine patch and nicotine gum complete course of prednisone as prescribed complete course of antibiotics as prescribed call to schedule follow up appointment with PCP Assessment: see discharge summary
[2023-02-02 15:03] VITALS: BP 133/81; PULSE 83; RESP 18; TEMP 37; O2SAT 91
--- NOTE | 2023-02-02 15:27 | MHC.CM.PN ---
Patient is discharged to home self care. He has arranged for transportation home.
== END 2023-02-02 15:58 | disposition home or self-care (01) | DRG 140 ==
LOC: HO.ED 04:27 → HO.EDOVER 06:17 → HO.S3 16:39
PROVIDERS: Admitting Provider Internal Medicine; Emergency Provider Emergency Medicine; PCP Internal Medicine; Visit Provider Physician Assistant Medical
DX: J44.1 Chronic obstructive pulmonary disease with (acute) exacerbation (principal); J96.01 Acute respiratory failure with hypoxia; J45.20 Mild intermittent asthma, uncomplicated; J44.0 Chronic obstructive pulmonary disease with (acute) lower respiratory infection; J20.9 Acute bronchitis, unspecified; F17.200 Nicotine dependence, unspecified, uncomplicated; Z71.6 Tobacco abuse counseling; F41.9 Anxiety disorder, unspecified; F32.A Depression, unspecified; Z87.891 Personal history of nicotine dependence; Z79.51 Long term (current) use of inhaled steroids; Z79.899 Other long term (current) drug therapy
CPT/HCPCS: 36415; 71045; 80048; 85025; 94640; 99285; J1650; J2920; J2930; J3475

== ENCOUNTER → 2023-03-30 20:43 | Outpatient (REF) | payer OTHER, SELFPAY | LOC: HO.SL 20:43 | PROVIDERS: PCP Internal Medicine; Visit Provider Hospitalist | DX: R40.0 Somnolence (principal); R06.83 Snoring | CPT/HCPCS: 95810 ==

== ENCOUNTER → 2023-03-30 20:54 | Outpatient (BNV) | payer OTHER, SELFPAY | PROVIDERS: PCP Internal Medicine; Visit Provider Psychiatry & Neurology Neurology | DX: R06.83 Snoring (principal) | CPT/HCPCS: 95810 ==

== ENCOUNTER 2023-05-09 11:23 | Outpatient (AMB) | payer OTHER, SELFPAY ==
[2023-05-09 11:35] VITALS: BP 100/60; PULSE 77; O2SAT 96; BMI 23.8
--- NOTE | 2023-05-09 11:35 | A.OFFVIS_ITS ---
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 The patient is from developing worsening chest tightness and shortness of breath. The episodes moderate in severity. He has been evaluated in the ED already twice this year. He had evidence of eosinophilia his blood work suggesting allergic reactions potenti ally. In addition to that chest x-ray was clear. Patient was treated with prednisone. He does have a rescue inhaler. He denies any significant triggers. he was giving inhaler short-acting beta agonist his director case does not feel that he uses appropriately. We did provide him with spacer that he would use and I did give him struck shins and to use it. Also start him on a maintenance inhaler. I was sent to pharmacy although he may need a prior approval. Hopefully using the maintenance inhaler he will have decrease issues. The patient also but have to undergo blood work and pulmonary function studies. He is using a patch now for his tobacco dependency in he has not smoked since he put the patch on a few weeks ago. 08/15/2022 the patient is here for pulmonary follow-up visit. The patient recently went to the ER with worsening respiratory symptoms. He was found to have significant wheezing he was placed on prednisone. He has not started as of yet. Unfortunately he continues to smoke cigarettes. She has been trying to cut down. We did try the nicotine patch of 7 mg but this was too low for him. Therefore sent him it higher patch 14 mg. For breakthrough he can use a little bit of Nicoderm gum of 2 mg not to take more than 3-4 pieces today. The patient had run out of his maintenance respiratory medications. I explained to him the importance of using the inhaler on a maintenance basis to minimize exacerbations. the patient also has significant allergies. He continues to follow closely with Allergy immunology. He is currently getting allergy shots. 10/26/2022 the patient is here for pulmonary follow-up visit. He was recently in the hospital in September. He was having a COPD exacerbation. He was brought to the [facility]. He had a CT scan demonstrating multilobar airspace disease. Also his cardiac enzymes were significantly elevated. Cardiology did evaluation. He had an echocardiogram. It was felt to be demand ischemia. No additional testing warranted at this time. The patient does appear to have risk factors including smoking for heart disease. Based on his abnormal cardiac enzymes and his risk factors I will refer her to cardiology for further care. In the meantime she continues have some wheezing on examination. Unfortunately also continues smoking. We again talked about the importance of tobacco cessation with the severity of his disease and help much were seen get. We did go over how to use the Spiriva inhaler and he was seen in continue using the Advair. We also will provide him a nebulizer that he use as needed. 01/24/2023 the patient is here for hospital follow-up visit. He was recently hospitalized again with a asthma exacerbation. The patient did have significant eosinophilia when he presented to the hospital. In addition to that he is getting allergy shots suggesting he has significant allergic component. He does have history of smoking that predispose him to additional exacerbations. That being said I do believe that he has a significant allergic component that is causing the difficulties with respiratory status. The patient has been going to the assessment consultant for some time getting allergy shots now weekly. I do recommend that he can start a biologic along with the allergy shots. Will go ahead and request blood work including IgE. He is eosinophils already elevated. Hopeful ly he can follow up with his assessment consultant and start a biologic regimen there. Otherwise we can start when here at [place]. He already completed the prednisone. He has been using the Advair and the Spiriva with good adherence. We did again talk about the smoking cessation. The patient does have a patch on. He is not motivated to quit him well though is very hard for him. 05/09/2023 the patient is here for a pulmonary follow-up visit. Overall the patient has been doing well. He has not been in the hospital since January which is reassuring. He has been using his respiratory therapy with very good effect. He feels better now that he has has an long time. The patient has snoring. He does have an elevated [place] score of 8/24. Although after adjusting his other medications he seems to doing bit better with more energy. He did have a lab sleep study demonstrating no significant sleep apnea although he does have snoring. The patient could try positional therapy such as not sleep in his back and also sleeping elevated. The patient to well from a respiratory status. She does not need any imaging studies at this point. His last chest x-ray from January appear to demonstrate no acute disease. Will follow-up in 6 months. If he has any issues prior to that he will call the office for an earlier assessment. [facility] Medical History Anxiety Asthma Asthma Asthma Asthma-COPD overlap syndrome Chronic allergic rhinitis COPD (chronic obstructive pulmonary disease) Cough Depression Dyspnea Eczema Tobacco dependence Surgical History Hx of cholecystectomy Family History Mother No problems noted. Father No problems noted. Social History Household Members: None Household Members Other:: roommate Housing: House Housing Other:: Shared living home Do you presently have visiting nurse or other home services: Yes ([facility]) Alcohol intake: former Patient Tobacco Use Status: Current someday Tobacco user Tobacco use type: Cigarette Cigarettes Per Day: 1 Years Smoked: 20 +/- e-Cigarette/Vaping Use: Never Used Second Hand Smoke Exposure: No Substance Use Type: Marijuana Advance Directives Date on File: 10/12/22 service: No Current occupational status: disabled Current occupational exposures/hazards: No Cognitive needs: No Hearing needs: No Vision needs: No Review of Systems Const Denies chills, Denies fatigue, Denies headache(s) and Denies weight loss Eyes Denies change in vision, Denies diplopia and Denies eye pain ENT Denies vertigo, Denies dizziness, Denies headache(s) and Denies nasal discharge Card Denies chest pain, Denies rapid heart rate and Denies dyspnea on exertion Resp Denies chest congestion, Denies cough, Denies pain with cough and Denies dyspnea on exertion GI Denies abdominal pain, Denies hematochezia and Denies change in bowel habits Musc Denies myalgias, Denies arthralgias and Denies joint swelling Skin/Breast Denies lesions and Denies unusual bruising Neuro Denies vertigo, Denies dizziness, Denies headache(s) and Denies focal weakness Endo Denies fatigue Physical Exam Vital Signs: Last Vital Signs Pulse 77 05/09/23 11:35 BP 100/60 05/09/23 11:35 Pulse Ox 96 05/09/23 11:35 Oxygen Delivery Method Room Air 05/09/23 11:35 BMI result Body Mass Index 23.8 Const General: alert Neck Neck: Yes normal visual inspection, Yes full ROM and Yes no lymphadenopathy Chest Chest palpation & inspection: normal inspection of the chest Resp Effort & Inspection: prolonged expiratory phase Auscultation: no rhonchi, no wheezes and diminished lung sounds Cardio Rate: regular rate Rhythm: regular rhythm Heart sounds: S1 normal heart sound present and S2 normal heart sound present GI Palpation (GI): Soft to palpation and nontender Auscultation: normal bowel sounds Skin General skin exam: rashes and/or lesions noted Assessment & Plan Assessment & Plan (1) COPD (chronic obstructive pulmonary disease): Code(s): J44.9 - Chronic obstructive pulmonary disease, unspecified (2) Asthma-COPD overlap syndrome: Code(s): J44.9 - Chronic obstructive pulmonary disease, unspecified (3) Tobacco dependence: Code(s): F17.200 - Nicotine dependence, unspecified, uncomplicated (4) Eczema: Code(s): L30.9 - Dermatitis, unspecified Qualifiers: Eczema type: unspecified Qualified Code(s): L30.9 - Dermatitis, unspecified (5) Chronic allergic rhinitis: Code(s): J30.9 - Allergic rhinitis, unspecified (6) Dyspnea: Code(s): R06.00 - Dyspnea, unspecified Qualifiers: Dyspnea type: dyspnea on exertion Qualified Code(s): R06.09 - Other forms of dyspnea (7) Asthma: Code(s): J45.909 - Unspecified asthma, uncomplicated Qualifiers: Asthma severity: severe Asthma persistence: persistent Asthma complication type: uncomplicated Qualified Code(s): J45.50 - Severe persistent asthma, uncomplicated Plan continue Advair to twice a day continue Spiriva Nebulizer as needed continue Singulair at night continue allergy shots would benefit from biologic therapy (Fasenra or Dupixent) tobacco cessation Follow-up in 6 months Medications: Discontinued albuterol sulfate 2.5 mg (3 mL) inhalation Q4-6H PRN 90 mL 0RF shortness of breath or wheezing albuterol sulfate 90 mcg/actuation 2 puffs inhalation Q4-6H PRN 8.5 grams 8RF shortness of breath or wheezing albuterol sulfate 2.5 mg (3 mL) inhalation BID 30 days 180 mL 11RF Quality Reporting (2019) Adult ([facility] ) Smoking risk assessment performed?: Yes Patient Tobacco Use Status: Current someday Tobacco user Coding Level of Care Code Est Pt Level 4 (13341) Diagnoses COPD (chronic obstructive pulmonary disease) J44.9 Asthma-COPD overlap syndrome J44.9 Tobacco dependence F17.200 Eczema L30.9 Eczema type: unspecified Chronic allergic rhinitis J30.9 Dyspnea R06.09 Dyspnea type: dyspnea on exertion Asthma J45.50 Asthma severity: severe Asthma persistence: persistent Asthma complication type: uncomplicated Time Spent (min) 17
== END 2023-05-09 11:46 | disposition home or self-care (01) ==
PROVIDERS: PCP Internal Medicine; Visit Provider Hospitalist
DX: J44.9 Chronic obstructive pulmonary disease, unspecified (principal); F17.200 Nicotine dependence, unspecified, uncomplicated; L30.9 Dermatitis, unspecified; J30.9 Allergic rhinitis, unspecified; R06.09 Other forms of dyspnea
CPT/HCPCS: 99214

== ENCOUNTER → 2023-05-09 11:23 | Outpatient (BNVA) | payer OTHER, SELFPAY | PROVIDERS: PCP Internal Medicine; Visit Provider Hospitalist | DX: J44.9 Chronic obstructive pulmonary disease, unspecified (principal); J45.50 Severe persistent asthma, uncomplicated; J30.9 Allergic rhinitis, unspecified; R06.09 Other forms of dyspnea; L30.9 Dermatitis, unspecified; F17.210 Nicotine dependence, cigarettes, uncomplicated; Z79.899 Other long term (current) drug therapy | CPT/HCPCS: 99212 ==

== ENCOUNTER → 2023-06-02 11:36 | Outpatient (REF) | payer OTHER, SELFPAY ==
--- NOTE | 2023-06-02 11:38 | CA_ITS ---
Acquisition Time: 2023-06-02 11:41:43 Total Exercise Time: 00:09:48 Test Indications: Dyspnea Medications: ALBUTEROL FLUOXETINE GABAPENTIN TRAZADONE Protocol: EDITH Max HR: 148 BPM 81% of Pred: 182 BPM Max BP: 146/086 mmHG Max Work Load: 10.8 METS Exercise stress test exercise 9 min 48 sec of Edith protocol achieving 80% MPHR, without anginal symptoms, with isolated PVCs, and PACs with normtotensive response to exercise, without EKG changes for ischemia. Echo images obtained by tech at rest and immedateily post peak exercise. Definity contrast used. Test reviewed with Dr. Zaragoza/. Echo images at rest and post stress were reviewed. No significant RWMA at rest with preserved LV function. Post stress, the LV function augments appropriately and LV cavity appears to be smaller in size. Conclusion: Normal stress echo at achieved workload. Referred By: Ayden Zaragoza Overread By: Ayden Zaragoza
== END ==
LOC: HO.CARD 11:36
PROVIDERS: PCP Internal Medicine; Visit Provider Internal Medicine Cardiovascular Disease
DX: R07.9 Chest pain, unspecified (principal)
CPT/HCPCS: 93350; Q9957

== ENCOUNTER → 2023-06-02 11:38 | Outpatient (BNV) | payer OTHER, SELFPAY | PROVIDERS: PCP Internal Medicine; Visit Provider Internal Medicine Cardiovascular Disease | DX: R06.09 Other forms of dyspnea (principal); R07.9 Chest pain, unspecified | CPT/HCPCS: 93016; 93018; 93350; 93352 ==

== ENCOUNTER 2023-06-28 09:31 | Outpatient (AMB) | payer OTHER, SELFPAY ==
[2023-06-28 09:59] VITALS: BP 112/76; PULSE 72; BMI 24.7
--- NOTE | 2023-06-28 09:59 | A.OFFVIS_ITS ---
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 Allergies cat dander Allergy (Severe, Verified 05/09/23 11:37) asthma trigger, rash Medication List - Last Reconciled 06/28/23 by Ayden Zaragoza MD albuterol sulfate 90 mcg/actuation (Ventolin HFA) 2 puffs inhalation Q4-6H PRN albuterol sulfate 2.5 mg (3 mL) inhalation Q6H PRN escitalopram oxalate 10 mg PO QAM fluoxetine 40 mg PO DAILY fluticasone propion-salmeterol 230-21 mcg/actuation 2 puffs inhalation BID gabapentin 400 mg PO TID montelukast 10 mg PO DAILY nebulizers As directed nicotine 1 patch transdermal DAILY 28 days quetiapine 25 mg PO TID tiotropium bromide 2.5 mcg/actuation (Spiriva Respimat) 2 puffs inhalation DAILY trazodone 100 mg PO BEDTIME HPI HPI Comments History of Present Illness Details 37-year-old gentleman who is here for fo llow-up. He was seen in the hospital when he presented with asthma/COPD exacerbation and had mild troponin elevation. Echocardiography in EKGs were normal at that time. He was felt to have mild troponin elevation due to type 2 even due to asthma. Is returning for follow-up. He has been experiencing frequent chest discomfort. He has discussed this with pulmonology and it is felt that asthma is under control. He has been to the emergency department a few times and has been ruled out and discharged home. He has anxiety. 06/28/23: He returns for follow-up. He had stress testing performed where he was able to exercise for 9 minute 48 seconds achieving 10.8 metabolic equivalents. No ECG changes were noticed. He had echocardiographic imaging before and after stress which showed no wall motion abnormality and overall the stress test was normal at the achieved workload. He returns and is denying any chest discomfort. He has known history of asthma. He is a former smoker. Overall clinically stable at this stage. Stress test results discussed with the patient and questions were answered. [facility] Medical History Anxiety Asthma Asthma Asthma Asthma-COPD overlap syndrome Chronic allergic rhinitis COPD (chronic obstructive pulmonary disease) Cough Depression Dyspnea Eczema Tobacco dependence Surgical History Hx of cholecystectomy Family History Mother No problems noted. Father No problems noted. Social History Household Members: None Household Members Other:: roommate Housing: House Housing Other:: Shared living home Do you presently have visiting nurse or other home services: Yes ([facility]) Alcohol intake: former Patient Tobacco Use Status: Current someday Tobacco user Tobacco use type: Cigarette Cigarettes Per Day: 1 Years Smoked: 20 +/- e-Cigarette/Vaping Use: Never Used Second Hand Smoke Exposure: No Substance Use Type: Marijuana Advance Directives Date on File: 10/12/22 service: No Current occupational status: disabled Current occupational exposures/hazards: No Cognitive needs: No Hearing needs: No Vision needs: No Review of Systems Const Denies chills, Denies fatigue, Denies fever(s), Denies frequent falls, Denies weakness, Denies weight gain and Denies weight loss ENT Denies dizziness Card Denies chest pain, Denies leg edema, Denies lightheadedness, Denies palpitations, Denies dyspnea, Denies dyspnea on exertion, Denies orthopnea and Denies other (loss of consciousness) Resp Denies cough, Denies dyspnea and Denies dyspnea on exertion GI Denies hematochezia and Denies change in stool character Musc Denies abnormal gait, Denies muscle weakness, Denies numbness, Denies radiating pain into limb and Denies tingling Neuro Denies abnormal gait, Denies dizziness, Denies frequent falls, Denies numbness, Denies tingling and Denies weakness Endo Denies fatigue and Denies palpitations Physical Exam Vital Signs: Last Vital Signs Pulse 72 06/28/23 09:59 BP 112/76 06/28/23 09:59 BMI result Body Mass Index 24.7 GENERAL APPEARANCE: in no acute distress, pleasant. NECK: no carotid bruit, no jugular venous distention. SKIN: no suspicious lesions, warm and dry. HEART: no murmurs, regular rate and rhythm. LUNGS: Bilateral mild and expiratory wheezes. ABDOMEN: soft, nontender. EXTREMITIES: no edema. PERIPHERAL PULSES: equal. NEUROLOGIC: No gross deficits, AAO X 3 Assessment & Plan Assessment & Plan (1) Chest pain: Code(s): R07.9 - Chest pain, unspecified Plan Pleasant 37-year-old gentleman who is here for follow-up. He was seen for chest pain and underwent exercise stress echo in May 2023. This was normal. On follow-up he has no symptoms. He has history of asthma and is a former smoker. He has not had any recent lipid panel. I have advised him to have fasting lipid panel. He can follow up with us as needed from here onward. Thank you for allowing me to participate in the care of your patient. Please feel free to contact me if you have any questions. Orders: Orders Lipid Panel Today R07.9 - Chest pain, unspecified Quality Reporting (2019) Adult ([facility] 138/11/02/68) Smoking risk assessment performed?: Yes Patient Tobacco Use Status: Current someday Tobacco user Coding Level of Care Code Est Pt Level 3 (37388) Diagnoses Chest pain R07.9
== END 2023-06-28 10:40 | disposition home or self-care (01) ==
PROVIDERS: PCP Internal Medicine; Visit Provider Internal Medicine Cardiovascular Disease
DX: R07.9 Chest pain, unspecified (principal)
CPT/HCPCS: 99213

== ENCOUNTER → 2023-06-28 09:31 | Outpatient (BNVA) | payer OTHER, SELFPAY | PROVIDERS: PCP Internal Medicine; Visit Provider Internal Medicine Cardiovascular Disease | DX: R07.9 Chest pain, unspecified (principal) | CPT/HCPCS: 99212 ==

== ENCOUNTER 2023-10-26 03:09 | Emergency (ER) | payer OTHER, SELFPAY ==
--- NOTE | ~2023-10-26 | XR_ITS ---
EXAMINATION: XR CHEST CLINICAL INFORMATION: Shortness of breath. History of asthma. COMPARISON: 01/30/2023. TECHNIQUE: 2 views of the chest were obtained. FINDINGS: No significant abnormality is noted involving the heart, lungs, mediastinum, bony thorax or soft tissues. XR/XR chest 2V IMPRESSION: Unremarkable examination.
[2023-10-26 03:12] VITALS: BP 144/88; PULSE 87; O2SAT 99
[2023-10-26 03:17] VITALS: BP 173/101; PULSE 96; RESP 19; TEMP 36.6; O2SAT 96; BMI 24.4
[2023-10-26 03:36] VITALS: PULSE 91; RESP 16; O2SAT 94
--- NOTE | 2023-10-26 03:41 | ED.GENADULT ---
HPI - General Adult General Chief complaint: Dyspnea Stated complaint: Diff breathing Time Seen by Provider: 10/26/23 03:37 History of Present Illness HPI narrative: The patient is a 37-year-old male with a history of asthma. He says he started to feel short of breath earlier this evening at around 20:00. He had been well during the day. He started to feel short of breath at around 20:00 and he felt that he was wheezing. He had a mild cough. He did not feel feverish. Ultimately he felt quite short of breath and came to the emergency room Related Data Home Medications Medication Instructions Recorded Confirmed fluoxetine 20 mg capsule 40 mg PO DAILY 02/17/21 06/28/23 trazodone 100 mg tablet 100 mg PO BEDTIME 03/12/21 06/28/23 gabapentin 400 mg capsule 400 mg PO TID 04/19/21 06/28/23 nebulizers 01/24/23 03/06/23 albuterol sulfate 90 mcg/actuation 2 puff inhalation Q4-6H PRN 01/30/23 06/28/23 aerosol inhaler (Ventolin HFA) Shortness Of Breath Or Wheezing escitalopram oxalate 10 mg tablet 10 mg PO QAM 05/09/23 06/28/23 quetiapine 25 mg tablet 25 mg PO TID 05/09/23 06/28/23 Previous Rx's Medication Instructions Recorded montelukast 10 mg tablet 10 mg PO DAILY #90 tabs 01/23/23 nicotine 14 mg/24 hr daily 1 patch transdermal DAILY 28 days 02/28/23 transdermal patch #28 ea albuterol sulfate 2.5 mg/3 mL 2.5 mg (3 mL) inhalation Q6H PRN 03/22/23 (0.083 %) solution for nebulization shortness of breath or wheezing #180 mL tiotropium bromide 2.5 2 puff PO DAILY #12 mL 08/14/23 mcg/actuation mist for inhalation (Spiriva Respimat) fluticasone propionate 230 2 puff PO BID #12 ea 09/12/23 mcg-salmeterol 21 mcg/actuation HFA inhaler (Advair HFA) nirmatrelvir 300 mg (150 mg See Rx Instructions PO .COMPLEX 09/13/23 x2)-ritonavir 100 mg tablet,dose #30 tabs pack (Paxlovid) prednisolone 15 mg/5 mL oral 30 mg (10 mL) PO BID 5 days #100 mL 10/26/23 solution Allergies Allergy/AdvReac Type Severity Reaction Status Date / Time cat dander Allergy Severe asthma Verified 10/26/23 03:17 trigger, rash Review of Systems Review of Systems: Yes all other systems are reviewed and are negative [facility] Past Medical History Medical History Anxiety Asthma Asthma Asthma Asthma-COPD overlap syndrome Chronic allergic rhinitis COPD (chronic obstructive pulmonary disease) Cough Depression Dyspnea Eczema Tobacco dependence Surgical History Hx of cholecystectomy Family History Family History Mother No problems noted. Father No problems noted. Social History Social History Household Members: None Household Members Other:: roommate Housing: House Housing Other:: Shared living home Do you presently have visiting nurse or other home services: Yes ([facility]) Alcohol intake: former Patient Tobacco Use Status: Current someday Tobacco user Tobacco use type: Cigarette Cigarettes Per Day: 1 Years Smoked: 20 +/- e-Cigarette/Vaping Use: Never Used Second Hand Smoke Exposure: No Substance Use Type: Marijuana Advance Directives: Yes Advance Directives on File: Yes Advance Directives Date on File: 10/12/22 service: No Current occupational status: disabled Current occupational exposures/hazards: No Cognitive needs: No Hearing needs: No Vision needs: No Physical Exam ED Vital Signs: Vital Signs - 24 hr 10/26/23 03:17 10/26/23 03:36 10/26/23 05:15 Temperature 97.8 F Pulse Rate 96 91 Respiratory Rate 19 16 Blood Pressure 173/101 H Pulse Oximetry 96 95 Oxygen Delivery Method Room Air Room Air 10/26/23 06:15 10/26/23 06:33 Temperature 98.1 F Pulse Rate 87 87 Respiratory Rate 18 18 Blood Pressure 133/83 Pulse Oximetry 94 Oxygen Delivery Method Room Air BMI result Body Mass Index 24.4 Const Other: The patient is awake and alert. He looks mildly short of breath but not severely so. HENMT Other: Face is symmetrical, mucous membranes moist Eyes Other: Pupils are round equal, conjunctivae are clear, extraocular movements intact Neck Other: No stridor Resp Other: The patient had inspiratory and expiratory wheezes bilaterally. Cardio Rate: regular rate Rhythm: regular rhythm Heart sounds: S1 normal heart sound present and S2 normal heart sound present GI Other: The abdomen is soft and nontender Skin Other: Skin is pale and dry Neuro Other: The patient is awake, alert, nontoxic, appropriate, grossly neurologically intact. Extrem Other: No peripheral edema. No calf swelling or tenderness Medications Administered Discontinued Medications Generic Name Dose Route Start Last Admin Trade Name Freq PRN Reason Stop Dose Admin Albuterol Sulfate 5 mg/ 7.5 mg 10/26/23 03:42 10/26/23 03:46 Albuterol Sulfate 2.5 mg INHALE 10/26/23 03:43 7.5 mg ONCE ONE Administration Albuterol/Ipratropium 3 ml 10/26/23 06:12 10/26/23 06:33 Albuterol/Iprat 2.5/0.5mg 3 Ml Ampul.Neb INHALE 10/26/23 06:13 3 ml ONCE ONE Administration Azithromycin 500 mg 10/26/23 05:07 10/26/23 05:15 Azithromycin 500 Mg Tablet PO 10/26/23 05:08 500 mg ONCE ONE Administration Prednisone 60 mg 10/26/23 03:43 10/26/23 04:05 Prednisone 20 Mg Tablet PO 10/26/23 03:44 60 mg ONCE ONE Administration Medical Decision Making Medical Decision Making [facility] Narrative: The patient presents with acute shortness of breath and a physical exam that reveals bilateral inspiratory and expiratory wheezes consistent with an acute asthma exacerbation. Symptoms began several hours ago rather abruptly. No report of fever. Chest x-ray is negative. The patient was treated with bronchodilator updraft treatments. The patient was also given oral prednisone. The patient was observed for many hours and improved with treatments. Ultimately the patient looked quite comfortable and I felt they were well enough for outpatient management. They will be discharged with a prescription for prednisolone because they said they are not good at taking pills. Lab Data Labs: Lab Results 10/26/23 Range/Units 04:05 Influenza Type A (PCR) NEGATIVE (Negative) Influenza Type B (PCR) NEGATIVE (Negative) RSV RNA Qual (PCR) NEGATIVE (Negative) SARS-CoV-2 RNA (RT-PCR) NEGATIVE (Negative) Discharge Plan Discharge Clinical Impression: Acute asthma exacerbation Patient Disposition: Home, Self-Care Instructions: Asthma (ED) Additional Instructions: Please take prednisolone once a day as prescribed. Take a dose this afternoon and then daily after that. Use your albuterol every 4 hours as needed for any sense of shortness of breath. Please follow-up with your regular doctor. Return to the emergency room if significantly worse. Prescriptions: New prednisolone 15 mg/5 mL solution 30 mg PO BID 5 Days Qty: 100 0RF No Action montelukast 10 mg tablet 10 mg PO DAILY Qty: 90 3RF nicotine 14 mg/24 hr patch 24 hour 1 patch transdermal DAILY 28 Days Qty: 28 3RF albuterol sulfate 2.5 mg /3 mL (0.083 %) solution for nebulization 2.5 mg inhalation Q6H PRN (Reason: shortness of breath or wheezing) Qty: 180 11RF Spiriva Respimat 2.5 mcg/actuation mist 2 puff PO DAILY Qty: 12 3RF fluticasone propion-salmeterol [Advair HFA] 230-21 mcg/actuation HFA aerosol inhaler 2 puff PO BID Qty: 12 11RF Paxlovid 300 mg (150 mg x 2)-100 mg tablets,dose pack See Rx Instructions PO .COMPLEX Qty: 30 0RF Rx Instructions: take TWO 150 mg tablets of nirmatrelvir with ONE 100 mg tablet of ritonavir twice daily for 5 days PO albuterol sulfate [Ventolin HFA] 90 mcg/actuation HFA aerosol inhaler 2 puff INHALATION Q4-6H PRN (Reason: Shortness Of Breath Or Wheezing) fluoxetine 20 mg capsule 40 mg PO DAILY trazodone 100 mg tablet 100 mg PO BEDTIME Rx Instructions: may repeat x 1 gabapentin 400 mg capsule 400 mg PO TID (DME) nebulizers Misc See Rx Instructions .Route Rx Instructions: As directed escitalopram oxalate 10 mg tablet 10 mg PO QAM quetiapine 25 mg tablet 25 mg PO TID Referrals: Jovan Alexandra MD [Physician] - (asthma) Interventions: ED Discharge Assessment Last Done: 10/26/23 07:18 Discharge Date/Time: 10/26/23 07:18
[2023-10-26] MEDS: Albuterol Sulfate 5 MG, Albuterol Sulfate (0.083%) 2.5 MG 7.5 MG INHALE (03:46)
[2023-10-26] MEDS: predniSONE 20 MG TABLET 60 MG PO (04:05)
[2023-10-26 04:51] LABS: Influenza A PCR NEGATIVE (Negative); Influenza B PCR NEGATIVE (Negative); Resp Syncy Virus RNA Qual PCR NEGATIVE (Negative); SARS COV2 PCR INHOUSE NEGATIVE (Negative)
[2023-10-26 05:15] VITALS: O2SAT 95
[2023-10-26] MEDS: Azithromycin 500 MG TABLET PO (05:15)
[2023-10-26 06:15] VITALS: BP 133/83; PULSE 87; RESP 18; TEMP 36.7; O2SAT 94
[2023-10-26 06:33] VITALS: PULSE 87; RESP 18; O2SAT 95
[2023-10-26] MEDS: Albuterol/Iprat 2.5/0.5MG 3 ML AMPUL.NEB INHALE (06:33)
== END 2023-10-26 07:18 | disposition home or self-care (01) ==
PROVIDERS: Emergency Provider Emergency Medicine
DX: J45.901 Unspecified asthma with (acute) exacerbation (principal); Z11.52 Encounter for screening for COVID-19; Z20.828 Contact with and (suspected) exposure to other viral communicable diseases; R06.02 Shortness of breath; F17.210 Nicotine dependence, cigarettes, uncomplicated; Z79.899 Other long term (current) drug therapy
CPT/HCPCS: 0241U; 71046; 94640; 99284

== ENCOUNTER 2023-11-07 11:03 | Outpatient (AMB) | payer OTHER, SELFPAY ==
[2023-11-07 11:08] VITALS: PULSE 76; O2SAT 96; BMI 28.0
--- NOTE | 2023-11-07 11:08 | MHC.OFFVIS ---
Intake Vital Signs 11/07/23 11:08 Height 5 ft 10 in Weight 195 lb BMI 28.0 Pulse 76 Pulse Source Pulse Oximeter Pulse Oximetry (%) 96 Oxygen Delivery Method Room Air Intake Visit Reasons: Asthma Multiple Needle Stitcher Required: No Allergies cat dander Allergy (Severe, Verified 11/07/23 11:10) asthma trigger, rash HPI HPI Comments History of Present Illness Details The patient is a 37-year-old gentleman with a known history of asthma in addition to polysubstance abuse. The patient is from developing worsening chest tightness and shortness of breath. The episodes moderate in severity. He has been evaluated in the ED already twice this year. He had evidence of eosinophilia his blood work suggesting allergic reactions potentially. In addition to that chest x-ray was clear. Patient was treated with prednisone. He does have a rescue inhaler. He denies any significant triggers. he was giving inhaler short-acting beta agonist his corrections caseworker does not feel that he uses appropriately. We did provide him with spacer that he would use and I did give him struck shins and to use it. Also start him on a maintenance inhaler. I was sent to pharmacy although he may need a prior approval. Hopefully using the maintenance inhaler he will have decrease issues. The patient also but have to undergo blood work and pulmonary function studies. He is using a patch now for his tobacco dependency in he has not smoked since he put the patch on a few weeks ago. 01/24/2023 the patient is here for hospital follow-up visit. He was recently hospitalized again with a asthma exacerbation. The patient did have significant eosinophilia when he presented to the hospital. In addition to that he is getting allergy shots suggesting he has significant allergic component. He does have history of smoking that predispose him to additional exacerbations. That being said I do believe that he has a significant allergic component that is causing the difficulties with respiratory status. The patient has been going to the informatics nurse specialist for some time getting allergy shots now weekly. I do recommend that he can start a biologic along with the allergy shots. Will go ahead and request blood work including IgE. He is eosinophils already elevated. Hopefully he can follow up with his informatics nurse specialist and start a biologic regimen there. Otherwise we can start when here at [place]. He already completed the prednisone. He has been using the Advair and the Spiriva with good adherence. We did again talk about the smoking cessation. The patient does have a patch on. He is not motivated to quit him well though is very hard for him. 05/09/2023 the patient is here for a pulmonary follow-up visit. Overall the patient has been doing well. He has not been in the hospital since January which is reassuring. He has been using his respiratory therapy with very good effect. He feels better now that he has has an long time. The patient has snoring. He does have an elevated [place] score of 8/24. Although after adjusting his other medications he seems to doing bit better with more energy. He did have a lab sleep study demonstrating no significant sleep apnea although he does have snoring. The patient could try positional therapy such as not sleep in his back and also sleeping elevated. The patient to well from a respiratory status. She does not need any imaging studies at this point. His last chest x-ray from January appear to demonstrate no acute disease. Will follow-up in 6 months. If he has any issues prior to that he will call the office for an earlier assessment. 11/07/2023 the patient is here for a pulmonary follow-up visit. He is having again frequent flare-ups. He was again seen in the ER back in October with an asthma exacerbation required additional prednisone. Currently he is off the prednisone. He feels better. He continues to take the Advair twice a day in addition to the Spiriva. He also takes his allergy medicines. He continues to get allergy shots through [facility]. He has potential triggers including his smoking. Although he does have significant allergies. The last time he was in a hospital has significant eosinophilia. Therefore based on his severe persistent asthma in the elevation is in his eosinophils and elevations in IgE he would be a good candidate for biologics. He is already following allergy immunology getting allergy shots so I did recommend he can have further discussions with them regarding the initiation of a biologic therapy. The patient also has been working on cutting down smoking. He still struggles with that. We did review his last chest x-ray that he had back in 10/26/2023 when he presented with the asthma flare-up demonstrating no acute disease. He also had a viral swab for flu RSV and COVID which were negative. The patient does have some wheezing on examination. I will give him a low-dose prednisone taper. In addition to that will be reasonable to start him on budesonide to try to minimize the prednisone and also minimize the flare-ups. [facility] Medical History Anxiety Asthma Asthma Asthma Asthma-COPD overlap syndrome Chronic allergic rhinitis COPD (chronic obstructive pulmonary disease) Cough Depression Dyspnea Eczema Tobacco dependence Surgical History Hx of cholecystectomy Family History Mother No problems noted. Father No problems noted. Social History Household Members: None Household Members Other:: roommate Housing: House Housing Other:: Shared living home Do you presently have visiting nurse or other home services: Yes ([facility]) Alcohol intake: former Patient Tobacco Use Status: Current someday Tobacco user Tobacco use type: Cigarette Cigarettes Per Day: 1 Years Smoked: 20 +/- e-Cigarette/Vaping Use: Never Used Second Hand Smoke Exposure: No Substance Use Type: Marijuana Advance Directives Date on File: 10/12/22 service: No Current occupational status: disabled Current occupational exposures/hazards: No Cognitive needs: No Hearing needs: No Vision needs: No Review of Systems Const Denies chills, Denies fatigue, Denies headache(s) and Denies weight loss Eyes Denies change in vision, Denies diplopia and Denies eye pain ENT Denies vertigo, Denies dizziness, Denies headache(s) and Denies nasal discharge Card Denies chest pain, Denies rapid heart rate and Denies dyspnea on exertion Resp Denies chest congestion, Denies cough, Denies pain with cough and Denies dyspnea on exertion GI Denies abdominal pain, Denies hematochezia and Denies change in bowel habits Musc Denies myalgias, Denies arthralgias and Denies joint swelling Skin/Breast Denies lesions and Denies unusual bruising Neuro Denies vertigo, Denies dizziness, Denies headache(s) and Denies focal weakness Endo Denies fatigue Physical Exam Vital Signs: Last Vital Signs Pulse 76 11/07/23 11:08 Pulse Ox 96 11/07/23 11:08 Oxygen Delivery Method Room Air 11/07/23 11:08 BMI result Body Mass Index 28.0 Const General: alert Neck Neck: Yes normal visual inspection, Yes full ROM and Yes no lymphadenopathy Chest Chest palpation & inspection: normal inspection of the chest Resp Effort & Inspection: prolonged expiratory phase Auscultation: no rhonchi, wheezes and diminished lung sounds Cardio Rate: regular rate Rhythm: regular rhythm Heart sounds: S1 normal heart sound present and S2 normal heart sound present GI Palpation (GI): Soft to palpation and nontender Auscultation: normal bowel sounds Skin General skin exam: rashes and/or lesions noted Assessment & Plan Assessment & Plan (1) Asthma: Code(s): J45.909 - Unspecified asthma, uncomplicated Qualifiers: Asthma complication type: with acute exacerbation Asthma persistence: persistent Asthma severity: severe Qualified Code(s): J45.51 - Severe persistent asthma with (acute) exacerbation (2) Asthma-COPD overlap syndrome: Code(s): J44.9 - Chronic obstructive pulmonary disease, unspecified (3) Tobacco dependence: Code(s): F17.200 - Nicotine dependence, unspecified, uncomplicated (4) Eczema: Code(s): L30.9 - Dermatitis, unspecified Qualifiers: Eczema type: unspecified Qualified Code(s): L30.9 - Dermatitis, unspecified (5) Chronic allergic rhinitis: Code(s): J30.9 - Allergic rhinitis, unspecified (6) Dyspnea: Code(s): R06.00 - Dyspnea, unspecified Qualifiers: Dyspnea type: dyspnea on exertion Qualified Code(s): R06.09 - Other forms of dyspnea Plan continue Advair HFA to twice a day continue Spiriva Add budesonide neb daily prednisone taper Nebulizer as needed continue Singulair at night continue allergy shots would benefit from biologic therapy (Fasenra or Dupixent) tobacco cessation Follow-up in 2 months Medications: New prednisone PO daily; Take 2 tabs daily x 7 days, then 1 tab daily x 7 days 14 days 21 tabs 0RF budesonide 0.5 mg (2 mL) inhalation DAILY 30 days 60 mL 11RF J44.9 - Chronic obstructive pulmonary disease, unspecified Quality Reporting (2019) Adult ([facility] 13811/02/68) Smoking risk assessment performed?: Yes Patient Tobacco Use Status: Current someday Tobacco user Coding Level of Care Code Est Pt Level 4 (57402) Diagnoses Severe persistent asthma with acute exacerbation J45.51 Asthma complication type: with acute exacerbation Asthma persistence: persistent Asthma severity: severe Asthma-COPD overlap syndrome J44.9 Tobacco dependence F17.200 Eczema, unspecified type L30.9 Eczema type: unspecified Chronic allergic rhinitis J30.9 Dyspnea on exertion R06.09 Dyspnea type: dyspnea on exertion Time Spent (min) 17
== END 2023-11-07 11:42 | disposition home or self-care (01) ==
PROVIDERS: PCP Internal Medicine; Visit Provider Hospitalist
DX: J45.51 Severe persistent asthma with (acute) exacerbation (principal); J44.9 Chronic obstructive pulmonary disease, unspecified; F17.200 Nicotine dependence, unspecified, uncomplicated; L30.9 Dermatitis, unspecified; J30.9 Allergic rhinitis, unspecified; R06.09 Other forms of dyspnea
CPT/HCPCS: 99214

== ENCOUNTER → 2023-11-07 11:03 | Outpatient (BNVA) | payer OTHER, SELFPAY | PROVIDERS: PCP Internal Medicine; Visit Provider Hospitalist | DX: J45.51 Severe persistent asthma with (acute) exacerbation (principal); J44.9 Chronic obstructive pulmonary disease, unspecified; J30.9 Allergic rhinitis, unspecified; R06.09 Other forms of dyspnea; L30.9 Dermatitis, unspecified; F17.210 Nicotine dependence, cigarettes, uncomplicated | CPT/HCPCS: 99212 ==

== ENCOUNTER 2024-02-06 15:24 | Outpatient (AMB) | payer OTHER, SELFPAY ==
[2024-02-06 15:32] VITALS: PULSE 76; O2SAT 92; BMI 27.9
--- NOTE | 2024-02-06 15:32 | MHC.OFFVIS ---
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 The patient is from developing worsening chest tightness and shortness of breath. The episodes moderate in severity. He has been evaluated in the ED already twice this year. He had evidence of eosinophilia his blood work suggesting allergic reactions potentially. In addition to that chest x-ray was clear. Patient was treated with prednisone. He does have a rescue inhaler. He denies any significant triggers. he was giving inhaler short-acting beta agonist his insurance case manager does not feel that he uses appropriately. We did provide him with spacer that he would use and I did give him struck shins and to use it. Also start him on a maintenance inhaler. I was sent to pharmacy although he may need a prior approval. Hopefully using the maintenance inhaler he will have decrease issues. The patient also but have to undergo blood work and pulmonary function studies. He is using a patch now for his tobacco dependency in he has not smoked since he put the patch on a few weeks ago. 01/24/2023 the patient is here for hospital follow-up visit. He was recently hospitalized again with a asthma exacerbation. The patient did have significant eosinophilia when he presented to the hospital. In addition to that he is getting allergy shots suggesting he has significant allergic component. He does have history of smoking that predispose him to additional exacerbations. That being said I do believe that he has a significant allergic component that is causing the difficulties with respiratory status. The patient has been going to the materials development engineer for some time getting allergy shots now weekly. I do recommend that he can start a biologic along with the allergy shots. Will go ahead and request blood work including IgE. He is eosinophils already elevated. Hopefully he can follow up with his materials development engineer and start a biologic regimen there. Otherwise we can start when here at [place]. He already completed the prednisone. He has been using the Advair and the Spiriva with good adherence. We did again talk about the smoking cessation. The patient does have a patch on. He is not motivated to quit him well though is very hard for him. 05/09/2023 the patient is here for a pulmonary follow-up visit. Overall the patient has been doing well. He has not been in the hospital since January which is reassuring. He has been using his respiratory therapy with very good effect. He feels better now that he has has an long time. The patient has snoring. He does have an elevated Florence score of 8/24. Although after adjusting his other medications he seems to doing bit better with more energy. He did have a lab sleep study demonstrating no significant sleep apnea although he does have snoring. The patient could try positional therapy such as not sleep in his back and also sleeping elevated. The patient to well from a respiratory status. She does not need any imaging studies at this point. His last chest x-ray from January appear to demonstrate no acute disease. Will follow-up in 6 months. If he has any issues prior to that he will call the office for an earlier assessment. 11/07/2023 the patient is here for a pulmonary follow-up visit. He is having again frequent flare-ups. He was again seen in the ER back in October with an asthma exacerbation required additional prednisone. Currently he is off the prednisone. He feels better. He continues to take the Advair twice a day in addition to the Spiriva. He also takes his allergy medicines. He continues to get allergy shots through [facility]. He has potential triggers including his smoking. Although he does have significant allergies. The last time he was in a hospital has significant eosinophilia. Therefore based on his severe persistent asthma in the elevation is in his eosinophils and elevations in IgE he would be a good candidate for biologics. He is already following allergy immunology getting allergy shots so I did recommend he can have further discussions with them regarding the initiation of a biologic therapy. The patient also has been working on cutting down smoking. He still struggles with that. We did review his last chest x-ray that he had back in 10/26/2023 when he presented with the asthma flare-up demonstrating no acute disease. He also had a viral swab for flu RSV and COVID which were negative. The patient does have some wheezing on examination. I will give him a low-dose prednisone taper. In addition to that will be reasonable to start him on budesonide to try to minimize the prednisone and also minimize the flare-ups. 02/06/2024 the patient is here for a sick visit. He is very uncomfortable right now. He has been sick for about a week. Significant chest tightness and wheezing. He has been using the nebulizer machine a few times a day. Although his medication was not approved by his insurance company so therefore he is running out. He does have the Advair and the Spiriva that he uses regularly. Unfortunately he is still smoking. He states that he smokes few cigarettes a day. He did have a patch that worked well but then he ran out of that too. In the office he does have significant wheezing. I did give them to DuoNeb treatments that helped. In addition to that we given Solu-Medrol 125 mg IM x1. After that he will start some prednisone at home and also an antibiotic the patient also will be provided with DuoNeb that he can do 4 times a day. He needs to continue his respiratory therapy and avoid any smoking. He can put the patch on quickly in the morning and also take it off at nighttime to sleep. If the patient were to worsen he needs to go to the ER. He is aware of this. [facility] Medical History Anxiety Asthma Asthma Asthma Asthma-COPD overlap syndrome Chronic allergic rhinitis COPD (chronic obstructive pulmonary disease) Cough Depression Dyspnea Eczema Tobacco dependence Surgical History Hx of cholecystectomy Family History Mother No problems noted. Father No problems noted. Social History Household Members: None Household Members Other:: roommate Housing: House Housing Other:: Shared living home Do you presently have visiting nurse or other home services: Yes ([facility]) Alcohol intake: former Patient Tobacco Use Status: Current someday Tobacco user Tobacco use type: Cigarette Cigarettes Per Day: 1 Years Smoked: 20 +/- e-Cigarette/Vaping Use: Never Used Second Hand Smoke Exposure: No Substance Use Type: Marijuana Advance Directives Date on File: 10/12/22 service: No Current occupational status: disabled Current occupational exposures/hazards: No Cognitive needs: No Hearing needs: No Vision needs: No Review of Systems Const Denies chills, Denies fatigue, Denies headache(s) and Denies weight loss Eyes Denies change in vision, Denies diplopia and Denies eye pain ENT Denies vertigo, Denies dizziness, Denies headache(s) and Denies nasal discharge Card Denies chest pain, Denies rapid heart rate, Reports dyspnea and Reports dyspnea on exertion Resp Denies chest congestion, Denies cough, Denies pain with cough, Reports dyspnea, Reports dyspnea on exertion and Reports wheezing GI Denies abdominal pain, Denies hematochezia and Denies change in bowel habits Musc Denies myalgias, Denies arthralgias and Denies joint swelling Skin/Breast Denies lesions and Denies unusual bruising Neuro Denies vertigo, Denies dizziness, Denies headache(s) and Denies focal weakness Endo Denies fatigue Aller/Immun Reports wheezing Physical Exam Vital Signs: Last Vital Signs Pulse 76 02/06/24 15:32 Pulse Ox 92 02/06/24 15:32 Oxygen Delivery Method Room Air 02/06/24 15:32 BMI result Body Mass Index 27.9 Const General: alert and in distress mild Neck Neck: Yes normal visual inspection, Yes full ROM and Yes no lymphadenopathy Chest Chest palpation & inspection: normal inspection of the chest Resp Effort & Inspection: tachypneic and prolonged expiratory phase Auscultation: no rhonchi, wheezes and diminished lung sounds Cardio Rate: regular rate Rhythm: regular rhythm Heart sounds: S1 normal heart sound present and S2 normal heart sound present GI Palpation (GI): Soft to palpation and nontender Auscultation: normal bowel sounds Skin General skin exam: rashes and/or lesions noted Office Procedures Nebulizer Treatment Nebulizer Treatment [id number] RX initial, or Nebulizer Subsequent Treatment Office Meds methylprednisolone sod suc(PF) 125 mg/2 mL solution for injection Performing Provider: Dillon Lagos MD Performing Location: [facility] Administered by: Katlin Manuel LPN on 02/06/24 15:52 Dose Route Admin Location Dispensed Lot Number Expiration Date NDC Gis Web Developer 125 mg IM right buttock 2 ea [id number] 09/10/25 2696-9910-30 [employer] Comments: Solu medrol 2ml given. ipratropium 0.5 mg-albuterol 3 mg (2.5 mg base)/3 mL nebulization soln Performing Provider: Dillon Lagos MD Performing Location: [facility] Administered by: Katlin Manuel LPN on 02/06/24 15:50 Dose Route Admin Location Dispensed Lot Number Expiration Date NDC Gis Web Developer 6 mL inhalation 6 mL [id number] 07/11/25 47049-246-52 [employer] Quality Reporting (2019) Adult ([facility] 138/11/02/68) Smoking risk assessment performed?: Yes Patient Tobacco Use Status: Current someday Tobacco user Assessment & Plan Assessment & Plan (1) Asthma: Code(s): J45.909 - Unspecified asthma, uncomplicated Category: Medical Qualifiers: Asthma severity: severe Asthma persistence: persistent Asthma complication type: with acute exacerbation Qualified Code(s): J45.51 - Severe persistent asthma with (acute) exacerbation (2) Asthma-COPD overlap syndrome: Code(s): J44.9 - Chronic obstructive pulmonary disease, unspecified Category: Medical (3) Tobacco dependence: Code(s): F17.200 - Nicotine dependence, unspecified, uncomplicated Category: Medical (4) Eczema: Code(s): L30.9 - Dermatitis, unspecified Category: Medical Qualifiers: Eczema type: unspecified Qualified Code(s): L30.9 - Dermatitis, unspecified (5) Chronic allergic rhinitis: Code(s): J30.9 - Allergic rhinitis, unspecified Category: Medical (6) Dyspnea: Code(s): R06.00 - Dyspnea, unspecified Category: Medical Qualifiers: Dyspnea type: dyspnea on exertion Qualified Code(s): R06.09 - Other forms of dyspnea Plan Duoneb x 2 Solumedrol 125mg IM x 1 Prednisone taper continue Advair HFA to twice a day continue Spiriva stop budesonide neb daily strat Duoneb QID continue Singulair at night continue allergy shots would benefit from biologic therapy (Fasenra or Dupixent) tobacco cessation Follow-up in 2 months. If worsens will need to go to the ED Orders: Orders AMB Nebulizer Treatment Today J44.1 - Chronic obstructive pulmonary disease with (acute) exacerbation, J45.901 - Unspecified asthma with (acute) exacerbation AMB Methylprednisolone Sod Succ Injection Today J44.1 - Chronic obstructive pulmonary disease with (acute) exacerbation, J45.901 - Unspecified asthma with (acute) exacerbation Medications: New prednisone PO daily; Take 6 tabs daily x 3 days, then 5 tabs x 3 days, then 4 tabs x 3 days, then 3 tabs x 3 days, then 2 tabs daily x 3 days, then 1 tab x 3 days to complete. 63 tabs 0RF 18 days doxycycline hyclate 100 mg PO BID 20 caps 0RF 10 days ipratropium-albuterol 0.5 mg-3 mg(2.5 mg base)/3 mL 3 mL inhalation QID 360 mL 11RF 30 days J44.9 - Chronic obstructive pulmonary disease, unspecified Changed From albuterol sulfate 90 mcg/actuation (Ventolin HFA) 2 puffs inhalation Q4-6H PRN Shortness Of Breath Or Wheezing To albuterol sulfate 90 mcg/actuation (Ventolin HFA) 2 puffs inhalation Q4H PRN 8.5 grams 11RF Shortness Of Breath Or Wheezing 30 days Refilled nicotine 1 patch transdermal DAILY 28 ea 6RF 28 days Coding Level of Care Code Est Pt Level 4 (34062) Diagnoses Severe persistent asthma with acute exacerbation J45.51 Asthma severity: severe Asthma persistence: persistent Asthma complication type: with acute exacerbation Asthma-COPD overlap syndrome J44.9 Tobacco dependence F17.200 Eczema, unspecified type L30.9 Eczema type: unspecified Chronic allergic rhinitis J30.9 Dyspnea on exertion R06.09 Dyspnea type: dyspnea on exertion CPT Codes Nebulizer Treatment - Nebulizer Treatment, initial or subsequent: [id number] RX initial, or Nebulizer Subsequent Treatment ([id number]) Time Spent (min) 18
== END 2024-02-06 15:50 | disposition home or self-care (01) ==
PROVIDERS: PCP Internal Medicine; Visit Provider Hospitalist
DX: J45.51 Severe persistent asthma with (acute) exacerbation (principal); J44.9 Chronic obstructive pulmonary disease, unspecified; F17.200 Nicotine dependence, unspecified, uncomplicated; L30.9 Dermatitis, unspecified; J30.9 Allergic rhinitis, unspecified; R06.09 Other forms of dyspnea
CPT/HCPCS: 99214

== ENCOUNTER → 2024-02-06 15:24 | Outpatient (BNVA) | payer OTHER, SELFPAY | PROVIDERS: PCP Internal Medicine; Visit Provider Hospitalist | DX: J45.51 Severe persistent asthma with (acute) exacerbation (principal); J44.9 Chronic obstructive pulmonary disease, unspecified; J30.9 Allergic rhinitis, unspecified; L30.9 Dermatitis, unspecified; R06.09 Other forms of dyspnea; F17.210 Nicotine dependence, cigarettes, uncomplicated | CPT/HCPCS: 94640; 96372; 99212; J2919 ==

== ENCOUNTER 2024-02-28 10:54 | Outpatient (AMB) | payer OTHER, SELFPAY ==
[2024-02-28 11:01] VITALS: PULSE 70; O2SAT 96; BMI 23.0
--- NOTE | 2024-02-28 11:01 | A.OFFVIS_ITS ---
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 The patient is from developing worsening chest tightness and shortness of breath. The episodes moderate in severity. He has been evaluated in the ED already twice this year. He had evidence of eosinophilia his blood work suggesting allergic reactions potentially. In addition to that chest x-ray was clear. Patient was treated with prednisone. Shruthi andersen does have a rescue inhaler. He denies any significant triggers. he was giving inhaler short-acting beta agonist his case consultant does not feel that he uses appropriately. We did provide him with spacer that he would use and I did give him struck shins and to use it. Also start him on a maintenance inhaler. I was sent to pharmacy although he may need a prior approval. Hopefully using the maintenance inhaler he will have decrease issues. The patient also but have to undergo blood work and pulmonary function studies. He is using a patch now for his tobacco dependency in he has not smoked since he put the patch on a few weeks ago. 11/07/2023 the patient is here for a pulmonary follow-up visit. He is having again frequent flare-ups. He was again seen in the ER back in October with an asthma exacerbation required additional prednisone. Currently he is off the prednisone. He feels better. He continues to take the Advair twice a day in addition to the Spiriva. He also takes his allergy medicines. He continues to get allergy shots through Allergy [facility]. He has potential triggers including his smoking. Although he does have significant allergies. The last time he was in a hospital has significant eosinophilia. Therefore based on his severe persistent asthma in the elevation is in his eosinophils and elevations in IgE he would be a good candidate for biologics. He is already following allergy immunology getting allergy shots so I did recommend he can have further discussions with them regarding the initiation of a biologic therapy. The patient also has been working on cutting down smoking. He still struggles with that. We did review his last chest x-ray that he had back in 10/26/2023 when he presented with the asthma flare-up demonstrating no acute disease. He also had a viral swab for flu RSV and COVID which were negative. The patient does have some wheezing on examination. I will give him a low-dose prednisone taper. In addition to that will be reasonable to start him on budesonide to try to minimize the prednisone and also minimize the flare-ups. 02/06/2024 the patient is here for a sick visit. He is very uncomfortable right now. He has been sick for about a week. Significant chest tightness and wheezing. He has been using the nebulizer machine a few times a day. Although his medication was not approved by his insurance company so therefore he is running out. He does have the Advair and the Spiriva that he uses regularly. Unfortunately he is still smoking. He states that he smokes few cigarettes a day. He did have a patch that worked well but then he ran out of that too. In the office he does have significant wheezing. I did give them to DuoNeb treatments that helped. In addition to that we given Solu-Medrol 125 mg IM x1. After that he will start some prednisone at home and also an antibiotic the patient also will be provided with DuoNeb that he can do 4 times a day. He needs to continue his respiratory therapy and avoid any smoking. He can put the patch on quickly in the morning and also take it off at nighttime to sleep. If the patient were to worsen he needs to go to the ER. He is aware of this. 02/28/2024 the patient is here for a pulmonary follow-up visit. He continues to struggle with asthma. He has been able to work specially because of the heat and humidity and also because of significant allergies. Therefore I did give him a work note to stay out of work specially because he works in [employer] his severe persistent asthma. He has been requiring prednisone on a regular basis about every month. During the last visit in January he did receive Solu- Medrol 125 mg and did have very slow prednisone taper. He continues to be compliant with his Advair and Spiriva. And also has been doing a very good job with smoking cutting down to only about 1 cigarette a day. The patient will could all together at this time. We did review his allergy testing. He has significant allergies with an elevated IgE and also has elevations in his eosinophils. Therefore, I do believe that based on his underlying symptoms uncontrolled asthma severe persistent asthma with multiple exacerbations a month that he will benefit from starting biologic therapy. I do believe Dupixent be a very good option for him. If not Fasenra be a very good option as well. Therefore, will going to work on getting him on biologic therapy at this time. [facility] Medical History Anxiety Asthma Asthma Asthma Asthma-COPD overlap syndrome Chronic allergic rhinitis COPD (chronic obstructive pulmonary disease) Cough Depression Dyspnea Eczema Tobacco dependence Surgical History Hx of cholecystectomy Family History Mother No problems noted. Father No problems noted. Social History Household Members: None Household Members Other:: roommate Housing: House Housing Other:: Shared living home Do you presently have visiting nurse or other home services: Yes ([facility]) Alcohol intake: former Patient Tobacco Use Status: Current someday Tobacco user Tobacco use type: Cigarette Cigarettes Per Day: 1 Years Smoked: 20 +/- e-Cigarette/Vaping Use: Never Used Second Hand Smoke Exposure: No Substance Use Type: Marijuana Advance Directives Date on File: 10/12/22 service: No Current occupational status: disabled Current occupational exposures/hazards: No Cognitive needs: No Hearing needs: No Vision needs: No Review of Systems Const Denies chills, Denies fatigue, Denies headache(s) and Denies weight loss Eyes Denies change in vision, Denies diplopia and Denies eye pain ENT Denies vertigo, Denies dizziness, Denies headache(s) and Denies nasal discharge Card Denies chest pain, Denies rapid heart rate and Reports dyspnea on exertion Resp Denies chest congestion, Reports cough, Denies pain with cough, Reports dyspnea on exertion and Reports wheezing GI Denies abdominal pain, Denies hematochezia and Denies change in bowel habits Musc Denies myalgias, Denies arthralgias and Denies joint swelling Skin/Breast Denies lesions and Denies unusual bruising Neuro Denies vertigo, Denies dizziness, Denies headache(s) and Denies focal weakness Endo Denies fatigue Aller/Immun Reports wheezing Physical Exam Vital Signs: Last Vital Signs Pulse 70 02/28/24 11:01 Pulse Ox 96 02/28/24 11:01 Oxygen Delivery Method Room Air 02/28/24 11:01 BMI result Body Mass Index 23.0 Const General: alert and in distress mild Neck Neck: Yes normal visual inspection, Yes full ROM and Yes no lymphadenopathy Chest Chest palpation & inspection: normal inspection of the chest Resp Effort & Inspection: normal respiratory effort and prolonged expiratory phase Auscultation: no rhonchi, wheezes and diminished lung sounds Cardio Rate: regular rate Rhythm: regular rhythm Heart sounds: S1 normal heart sound present and S2 normal heart sound present GI Palpation (GI): Soft to palpation and nontender Auscultation: normal bowel sounds Skin General skin exam: rashes and/or lesions noted Quality Reporting (2019) Adult ([facility] 138/11/02/68) Smoking risk assessment performed?: Yes Patient Tobacco Use Status: Current someday Tobacco user Assessment & Plan Assessment & Plan (1) Asthma: Code(s): J45.909 - Unspecified asthma, uncomplicated Category: Medical Qualifiers: Asthma complication type: with acute exacerbation Asthma persistence: persistent Asthma severity: severe Qualified Code(s): J45.51 - Severe persistent asthma with (acute) exacerbation (2) Asthma-COPD overlap syndrome: Code(s): J44.9 - Chronic obstructive pulmonary disease, unspecified Category: Medical (3) Tobacco dependence: Code(s): F17.200 - Nicotine dependence, unspecified, uncomplicated Category: Medical (4) Eczema: Code(s): L30.9 - Dermatitis, unspecified Category: Medical Qualifiers: Eczema type: unspecified Qualified Code(s): L30.9 - Dermatitis, unspecified (5) Chronic allergic rhinitis: Code(s): J30.9 - Allergic rhinitis, unspecified Category: Medical (6) Dyspnea: Code(s): R06.00 - Dyspnea, unspecified Category: Medical Qualifiers: Dyspnea type: dyspnea on exertion Qualified Code(s): R06.09 - Other forms of dyspnea Plan continue Advair HFA to twice a day continue Spiriva continue Duoneb QID continue Singulair at night continue allergy shots would benefit from biologic therapy (Dupixent) tobacco cessation: will stop Letter to stay out of work for 2 months, until his f/u Follow-up in 2 months. Coding Level of Care Code Est Pt Level 4 (33928) Diagnoses Severe persistent asthma with acute exacerbation J45.51 Asthma complication type: with acute exacerbation Asthma persistence: persistent Asthma severity: severe Asthma-COPD overlap syndrome J44.9 Tobacco dependence F17.200 Eczema, unspecified type L30.9 Eczema type: unspecified Chronic allergic rhinitis J30.9 Dyspnea on exertion R06.09 Dyspnea type: dyspnea on exertion Time Spent (min) 17
== END 2024-02-28 11:22 | disposition home or self-care (01) ==
PROVIDERS: PCP Internal Medicine; Visit Provider Hospitalist
DX: J45.51 Severe persistent asthma with (acute) exacerbation (principal); J44.9 Chronic obstructive pulmonary disease, unspecified; F17.200 Nicotine dependence, unspecified, uncomplicated; L30.9 Dermatitis, unspecified; J30.9 Allergic rhinitis, unspecified; R06.09 Other forms of dyspnea
CPT/HCPCS: 99214

== ENCOUNTER → 2024-02-28 10:54 | Outpatient (BNVA) | payer OTHER, SELFPAY | PROVIDERS: PCP Internal Medicine; Visit Provider Hospitalist | DX: J45.51 Severe persistent asthma with (acute) exacerbation (principal); J44.9 Chronic obstructive pulmonary disease, unspecified; J30.9 Allergic rhinitis, unspecified; L30.9 Dermatitis, unspecified; R06.09 Other forms of dyspnea; F17.210 Nicotine dependence, cigarettes, uncomplicated | CPT/HCPCS: 99212 ==

== ENCOUNTER 2024-03-05 09:53 | Outpatient (AMB) | payer OTHER, SELFPAY ==
[2024-03-05 11:26] VITALS: BP 110/60; PULSE 87; O2SAT 95; BMI 22.8
--- NOTE | 2024-03-05 11:26 | MHC.OFFVIS ---
Vital Signs 03/05/24 11:26 Height 5 ft 10 in Weight 158 lb 11.725 oz BMI 22.8 BP 110/60 Blood Pressure Location Rt brachial Position Sitting Pulse 87 Pulse Source Pulse Oximeter Pulse Oximetry (%) 95 Oxygen Delivery Method Room Air Intake Visit Reasons: dupixent teaching Allergies cat dander Allergy (Severe, Verified 03/05/24 11:26) asthma trigger, rash Medication List - Last Reconciled 03/05/24 by Ade Troncoso LPN albuterol sulfate 2.5 mg (3 mL) inhalation Q6H PRN albuterol sulfate 90 mcg/actuation (Ventolin HFA) 2 puffs inhalation Q4H PRN 30 days budesonide 0.5 mg (2 mL) inhalation DAILY 30 days doxycycline hyclate 100 mg PO BID 10 days dupilumab ([employer]ixent) loading dose: 600mg SC x 1, then 300mg SC every 2 weeks 4 weeks escitalopram oxalate 10 mg PO QAM fluoxetine 40 mg PO DAILY fluticasone propion-salmeterol 230-21 mcg/actuation (Advair HFA) 2 puffs PO BID gabapentin 400 mg PO TID ipratropium-albuterol 0.5 mg-3 mg(2.5 mg base)/3 mL 3 mL inhalation QID 30 days montelukast 10 mg PO DAILY nebulizers As directed nicotine 1 patch transdermal DAILY 28 days nirmatrelvir-ritonavir 300 mg (150 mg x 2)-100 mg (Paxlovid) take TWO 150 mg tablets of nirmatrelvir with ONE 100 mg tablet of ritonavir twice daily for 5 days PO prednisolone 30 mg (10 mL) PO BID 5 days prednisone PO daily; Take 2 tabs daily x 7 days, then 1 tab daily x 7 days 14 days prednisone PO daily; Take 6 tabs daily x 3 days, then 5 tabs x 3 days, then 4 tabs x 3 days, then 3 tabs x 3 days, then 2 tabs daily x 3 days, then 1 tab x 3 days to complete. 18 days quetiapine 25 mg PO TID tiotropium bromide 2.5 mcg/actuation (Spiriva Respimat) 2 puffs PO DAILY trazodone 100 mg PO BEDTIME HPI HPI dupixent teaching: Details: Casey is here for a Dupixent teach, he comes in today with Suzie his housing case manager. Casey Larsen were educated on hand washing, injection preparation, administration, and disposal.?Casey was able to return demonstrate proper technique for hand washing, injection preparation, administration and disposal of needle and states he has no questions at this time. Medication Dupixent 300mg/2mL pre-filled pen (patient?s own meds) Loading dose of 600mg given by the patient in 2 SQ injections; injection #1 L thigh ;? injection #2 R thigh Lot# [id number] expires 10/11/2025. Patient aware his next injection is in 15 days. Nurse visit only.? [facility] Medical History Anxiety Asthma Asthma Asthma Asthma-COPD overlap syndrome Chronic allergic rhinitis COPD (chronic obstructive pulmonary disease) Cough Depression Dyspnea Eczema Tobacco dependence Surgical History Hx of cholecystectomy Family History Mother No problems noted. Father No problems noted. Social History Household Members: None Household Members Other:: roommate Housing: House Housing Other:: Shared living home Do you presently have visiting nurse or other home services: Yes ([facility]) Alcohol intake: former Patient Tobacco Use Status: Current someday Tobacco user Tobacco use type: Cigarette Cigarettes Per Day: 1 Years Smoked: 20 +/- e-Cigarette/Vaping Use: Never Used Second Hand Smoke Exposure: No Substance Use Type: Marijuana Advance Directives Date on File: 10/12/22 service: No Current occupational status: disabled Current occupational exposures/hazards: No Cognitive needs: No Hearing needs: No Vision needs: No Physical Exam Vital Signs: Last Vital Signs Pulse 87 03/05/24 11:26 BP 110/60 03/05/24 11:26 Pulse Ox 95 03/05/24 11:26 Oxygen Delivery Method Room Air 03/05/24 11:26 BMI result Body Mass Index 22.8 Quality Reporting (2019) Adult ([facility] 138/11/02/68) Smoking risk assessment performed?: Yes Patient Tobacco Use Status: Current someday Tobacco user Assessment & Plan Assessment & Plan (1) Asthma: Code(s): J45.909 - Unspecified asthma, uncomplicated Category: Medical Qualifiers: Asthma complication type: with acute exacerbation Asthma persistence: persistent Asthma severity: severe Qualified Code(s): J45.51 - Severe persistent asthma with (acute) exacerbation Plan Dupixent teaching Coding Level of Care Code Established Pt Est Pt Level 1 (18645) Patient Type Established Diagnoses Severe persistent asthma with acute exacerbation J45.51 Asthma complication type: with acute exacerbation Asthma persistence: persistent Asthma severity: severe Comment NURSE VISIT ONLY
== END 2024-03-05 10:21 | disposition home or self-care (01) ==
PROVIDERS: PCP Internal Medicine; Visit Provider Internal Medicine Pulmonary Disease
DX: J45.51 Severe persistent asthma with (acute) exacerbation (principal)

== ENCOUNTER → 2024-03-05 09:53 | Outpatient (BNVA) | payer OTHER, SELFPAY | PROVIDERS: PCP Internal Medicine; Visit Provider Internal Medicine Pulmonary Disease | DX: J45.51 Severe persistent asthma with (acute) exacerbation (principal) | CPT/HCPCS: 99211 ==

== ENCOUNTER 2024-03-07 08:48 | Outpatient (AMB) | payer OTHER, SELFPAY ==
[2024-03-07 08:53] VITALS: BP 136/80; PULSE 80; O2SAT 96; BMI 24.4
--- NOTE | 2024-03-07 08:53 | MHC.PC.OV ---
Vital Signs 03/07/24 08:53 Height 5 ft 10 in Weight 170 lb BMI 24.4 BP 136/80 Blood Pressure Location Lt brachial Position Sitting Pulse 80 Pulse Source Pulse Oximeter Pulse Oximetry (%) 96 Oxygen Delivery Method Room Air Intake Visit Reasons: Annual Exam Publishing Agent Required: No Installation Supervisor: Present Accompanied by: Other Relationship Allergies cat dander Allergy (Severe, Verified 03/07/24 08:54) asthma trigger, rash Medication List - Last Reconciled 03/08/24 by Jovan Alexandra MD albuterol sulfate 2.5 mg (3 mL) inhalation Q6H PRN albuterol sulfate 90 mcg/actuation (Ventolin HFA) 2 puffs inhalation Q4H PRN 30 days budesonide 0.5 mg (2 mL) inhalation DAILY 30 days dupilumab (Dupixent) loading dose: 600mg SC x 1, then 300mg SC every 2 weeks 4 weeks escitalopram oxalate 10 mg PO QAM fluticasone propion-salmeterol 230-21 mcg/actuation (Advair HFA) 2 puffs PO BID ipratropium-albuterol 0.5 mg-3 mg(2.5 mg base)/3 mL 3 mL inhalation QID 30 days montelukast 10 mg PO DAILY nebulizers As directed nicotine 1 patch transdermal DAILY 28 days prednisolone 30 mg (10 mL) PO BID 5 days tiotropium bromide 2.5 mcg/actuation (Spiriva Respimat) 2 puffs PO DAILY trazodone 100 mg PO BEDTIME Tobacco use date assessed: 03/07/24 Dental Screening Dental Screen Date: 03/07/24 Did you have a dental visit in the last 12 months?: Yes Did you have a dental problem in the last 6 months where you did not have access to dental care?: No Was dental information given to patient?: Patient has dentist HPI Annual Exam HPI Details asthma; sees pulmonary; doing well PFSH Medical History Anxiety Asthma Asthma Asthma Asthma-COPD overlap syndrome Chronic allergic rhinitis COPD (chronic obstructive pulmonary disease) Cough Depression Dyspnea Eczema Tobacco dependence Surgical History Hx of cholecystectomy Family History Mother No problems noted. Father No problems noted. Social History Household Members: None Household Members Other:: roommate Housing: House Housing Other:: Shared living home Do you presently have visiting nurse or other home services: Yes ([facility]) Alcohol intake: former Patient Tobacco Use Status: Current someday Tobacco user Tobacco use type: Cigarette Cigarettes Per Day: 1 Years Smoked: 20 +/- e-Cigarette/Vaping Use: Never Used Second Hand Smoke Exposure: No Substance Use Type: Marijuana Advance Directives Date on File: 10/12/22 service: No Current occupational status: disabled Current occupational exposures/hazards: No Cognitive needs: No Hearing needs: No Vision needs: No Questionnaire PHQ-9 Over the last 2 weeks, how often have you been bothered by any of the following problems? 1. Little interest or pleasure in doing things: not at all 2. Feeling down, depressed, or hopeless: more than half the days 3. Trouble falling or staying asleep, or sleeping too much: not at all 4. Feeling tired or having little energy: not at all 5. Poor appetite or overeating: not at all 6. Feeling bad about yourself - or that you are a failure or have let yourself or your family down: not at all 7. Trouble concentrating on things, such as reading the newspaper or watching television: more than half the days 8. Moving or speaking so slowly that other people could have noticed. Or the opposite - being so fidgety or restless that you have been moving around a lot more than usual: nearly every day 9. Thoughts that you would be better off or of hurting yourself in some way: not at all Total score: 7 Depression Screening Interpretation: Negative Depression Screening Done: Yes 07207 - PHQ-9 Billing: Yes Source: Developed by Drs. Santiago August, Tiarra Stack, Prashanth Arana and colleagues, with an educational adriane from [employer]. Thrive Questionnaire Date Thrive assessed: 03/07/24 I am a: Patient What is your living situation today?: I have a steady place to live Within the past 12 months, did the food you bought not last and you didn't have the money to get more?: Never true Within the past 12 months, did you worry whether your food would run out before you got money to buy more?: Never true Do you have trouble paying for medicines?: No Do you have trouble getting transportation to medical appointments?: No Do you have trouble paying your heating and electricity bill?: No Do you have trouble taking care of your child, family member or friend?: No Do you have trouble with day-to-day activities such as bathing, preparing meals, shopping, managing finances, etc.?: No Are you currently unemployed and looking for a job?: No Are you interested in more education?: No Please select the resources that you would like help with: None THRIVE Score: 0 AUDIT C Alcohol Use Questionnaire (AUDIT-C) 1. How often do you have a drink containing alcohol?: Never Total Score: 0 Score Reviewed/Action Taken: Yes DIANA-7 AMB Questionnaire DIANA-7 Date DIANA - 7 assessed: 03/07/24 Feeling nervous, anxious, or on edge: 3 = Nearly every day Not being able to stop or control worryin = Nearly every day Worrying too much about different things: 3 = Nearly every day Trouble relaxin = Not at all Being so restless that it is hard to sit still: 3 = Nearly every day Becoming easily annoyed or irritable: 0 = Not at all Feeling afraid as if something awful might happen: 0 = Not at all Total DIANA-7 score (0-4 normal; 5-9 mild; 10-14 moderate; 15-21 severe): 12 Source: Developed by Drs. Santiago August, Tiarra Stack, Prashanth Arana and colleagues, with an educational adriane from [employer]. DIANA-7 Assessment Billing DIANA-7 Assessment Tool: DIANA-7 Assessment 58119 (existing condition) Review of Systems Const Denies chills, Denies fatigue, Denies headache(s) and Denies weight loss Eyes Denies change in vision, Denies diplopia and Denies eye pain ENT Denies vertigo, Denies dizziness, Denies headache(s) and Denies nasal discharge Card Denies chest pain, Denies rapid heart rate and Denies dyspnea on exertion Resp Denies chest congestion, Denies cough, Denies pain with cough and Denies dyspnea on exertion GI Denies abdominal pain, Denies hematochezia and Denies change in bowel habits Musc Denies myalgias, Denies arthralgias and Denies joint swelling Skin/Breast Denies lesions and Denies unusual bruising Neuro Denies vertigo, Denies dizziness, Denies headache(s) and Denies focal weakness Endo Denies fatigue Physical exam (Primary Care) Vital Signs: Last Vital Signs Pulse 80 03/07/24 08:53 BP 136/80 03/07/24 08:53 Pulse Ox 96 03/07/24 08:53 Oxygen Delivery Method Room Air 03/07/24 08:53 BMI result Body Mass Index 24.4 Tobacco/Smoking Status: Tobacco use Status Tobacco use date assessed 03/07/24 03/07/24 08:54 Patient Tobacco Use Status Current someday Tobacco 03/07/24 08:54 Tobacco use type Cigarette 03/07/24 08:54 e-Cigarette/Vaping Use Never Used 03/07/24 08:54 PHQ-9: PHQ-9 Score PHQ-9: Total score 7 03/07/24 09:03 Depression Screening Interpretation: Negative Thrive Assessment: Date of Thrive Assessment Date Thrive assessed 03/07/24 03/07/24 08:54 Const General: cooperative, healthy appearing and no acute distress Orientation/consciousness: oriented to person, oriented to place and oriented to time [facility] Head: Yes normal to inspection, Yes normocephalic and Yes atraumatic Mouth: Normal oral and palatal mucosa present and tongue normal Throat: Yes posterior oropharynx normal and Yes uvula midline Eyes General: appearance normal, both eyes and all related structures Neck Neck: Yes normal visual inspection, Yes full ROM and Yes no lymphadenopathy Thyroid: Thyroid normal Carotids: normal carotid upstroke Chest Chest palpation & inspection: normal inspection of the chest Resp Effort & Inspection: normal respiratory effort and able to speak in complete sentences Auscultation: clear to auscultation bilaterally Cardio Jugular venous distension: no JVD Palpation: normal PMI Rate: regular rate Rhythm: regular rhythm Heart sounds: S1 normal heart sound present and S2 normal heart sound present GI Inspection: Yes normal to inspection Palpation (GI): Soft to palpation and No hepatosplenomegaly present Auscultation: normal bowel sounds General: Yes no CVA tenderness Back/Spine/Pelvis Back: no CVA tenderness Skin General skin exam: no rashes or lesions noted Neuro General: oriented to person, oriented to place and oriented to time Extrem General: Yes normal to inspection and Yes full ROM Assessment and Plan Assessment & Plan (1) Asthma with COPD with exacerbation: Code(s): J44.1 - Chronic obstructive pulmonary disease with (acute) exacerbation; J45.901 - Unspecified asthma with (acute) exacerbation Plan: stable; per pulmonary (2) Physical exam: Code(s): Z00.00 - Encounter for general adult medical examination without abnormal findings Plan: stable; do labs (3) Anxiety: Code(s): F41.9 - Anxiety disorder, unspecified Plan: cont with therapy Orders: Orders Complete Blood Count Auto Diff Today Z13.0 - Encounter for screening for diseases of the blood and blood-forming organs and certain disorders involving the immune mechanism Comprehensive [place]. Panel Fast Today Z13.9 - Encounter for screening, unspecified Lipid Panel Today Z13.220 - Encounter for screening for lipoid disorders Coding Level of Care Code Est Pt Prev Care 18-39y(68930) Diagnoses Asthma with COPD with exacerbation J44.1; J45.901 Physical exam Z00.00 Anxiety F41.9 Additional Codes DIANA-7 Assessment Billing - DIANA-7 Assessment Tool: DIANA-7 Assessment [id number] ([id number])
== END 2024-03-07 09:16 | disposition home or self-care (01) ==
LOC: HO.HMGH 08:49
PROVIDERS: PCP Internal Medicine; Visit Provider Internal Medicine
DX: Z00.00 Encounter for general adult medical examination without abnormal findings (principal); J44.1 Chronic obstructive pulmonary disease with (acute) exacerbation; J45.901 Unspecified asthma with (acute) exacerbation; F41.9 Anxiety disorder, unspecified
CPT/HCPCS: 99395

== ENCOUNTER 2024-04-30 09:06 | Outpatient (AMB) | payer OTHER, SELFPAY ==
--- NOTE | 2024-04-30 09:09 | MHC.OFFVIS ---
Vital Signs 04/30/24 09:11 Height 5 ft 10 in Weight 170 lb BMI 24.4 BP 118/70 Blood Pressure Location Lt brachial Position Sitting Pulse 70 Pulse Source Pulse Oximeter Pulse Oximetry (%) 95 Oxygen Delivery Method Room Air Intake Visit Reasons: Asthma Predictive Maintenance Technician Required: No Allergies cat dander Allergy (Severe, Verified 04/30/24 09:13) asthma trigger, rash HPI Comments Details: The patient is a 38-year-old gentleman with a known history of asthma in addition to polysubstance abuse. The patient is from developing worsening chest tightness and shortness of breath. The episodes moderate in severity. He has been evaluated in the ED already twice this year. He had evidence of eosinophilia his blood work suggesting allergic reactions potentially. In addition to that chest x-ray was clear. Patient was treated with prednisone. He does have a rescue inhaler. He denies any significant triggers. he was giving inhaler short-acting beta agonist his vocational case manager does not feel that he uses appropriately. We did provide him with spacer that he would use and I did give him struck shins and to use it. Also start him on a maintenance inhaler. I was sent to pharmacy although he may need a prior approval. Hopefully using the maintenance inhaler he will have decrease issues. The patient also but have to undergo blood work and pulmonary function studies. He is using a patch now for his tobacco dependency in he has not smoked since he put the patch on a few weeks ago. 02/28/2024 the patient is here for a pulmonary follow-up visit. He continues to struggle with asthma. He has been able to work specially because of the heat and humidity and also because of significant allergies. Therefore I did give him a work note to stay out of work specially because he works in [employer] his severe persistent asthma. He has been requiring prednisone on a regular basis about every month. During the last visit in January he did receive Solu-Medrol 125 mg and did have very slow prednisone taper. He continues to be compliant with his Advair and Spiriva. And also has been doing a very good job with smoking cutting down to only about 1 cigarette a day. The patient will could all together at this time. We did review his allergy testing. He has significant allergies with an elevated IgE and also has elevations in his eosinophils. Therefore, I do believe that based on his underlying symptoms uncontrolled asthma severe persistent asthma with multiple exacerbations a month that he will benefit from starting biologic therapy. I do believe Dupixent be a very good option for him. If not Fasenra be a very good option as well. Therefore, will going to work on getting him on biologic therapy at this time. 04/30/2024 the patient is here for a pulmonary follow-up visit. He is doing a lot better. The Dupixent injections have been very affecting beneficial for him. His asthma has been much better controlled. 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 We did talk about considering a new job but not enough feel where he is exposed to significant allergens. Ideally get inside building. The patient will talk to his licensed clinical social worker regarding that. In the meantime he can hold off on the nebulizer treatments. He just using as needed. He will continue with respiratory therapy as prescribed otherwise. The Dupixent will continue using every 2 weeks. Will follow-up in 6 months. If the patient develops any worsening symptoms prior to that he will call for an earlier assessment. [facility] Medical History Anxiety Asthma Asthma Asthma Asthma-COPD overlap syndrome Chronic allergic rhinitis COPD (chronic obstructive pulmonary disease) Cough Depression Dyspnea Eczema Tobacco dependence Surgical History Hx of cholecystectomy Family History Mother No problems noted. Father No problems noted. Social History Household Members: None Household Members Other:: roommate Housing: House Housing Other:: Shared living home Do you presently have visiting nurse or other home services: Yes ([facility]) Alcohol intake: former Patient Tobacco Use Status: Current someday Tobacco user Tobacco use type: Cigarette Cigarettes Per Day: 1 Years Smoked: 20 +/- e-Cigarette/Vaping Use: Never Used Second Hand Smoke Exposure: No Substance Use Type: Marijuana Advance Directives Date on File: 10/12/22 service: No Current occupational status: disabled Current occupational exposures/hazards: No Cognitive needs: No Hearing needs: No Vision needs: No Review of Systems Const Denies chills, Denies fatigue, Denies headache(s) and Denies weight loss Eyes Denies change in vision, Denies diplopia and Denies eye pain ENT Denies vertigo, Denies dizziness, Denies headache(s) and Denies nasal discharge Card Denies chest pain, Denies rapid heart rate and Denies dyspnea on exertion Resp Denies chest congestion, Reports cough, Denies pain with cough, Denies dyspnea on exertion and Denies wheezing GI Denies abdominal pain, Denies hematochezia and Denies change in bowel habits Musc Denies myalgias, Denies arthralgias and Denies joint swelling Skin/Breast Denies lesions and Denies unusual bruising Neuro Denies vertigo, Denies dizziness, Denies headache(s) and Denies focal weakness Endo Denies fatigue Aller/Immun Denies wheezing Physical Exam Vital Signs: Last Vital Signs Pulse 70 04/30/24 09:11 BP 118/70 04/30/24 09:11 Pulse Ox 95 04/30/24 09:11 Oxygen Delivery Method Room Air 04/30/24 09:11 BMI result Body Mass Index 24.4 Const General: alert and in distress mild Neck Neck: Yes normal visual inspection, Yes full ROM and Yes no lymphadenopathy Chest Chest palpation & inspection: normal inspection of the chest Resp Effort & Inspection: normal respiratory effort Auscultation: clear to auscultation bilaterally, no rhonchi, no wheezes and lung sounds not diminished Cardio Rate: regular rate Rhythm: regular rhythm Heart sounds: S1 normal heart sound present and S2 normal heart sound present GI Palpation (GI): Soft to palpation and nontender Auscultation: normal bowel sounds Skin General skin exam: rashes and/or lesions noted Quality Reporting (2019) Adult ([facility] ) Smoking risk assessment performed?: Yes Patient Tobacco Use Status: Current someday Tobacco user Assessment & Plan Assessment & Plan (1) Asthma: Code(s): J45.909 - Unspecified asthma, uncomplicated Category: Medical Qualifiers: Asthma complication type: uncomplicated Asthma persistence: persistent Asthma severity: severe Qualified Code(s): J45.50 - Severe persistent asthma, uncomplicated (2) Tobacco dependence: Comment: quit Code(s): F17.200 - Nicotine dependence, unspecified, uncomplicated Category: Medical (3) Eczema: Code(s): L30.9 - Dermatitis, unspecified Category: Medical Qualifiers: Eczema type: unspecified Qualified Code(s): L30.9 - Dermatitis, unspecified (4) Chronic allergic rhinitis: Code(s): J30.9 - Allergic rhinitis, unspecified Category: Medical Plan continue Advair HFA to twice a day continue Spiriva continue Duoneb QID only as needed continue Singulair at night continue allergy shots conitnue Dupixent tobacco cessation: stopped smoking Follow-up in 6 months. Coding Level of Care Code Est Pt Level 4 (82437) Diagnoses Severe persistent asthma without complication J45.50 Asthma complication type: uncomplicated Asthma persistence: persistent Asthma severity: severe Tobacco dependence F17.200 Eczema, unspecified type L30.9 Eczema type: unspecified Chronic allergic rhinitis J30.9 Time Spent (min) 16
[2024-04-30 09:11] VITALS: BP 118/70; PULSE 70; O2SAT 95; BMI 24.4
== END 2024-04-30 09:26 | disposition home or self-care (01) ==
PROVIDERS: PCP Internal Medicine; Visit Provider Hospitalist
DX: J45.50 Severe persistent asthma, uncomplicated (principal); F17.200 Nicotine dependence, unspecified, uncomplicated; L30.9 Dermatitis, unspecified; J30.9 Allergic rhinitis, unspecified
CPT/HCPCS: 99214

== ENCOUNTER → 2024-04-30 09:06 | Outpatient (BNVA) | payer OTHER, SELFPAY | PROVIDERS: PCP Internal Medicine; Visit Provider Hospitalist | DX: J45.50 Severe persistent asthma, uncomplicated (principal); J30.9 Allergic rhinitis, unspecified; L30.9 Dermatitis, unspecified; F17.210 Nicotine dependence, cigarettes, uncomplicated | CPT/HCPCS: 99212 ==

== ENCOUNTER 2024-06-05 12:15 | Emergency (ER) | payer OTHER, SELFPAY ==
[2024-06-05] VITALS (7 sets, daily range): BP systolic 136–160; BP diastolic 83–99; PULSE 104–125; RESP 20–24; TEMP 36.6–37.4; O2SAT 92–94; BMI 25.8
--- NOTE | ~2024-06-05 | XR_ITS ---
EXAMINATION: XR CHEST CLINICAL INFORMATION: Shortness of breath COMPARISON: None available. TECHNIQUE: 2 views of the chest were obtained. FINDINGS: No significant abnormality is noted involving the heart, lungs, mediastinum, bony thorax or soft tissues. XR/XR chest 2V IMPRESSION: No significant interval change. No acute pulmonary process. Electronically signed by: Aden Carter MD 06/05/2024 03:31 PM EDT [facility]
--- NOTE | 2024-06-05 12:29 | ED.ASTHMA ---
HPI - Asthma General Chief Complaint: Upper Respiratory Symptoms Stated Complaint: Asthma Time Seen by Provider: 06/05/24 17:33 History of Present Illness ED Provider: Miguelito SOLANO Narrative: The patient is a 38-year-old male with a history of asthma. He is a smoker. He has felt worsening asthma symptoms over the last 2 days. He has felt feverish at home although he was not found to have a fever here. He has been coughing a lot and bringing up sputum although he can not say what color sputum. He feels shortness of breath and has a tightness in his chest. He is a smoker. Related Data Home Medications ?Medication ?Instructions ?Recorded ?Confirmed trazodone 100 mg tablet 100 mg PO BEDTIME 03/12/21 03/08/24 nebulizers 01/24/23 03/08/24 escitalopram oxalate 10 mg tablet 10 mg PO QAM 05/09/23 03/08/24 Previous Rx's ?Medication ?Instructions ?Recorded tiotropium bromide 2.5 2 puff PO DAILY #12 mL 08/14/23 mcg/actuation mist for inhalation (Spiriva Respimat) fluticasone propionate 230 2 puff PO BID #12 ea 09/12/23 mcg-salmeterol 21 mcg/actuation HFA inhaler (Advair HFA) prednisolone 15 mg/5 mL oral 30 mg (10 mL) PO BID 5 days #100 mL 10/26/23 solution budesonide 0.5 mg/2 mL suspension 0.5 mg (2 mL) inhalation DAILY 30 11/07/23 for nebulization days #60 mL albuterol sulfate 2.5 mg/3 mL 2.5 mg (3 mL) inhalation Q6H PRN 01/29/24 (0.083 %) solution for nebulization shortness of breath or wheezing #180 mL albuterol sulfate 90 mcg/actuation 2 puff inhalation Q4H PRN 02/06/24 aerosol inhaler (Ventolin HFA) Shortness Of Breath Or Wheezing 30 days #8.5 grams ipratropium 0.5 mg-albuterol 3 mg 3 ml inhalation QID 30 days #360 mL 02/06/24 (2.5 mg base)/3 mL nebulization soln nicotine 14 mg/24 hr daily 1 patch transdermal DAILY 28 days 02/06/24 transdermal patch #28 ea montelukast 10 mg tablet 10 mg PO DAILY #90 tabs 03/17/24 dupilumab 300 mg/2 mL subcutaneous 300 mg (2 mL) subcut Q2W 4 weeks 03/21/24 pen injector (Dupixent) #4 mL azithromycin 250 mg tablet 250 mg PO DAILY 4 days #4 tabs 06/05/24 prednisone 20 mg tablet 20 mg PO DAILY #12 tabs 06/05/24 Allergies Allergy/AdvReac Type Severity Reaction Status Date / Time cat dander Allergy Severe asthma Verified 06/05/24 12:30 trigger, rash Review of Systems Review of Systems: Yes all other systems are reviewed and are negative PMF Past Medical History Medical History Anxiety Asthma Asthma Asthma Asthma-COPD overlap syndrome Chronic allergic rhinitis COPD (chronic obstructive pulmonary disease) Cough Depression Dyspnea Eczema Tobacco dependence Surgical History Hx of cholecystectomy Family History Family History Mother No problems noted. Father No problems noted. Social History Social History Household Members: None Household Members Other:: roommate Housing: House Housing Other:: Shared living home Do you presently have visiting nurse or other home services: Yes ([facility]) Alcohol intake: former Patient Tobacco Use Status: Current someday Tobacco user Tobacco use type: Cigarette Cigarettes Per Day: 1 Years Smoked: 20 +/- Smoked in Last 30 Days: Yes e-Cigarette/Vaping Use: Never Used Second Hand Smoke Exposure: No Use of substances other than those prescribed or required for medical reasons: No Substance Use Type: Marijuana Advance Directives: Yes Advance Directives on File: Yes Advance Directives Date on File: 10/12/22 service: No Current occupational status: disabled Current occupational exposures/hazards: No Cognitive needs: No Hearing needs: No Vision needs: No Physical Exam Vital Signs: Vital Signs: Last Vital Signs Temp 98.2 F 06/05/24 21:10 Pulse 125 H 06/05/24 21:10 Resp 20 06/05/24 21:10 BP 136/84 06/05/24 21:10 Pulse Ox 94 06/05/24 21:10 O2 Del Method Room Air 06/05/24 19:12 BMI result Body Mass Index 25.8 Const: Other: The patient is a 38-year-old male who looks somewhat older than his age. He looks somewhat chronically ill and disheveled. He does not appear in overt distress however. No obvious increased work of breathing. HEENT: Other: Face is symmetrical. Mucous membranes moist. Eyes: General: appearance normal, both eyes and all related structures Neck: Neck: Yes no JVD Resp: Other: There is inspiratory and expiratory wheezing bilaterally. Breath sounds are fairly equal. Cardio: Rate: tachycardic Rhythm: regular rhythm Heart sounds: S1 normal heart sound present and S2 normal heart sound present GI: Other: Abdomen is soft and nontender Skin: Other: Skin is pale and dry Neuro: Other: The patient is awake and alert. He has a normal mental status. Cranial nerves are grossly intact. He moves his extremities normally and seems grossly neurologically intact. Extrem: Other: No calf swelling or tenderness. No peripheral edema. Course Course Course Narrative: This is a Rapid Medical Exam performed in triage by Matilde Maciel PA-C. Full HPI, ROS and PE to be performed by primary ED provider. 38 yo M w/PMHx asthma presenting to the ED c/o cough, congestion, chest tightness, SOB & subj fever x few days. Ran out of inhaler but has been using neb PE: + inspiratory/expiratory wheezes throughout, talking in complete sentences, no resp distress Plan: EKG, viral testing, CXR, bronch protocol Medications Administered Discontinued Medications Generic Name Dose Route Start Last Admin Trade Name Castillo PRN Reason Stop Dose Admin Acetaminophen 650 mg 06/05/24 18:23 06/05/24 19:13 Acetaminophen 325 Mg Tablet PO 06/05/24 18:24 650 mg ONCE ONE Administration Albuterol Sulfate 8 puff 06/05/24 16:09 06/05/24 16:12 Albuterol Sulfate 90 Mcg 8 Gm Inhaler INHALE 06/05/24 16:10 8 puff ONCE ONE Administration Albuterol Sulfate 7.5 mg/ 10 mg 06/05/24 19:49 06/05/24 19:52 Albuterol Sulfate 2.5 mg INHALE 06/05/24 19:50 10 mg ONCE ONE Administration Azithromycin 500 mg 06/05/24 17:36 06/05/24 18:07 Azithromycin 500 Mg Tablet PO 06/05/24 17:37 500 mg ONCE ONE Administration Albuterol Sulfate 7.5 mg/ 0 mg 06/05/24 12:46 06/05/24 12:50 Albuterol/Ipratropium 3 ml INHALE 06/05/24 12:47 1 each ONCE ONE Administration Albuterol Sulfate 5 mg/ 0 mg 06/05/24 16:01 06/05/24 16:05 Albuterol/Ipratropium 3 ml INHALE 06/05/24 16:02 1 each ONCE ONE Administration Prednisone 60 mg 06/05/24 17:36 06/05/24 18:07 Prednisone 20 Mg Tablet PO 06/05/24 17:37 60 mg ONCE ONE Administration Medical Decision Making Medical Decision Making [facility] Narrative: The patient is a 38-year-old male who has a history of asthma and is also a smoker. He presents with worsening shortness of breath associated with cough and sputum over the last couple of days. He has bilateral inspiratory and expiratory wheezes. He has a negative chest x-ray. He will be treated with bronchodilators, prednisone, and azithromycin. The patient was observed. He felt better after treatment. His oxygen saturation on room air was 94%. His heart rate was in the 120s. However the patient said that he felt significantly better. He also said that he has a nebulizer machine at home with medication for his nebulizer machine. He felt well enough for discharge that point to continue his nebulizer treatments at home every 4 hours. I have sent a prescription for a short course of prednisone and also a course of azithromycin. He was advised to contact his regular doctor's office in the morning for prompt follow up appointment. He should return if worse. Lab Data Labs: Lab Results 06/05/24 Range/Units 12:56 Influenza Type A (PCR) NEGATIVE (Negative) Influenza Type B (PCR) NEGATIVE (Negative) RSV RNA Qual (PCR) NEGATIVE (Negative) SARS-CoV-2 RNA (RT-PCR) NEGATIVE (Negative) Independent Interpretation I performed an independent interpretation of an: EKG Interpretation: EKG at 1253 shows sinus tachycardia with premature atrial complexes. There are nonspecific ST and T-wave changes but on the whole I do not feel it is significantly different from his previous EKG from December of 2022. Discharge Plan Discharge Clinical Impression: Asthmatic bronchitis with acute exacerbation Patient Disposition: Home, Self-Care Instructions: Asthma (ED) Additional Instructions: You were given a breathing treatment here and you were also started on a course of prednisone and azithromycin. Please take the prednisone and the azithromycin daily as prescribed. You may use your albuterol nebulizer machine at home every 4 hours as needed as well. Drink lot of fluids. Please contact your regular doctor's office in the morning to arrange a prompt follow up appointment. If you feel you are getting significantly worse please return directly to the emergency room. Prescriptions: New prednisone 20 mg tablet 20 mg PO DAILY Qty: 12 0RF Rx Instructions: Take 3 tablets daily by mouth for 2 days then take 2 tablets daily by mouth for 3 days. azithromycin 250 mg tablet 250 mg PO DAILY 4 Days Qty: 4 0RF Rx Instructions: start on day 2 of therapy No Action Spiriva Respimat 2.5 mcg/actuation mist 2 puff PO DAILY Qty: 12 3RF fluticasone propion-salmeterol [Advair HFA] 230-21 mcg/actuation HFA aerosol inhaler 2 puff PO BID Qty: 12 11RF albuterol sulfate 2.5 mg /3 mL (0.083 %) solution for nebulization 2.5 mg inhalation Q6H PRN (Reason: shortness of breath or wheezing) Qty: 180 11RF montelukast 10 mg tablet 10 mg PO DAILY Qty: 90 3RF Dupixent Pen 300 mg/2 mL pen injector 300 mg subcut Q2W 28 Days Qty: 4 11RF prednisolone 15 mg/5 mL solution 30 mg PO BID 5 Days Qty: 100 0RF trazodone 100 mg tablet 100 mg PO BEDTIME Rx Instructions: may repeat x 1 (DME) nebulizers Misc See Rx Instructions .Route Rx Instructions: As directed budesonide 0.5 mg/2 mL suspension for nebulization 0.5 mg inhalation DAILY 30 Days Qty: 60 11RF albuterol sulfate [Ventolin HFA] 90 mcg/actuation HFA aerosol inhaler 2 puff INHALATION Q4H PRN (Reason: Shortness Of Breath Or Wheezing) 30 Days Qty: 8.5 11RF ipratropium-albuterol 0.5 mg-3 mg(2.5 mg base)/3 mL solution for nebulization 3 ml inhalation QID 30 Days Qty: 360 11RF nicotine 14 mg/24 hr patch 24 hour 1 patch transdermal DAILY 28 Days Qty: 28 6RF escitalopram oxalate 10 mg tablet 10 mg PO QAM Referrals: Jovan Alexandra MD [Physician] - (asthma exacerbation) Interventions: ED Discharge Assessment Last Done: 06/05/24 21:10 Discharge Date/Time: 06/05/24 21:05 Print Language: Malay
--- NOTE | 2024-06-05 12:30 | ECG_ITS ---
Test Reason : CHEST PAIN Blood Pressure : / mmHG Vent. Rate : 112 BPM Atrial Rate : 112 BPM P-R Int : 138 ms QRS Dur : 072 ms QT Int : 322 ms P-R-T Axes : 065 073 -67 degrees QTc Int : 439 ms Sinus tachycardia with Premature atrial complexes ST & T wave abnormality, consider inferolateral ischemia Abnormal ECG When compared with ECG of 08-JAN-2023 14:01, T wave inversion now evident in Lateral leads Referred By: Matilde Maciel Electronically Signed By:RAYMUNDO BELL
[2024-06-05] MEDS: Albuterol Sulfate 7.5 MG, Albuterol/Iprat 2.5/0.5MG 3 ML 3 ML INHALE (12:50)
--- NOTE | 2024-06-05 12:54 | MHC.EDTECH ---
EKG was late because pt was brought into [facility] for breathing treatment
[2024-06-05 13:44] LABS: Influenza A PCR NEGATIVE (Negative); Influenza B PCR NEGATIVE (Negative); Resp Syncy Virus RNA Qual PCR NEGATIVE (Negative); SARS COV2 PCR INHOUSE NEGATIVE (Negative)
[2024-06-05] MEDS: Albuterol Sulfate 5 MG, Albuterol/Iprat 2.5/0.5MG 3 ML 3 ML INHALE (16:05)
[2024-06-05] MEDS: Albuterol Sulfate 90 MCG 8 GM INHALER 8 PUFF INHALE (16:12)
[2024-06-05] MEDS: Azithromycin 500 MG TABLET PO (18:07)
[2024-06-05] MEDS: predniSONE 20 MG TABLET 60 MG PO (18:07)
[2024-06-05] MEDS: Acetaminophen 325 MG TABLET 650 MG PO (19:13)
[2024-06-05] MEDS: Albuterol Sulfate 7.5 MG, Albuterol Sulfate (0.083%) 2.5 MG 10 MG INHALE (19:52)
== END 2024-06-05 21:05 | disposition home or self-care (01) ==
PROVIDERS: Physician Assistant; Emergency Provider Emergency Medicine
DX: J45.901 Unspecified asthma with (acute) exacerbation (principal); J20.9 Acute bronchitis, unspecified; Z03.818 Encounter for observation for suspected exposure to other biological agents ruled out; F17.210 Nicotine dependence, cigarettes, uncomplicated
CPT/HCPCS: 0241U; 71046; 93005; 94640; 99285

== ENCOUNTER 2024-07-08 10:26 | Outpatient (AMB) | payer OTHER, SELFPAY ==
[2024-07-08 10:34] VITALS: BP 108/62; PULSE 76; O2SAT 96; BMI 27.1
--- NOTE | 2024-07-08 10:34 | A.OFFPC_ITS ---
Vital Signs 07/08/24 10:34 Height 5 ft 8 in Weight 178 lb BMI 27.1 BP 108/62 Blood Pressure Location Lt brachial Position Sitting Pulse 76 Pulse Source Pulse Oximeter Pulse Oximetry (%) 96 Oxygen Delivery Method Room Air Intake Visit Reasons: asthma Chair And Couch Maker Required: No Accompanied by: Self / Same As Patient Allergies cat dander Allergy (Severe, Verified 07/08/24 10:34) asthma trigger, rash Medication List - Last Reconciled 07/08/24 by Jovan Alexandra MD albuterol sulfate 2.5 mg (3 mL) inhalation Q6H PRN albuterol sulfate 90 mcg/actuation (Ventolin HFA) 2 puffs inhalation Q4H PRN 30 days budesonide 0.5 mg (2 mL) inhalation DAILY 30 days dupilumab (Dupixent) 300 mg (2 mL) subcut Q2W 4 weeks escitalopram oxalate 10 mg PO QAM fluticasone propion-salmeterol 230-21 mcg/actuation (Advair HFA) 2 puffs PO BID ipratropium-albuterol 0.5 mg-3 mg(2.5 mg base)/3 mL 3 mL inhalation QID 30 days montelukast 10 mg PO DAILY nebulizers As directed nicotine 1 patch transdermal DAILY 28 days prednisolone 30 mg (10 mL) PO BID 5 days tiotropium bromide 2.5 mcg/actuation (Spiriva Respimat) 2 puffs PO DAILY trazodone 100 mg PO BEDTIME Tobacco use date assessed: 03/07/24 Dental Screening Dental Screen Date: 03/07/24 HPI asthma HPI Details asthma on rx; doing well and compliant [facility] Medical History Anxiety Asthma Asthma Asthma Asthma-COPD overlap syndrome Chronic allergic rhinitis COPD (chronic obstructive pulmonary disease) Cough Depression Dyspnea Eczema Tobacco dependence Surgical History Hx of cholecystectomy Family History Mother No problems noted. Father No problems noted. Social History Household Members: None Household Members Other:: roommate Housing: House Housing Other:: Shared living home Do you presently have visiting nurse or other home services: Yes ([facility]) Alcohol intake: former Patient Tobacco Use Status: Current someday Tobacco user Tobacco use type: Cigarette Cigarettes Per Day: 1 Years Smoked: 20 +/- Packs per year/per ci.00 e-Cigarette/Vaping Use: Never Used Second Hand Smoke Exposure: No Substance Use Type: Marijuana Advance Directives Date on File: 10/12/22 service: No Current occupational status: disabled Current occupational exposures/hazards: No Cognitive needs: No Hearing needs: No Vision needs: No Questionnaire PHQ-9 Over the last 2 weeks, how often have you been bothered by any of the following problems? 1. Little interest or pleasure in doing things: not at all 2. Feeling down, depressed, or hopeless: more than half the days 3. Trouble falling or staying asleep, or sleeping too much: not at all 4. Feeling tired or having little energy: not at all 5. Poor appetite or overeating: not at all 6. Feeling bad about yourself - or that you are a failure or have let yourself or your family down: not at all 7. Trouble concentrating on things, such as reading the newspaper or watching television: more than half the days 8. Moving or speaking so slowly that other people could have noticed. Or the opposite - being so fidgety or restless that you have been moving around a lot more than usual: nearly every day 9. Thoughts that you would be better off or of hurting yourself in some way: not at all Total score: 7 Depression Screening Interpretation: Negative Depression Screening Done: Yes 25621 - PHQ-9 Billing: Yes Source: Developed by Drs. Santiago August, Tiarra Stack, Prashanth Arana and colleagues, with an educational adriane from [employer]. Thrive Questionnaire Date Thrive assessed: 03/07/24 AUDIT C Alcohol Use Questionnaire (AUDIT-C) 1. How often do you have a drink containing alcohol?: Never Total Score: 0 Score Reviewed/Action Taken: Yes DIANA-7 AMB Questionnaire DIANA-7 Date DIANA - 7 assessed: 03/07/24 Source: Developed by Drs. Santiago August, Tiarra Stack, Prashanth Arana and colleagues, with an educational adriane from [employer]. Review of Systems Const Denies chills, Denies headache(s) and Denies weight loss ENT Denies headache(s) Card Denies chest pain, Denies syncope, Denies irregular heart rhythm and Denies dyspnea Resp Denies chest congestion, Denies cough and Denies dyspnea GI Denies abdominal pain, Denies change in stool character, Denies nausea and Denies vomiting Musc Denies deformity and Denies joint swelling Neuro Denies syncope and Denies headache(s) Physical exam (Primary Care) Vital Signs: Last Vital Signs Pulse 76 07/08/24 10:34 BP 108/62 07/08/24 10:34 Pulse Ox 96 07/08/24 10:34 Oxygen Delivery Method Room Air 07/08/24 10:34 BMI result Body Mass Index 27.1 Tobacco/Smoking Status: Tobacco use Status Tobacco use date assessed 03/07/24 07/08/24 10:35 Patient Tobacco Use Status Current someday Tobacco 07/08/24 10:35 Tobacco use type Cigarette 07/08/24 10:35 e-Cigarette/Vaping Use Never Used 07/08/24 10:35 PHQ-9: PHQ-9 Score PHQ-9: Total score 7 07/08/24 10:35 Depression Screening Interpretation: Negative Thrive Assessment: Date of Thrive Assessment Date Thrive assessed 03/07/24 07/08/24 10:35 Const General: cooperative, comfortable, no acute distress and alert Neck Neck: Yes no lymphadenopathy Thyroid: Thyroid normal Resp Effort & Inspection: normal respiratory effort Auscultation: clear to auscultation bilaterally Percussion: percussion normal Cardio Jugular venous distension: no JVD Palpation: normal PMI Rate: regular rate Rhythm: regular rhythm Heart sounds: S1 normal heart sound present and S2 normal heart sound present GI Inspection: Yes normal to inspection Palpation (GI): No hepatosplenomegaly present Skin General skin exam: no rashes or lesions noted Extrem General: Yes no clubbing, cyanosis or edema Coding Level of Care Code Est Pt Level 3 (55167) Diagnoses Severe persistent asthma without complication J45.50 Asthma severity: severe Asthma persistence: persistent Asthma complication type: uncomplicated Assessment & Plan Assessment & Plan (1) Asthma: Code(s): J45.909 - Unspecified asthma, uncomplicated Category: Medical Qualifiers: Asthma severity: severe Asthma persistence: persistent Asthma complication type: uncomplicated Qualified Code(s): J45.50 - Severe persistent asthma, uncomplicated Plan: stable; same rx
== END 2024-07-08 10:46 | disposition home or self-care (01) ==
PROVIDERS: Visit Provider Internal Medicine
DX: J45.50 Severe persistent asthma, uncomplicated (principal)

== ENCOUNTER → 2024-07-08 10:26 | Outpatient (BNVA) | payer OTHER, SELFPAY | PROVIDERS: Visit Provider Internal Medicine | DX: J45.50 Severe persistent asthma, uncomplicated (principal) | CPT/HCPCS: 96127; 99212 ==

== ENCOUNTER 2024-10-14 10:19 | Outpatient (AMB) | payer OTHER, SELFPAY ==
[2024-10-14 10:21] VITALS: BP 122/80; PULSE 81; O2SAT 97; BMI 27.1
--- NOTE | 2024-10-14 10:21 | A.OFFPC_ITS ---
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 Accompanied by: Self / Same As Patient Allergies cat dander Allergy (Severe, Verified 10/14/24 10:24) asthma trigger, rash Medication List - Last Reconciled 10/14/24 by Jovan Alexandra MD albuterol sulfate 2.5 mg (3 mL) inhalation Q6H PRN albuterol sulfate 90 mcg/actuation (Ventolin HFA) 2 puffs inhalation Q4H PRN 30 days budesonide 0.5 mg (2 mL) inhalation DAILY 30 days dupilumab (Dupixent) 300 mg (2 mL) subcut Q2W 4 weeks escitalopram oxalate 10 mg PO QAM fluticasone propion-salmeterol 230-21 mcg/actuation (Advair HFA) 2 puffs PO BID ipratropium-albuterol 0.5 mg-3 mg(2.5 mg base)/3 mL 3 mL inhalation QID 30 days montelukast 10 mg PO DAILY nebulizers As directed nicotine 1 patch transdermal DAILY 28 days tiotropium bromide 2.5 mcg/actuation (Spiriva Respimat) 2 puffs PO DAILY trazodone 100 mg PO BEDTIME Tobacco use date assessed: 10/14/24 Dental Screening Dental Screen Date: 10/14/24 Did you have a dental visit in the last 12 months?: Yes Did you have a dental problem in the last 6 months where you did not have access to dental care?: No Was dental information given to patient?: Patient has dentist HPI 3 month f/u HPI Details asthma; stable on rx PFSH Medical History Anxiety Asthma Asthma Asthma Asthma-COPD overlap syndrome Chronic allergic rhinitis COPD (chronic obstructive pulmonary disease) Cough Depression Dyspnea Eczema Tobacco dependence Surgical History Hx of cholecystectomy Family History Mother No problems noted. Father No problems noted. Social History Household Members: None Household Members Other:: roommate Housing: House Housing Other:: Shared living home Do you presently have visiting nurse or other home services: Yes ([facility]) Alcohol intake: former Patient Tobacco Use Status: Current someday Tobacco user Tobacco use type: Cigarette Cigarettes Per Day: 1 Years Smoked: 20 +/- e-Cigarette/Vaping Use: Never Used Second Hand Smoke Exposure: No Substance Use Type: Marijuana Advance Directives Date on File: 10/12/22 service: No Current occupational status: disabled Current occupational exposures/hazards: No Cognitive needs: No Hearing needs: No Vision needs: No Questionnaire PHQ-9 Over the last 2 weeks, how often have you been bothered by any of the following problems? 1. Little interest or pleasure in doing things: not at all 2. Feeling down, depressed, or hopeless: not at all 3. Trouble falling or staying asleep, or sleeping too much: not at all 4. Feeling tired or having little energy: not at all 5. Poor appetite or overeating: not at all 6. Feeling bad about yourself - or that you are a failure or have let yourself or your family down: not at all 7. Trouble concentrating on things, such as reading the newspaper or watching television: not at all 8. Moving or speaking so slowly that other people could have noticed. Or the opposite - being so fidgety or restless that you have been moving around a lot more than usual: not at all 9. Thoughts that you would be better off or of hurting yourself in some way: not at all Total score: 0 Depression Screening Interpretation: Negative Depression Screening Done: Yes Source: Developed by Drs. Santiago August, Tiarra Stack, Prashanth browning nd colleagues, with an educational adriane from [employer]. Thrive Questionnaire Date Thrive assessed: 10/14/24 I am a: Patient What is your living situation today?: I have a steady place to live Within the past 12 months, did the food you bought not last and you didn't have the money to get more?: Never true Within the past 12 months, did you worry whether your food would run out before you got money to buy more?: Never true Do you have trouble paying for medicines?: No Do you have trouble getting transportation to medical appointments?: No Do you have trouble paying your heating and electricity bill?: No Do you have trouble taking care of your child, family member or friend?: No Do you have trouble with day-to-day activities such as bathing, preparing meals, shopping, managing finances, etc.?: No Are you currently unemployed and looking for a job?: No Are you interested in more education?: No Please select the resources that you would like help with: None Currently or been in a relationship where the following occur: No concerns reported THRIVE Score: 0 AUDIT C Alcohol Use Questionnaire (AUDIT-C) 1. How often do you have a drink containing alcohol?: Never Total Score: 0 DIANA-7 AMB Questionnaire DIANA-7 Date DIANA - 7 assessed: 10/14/24 Feeling nervous, anxious, or on edge: 0 = Not at all Not being able to stop or control worryin = Not at all Worrying too much about different things: 0 = Not at all Trouble relaxin = Not at all Being so restless that it is hard to sit still: 0 = Not at all Becoming easily annoyed or irritable: 0 = Not at all Feeling afraid as if something awful might happen: 0 = Not at all Total DIANA-7 score (0-4 normal; 5-9 mild; 10-14 moderate; 15-21 severe): 0 Source: Developed by Drs. Santiago August, Tiarra Stack, Prashanth Arana and colleagues, with an educational adriane from [employer]. Review of Systems Const Denies chills, Denies headache(s) and Denies weight loss ENT Denies headache(s) Card Denies chest pain, Denies syncope, Denies irregular heart rhythm and Denies dyspnea Resp Denies chest congestion, Denies cough and Denies dyspnea GI Denies abdominal pain, Denies change in stool character, Denies nausea and Denies vomiting Musc Denies deformity and Denies joint swelling Neuro Denies syncope and Denies headache(s) Physical exam (Primary Care) Vital Signs: Last Vital Signs Pulse 81 10/14/24 10:21 BP 122/80 10/14/24 10:21 Pulse Ox 97 10/14/24 10:21 Oxygen Delivery Method Room Air 10/14/24 10:21 BMI result Body Mass Index 27.1 Tobacco/Smoking Status: Tobacco use Status Tobacco use date assessed 10/14/24 10/14/24 10:26 Patient Tobacco Use Status Current someday Tobacco 10/14/24 10:26 Tobacco use type Cigarette 10/14/24 10:26 e-Cigarette/Vaping Use Never Used 10/14/24 10:26 PHQ-9: PHQ-9 Score PHQ-9: Total score 0 10/14/24 10:26 Depression Screening Interpretation: Negative Thrive Assessment: Date of Thrive Assessment Date Thrive assessed 10/14/24 10/14/24 10:26 Currently or been in a relationship where the following occur: No concerns reported Const General: cooperative, comfortable, no acute distress and alert Neck Neck: Yes no lymphadenopathy Thyroid: Thyroid normal Resp Effort & Inspection: normal respiratory effort Auscultation: clear to auscultation bilaterally Percussion: percussion normal Cardio Jugular venous distension: no JVD Palpation: normal PMI Rate: regular rate Rhythm: regular rhythm Heart sounds: S1 normal heart sound present and S2 normal heart sound present GI Inspection: Yes normal to inspection Palpation (GI): No hepatosplenomegaly present Skin General skin exam: no rashes or lesions noted Extrem General: Yes no clubbing, cyanosis or edema Coding Level of Care Code Est Pt Level 3 (97368) Diagnoses Severe persistent asthma without complication J45.50 Asthma severity: severe Asthma persistence: persistent Asthma complication type: uncomplicated Assessment & Plan Assessment & Plan (1) Asthma: Code(s): J45.909 - Unspecified asthma, uncomplicated Category: Medical Qualifiers: Asthma severity: severe Asthma persistence: persistent Asthma complication type: uncomplicated Qualified Code(s): J45.50 - Severe persistent asthma, uncomplicated Plan: stable; same rx
== END 2024-10-14 10:28 | disposition home or self-care (01) ==
PROVIDERS: Visit Provider Internal Medicine
DX: J45.50 Severe persistent asthma, uncomplicated (principal)

== ENCOUNTER → 2024-10-14 10:19 | Outpatient (BNVA) | payer OTHER, SELFPAY | PROVIDERS: Visit Provider Internal Medicine | DX: J45.50 Severe persistent asthma, uncomplicated (principal) | CPT/HCPCS: 99212 ==

== ENCOUNTER 2024-11-01 09:32 | Outpatient (AMB) | payer OTHER, SELFPAY ==
[2024-11-01 09:40] VITALS: BP 112/80; PULSE 73; O2SAT 97; BMI 26.5
--- NOTE | 2024-11-01 09:40 | MHC.OFFVIS ---
Vital Signs 11/01/24 09:40 Height 5 ft 8 in Weight 174 lb 2.643 oz BMI 26.5 BP 112/80 Blood Pressure Location Rt brachial Position Sitting Pulse 73 Pulse Source Pulse Oximeter Pulse Oximetry (%) 97 Oxygen Delivery Method Room Air Intake Visit Reasons: Asthma Allergies cat dander Allergy (Severe, Verified 11/01/24 09:44) asthma trigger, rash HPI Comments Details: The patient is a 38-year-old gentleman with a known history of asthma in addition to polysubstance abuse. The patient is from developing worsening chest tightness and shortness of breath. The episodes moderate in severity. He has been evaluated in the ED already twice this year. He had evidence of eosinophilia his blood work suggesting allergic reactions potentially. In addition to that chest x-ray was clear. Patient was treated with prednisone. He does have a rescue inhaler. He denies any significant triggers. 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 We did provide him with spacer that he would use and I did give him struck shins and to use it. Also start him on a maintenance inhaler. I was sent to pharmacy although he may need a prior approval. Hopefully using the maintenance inhaler he will have decrease issues. The patient also but have to undergo blood work and pulmonary function studies. He is using a patch now for his tobacco dependency in he has not smoked since he put the patch on a few weeks ago. 02/28/2024 the patient is here for a pulmonary follow-up visit. He continues to struggle with asthma. He has been able to work specially because of the heat and humidity and also because of significant allergies. Therefore I did give him a work note to stay out of work specially because he works in [employer] his severe persistent asthma. He has been requiring prednisone on a regular basis about every month. During the last visit in January he did receive Solu-Medrol 125 mg and did have very slow prednisone taper. He continues to be compliant with his Advair and Spiriva. And also has been doing a very good job with smoking cutting down to only about 1 cigarette a day. The patient will could all together at this time. We did review his allergy testing. He has significant allergies with an elevated IgE and also has elevations in his eosinophils. Therefore, I do believe that based on his underlying symptoms uncontrolled asthma severe persistent asthma with multiple exacerbations a month that he will benefit from starting biologic therapy. I do believe Dupixent be a very good option for him. If not Fasenra be a very good option as well. Therefore, will going to work on getting him on biologic therapy at this time. 04/30/2024 the patient is here for a pulmonary follow-up visit. He is doing a lot better. The Dupixent injections have been very affecting beneficial for him. His asthma has been much better controlled. 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 We did talk about considering a new job but not enough feel where he is exposed to significant allergens. Ideally get inside building. The patient will talk to his social service agency director regarding that. In the meantime he can hold off on the nebulizer treatments. He just using as needed. He will continue with respiratory therapy as prescribed otherwise. The Dupixent will continue using every 2 weeks. Will follow-up in 6 months. If the patient develops any worsening symptoms prior to that he will call for an earlier assessment. 11/01/2024 the patient is here for pulmonary follow-up visit. Overall continues to do well. Uses respiratory therapy as prescribed. He has not required any prednisone more his nebulizer. The biologic shot, Dupixent has been very affecting beneficial continues to use it every 2 weeks. No adverse effects no evidence of any conjunctivitis a rash in the meantime though he continues to smoke cigarettes unfortunately. He understands that although he feels better from an asthma standpoint that this appears only going to continue making worse. He will continue to cut down. He does have the patch, available. [facility] Medical History Anxiety Asthma Asthma Asthma Asthma-COPD overlap syndrome Chronic allergic rhinitis COPD (chronic obstructive pulmonary disease) Cough Depression Dyspnea Eczema Tobacco dependence Surgical History Hx of cholecystectomy Family History Mother No problems noted. Father No problems noted. Social History (Updated 11/01/24 @ 09:43 by Jeannette Saavedra CMA) Household Members: None Household Members Other:: roommate Housing: House Housing Other:: Shared living home Do you presently have visiting nurse or other home services: Yes ([facility]) Alcohol intake: former Patient Tobacco Use Status: Current someday Tobacco user Tobacco use type: Cigarette Cigarettes Per Day: 5 Years Smoked: 20 +/- e-Cigarette/Vaping Use: Never Used Second Hand Smoke Exposure: No Substance Use Type: Marijuana Advance Directives Date on File: 10/12/22 service: No Current occupational status: disabled Current occupational exposures/hazards: No Cognitive needs: No Hearing needs: No Vision needs: No Review of Systems Const Denies chills, Denies fatigue, Denies headache(s) and Denies weight loss Eyes Denies change in vision, Denies diplopia and Denies eye pain ENT Denies vertigo, Denies dizziness, Denies headache(s) and Denies nasal discharge Card Denies chest pain, Denies rapid heart rate and Denies dyspnea on exertion Resp Denies chest congestion, Reports cough, Denies pain with cough, Denies dyspnea on exertion and Denies wheezing GI Denies abdominal pain, Denies hematochezia and Denies change in bowel habits Musc Denies myalgias, Denies arthralgias and Denies joint swelling Skin/Breast Denies lesions and Denies unusual bruising Neuro Denies vertigo, Denies dizziness, Denies headache(s) and Denies focal weakness Endo Denies fatigue Aller/Immun Denies wheezing Physical Exam Vital Signs: Last Vital Signs Pulse 73 11/01/24 09:40 BP 112/80 11/01/24 09:40 Pulse Ox 97 11/01/24 09:40 Oxygen Delivery Method Room Air 11/01/24 09:40 BMI result Body Mass Index 26.5 Const General: alert and in distress mild Neck Neck: Yes normal visual inspection, Yes full ROM and Yes no lymphadenopathy Chest Chest palpation & inspection: normal inspection of the chest Resp Effort & Inspection: normal respiratory effort Auscultation: no rhonchi, no wheezes and diminished lung sounds Cardio Rate: regular rate Rhythm: regular rhythm Heart sounds: S1 normal heart sound present and S2 normal heart sound present GI Palpation (GI): Soft to palpation and nontender Auscultation: normal bowel sounds Skin General skin exam: rashes and/or lesions noted Office Procedures Flu Questionnaire Does the patient have a severe egg allergy?: No Does the patient have severe life threatening allergies?: No Does the patient have a fever or illness today?: No Has the patient ever had Guillain-[place] Syndrome?: No Has the patient ever had any past reaction to a flu shot?: No Immunizations Fluarix Triv [id number] (PF) 45 mcg (15 mcg x 3)/0.5 mL IM syringe Performing Provider: Dillon Lagos MD [place] [facility] [place] [facility] Administered by: Ade Troncoso LPN on 11/01/24 10:03 Dose Route Admin Location Dispensed Lot Number Expiration Date NDC Director Corporate 0.5 mL IM Right Deltoid 0.5 mL [id number] 03/10/25 [id number] Programmr VIS Given Date VIS Provided VIS Publication Date 11/01/24 Single Vaccine 21 Eligibility Eligibility Date Funding Source Not [facility] Eligible 11/01/24 Private Quality Reporting (2019) Adult ([facility] 138/11/02/68) Smoking risk assessment performed?: Yes Patient Tobacco Use Status: Current someday Tobacco user Assessment & Plan Assessment & Plan (1) Asthma: Code(s): J45.909 - Unspecified asthma, uncomplicated Category: Medical Qualifiers: Asthma complication type: uncomplicated Asthma persistence: persistent Asthma severity: severe Qualified Code(s): J45.50 - Severe persistent asthma, uncomplicated (2) Tobacco dependence: Comment: quit Code(s): F17.200 - Nicotine dependence, unspecified, uncomplicated Category: Medical (3) Eczema: Code(s): L30.9 - Dermatitis, unspecified Category: Medical Qualifiers: Eczema type: unspecified Qualified Code(s): L30.9 - Dermatitis, unspecified (4) Chronic allergic rhinitis: Code(s): J30.9 - Allergic rhinitis, unspecified Category: Medical Plan continue Advair HFA to twice a day continue Spiriva continue Duoneb QID only as needed continue Singulair at night continue allergy shots conitnue Dupixent tobacco cessation: still smoking Follow-up in 6 months. Orders: Orders Influenza [id number] Immunization 11/01/24 J45.50 - Severe persistent asthma, uncomplicated Coding Level of Care Code Est Pt Level 4 (90432) Diagnoses Severe persistent asthma without complication J45.50 Asthma complication type: uncomplicated Asthma persistence: persistent Asthma severity: severe Tobacco dependence F17.200 Eczema, unspecified type L30.9 Eczema type: unspecified Chronic allergic rhinitis J30.9 Time Spent (min) 16
== END 2024-11-01 10:05 | disposition home or self-care (01) ==
PROVIDERS: PCP Internal Medicine; Visit Provider Hospitalist
DX: J45.50 Severe persistent asthma, uncomplicated (principal)
CPT/HCPCS: 99214

== ENCOUNTER → 2024-11-01 09:32 | Outpatient (BNVA) | payer OTHER, SELFPAY | PROVIDERS: PCP Internal Medicine; Visit Provider Hospitalist | DX: Z23 Encounter for immunization (principal); J45.50 Severe persistent asthma, uncomplicated; J30.9 Allergic rhinitis, unspecified; L30.9 Dermatitis, unspecified; F17.210 Nicotine dependence, cigarettes, uncomplicated | CPT/HCPCS: 90471; 90656; 99212 ==

== ENCOUNTER 2025-03-12 10:38 | Outpatient (AMB) | payer OTHER, SELFPAY ==
--- NOTE | 2025-03-12 10:48 | MHC.PC.OV ---
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 Required: No Allergies cat dander Allergy (Severe, Verified 03/12/25 10:58) asthma trigger, rash Medication List - Last Reconciled 03/12/25 by Rex Magdaleno PA-C albuterol sulfate 90 mcg/actuation (Ventolin HFA) 2 puffs inhalation Q4H PRN 30 days albuterol sulfate 2.5 mg (3 mL) inhalation Q6H PRN budesonide 0.5 mg (2 mL) inhalation DAILY 30 days dupilumab (Dupixent) 300 mg (2 mL) subcut Q2W 4 weeks escitalopram oxalate 10 mg PO QAM fluticasone propion-salmeterol 230-21 mcg/actuation (Advair HFA) 2 puffs PO BID ipratropium-albuterol 0.5 mg-3 mg(2.5 mg base)/3 mL 3 mL inhalation QID 30 days lisdexamfetamine (Vyvanse) 60 mg PO DAILY montelukast 10 mg PO DAILY nebulizers As directed nicotine 1 patch transdermal DAILY 28 days quetiapine (Seroquel) 25 mg PO TID tiotropium bromide 2.5 mcg/actuation (Spiriva Respimat) 2 puffs PO DAILY trazodone 100 mg PO BEDTIME Tobacco use date assessed: 10/14/24 Dental Screening Dental Screen Date: 10/14/24 HPI FAUSTO from [facility]/annual exam HPI Details Patient is a 39-year-old male here today for a transfer of care/annual physical. Previous PCP was Dr. Alexandra. Patient has a past medical history significant for asthma, allergies, tobacco use disorder. Currently part of a program and lives with his community health work. Tobacco dependency/ COPD/ Asthma patient followed by pulmonology here in [place]. Unfortunately continues to smoke half a pack cigarettes per day. Has found it very difficult to quit though does try at times with nicotine patches and nicotine gum. He also continues on Dupixent injections which has helped his breathing has well. .. Major depressive disorder/ ADHD: Patient followed by psychiatrist in his being managed with the medication for his depression and ADHD symptoms. Vaccines: Up-to-date with COVID vaccine, flu vaccine, pneumonia vaccine, need Tdap PFSH Medical History Dyspnea COPD (chronic obstructive pulmonary disease) Asthma Chronic allergic rhinitis Eczema Tobacco dependence Asthma-COPD overlap syndrome Cough Asthma Anxiety Depression Asthma Surgical History Hx of cholecystectomy Family History Mother No problems noted. Father No problems noted. Social History (Updated 03/12/25 @ 11:04 by Rex Magdaleno PA-C) Household Members: None Household Members Other:: roommate Housing: House Housing Other:: Shared living home Do you presently have visiting nurse or other home services: Yes ([facility]) Alcohol intake: former Year quit: 2021 Patient Tobacco Use Status: Current someday Tobacco user Tobacco use type: Cigarette Cigarettes Per Day: 10 Years Smoked: 20 +/- e-Cigarette/Vaping Use: Never Used Second Hand Smoke Exposure: No Substance Use Type: Marijuana Advance Directives Date on File: 10/12/22 service: No Current occupational status: disabled Current occupational exposures/hazards: No Cognitive needs: No Hearing needs: No Vision needs: No Questionnaire PHQ-9 Over the last 2 weeks, how often have you been bothered by any of the following problems? 1. Little interest or pleasure in doing things: not at all 2. Feeling down, depressed, or hopeless: several days 3. Trouble falling or staying asleep, or sleeping too much: not at all 4. Feeling tired or having little energy: several days 5. Poor appetite or overeating: several days 6. Feeling bad about yourself - or that you are a failure or have let yourself or your family down: not at all 7. Trouble concentrating on things, such as reading the newspaper or watching television: several days 8. Moving or speaking so slowly that other people could have noticed. Or the opposite - being so fidgety or restless that you have been moving around a lot more than usual: not at all 9. Thoughts that you would be better off or of hurting yourself in some way: not at all Total score: 4 Depression Screening Interpretation: Positive Depression Screening Follow-up: Existing condition and In treatment Depression Screening Done: Yes 21213 - PHQ-9 Billing: Yes Source: Developed by Drs. Santiago August, Tiarra Stack, Prashanth Arana and colleagues, with an educational adriane from [employer]. Thrive Questionnaire Date Thrive assessed: 03/12/25 I am a: Patient What is your living situation today?: I have a steady place to live Within the past 12 months, did the food you bought not last and you didn't have the money to get more?: Never true Within the past 12 months, did you worry whether your food would run out before you got money to buy more?: Never true Do you have trouble paying for medicines?: No Do you have trouble getting transportation to medical appointments?: No Do you have trouble paying your heating and electricity bill?: No Do you have trouble taking care of your child, family member or friend?: No Do you have trouble with day-to-day activities such as bathing, preparing meals, shopping, managing finances, etc.?: No Are you currently unemployed and looking for a job?: No Are you interested in more education?: No Please select the resources that you would like help with: None Currently or been in a relationship where the following occur: No concerns reported THRIVE Score: 0 AUDIT C Alcohol Use Questionnaire (AUDIT-C) 1. How often do you have a drink containing alcohol?: Never Total Score: 0 DIANA-7 AMB Questionnaire DIANA-7 Date DIANA - 7 assessed: 03/12/25 Feeling nervous, anxious, or on edge: 1 = Several days Not being able to stop or control worryin = Not at all Worrying too much about different things: 0 = Not at all Trouble relaxin = Not at all Being so restless that it is hard to sit still: 0 = Not at all Becoming easily annoyed or irritable: 0 = Not at all Feeling afraid as if something awful might happen: 0 = Not at all Total DIANA-7 score (0-4 normal; 5-9 mild; 10-14 moderate; 15-21 severe): 1 Source: Developed by Drs. Santiago August, Tiarra Stack, Prashanth Arana and colleagues, with an educational adriane from [employer] DIANA-7 Assessment Billing DIANA-7 Assessment Tool: DIANA-7 Assessment 29543 Review of Systems Const Denies body aches, Denies chills, Denies excessive sweating, Denies fatigue, Denies fever(s) and Denies headache(s) Eyes Denies blurry vision ENT Denies dysphagia, Denies vertigo, Denies dizziness, Denies headache(s), Denies hearing loss and Denies tinnitus Card Denies chest pain, Denies chest pain with activity, Denies syncope, Denies irregular heart rhythm and Denies dyspnea Resp Denies chest congestion, Denies cough, Denies hemoptysis, Denies dyspnea and Denies wheezing GI Denies abdominal pain, Denies melena, Denies hematochezia, Denies coffee ground emesis, Denies dysphagia, Denies diarrhea, Denies nausea and Denies vomiting Denies difficulty urinating, Denies dysuria, Denies urinary frequency, Denies urinary hesitancy and Denies urinary urgency Musc Denies arthralgias, Denies limited range of motion, Denies muscle cramps and Denies muscle weakness Skin/Breast Denies rash and Denies skin ulcer Neuro Denies Abnormal speech present, Denies confusion, Denies vertigo, Denies dizziness, Denies syncope, Denies headache(s), Denies memory loss and Denies seizure-like activity Psych Denies anxiety, Denies confusion, Denies depression, Denies memory loss, Denies panic attacks and Denies paranoia Endo Denies excessive sweating, Denies fatigue, Denies flushing, Denies polydipsia and Denies polyuria Aller/Immun Denies wheezing Physical exam (Primary Care) Vital Signs: Last Vital Signs Pulse 77 03/12/25 10:49 BP 112/86 03/12/25 10:49 Pulse Ox 86 L 03/12/25 10:49 Oxygen Delivery Method Room Air 03/12/25 10:49 BMI result Body Mass Index 24.4 Tobacco/Smoking Status: Tobacco use Status Tobacco use date assessed 10/14/24 03/12/25 10:54 Patient Tobacco Use Status Current someday Tobacco 03/12/25 11:04 Tobacco use type Cigarette 03/12/25 11:04 e-Cigarette/Vaping Use Never Used 03/12/25 11:04 Are you ready to quit: Yes Tobacco cessation counseling provided: Yes Items discussed: Nicotine replacement Relapse Prevention: discussed the importance of a supportive environment, discussed negative mood or depression after quitting, weight gain after smoking is common and discussed dietary, exercise and/or lifestyle changes Number of minutes spent counselin CPT code: 28331 - 4-10 Minutes PHQ-9: PHQ-9 Score PHQ-9: Total score 4 03/12/25 11:16 Depression Screening Interpretation: Positive Depression Screening Follow-up: Existing condition and In treatment Thrive Assessment: Date of Thrive Assessment Date Thrive assessed 03/12/25 03/12/25 10:54 Currently or been in a relationship where the following occur: No concerns reported Const General: cooperative, comfortable, no acute distress, alert and awake; No confusion Orientation/consciousness: oriented to person, oriented to place, patient oriented x3 and No confusion HENMT Head: Yes normocephalic Ears: external ears normal and TM's normal bilaterally Face and sinus: No sinus tenderness Mouth: Normal oral and palatal mucosa present and tongue normal Teeth and gingiva: dentition normal and gingiva normal Throat: Yes posterior oropharynx normal, Yes tonsils normal and Yes uvula midline Eyes Conjunctivae: conjunctivae normal Sclerae: sclerae normal Pupils: Equal, round and reactive pupils present EOM: EOMs intact bilaterally Direct Ophthalmoscopy: No no photophobia Neck Neck: Yes no lymphadenopathy, No tender and Yes no JVD Thyroid: Thyroid normal Carotids: no bruits Chest Chest palpation & inspection: no tenderness Resp Effort & Inspection: normal respiratory effort, no audible wheezes, not labored and no stridor Auscultation: no crackles, no rales, no rhonchi and no wheezes Cardio Jugular venous distension: no JVD Rate: regular rate, not bradycardic and not tachycardic Rhythm: regular rhythm Bruits: no carotid bruits Peripheral pulses: Peripheral pulses 2+ throughout GI Inspection: Yes normal to inspection, No abdominal wall ecchymosis and No visible herniation Palpation (GI): Soft to palpation, nontender, no guarding, not rigid and No hepatosplenomegaly present Auscultation: normoactive bowel sounds General: Yes no CVA tenderness Back/Spine/Pelvis Back: no CVA tenderness and No back tenderness Cervical Spine: cervical ROM normal Thoracic/Lumbar Spine: thoracic and lumbar spine normal to inspection, straight leg raise negative bilaterally, No thoraco-lumbar ROM limited and No lumbar spinal tenderness Skin Lesions: no lesions Rashes: no rashes Wounds: no wounds Neuro General: oriented to person, oriented to place, patient oriented x3, CN's II-XI intact bilaterally and No confusion Cranial nerves: Yes Equal, round and reactive pupils present and Yes Normal accommodation reflex present Cognition (Neuro): normal cognition Speech: No Abnormal speech present Gait exam (Neuro): Normal gait present Motor exam (neuro): 5/5 motor strength present throughout Extrem Right upper extremity: full ROM; no cyanosis Left upper extremity: full ROM; no cyanosis Right lower extremity: no edema Left lower extremity: no edema Psych Appearance: grossly normal Mental Status: mental status grossly normal Affect: normal affect Attitude: cooperative Thought process: Normal thought process present Coding Level of Care Code Est Pt Level 4 (66832) Diagnoses Annual physical exam Z00.00 Cigarette nicotine dependence without complication F17.210 Nicotine product type: cigarettes Substance use status: uncomplicated Screening for diabetes mellitus (DM) Z13.1 Severe persistent asthma without complication J45.50 Asthma complication type: uncomplicated Asthma persistence: persistent Asthma severity: severe MDD (major depressive disorder), recurrent episode, moderate F33.1 Attention deficit hyperactivity disorder (ADHD), predominantly inattentive type F90.0 Attention deficit-hyperactivity disorder type: predominantly inattentive Additional Codes DIANA-7 Assessment Billing - DIANA-7 Assessment Tool: DIANA-7 Assessment 20836 ([id number]) PHQ-9 - 75545 - PHQ-9 Billing: Yes ([id number]) Vital Signs *Quality* - CPT code: 15738 - 4-10 Minutes ([id number]) Assessment & Plan Assessment & Plan (1) Annual physical exam: Code(s): Z00.00 - Encounter for general adult medical examination without abnormal findings Category: Medical Plan: As per HPI (2) Nicotine dependence: Code(s): F17.200 - Nicotine dependence, unspecified, uncomplicated Category: Medical Qualifiers: Nicotine product type: cigarettes Substance use status: uncomplicated Qualified Code(s): F17.210 - Nicotine dependence, cigarettes, uncomplicated Plan: Patient does somewhat understand he needs to quit smoking though has found it very difficult to do so. Will supply patient with another script of nicotine gum to help him cut down his smoking. He reports previously being a 2-3 pack a day smoker (3) Screening for diabetes mellitus (DM): Code(s): Z13.1 - Encounter for screening for diabetes mellitus Category: Medical Plan: As per HPI (4) Asthma: Code(s): J45.909 - Unspecified asthma, uncomplicated Category: Medical Qualifiers: Asthma complication type: uncomplicated Asthma persistence: persistent Asthma severity: severe Qualified Code(s): J45.50 - Severe persistent asthma, uncomplicated Plan: Patient followed by [place] pulmonology. Does have albuterol inhalers available to him (5) MDD (major depressive disorder), recurrent episode, moderate: Code(s): F33.1 - Major depressive disorder, recurrent, moderate Category: Medical Plan: Patient's PHQ-9 score positive for mild depression which has been existing condition for him. Again speaks with a psychiatrist a regularly in his managed with mental health medications (6) ADHD: Code(s): F90.9 - Attention-deficit hyperactivity disorder, unspecified type Category: Medical Qualifiers: Attention deficit-hyperactivity disorder type: predominantly inattentive Qualified Code(s): F90.0 - Attention-deficit hyperactivity disorder, predominantly inattentive type Plan: Patient followed by Psychiatry in managed with stimulant ADHD medication at this time. Orders: Orders Comprehensive [place]. Panel Fast Today Z13.1 - Encounter for screening for diabetes mellitus Complete Blood Count no Diff Today Z13.1 - Encounter for screening for diabetes mellitus Medications: New nicotine (polacrilex) 4 mg buccal Q2H 100 ea 1RF 30 days F17.210 - Nicotine dependence, cigarettes, uncomplicated
[2025-03-12 10:49] VITALS: BP 112/86; PULSE 77; O2SAT 86; BMI 24.4
== END 2025-03-12 11:15 | disposition home or self-care (01) ==
PROVIDERS: PCP Physician Assistant; Visit Provider Physician Assistant
DX: Z00.00 Encounter for general adult medical examination without abnormal findings (principal); F17.210 Nicotine dependence, cigarettes, uncomplicated; Z13.1 Encounter for screening for diabetes mellitus; J45.50 Severe persistent asthma, uncomplicated; F33.1 Major depressive disorder, recurrent, moderate; F90.0 Attention-deficit hyperactivity disorder, predominantly inattentive type

== ENCOUNTER → 2025-03-12 10:38 | Outpatient (BNVA) | payer OTHER, SELFPAY | PROVIDERS: PCP Internal Medicine; Visit Provider Physician Assistant | DX: Z00.00 Encounter for general adult medical examination without abnormal findings (principal); F90.0 Attention-deficit hyperactivity disorder, predominantly inattentive type; F33.1 Major depressive disorder, recurrent, moderate; F17.210 Nicotine dependence, cigarettes, uncomplicated | CPT/HCPCS: 96127; 99212 ==

== ENCOUNTER 2025-04-28 09:34 | Outpatient (AMB) | payer OTHER, SELFPAY ==
[2025-04-28 09:44] VITALS: BP 120/80; PULSE 82; O2SAT 96; BMI 24.5
--- NOTE | 2025-04-28 09:44 | MHC.OFFVIS ---
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 The patient is from developing worsening chest tightness and shortness of breath. The episodes moderate in severity. He has been evaluated in the ED already twice this year. He had evidence of eosinophilia his blood work suggesting allergic reactions potentially. In addition to that chest x-ray was clear. Patient was treated with prednisone. He does have a rescue inhaler. He denies any significant triggers. he was giving inhaler short-acting beta agonist his telehealth case manager does not feel that he uses appropriately. We did provide him with spacer that he would use and I did give him struck shins and to use it. Also start him on a maintenance inhaler. I was sent to pharmacy although he may need a prior approval. Hopefully using the maintenance inhaler he will have decrease issues. The patient also but have to undergo blood work and pulmonary function studies. He is using a patch now for his tobacco dependency in he has not smoked since he put the patch on a few weeks ago. 02/28/2024 the patient is here for a pulmonary follow-up visit. He continues to struggle with asthma. He has been able to work specially because of the heat and humidity and also because of significant allergies. Therefore I did give him a work note to stay out of work specially because he works in [employer] his severe persistent asthma. He has been requiring prednisone on a regular basis about every month. During the last visit in January he did receive Solu-Medrol 125 mg and did have very slow prednisone taper. He continues to be compliant with his Advair and Spiriva. And also has been doing a very good job with smoking cutting down to only about 1 cigarette a day. The patient will could all together at this time. We did review his allergy testing. He has significant allergies with an elevated IgE and also has elevations in his eosinophils. Therefore, I do believe that based on his underlying symptoms uncontrolled asthma severe persistent asthma with multiple exacerbations a month that he will benefit from starting biologic therapy. I do believe Dupixent be a very good option for him. If not Fasenra be a very good option as well. Therefore, will going to work on getting him on biologic therapy at this time. 04/30/2024 the patient is here for a pulmonary follow-up visit. He is doing a lot better. The Dupixent injections have been very affecting beneficial for him. His asthma has been much better controlled. 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 We did talk about considering a new job but not enough feel where he is exposed to significant allergens. Ideally get inside building. The patient will talk to his social work lecturer regarding that. In the meantime he can hold off on the nebulizer treatments. He just using as needed. He will continue with respiratory therapy as prescribed otherwise. The Dupixent will continue using every 2 weeks. Will follow-up in 6 months. If the patient develops any worsening symptoms prior to that he will call for an earlier assessment. 04/28/2025 the patient is here for pulmonary follow-up visit. Overall continues to do well. Uses respiratory therapy as prescribed. He has not required any prednisone more his nebulizer. The biologic shot, Dupixent has been very affecting beneficial continues to use it every 2 weeks. No adverse effects no evidence of any conjunctivitis a rash in the meantime though he continues to smoke cigarettes unfortunately. He understands that although he feels better from an asthma standpoint that this appears only going to continue making worse. He will continue to cut down. He does have the patch, available. [facility] Medical History Dyspnea COPD (chronic obstructive pulmonary disease) Asthma Chronic allergic rhinitis Eczema Tobacco dependence Asthma-COPD overlap syndrome Cough Asthma Anxiety Depression Asthma Surgical History Hx of cholecystectomy Family History Mother No problems noted. Father No problems noted. Social History Household Members: None Household Members Other:: roommate Housing: House Housing Other:: Shared living home Do you presently have visiting nurse or other home services: Yes ([facility]) Alcohol intake: former Year quit: 2021 Patient Tobacco Use Status: Current someday Tobacco user Tobacco use type: Cigarette Cigarettes Per Day: 10 Years Smoked: 20 +/- e-Cigarette/Vaping Use: Never Used Second Hand Smoke Exposure: No Substance Use Type: Marijuana Advance Directives Date on File: 10/12/22 service: No Current occupational status: disabled Current occupational exposures/hazards: No Cognitive needs: No Hearing needs: No Vision needs: No Review of Systems Const Denies chills, Denies fatigue, Denies headache(s) and Denies weight loss Eyes Denies change in vision, Denies diplopia and Denies eye pain ENT Denies vertigo, Denies dizziness, Denies headache(s) and Denies nasal discharge Card Denies chest pain, Denies rapid heart rate and Denies dyspnea on exertion Resp Denies chest congestion, Reports cough, Denies pain with cough, Denies dyspnea on exertion and Denies wheezing GI Denies abdominal pain, Denies hematochezia and Denies change in bowel habits Musc Denies myalgias, Denies arthralgias and Denies joint swelling Skin/Breast Denies lesions and Denies unusual bruising Neuro Denies vertigo, Denies dizziness, Denies headache(s) and Denies focal weakness Endo Denies fatigue Aller/Immun Denies wheezing Physical Exam Vital Signs: Last Vital Signs Pulse 82 04/28/25 09:44 BP 120/80 04/28/25 09:44 Pulse Ox 96 04/28/25 09:44 Oxygen Delivery Method Room Air 04/28/25 09:44 BMI result Body Mass Index 24.5 Const General: alert and in distress mild Neck Neck: Yes normal visual inspection, Yes full ROM and Yes no lymphadenopathy Chest Chest palpation & inspection: normal inspection of the chest Resp Effort & Inspection: normal respiratory effort Auscultation: no rhonchi, no wheezes and diminished lung sounds Cardio Rate: regular rate Rhythm: regular rhythm Heart sounds: S1 normal heart sound present and S2 normal heart sound present GI Palpation (GI): Soft to palpation and nontender Auscultation: normal bowel sounds Skin General skin exam: rashes and/or lesions noted Assessment & Plan Assessment & Plan (1) Asthma: Code(s): J45.909 - Unspecified asthma, uncomplicated Category: Medical Qualifiers: Asthma complication type: uncomplicated Asthma persistence: persistent Asthma severity: severe Qualified Code(s): J45.50 - Severe persistent asthma, uncomplicated (2) Tobacco dependence: Comment: quit Code(s): F17.200 - Nicotine dependence, unspecified, uncomplicated Category: Medical (3) Eczema: Code(s): L30.9 - Dermatitis, unspecified Category: Medical Qualifiers: Eczema type: unspecified Qualified Code(s): L30.9 - Dermatitis, unspecified (4) Chronic allergic rhinitis: Code(s): J30.9 - Allergic rhinitis, unspecified Category: Medical Plan continue Advair HFA to twice a day continue Spiriva continue Duoneb QID only as needed continue Singulair at night conitnue Dupixent tobacco cessation: still smoking Follow-up in 6 months. Coding Level of Care Code Est Pt Level 4 (79652) Diagnoses Severe persistent asthma without complication J45.50 Asthma complication type: uncomplicated Asthma persistence: persistent Asthma severity: severe Tobacco dependence F17.200 Eczema, unspecified type L30.9 Eczema type: unspecified Chronic allergic rhinitis J30.9 Time Spent (min) 16
== END 2025-04-28 09:54 | disposition home or self-care (01) ==
LOC: HO.HPS 09:35
PROVIDERS: PCP Internal Medicine; Visit Provider Hospitalist
DX: J45.50 Severe persistent asthma, uncomplicated (principal); F17.200 Nicotine dependence, unspecified, uncomplicated; L30.9 Dermatitis, unspecified; J30.9 Allergic rhinitis, unspecified
CPT/HCPCS: 99214

== ENCOUNTER → 2025-04-28 09:34 | Outpatient (BNVA) | payer OTHER, SELFPAY | PROVIDERS: PCP Internal Medicine; Visit Provider Hospitalist | DX: J45.50 Severe persistent asthma, uncomplicated (principal) | CPT/HCPCS: 99212 ==

== ENCOUNTER 2025-07-24 15:40 | Outpatient (AMB) | payer OTHER, SELFPAY ==
[2025-07-24 15:41] VITALS: BP 122/80; PULSE 78; TEMP 36.2; O2SAT 97; BMI 24.2
--- NOTE | 2025-07-24 15:41 | A.OFFPC_ITS ---
Vital Signs 07/24/25 15:41 Height 5 ft 8 in Weight 159 lb 2 oz BMI 24.2 BP 122/80 Blood Pressure Location Lt brachial Position Sitting Pulse 78 Pulse Source Pulse Oximeter Temp 97.1 F Temp Source Temporal Artery Scan Pulse Oximetry (%) 97 Oxygen Delivery Method Room Air Intake Visit Reasons: Paperwork Accompanied by: correctional counselor/case manager Charbel Jensenlure Allergies cat dander Allergy (Severe, Verified 07/24/25 15:56) asthma trigger, rash Medication List - Last Reconciled 07/24/25 by Rex Magdaleno PA-C albuterol sulfate 90 mcg/actuation (Ventolin HFA) 2 puffs inhalation Q4H PRN 30 days albuterol sulfate 2.5 mg (3 mL) inhalation Q6H PRN budesonide 0.5 mg (2 mL) inhalation DAILY 30 days dextroamphetamine-amphetamine 20 mg ER (Adderall XR) 1 cap PO QAM dupilumab (Dupixent) 300 mg (2 mL) subcut Q2W 4 weeks escitalopram oxalate 10 mg PO QAM fluticasone propion-salmeterol 230-21 mcg/actuation (Advair HFA) 2 puffs PO BID ipratropium-albuterol 0.5 mg-3 mg(2.5 mg base)/3 mL 3 mL inhalation QID 30 days lisdexamfetamine (Vyvanse) 60 mg PO DAILY montelukast 10 mg PO DAILY nebulizers As directed quetiapine (Seroquel) 25 mg PO TID tiotropium bromide 2.5 mcg/actuation (Spiriva Respimat) 2 puffs PO DAILY trazodone 100 mg PO BEDTIME Tobacco use date assessed: 07/24/25 Dental Screening Dental Screen Date: 07/24/25 Did you have a dental visit in the last 12 months?: Yes Did you have a dental problem in the last 6 months where you did not have access to dental care?: No Was dental information given to patient?: Patient has dentist HPI Paperwork HPI Details Patient is a 39-year-old male here today for a follow-up visit. Patient has a past medical history significant for asthma, allergies, tobacco use disorder. 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 Unfortunately continues to smoke half a pack cigarettes per day. Has found it very difficult to quit though does try at times with nicotine patches and nicotine gum. Has also tried Chantix though has been effective. At this time and has no interest in stopping smoking He also continues on Dupixent injections which has helped his breathing has well. .. Major depressive disorder/ ADHD: Patient followed by psychiatrist in his being managed with the medication for his depression and ADHD symptoms. Vaccines: Up-to-date with COVID vaccine,, pneumonia vaccine, needs flu vaccine, need Tdap PFSH Medical History Dyspnea COPD (chronic obstructive pulmonary disease) Asthma Chronic allergic rhinitis Eczema Tobacco dependence Asthma-COPD overlap syndrome Cough Asthma Anxiety Depression Asthma Surgical History Hx of cholecystectomy Family History Mother No problems noted. Father No problems noted. Social History Household Members: None Household Members Other:: roommate Housing: House Housing Other:: Shared living home Do you presently have visiting nurse or other home services: Yes ([facility]) Alcohol intake: former Year quit: 2021 Patient Tobacco Use Status: Current someday Tobacco user Tobacco use type: Cigarette Cigarettes Per Day: 5 Years Smoked: 20 +/- e-Cigarette/Vaping Use: Never Used Second Hand Smoke Exposure: No Substance Use Type: Marijuana Advance Directives Date on File: 10/12/22 service: No Current occupational status: disabled Current occupational exposures/hazards: No Cognitive needs: No Hearing needs: No Vision needs: No Questionnaire PHQ-9 Over the last 2 weeks, how often have you been bothered by any of the following problems? 1. Little interest or pleasure in doing things: not at all 2. Feeling down, depressed, or hopeless: several days 3. Trouble falling or staying asleep, or sleeping too much: not at all 4. Feeling tired or having little energy: several days 5. Poor appetite or overeating: several days 6. Feeling bad about yourself - or that you are a failure or have let yourself or your family down: not at all 7. Trouble concentrating on things, such as reading the newspaper or watching television: several days 8. Moving or speaking so slowly that other people could have noticed. Or the opposite - being so fidgety or restless that you have been moving around a lot more than usual: not at all 9. Thoughts that you would be better off or of hurting yourself in some way: not at all Total score: 4 Depression Screening Interpretation: Positive Depression Screening Follow-up: Existing condition and In treatment Depression Screening Done: Yes 65779 - PHQ-9 Billing: Patient declined-do not bill Source: Developed by Drs. Santiago August, Tiarra Stack, Prashanth Arana and colleagues, with an educational adriane from [employer]. Thrive Questionnaire Date Thrive assessed: 03/12/25 I am a: Patient What is your living situation today?: I have a steady place to live Within the past 12 months, did the food you bought not last and you didn't have the money to get more?: Never true Within the past 12 months, did you worry whether your food would run out before you got money to buy more?: Never true Do you have trouble paying for medicines?: No Do you have trouble getting transportation to medical appointments?: No Do you have trouble paying your heating and electricity bill?: No Do you have trouble taking care of your child, family member or friend?: No Do you have trouble with day-to-day activities such as bathing, preparing meals, shopping, managing finances, etc.?: No Are you currently unemployed and looking for a job?: No Are you interested in more education?: No Please select the resources that you would like help with: None Currently or been in a relationship where the following occur: No concerns reported THRIVE Score: 0 AUDIT C Alcohol Use Questionnaire (AUDIT-C) 1. How often do you have a drink containing alcohol?: Never 3. How often do you have six or more drinks on one occasion?: Never Total Score: 0 DIANA-7 AMB Questionnaire DIANA-7 Date DIANA - 7 assessed: 03/12/25 Feeling nervous, anxious, or on edge: 1 = Several days Not being able to stop or control worryin = Not at all Worrying too much about different things: 0 = Not at all Trouble relaxin = Not at all Being so restless that it is hard to sit still: 0 = Not at all Becoming easily annoyed or irritable: 0 = Not at all Feeling afraid as if something awful might happen: 0 = Not at all Total DIANA-7 score (0-4 normal; 5-9 mild; 10-14 moderate; 15-21 severe): 1 Source: Developed by Drs. Santiago August, Tiarra Stack, Prashanth Arana and colleagues, with an educational adriane from [employer]. DIANA-7 Assessment Billing DIANA-7 Assessment Tool: DIANA-7 Assessment 33710 Review of Systems Const Denies headache(s) Eyes Denies loss of vision ENT Denies vertigo, Denies dizziness, Denies headache(s) and Denies sore throat Card Denies chest pain, Denies leg edema and Denies lightheadedness Resp Denies cough, Denies hemoptysis and Denies wheezing GI Denies abdominal pain, Denies melena, Denies constipation, Denies diarrhea and Denies vomiting Denies dysuria, Denies urinary frequency and Denies urinary urgency Musc Denies arthralgias, Denies joint swelling, Denies numbness and Denies tingling Neuro Denies Abnormal speech present, Denies behavioral changes, Denies vertigo, Denies dizziness, Denies headache(s), Denies loss of vision, Denies memory loss, Denies numbness and Denies tingling Psych Denies anxiety, Denies behavioral changes, Denies depression, Denies memory loss and Denies panic attacks Mando/Lymph Denies easy bleeding and Denies easy bruising Aller/Immun Denies wheezing Physical exam (Primary Care) Vital Signs: Last Vital Signs Temp 97.1 F 07/24/25 15:41 Pulse 78 07/24/25 15:41 BP 122/80 07/24/25 15:41 Pulse Ox 97 07/24/25 15:41 Oxygen Delivery Method Room Air 07/24/25 15:41 BMI result Body Mass Index 24.2 Tobacco/Smoking Status: Tobacco use Status Tobacco use date assessed 07/24/25 07/24/25 15:50 Patient Tobacco Use Status Current someday Tobacco 07/24/25 15:50 Tobacco use type Cigarette 07/24/25 15:50 e-Cigarette/Vaping Use Never Used 07/24/25 15:50 Are you ready to quit: No Tobacco cessation counseling provided: Yes Relapse Prevention: discussed the importance of a supportive environment, discussed negative mood or depression after quitting, weight gain after smoking is common and discussed dietary, exercise and/or lifestyle changes Number of minutes spent counselin CPT code: 77709 - 4-10 Minutes PHQ-9: PHQ-9 Score PHQ-9: Total score 4 07/24/25 16:17 Depression Screening Interpretation: Positive Depression Screening Follow-up: E xisting condition and In treatment Thrive Assessment: Date of Thrive Assessment Date Thrive assessed 03/12/25 07/24/25 15:50 Currently or been in a relationship where the following occur: No concerns reported Const General: healthy appearing, no acute distress, alert and awake Nutritional Appearance: well nourished Orientation/consciousness: oriented to person, oriented to place and oriented to time HENMT Ears: TM's normal bilaterally General nose exam: Normal nasal mucous membranes and turbinates present Eyes Conjunctivae: conjunctivae normal Sclerae: sclerae normal Pupils: Equal, round and reactive pupils present Neck Neck: Yes no lymphadenopathy and Yes no JVD Thyroid: Thyroid normal Carotids: no bruits Resp Effort & Inspection: normal respiratory effort and not tachypneic Auscultation: no crackles, no rales, no rhonchi and no wheezes Cardio Rate: regular rate Rhythm: regular rhythm Heart sounds: no murmurs and normal S1 and S2 GI Palpation (GI): Soft to palpation, nontender, no hepatomegaly and no splenomegaly Auscultation: normal bowel sounds Skin General skin exam: no rashes or lesions noted and dry skin Neuro General: oriented to person, oriented to place and oriented to time Cranial nerves: Yes Equal, round and reactive pupils present Speech: No Abnormal speech present Gait exam (Neuro): Normal gait present Motor exam (neuro): no tremor noted Extrem Right upper extremity: full ROM Left upper extremity: full ROM Right lower extremity: full ROM; no edema Left lower extremity: full ROM; no edema Psych Mental Status: mental status grossly normal Speech and movement: Normal speech and movement present Affect: normal affect Attitude: cooperative Thought process: Normal thought process present Office Procedures Flu Questionnaire Does the patient have a severe egg allergy?: No Does the patient have severe life threatening allergies?: No Does the patient have a fever or illness today?: No Has the patient ever had Guillain-Prichard Syndrome?: No Has the patient ever had any past reaction to a flu shot?: No Immunizations Fluarix [id number] (PF) 45 mcg (15 mcg x 3)/0.5 mL IM syringe Performing Provider: Rex Magdaleno PA-C Performing Location: [facility] Administered by: Yeny Lopez CMA on 07/24/25 16:24 Dose Route Admin Location Dispensed Lot Number Expiration Date NDC Galvan[employer] 0.5 mL IM Left Deltoid 0.5 mL [id number] 03/10/26 68068-400-86 [employer] VIS Given Date VIS Provided VIS Publication Date 07/24/25 Single Vaccine 24 Eligibility Eligibility Date Funding Source Not VFC Eligible 07/24/25 Private Boostrix Tdap 2.5 Lf unit-8 mcg-5 Lf/0.5 mL intramuscular syringe Performing Provider: Rex Magdaleno PA-C Performing Location: [facility] Administered by: Yeny Lopez CMA on 07/24/25 16:24 Dose Route Admin Location Dispensed Lot Number Expiration Date NDC [employer] 0.5 mL IM Left Deltoid 0.5 mL [id number] 02/21/28 83579-544-40 [employer] Total Dispensed Waste 0.5 mL 0 % VIS Given Date VIS Provided VIS Publication Date 07/24/25 Single Vaccine 21 Eligibility Eligibility Date Funding Source Not VF Eligible 07/24/25 Private Coding Diagnoses Cigarette nicotine dependence without complication F17.210 Nicotine product type: cigarettes Substance use status: uncomplicated Severe persistent asthma without complication J45.50 Asthma complication type: uncomplicated Asthma persistence: persistent Asthma severity: severe Additional Codes DIANA-7 Assessment Billing - DIANA-7 Assessment Tool: DIANA-7 Assessment 19778 ([id number]) Vital Signs *Quality* - CPT code: 27299 - 4-10 Minutes ([id number]) Assessment & Plan Assessment & Plan (1) Nicotine dependence: Code(s): F17.200 - Nicotine dependence, unspecified, uncomplicated Category: Medical Qualifiers: Nicotine product type: cigarettes Substance use status: uncomplicated Qualified Code(s): F17.210 - Nicotine dependence, cigarettes, uncomplicated Plan: Patient does somewhat understand he needs to quit smoking though has found it very difficult to do so. Patient was prescribed nicotine replacement and Chantix though has not been effective for him. At this time patient has no desire to stop smoking. He reports previously being a 2-3 pack a day smoker (2) Asthma: Code(s): J45.909 - Unspecified asthma, uncomplicated Category: Medical Qualifiers: Asthma complication type: uncomplicated Asthma persistence: persistent Asthma severity: severe Qualified Code(s): J45.50 - Severe persistent asthma, uncomplicated Plan: Patient followed by [facility]. Does have albuterol inhalers available to him. Does use Dupixent injections every 2 weeks. Orders: Orders Complete Blood Count no Diff Today Z13.1 - Encounter for screening for diabetes mellitus Influenza [id number] Immunization Today Z23 - Encounter for immunization TDaP Immunization Today Z23 - Encounter for immunization Comprehensive [place]. Panel Fast Today Z13.1 - Encounter for screening for diabetes mellitus
== END 2025-07-24 16:23 | disposition home or self-care (01) ==
PROVIDERS: PCP Physician Assistant; Visit Provider Physician Assistant
DX: Z23 Encounter for immunization (principal)

== ENCOUNTER → 2025-07-24 15:40 | Outpatient (BNVA) | payer OTHER, SELFPAY | PROVIDERS: PCP Physician Assistant; Visit Provider Physician Assistant | DX: J45.50 Severe persistent asthma, uncomplicated (principal); J44.89 Other specified chronic obstructive pulmonary disease; F90.9 Attention-deficit hyperactivity disorder, unspecified type; F32.A Depression, unspecified; F17.210 Nicotine dependence, cigarettes, uncomplicated; Z23 Encounter for immunization | CPT/HCPCS: 90471; 90472; 90656; 90715; 96127; 96160; 99212 ==